=== PATIENT | male | born 1980 | race Caucasian/White ===

== ENCOUNTER 2017-03-30 05:09 | Emergency (ER) | payer MEDICARE, MEDICAID ==
--- NOTE | 2017-03-30 05:40 | EDM.PDOCBH ---
<Jose Juan Lott - Last Filed: 03/30/17 06:57> ED HPI GENERAL MEDICAL PROBLEM - General Chief Complaint: Drug or Alcohol Abuse Stated Complaint: [facility] Time Seen by Provider: 03/30/17 05:24 Source of Information: Reports: Patient, RN Notes Reviewed History Limitations: Reports: Uncooperative (The patient is reluctant to answer questions, complaining that he has answered all of them many times before) - History of Present Illness INITIAL COMMENTS - FREE TEXT/NARRATIVE: The patient states that he took 30-40 clozapine tablets, 400 mg each, around 20: 30 last night to "tried to commit suicide". The patient's medications are prepackaged,, however, and all of his packages are full, with the exception of one package that has 3 morning, 4 evening, and 7 bedtime pockets empty. Additionally, a pill bottle was found containing 4 tablets of Vistaril 50 mg, 10 tablets of Depakote 500 mg, and 5 tablets of Cogentin 1 mg. It is not clear if those pills that he did not take off from this week, or if he had saved them from prior weeks. If the patient took all 7 days of clozapine 400 mg, that would be 2.8 g. The patient states that he has attempted suicide 3 times the past, always with pill overdoses. When asked why he came to the ED, he stated that "It didn't work , so I didn't know what to do". Here in the ED, the patient is afebrile at 97.3, however, he is tachycardic at about 120 bpm. - Related Data Allergies Allergy/AdvReac Type Severity Reaction Status Date / Time No Known Allergies Allergy Verified 03/30/17 05:18 Past Medical History HEENT History: Reports: Impaired Vision Other HEENT History: wears glasses Cardiovascular History: Reports: Hypertension Respiratory History: Reports: Asthma Psychiatric History: Reports: Other (See Below) (Schizoaffective disorder) Endocrine/Metabolic History: Reports: Hypothyroidism, IDDM Social & Family History - Tobacco Use Smoking Status *Q: Current Every Day Smoker Years of Tobacco use: 18 Packs/Tins Daily: 0.6 - Caffeine Use Caffeine Use: Reports: None - Alcohol Use Alcohol Use History: Yes Alcohol Use Frequency: Socially - Recreational Drug Use Recreational Drug Use: Yes Drug Use in Last 12 Months: Yes Recreational Drug Type: Reports: Marijuana/Hashish Recreational Drug Use Frequency: Socially - Living Situation & Occupation Living situation: Reports: Single, Alone Occupation: Disabled ED ROS GENERAL - Review of Systems Review Of Systems: See Below Constitutional: Reports: No Symptoms HEENT: Reports: No Symptoms Respiratory: Reports: No Symptoms Cardiovascular: Reports: No Symptoms Endocrine: Reports: No Symptoms GI/Abdominal: Reports: No Symptoms : Reports: No Symptoms Musculoskeletal: Reports: No Symptoms Skin: Reports: No Symptoms Neurological: Reports: No Symptoms Psychiatric: Reports: No Symptoms Hematologic/Lymphatic: Reports: No Symptoms Immunologic: Reports: No Symptoms ED EXAM, BEHAVIORAL HEALTH - Physical Exam Exam: See Below Exam Limited By: No Limitations General Appearance: Alert, WD/WN, No Apparent Distress Eye Exam: Bilateral Eye: Normal Inspection Ears: Normal External Exam, Hearing Grossly Normal Nose: Normal Inspection, No Blood Throat/Mouth: Normal Inspection, Normal Lips, Normal Voice, No Airway Compromise Head: Atraumatic, Normocephalic Neck: Normal Inspection, Full Range of Motion Respiratory/Chest: No Respiratory Distress, No Accessory Muscle Use, Wheezing ( scattered) Cardiovascular: Normal Peripheral Pulses, No Gallop, No JVD, No Murmur, No Rub, Tachycardia (regular) GI/Abdominal: Normal Bowel Sounds, Soft, Non-Tender, No Organomegaly, No Distention, No Abnormal Bruit, No Mass (Male) Exam: Deferred Back Exam: Normal Inspection, Full Range of Motion, NT Extremities: Normal Inspection, Normal Range of Motion, No Pedal Edema, Normal Capillary Refill Neurological: Alert, No Motor/Sensory Deficits Psychiatric: Normal Affect Skin Exam: Warm, Dry, Intact, Normal color, No rash EKG INTERPRETATION EKG Date: 03/30/17 Time: 05:44 Rhythm: Other (Sinus tachycardia) Rate (Beats/Min): 120 [place]: Normal P-Wave: Present QRS: Normal ST-T: Normal QT: Normal Comparison: NA - No Prior EKG COURSE, BEHAVIORAL HEALTH COMP - Course Vital Signs: Last Vital Signs Temp 36.3 C 03/30/17 05:12 Pulse 113 H 03/30/17 10:42 Resp 16 03/30/17 10:42 BP 134/80 03/30/17 10:42 Pulse Ox 95 03/30/17 10:42 Orders, Labs, Meds: Active Orders 24 hr Category Date Time Status EKG Documentation Completion [RC] STAT Care 03/30/17 05:40 Active Sodium Chloride 0.9% [Normal Saline] 1,000 ml Med 03/30/17 05:45 Active IV ASDIRECTED Medication Orders Sodium Chloride (Normal Saline) 1,000 mls @ 150 mls/hr IV ASDIRECTED KAREN Last Admin: 03/30/17 06:01 Dose: 150 mls/hr Laboratory Tests 03/30/17 03/30/17 03/30/17 Range/Units 06:05 06:05 06:05 WBC 7.33 (4.23-9.07) K/mm3 RBC 5.23 (4.63-6.08) M/mm3 Hgb 15.1 (13.7-17.5) gm/L Hct 43.4 (40.1-51.0) % MCV 83.0 (79.0-92.2) fl MCH 28.9 (25.7-32.2) pg MCHC 34.8 (32.2-35.5) g/dl RDW Std Deviation 42.4 (35.1-43.9) fL Plt Count 196 (163-337) K/mm3 MPV 8.8 L (9.4-12.3) fl Neutrophils % (Manual) 75 H (40-60) % Band Neutrophils % 3 (0-10) % Lymphocytes % (Manual) 16 L (20-40) % Atypical Lymphs % 0 % Monocytes % (Manual) 6 (2-10) % Eosinophils % (Manual) 0 L (0.8-7.0) % Basophils % (Manual) 0 L (0.2-1.2) Toxic Granulation 1+ slight Platelet Estimate Adequate Plt Morphology Comment Normal RBC Morph Comment Normal Sodium 139 (136-145) mEq/L Potassium 4.5 (3.5-5.1) mEq/L Chloride 102 (98-107) mEq/L Carbon Dioxide 24 (21-32) mEq/L Anion Gap 17.5 H (5-15) BUN 25 H (7-18) mg/dL Creatinine 1.6 H (0.7-1.3) mg/dL Est Cr Clr Drug Dosing 74.92 mL/min Estimated GFR (MDRD) 49 (>60) mL/min BUN/Creatinine Ratio 15.6 (14-18) Glucose 140 H (74-106) mg/dL POC Glucose (70-105) mg/dL Calcium 8.7 (8.5-10.1) mg/dL Total Bilirubin 0.4 (0.2-1.0) mg/dL AST 18 (15-37) U/L ALT 21 (16-63) U/L Alkaline Phosphatase 54 (46-116) U/L Total Protein 6.7 (6.4-8.2) g/dl Albumin 3.8 (3.4-5.0) g/dl Globulin 2.9 gm/dL Albumin/Globulin Ratio 1.3 (1-2) Salicylates 4.5 (2.8-20) mg/dL Urine Opiates Screen (NEGATIVE) Ur Buprenorphine Scrn (NEGATIVE) Ur Oxycodone Screen (NEGATIVE) Urine Methadone Screen (NEGATIVE) Ur Propoxyphene Screen (NEGATIVE) Acetaminophen 1 L (10-30) ug/mL Ur Barbiturates Screen (NEGATIVE) Ur Tricyclics Screen (NEGATIVE) Ur Phencyclidine Scrn (NEGATIVE) Ur Amphetamine Screen (NEGATIVE) U Methamphetamines Scrn (NEGATIVE) U Benzodiazepines Scrn (NEGATIVE) U Cocaine Metab Screen (NEGATIVE) U Marijuana (THC) Screen (NEGATIVE) Ethyl Alcohol 0.00 (0.00) gm% 03/30/17 03/30/17 Range/Units 07:25 07:56 WBC (4.23-9.07) K/mm3 RBC (4.63-6.08) M/mm3 Hgb (13.7-17.5) gm/L Hct (40.1-51.0) % MCV (79.0-92.2) fl MCH (25.7-32.2) pg MCHC (32.2-35.5) g/dl RDW Std Deviation (35.1-43.9) fL Plt Count (163-337) K/mm3 MPV (9.4-12.3) fl Neutrophils % (Manual) (40-60) % Band Neutrophils % (0-10) % Lymphocytes % (Manual) (20-40) % Atypical Lymphs % % Monocytes % (Manual) (2-10) % Eosinophils % (Manual) (0.8-7.0) % Basophils % (Manual) (0.2-1.2) Toxic Granulation Platelet Estimate Plt Morphology Comment RBC Morph Comment Sodium (136-145) mEq/L Potassium (3.5-5.1) mEq/L Chloride (98-107) mEq/L Carbon Dioxide (21-32) mEq/L Anion Gap (5-15) BUN (7-18) mg/dL Creatinine (0.7-1.3) mg/dL Est Cr Clr Drug Dosing mL/min Estimated GFR (MDRD) (>60) mL/min BUN/Creatinine Ratio (14-18) Glucose (74-106) mg/dL POC Glucose 136 H (70-105) mg/dL Calcium (8.5-10.1) mg/dL Total Bilirubin (0.2-1.0) mg/dL AST (15-37) U/L ALT (16-63) U/L Alkaline Phosphatase (46-116) U/L Total Protein (6.4-8.2) g/dl Albumin (3.4-5.0) g/dl Globulin gm/dL Albumin/Globulin Ratio (1-2) Salicylates (2.8-20) mg/dL Urine Opiates Screen Negative (NEGATIVE) Ur Buprenorphine Scrn Negative (NEGATIVE) Ur Oxycodone Screen Negative (NEGATIVE) Urine Methadone Screen Negative (NEGATIVE) Ur Propoxyphene Screen Negative (NEGATIVE) Acetaminophen (10-30) ug/mL Ur Barbiturates Screen Negative (NEGATIVE) Ur Tricyclics Screen Presumptive positive H (NEGATIVE) Ur Phencyclidine Scrn Negative (NEGATIVE) Ur Amphetamine Screen Presumptive positive H (NEGATIVE) U Methamphetamines Scrn Presumptive positive H (NEGATIVE) U Benzodiazepines Scrn Negative (NEGATIVE) U Cocaine Metab Screen Negative (NEGATIVE) U Marijuana (THC) Screen Presumptive positive H (NEGATIVE) Ethyl Alcohol (0.00) gm% Medications Generic Name Dose Route Start Last Admin Trade Name Freq PRN Reason Stop Dose Admin Sodium Chloride 1,000 mls @ 150 mls/hr 03/30/17 05:45 03/30/17 06:01 Normal Saline IV 150 mls/hr ASDIRECTED KAREN Administration Discontinued Medications Generic Name Dose Route Start Last Admin Trade Name Freq PRN Reason Stop Dose Admin Sodium Chloride 2,000 mls @ 999 mls/hr 03/30/17 07:21 03/30/17 08:35 Normal Saline IV 03/30/17 09:21 999 mls/hr ONETIME ONE Administration Medical Clearance: 03/30/17 07:00 The patient's anion gap is elevated at 17.5. His BUN/Cr are elevated at 25/1.6, and his blood glucose is elevated at 140. Unfortunately, we do not have prior labs to compare. The urine drug screen is still pending. Case discussed with Dr. Mary Marie, and care of the patient turned over to her at this time, for change of shift. Departure - Departure Disposition: DC/Tfer to Other 70 Clinical Impression: Methamphetamine use Suicidal overdose Qualifiers: Encounter type: initial encounter Qualified Code(s): T50.902A - Poisoning by unspecified drugs, medicaments and biological substances, intentional self-harm , initial encounter - Discharge Information Referrals: Georgia Cardenas MD [Primary Care Provider] - <Hillary Irene A - Last Filed: 03/30/17 10:58> COURSE, BEHAVIORAL HEALTH COMP - Course Re-Assessment/Re-Exam: Patient signed out to me by Dr. Lott pending observation/reeval. Patient confirms to me that he took an overdose, he states that around 8:30 PM last night, in an attempt to kill himself. He states he's not still feeling suicidal at this moment. He is not able to explain to me why he was feeling suicidal last night. He states that he was angry but doesn't provide details about what triggered the attempt. He is calm and cooperative. His heart rate is around 115 sinus tachycardia he is otherwise well appearing with benign exam. We'll continue to observe. Anticipate psychiatry consult when medically cleared. Re-Assessment/Re-Exam Date: 03/30/17 Re-Assessment/Re-Exam Time: 08:07 (Discussed with Denita Watts at [facility]. We agreed that patient likely needs psych admission given his attempt and suicidality. I asked if she is able to facilitate finding a psych inpatient bed for him and helping with commital. She states that since he was initially seen and evaluated in ED it would be more appropriate for me to do commital. Also states that she anticipates that inpatient psych facility would want request for bed to be from me (the MD) and so isn't really able to facilitate a transfer. I will discuss with SW here to see if they can assist.) Discharge vs Psych Eval/Treatment:: 03/30/17 09:07 Notified that staff from [facility] will be here to eval pt/facilitate dispo. 03/30/17 10:36 Denita with [facility] came to assist with committal paperwork. Discussed with Dr. Edward, psychiatrist at [facility] who accepts the patient for transfer. Patient will be transported to [facility] ED by [employer] department. Dr. Ren, ED physician at [facility], accepts the patient for transfer. Patient remains calm and cooperative. Suspect that mild persistent tachycardia is likely due to amphetamines. 03/30/17 10:58 deputy probation officer at bedside, they will transport Departure - Departure Time of Disposition: 10:38
[2017-03-30] MEDS ORDERED: Sodium Chloride 0.9% 1,000 ML IV SCH (05:45)
[2017-03-30] MEDS ORDERED: Sodium Chloride 0.9% 2,000 ML IV ONE (07:21)
[2017-03-30 10:43] VITALS: BP 134/80
== END 2017-03-30 10:57 | disposition other institution (70) ==
LOC: JD.ED 05:09 → MERGE 05:09 → JD.ED 10:57
DX: T42.4X2A Poisoning by benzodiazepines, intentional self-harm, initial encounter (principal); F15.90 Other stimulant use, unspecified, uncomplicated; I10 Essential (primary) hypertension; J45.909 Unspecified asthma, uncomplicated; E03.9 Hypothyroidism, unspecified; E11.9 Type 2 diabetes mellitus without complications; F17.210 Nicotine dependence, cigarettes, uncomplicated
CPT/HCPCS: 36415; 80053; 80306; 82962; 85025; 93005; 96360; 96361; 99285; G0480; J7040

== ENCOUNTER 2019-06-22 19:36 | Emergency (ER) | payer MEDICARE, MEDICAID ==
[2019-06-22 19:46] VITALS: BP 125/95; PULSE 98
[2019-06-22] MEDS ORDERED: HYDROmorphone 1 MG/ML Syringe IVPUSH STA (20:12)
[2019-06-22] MEDS ORDERED: Ondansetron 4 MG/2 ML SDV IVPUSH ONE (20:12)
[2019-06-22] MEDS ORDERED: Sodium Chloride 0.9% 1,000 ML IV SCH (20:15)
--- NOTE | 2019-06-22 20:20 | EDM.PDOC ---
ED HPI GENERAL MEDICAL PROBLEM - General Chief Complaint: Gastrointestinal Problem Stated Complaint: SOB ABDOMINAL PAIN Time Seen by Provider: 06/22/19 19:56 Source of Information: Reports: Patient, Old Records, RN Notes Reviewed History Limitations: Reports: No Limitations - History of Present Illness INITIAL COMMENTS - FREE TEXT/NARRATIVE: Patient is a 38-year-old male who presents to the ED for the evaluation of abdominal pain. Patient states that he is not been feeling well for the past week, he states that he has little to no energy. He states his appetite has been lacking he had cereal for breakfast this morning, and some cottage cheese today, but nothing really taste good to him. Patient complains of nausea, and his abdomen hurting, he states this is mostly in the epigastrium, he states that he feels mildly short of breath due to the pain. Patient denies any fevers or chills, vomiting or diarrhea, or any chest pain. He notes that his last bowel movement was around 3 or 4 days ago now. He states he takes 20 meds daily and believes that we have a current medication list in the computer for him. Patient's history reveals that he is a diabetic, and takes some psychiatric medications. - Related Data Allergies Allergy/AdvReac Type Severity Reaction Status Date / Time No Known Allergies Allergy Verified 06/22/19 19:46 Home Meds: Home Meds Albuterol [Ventolin HFA] 2 puff INH DAILY 03/14/19 [History] Benztropine [Cogentin] 2 mg PO BID 03/14/19 [History] Divalproex Sodium [Depakote] 1,000 mg PO BEDTIME 03/14/19 [History] Divalproex Sodium [Depakote] 500 mg PO DAILY 03/14/19 [History] Hydrochlorothiazide [Microzide] 12.5 mg PO DAILY 03/14/19 [History] Insulin Glarg,Human.Rec.Analog [Lantus Solostar] 10 unit SQ DAILY 03/14/19 [ History] Lisinopril 20 mg PO DAILY 03/14/19 [History] Ranitidine [Zantac] 150 mg PO DAILY 03/14/19 [History] cloZAPine [Clozapine] 200 mg PO BEDTIME 03/14/19 [History] sitaGLIPtin Phos/Metformin HCl [Janumet 50-500 MG] 1 tab PO BID 03/14/19 [ History] Past Medical History HEENT History: Reports: Impaired Vision Other HEENT History: wears glasses Cardiovascular History: Reports: Hypertension Respiratory History: Reports: Asthma Gastrointestinal History: Reports: GERD Psychiatric History: Reports: Other (See Below) Endocrine/Metabolic History: Reports: Hypothyroidism, IDDM Social & Family History - Tobacco Use Smoking Status *Q: Former Smoker Used Tobacco, but Quit: Yes Month/Year Tobacco Last Used: june 19 2019 - Caffeine Use Caffeine Use: Reports: Soda - Recreational Drug Use Recreational Drug Use: Yes Drug Use in Last 12 Months: Yes Recreational Drug Type: Reports: Marijuana/Hashish Recreational Drug Use Frequency: Daily - Living Situation & Occupation Living situation: Reports: Alone, Single Occupation: Disabled ED ROS GENERAL - Review of Systems Review Of Systems: See Below Constitutional: Reports: Malaise, Decreased Appetite. Denies: Fever, Chills HEENT: Reports: No Symptoms Respiratory: Reports: Shortness of Breath Cardiovascular: Denies: Chest Pain Endocrine: Reports: No Symptoms GI/Abdominal: Reports: Abdominal Pain (epigastrium/mid abdomen), Nausea. Denies : Diarrhea, Vomiting : Reports: No Symptoms Musculoskeletal: Reports: No Symptoms Skin: Reports: No Symptoms Neurological: Reports: No Symptoms Psychiatric: Reports: No Symptoms ED EXAM, GI/ABD - Physical Exam Exam: See Below Exam Limited By: No Limitations General Appearance: Alert, WD/WN, No Apparent Distress Eyes: Bilateral: Normal Appearance Throat/Mouth: Normal Inspection, Normal Lips, Normal Teeth, Normal Gums, Normal Oropharynx, Normal Voice, No Airway Compromise Head: Atraumatic, Normocephalic Neck: Normal Inspection Respiratory/Chest: No Respiratory Distress, Lungs Clear, Normal Breath Sounds, No Accessory Muscle Use, Chest Non-Tender Cardiovascular: Normal Peripheral Pulses, Regular Rate, Rhythm, No Murmur GI/Abdominal Exam: Normal Bowel Sounds, Soft, No Distention, No Mass, Guarding ( around entire abdomen, but he states that the mid abdomen/epigastrium is the most tender with palpation.) Extremities: Normal Inspection, Normal Capillary Refill Neurological: Alert, Oriented, Normal Cognition, No Motor/Sensory Deficits Psychiatric: Normal Affect, Normal Mood Skin Exam: Warm, Dry, Intact, Normal Color, No Rash Course - Vital Signs Last Recorded V/S: Last Vital Signs Temp 97.2 F 06/22/19 19:43 Pulse 98 06/22/19 19:43 Resp 16 06/22/19 19:43 BP 125/95 H 06/22/19 19:43 Pulse Ox 97 06/22/19 19:43 - Orders/Labs/Meds Orders: Active Orders 24 hr Category Date Time Status Abdomen Pelvis w Cont [CT] Stat Exams 06/22/19 20:12 Ordered UA W/MICROSCOPIC [URIN] Stat Lab 06/22/19 20:12 Ordered Sodium Chloride 0.9% [Normal Saline] 1,000 ml Med 06/22/19 20:15 Active IV ASDIRECTED Medication Orders Sodium Chloride (Normal Saline) 1,000 mls @ 999 mls/hr IV ASDIRECTED KAREN Last Admin: 06/22/19 20:43 Dose: 999 mls/hr Labs: Laboratory Tests 06/22/19 06/22/19 06/22/19 Range/Units 20:45 20:45 22:40 WBC 7.40 (4.23-9.07) K/mm3 RBC 5.59 (4.63-6.08) M/mm3 Hgb 15.6 (13.7-17.5) gm/dl Hct 44.9 (40.1-51.0) % MCV 80.3 (79.0-92.2) fl MCH 27.9 (25.7-32.2) pg MCHC 34.7 (32.2-35.5) g/dl RDW Std Deviation 39.0 (35.1-43.9) fL Plt Count 241 (163-337) K/mm3 MPV 8.8 L (9.4-12.3) fl Neutrophils % (Manual) 50 (40-60) % Band Neutrophils % 0 (0-10) % Lymphocytes % (Manual) 45 H (20-40) % Atypical Lymphs % 0 % Monocytes % (Manual) 5 (2-10) % Eosinophils % (Manual) 0 L (0.8-7.0) % Basophils % (Manual) 0 L (0.2-1.2) Platelet Estimate Adequate Plt Morphology Comment Normal RBC Morph Comment Normal Sodium 132 L (136-145) mEq/L Potassium 3.7 (3.5-5.1) mEq/L Chloride 95 L (98-107) mEq/L Carbon Dioxide 26 (21-32) mEq/L Anion Gap 14.7 (5-15) BUN 12 (7-18) mg/dL Creatinine 1.0 (0.7-1.3) mg/dL Est Cr Clr Drug Dosing 124.17 mL/min Estimated GFR (MDRD) > 60 (>60) mL/min BUN/Creatinine Ratio 12.0 L (14-18) Glucose 151 H (74-106) mg/dL Calcium 8.6 (8.5-10.1) mg/dL Total Bilirubin 0.4 (0.2-1.0) mg/dL AST 14 L (15-37) U/L ALT 33 (16-63) U/L Alkaline Phosphatase 59 (46-116) U/L Total Protein 6.5 (6.4-8.2) g/dl Albumin 3.8 (3.4-5.0) g/dl Globulin 2.7 gm/dL Albumin/Globulin Ratio 1.4 (1-2) Urine Color Light yellow (Yellow) Urine Appearance Clear (Clear) Urine pH 7.0 (5.0-8.0) Ur Specific [place] 1.010 (1.005-1.030) Urine Protein Negative (Negative) Urine Glucose (UA) Negative (Negative) Urine Ketones Negative (Negative) Urine Occult Blood Negative (Negative) Urine Nitrite Negative (Negative) Urine Bilirubin Negative (Negative) Urine Urobilinogen 0.2 (0.2-1.0) Ur Leukocyte Esterase Negative (Negative) Meds: Medications Generic Name Dose Route Start Last Admin Trade Name Freq PRN Reason Stop Dose Admin Sodium Chloride 1,000 mls @ 999 mls/hr 06/22/19 20:15 06/22/19 20:43 Normal Saline IV 999 mls/hr ASDIRECTED KAREN Administration Discontinued Medications Generic Name Dose Route Start Last Admin Trade Name Freq PRN Reason Stop Dose Admin Hydromorphone HCl 1 mg 06/22/19 20:12 06/22/19 20:44 Dilaudid IVPUSH 06/22/19 20:13 1 mg ONETIME STA Administration Iopamidol 100 ml 06/22/19 22:22 06/22/19 22:25 Isovue-300 (61%) IVPUSH 06/22/19 22:23 100 ml ONETIME ONE Administration Ondansetron HCl 4 mg 06/22/19 20:12 06/22/19 20:43 Zofran IVPUSH 06/22/19 20:13 4 mg ONETIME ONE Administration - Re-Assessments/Exams Free Text/Narrative Re-Assessment/Exam: 06/22/19 20:21 Patient presents to the ED for evaluation of abdominal pain. I did order IV to be placed, abdomen and pelvis CT with contrast, some IV fluids, 1 mg IV Dilaudid , 4 mg IV Zofran, CBC, CMP, UA for initial evaluation. 06/22/19 22:28 Patient labs have been reported, and demonstrate no worrisome acute abnormalities, sodium was mildly low, but the IV fluids given should have corrected this. CT is pending at this time. 06/22/19 23:08 Urinalysis was collected and is unremarkable. CT has been done, and [facility] could not find any sort of acute intra-abdominal pathology. They do know however there is an abundant quantity of stool seen throughout the colon. At this time, it is likely that the patient is suffering from constipation, and most of his symptoms would correlate with this. I will provide him a bottle of mag citrate to take home, the oral contrast and IV fluids should help as well to alleviate some of his symptoms. Departure - Departure Time of Disposition: 23:10 Disposition: Home, Self-Care 01 Condition: Fair Clinical Impression: Constipation Qualifiers: Constipation type: unspecified constipation type Qualified Code(s): K59.00 - Constipation, unspecified - Discharge Information *PRESCRIPTION DRUG MONITORING PROGRAM REVIEWED*: No *COPY OF PRESCRIPTION DRUG MONITORING REPORT IN PATIENT ALBA: No Instructions: Constipation, Adult, [id number] Referrals: Georgia Cardenas MD [Primary Care Provider] - Forms: ED Department Discharge Additional Instructions: You were evaluated in the ER today regarding your abdominal pain. Your laboratory evaluation was within normal limits, your CT demonstrated that you had a large amount of stool throughout her colon. This is consistent with constipation and would explain most of your symptoms that you've been experiencing. You were given some IV fluids, and the oral contrast should also help provide a laxative effect. He was given a bottle of magnesium citrate to take home with you, please drink one half bottle wait a few hours to see if you don't have a large bowel movement, if you do not have a large bowel movement and it few hours you may repeat the last half of the bottle. Recommend that you increase your oral fluid intake, and try to start your self on some sort of stool softener daily to help guard against constipation. You may take 500 mg Tylenol or 600 mg ibuprofen every 6 hours as needed for further pain relief. Please return to the ED if your symptoms should change or worsen. - My Orders Last 24 Hours: My Active Orders 06/22/19 20:12 Abdomen Pelvis w Cont [CT] Stat UA W/MICROSCOPIC [URIN] Stat 06/22/19 20:15 Sodium Chloride 0.9% [Normal Saline] 1,000 ml IV ASDIRECTED - Assessment/Plan Last 24 Hours: My Active Orders 06/22/19 20:12 Abdomen Pelvis w Cont [CT] Stat UA W/MICROSCOPIC [URIN] Stat 06/22/19 20:15 Sodium Chloride 0.9% [Normal Saline] 1,000 ml IV ASDIRECTED
[2019-06-22] MEDS ORDERED: Iopamidol 612 MG/ML 100 ML Bottle IVPUSH ONE (22:22)
[2019-06-22] MEDS ORDERED: Magnesium Citrate Solution 296 ML Bottle PO ONE (23:10)
--- NOTE | 2019-06-23 06:43 | CT ---
CT abdomen and pelvis Technique: Multiple axial sections were obtained from above the dome of the diaphragm inferiorly through the pubic symphysis. Intravenous and oral contrast was utilized. Delayed images were also obtained through the bladder. Comparison: Previous CT abdomen and pelvis study of 03/14/19. Findings: Mild increased stool is seen throughout the colon. Nothing acute is seen within the visualized lung bases. Liver contains no focal abnormality. Spleen appears within normal limits. Adrenal glands show no nodule. Pancreas is within normal limits. Kidneys show symmetric contrast enhancement without hydronephrosis or mass. Aorta shows no aneurysm. Gallbladder contains no calcified gallstones. No retroperitoneal adenopathy or mesenteric abnormalities are seen. Appendix is seen and is normal in size. No pelvic mass or adenopathy is identified. Delayed images show contrast within the bladder. Bone window settings were reviewed which show moderate disc space narrowing at L5-S1. Minimal scattered endplate osteophytes are seen within the spine. No acute osseous abnormality is noted. Impression: 1. Mild increased stool within the colon and other findings which are believed to be incidental. 2. Nothing acute is seen. Diagnostic code #2 I agree with preliminary report from [facility], finalized on 06/23/19, 12:02 AM Central Time
== END 2019-06-22 23:23 | disposition home or self-care (01) ==
LOC: JD.ED 19:36
DX: K59.00 Constipation, unspecified (principal); I10 Essential (primary) hypertension; E11.9 Type 2 diabetes mellitus without complications; K21.9 Gastro-esophageal reflux disease without esophagitis; Z79.4 Long term (current) use of insulin; Z79.899 Other long term (current) drug therapy; Z87.891 Personal history of nicotine dependence
CPT/HCPCS: 36415; 74177; 80053; 81001; 85007; 85027; 96361; 96374; 96375; 99284; A9270; J1170; J2405; J7040; Q9967; 99283

== ENCOUNTER 2020-01-20 13:54 | Emergency (ER) | payer MEDICARE, MEDICAID ==
[2020-01-20 14:10] VITALS: BP 134/112; PULSE 120
[2020-01-20] MEDS ORDERED: HYDROmorphone 1 MG/ML Syringe IM ONE (14:36)
[2020-01-20] MEDS ORDERED: Ondansetron 4 MG Tab.DIS PO ONE (14:37)
--- NOTE | 2020-01-20 14:49 | EDM.PDOC ---
ED HPI GENERAL MEDICAL PROBLEM - General Chief Complaint: Abdominal Pain Stated Complaint: ABDOMINAL PAIN Time Seen by Provider: 01/20/20 14:09 Source of Information: Reports: Patient, Old Records, RN Notes Reviewed History Limitations: Reports: No Limitations - History of Present Illness INITIAL COMMENTS - FREE TEXT/NARRATIVE: Patient is a 39-year-old male who presents to the ED for abdominal pain. Patient notes that he has been having abdominal pain, for the past day or so, but it really did increase last night, and states he was not able to sleep much. Patient states that this is an intermittent pain and seems to come and go. He was evaluated in this ER in June 2019, and was found to be severely constipated and was sent home with magnesium citrate. Patient states that he has not had any fevers or chills, nausea or vomiting or diarrhea. He states that his last bowel movement was a couple days ago. Patient is on quite a few regular medications for multiple ailments. I did ask the patient where his belly pain was, and he points to his mid abdomen region. He states it does not radiate anywhere. He is not complaining of any urinary issues. He did not take any sort of medications for his pain at home. Middle Abdomen Pain Score (Numeric/FACES): 9 - Related Data Allergies Allergy/AdvReac Type Severity Reaction Status Date / Time No Known Allergies Allergy Verified 01/20/20 14:10 Home Meds: Home Meds Albuterol [Ventolin HFA] 2 puff INH DAILY 03/14/19 [History] Benztropine [Cogentin] 2 mg PO BID 03/14/19 [History] Divalproex Sodium [Depakote] 1,000 mg PO BEDTIME 03/14/19 [History] Divalproex Sodium [Depakote] 500 mg PO DAILY 03/14/19 [History] Insulin Glarg,Human.Rec.Analog [Lantus Solostar] 10 unit SQ DAILY 03/14/19 [ History] Lisinopril 20 mg PO DAILY 03/14/19 [History] Ranitidine [Zantac] 150 mg PO DAILY 03/14/19 [History] cloZAPine [Clozapine] 200 mg PO BEDTIME 03/14/19 [History] hydroCHLOROthiazide [Microzide] 12.5 mg PO DAILY 03/14/19 [History] sitaGLIPtin Phos/Metformin HCl [Janumet 50-500 MG] 1 tab PO BID 03/14/19 [ History] Dicyclomine [Bentyl] 20 mg PO TID #21 tab 01/20/20 [Rx] Past Medical History HEENT History: Reports: Impaired Vision Other HEENT History: wears glasses Cardiovascular History: Reports: Hypertension Respiratory History: Reports: Asthma Gastrointestinal History: Reports: GERD Endocrine/Metabolic History: Reports: Hypothyroidism, IDDM Social & Family History - Tobacco Use Smoking Status *Q: Former Smoker Used Tobacco, but Quit: Yes Month/Year Tobacco Last Used: 2019 - Caffeine Use Caffeine Use: Reports: None - Recreational Drug Use Recreational Drug Use: Yes Recreational Drug Type: Reports: Marijuana/Hashish - Living Situation & Occupation Living situation: Reports: Alone, Single Occupation: Disabled ED ROS GENERAL - Review of Systems Review Of Systems: Comprehensive ROS is negative, except as noted in HPI. ED EXAM, GI/ABD - Physical Exam Exam: See Below Exam Limited By: No Limitations General Appearance: Alert, WD/WN, No Apparent Distress Eyes: Bilateral: Normal Appearance Respiratory/Chest: No Respiratory Distress, Lungs Clear, Normal Breath Sounds, No Accessory Muscle Use, Chest Non-Tender Cardiovascular: Normal Peripheral Pulses, Regular Rate, Rhythm, No Murmur GI/Abdominal Exam: Soft, No Distention, No Mass, Tender (mid abdomen mainly), Abnormal Bowel Sounds (hypoactive) Extremities: Normal Inspection, Normal Capillary Refill Neurological: Alert, Oriented, Normal Cognition, No Motor/Sensory Deficits Psychiatric: Normal Affect, Normal Mood Skin Exam: Warm, Dry, Intact, Normal Color, No Rash Course - Vital Signs Last Recorded V/S: Last Vital Signs Temp 97.6 F 01/20/20 14:06 Pulse 120 H 01/20/20 14:06 Resp 20 01/20/20 14:06 BP 134/112 H 01/20/20 14:06 Pulse Ox 96 01/20/20 14:06 - Orders/Labs/Meds Meds: Medications Discontinued Medications Generic Name Dose Route Start Last Admin Trade Name Freq PRN Reason Stop Dose Admin Hydromorphone HCl 1 mg 01/20/20 14:36 01/20/20 15:18 Dilaudid IM 01/20/20 14:37 1 mg ONETIME ONE Administration Magnesium Citrate 296 ml 01/20/20 15:16 01/20/20 15:22 Citrate Of Magnesia PO 01/20/20 15:17 296 ml ONETIME ONE Administration Ondansetron HCl 4 mg 01/20/20 14:37 01/20/20 15:17 Zofran Odt PO 01/20/20 14:38 4 mg ONETIME ONE Administration - Re-Assessments/Exams Free Text/Narrative Re-Assessment/Exam: 01/20/20 14:50 Patient presents to the ED for his mid abdomen pain. Have ordered flat and upright abdomen x-rays, 1 mg Dilaudid and 4 mg ODT Zofran for initial management. Suspect the patient is constipated due to his clinical history. If x-ray is unimpressive, will follow with labs. 01/20/20 15:16 Patient's x-ray does demonstrate quite a diffuse amount of stool throughout the colon, which would be consistent with constipation. Patient will be discharged home with a bottle of magnesium citrate and other general recommendations. Departure - Departure Time of Disposition: 15:17 Disposition: Home, Self-Care 01 Condition: Good Clinical Impression: Constipation Qualifiers: Constipation type: unspecified constipation type Qualified Code(s): K59.00 - Constipation, unspecified - Discharge Information *PRESCRIPTION DRUG MONITORING PROGRAM REVIEWED*: No *COPY OF PRESCRIPTION DRUG MONITORING REPORT IN PATIENT ALBA: No Prescriptions: Dicyclomine [Bentyl] 20 mg PO TID #21 tab Instructions: Constipation, Adult, [id number] Referrals: Georgia Cardenas MD [Primary Care Provider] - Forms: ED Department Discharge Additional Instructions: You were evaluated in the ER today regarding your abdominal pain. X-rays were taken, and they did demonstrate quite a diffuse amount of stool throughout your entire colon, which is consistent with constipation. You have been given a bottle of magnesium citrate, please drink the whole bottle to provide a good bowel movement. You may mix this with 6 ounces of juice of choice or Gatorade or Powerade to help enhance the flavor. This should provide a rather large bowel movement in a few hours. You would benefit from using a stool softener like MiraLAX on a daily basis, please use 1 packet as directed daily to help soften the stools and promote good bowel health. Some of the medications you are on, such as your antipsychotics can slow the bowels down which causes you to have this diffuse constipation. You may try to take ibuprofen 600mg or Tylenol 500 mg q6h for abdominal pain/ discomfort. Do not exceed 3200mg ibuprofen or 4000mg Tylenol in a 24H time span. Please return to the ER at any time if symptoms should change or worsen. Sepsis Event Note - Evaluation Sepsis Screening Result: No Definite Risk - Focused Exam Vital Signs: Vital Signs Temp Pulse Resp BP Pulse Ox 01/20/20 14:06 97.6 F 120 H 20 134/112 H 96 Date Exam was Performed: 01/20/20 Time Exam was Performed: 21:18
--- NOTE | 2020-01-20 15:12 | CR ---
Abdomen: Supine and upright views the abdomen were obtained. Mild increased stool is noted within colon. Bowel gas pattern is otherwise unremarkable. No free air is seen. Bony structures are unremarkable. No abnormal calcifications are seen. Impression: 1. Increase stool within the colon. Diagnostic code #2 This report was dictated in MDT
[2020-01-20] MEDS ORDERED: Magnesium Citrate Solution 296 ML Bottle PO ONE (15:16)
== END 2020-01-20 16:30 | disposition home or self-care (01) ==
LOC: JD.ED 13:54
DX: K59.00 Constipation, unspecified (principal); I10 Essential (primary) hypertension; J45.909 Unspecified asthma, uncomplicated; K21.9 Gastro-esophageal reflux disease without esophagitis; Z87.891 Personal history of nicotine dependence; Z79.899 Other long term (current) drug therapy
CPT/HCPCS: 74019; 96372; 99284; A9270; J1170; 99283

== ENCOUNTER 2020-05-08 01:41 | Emergency (ER) | payer MEDICARE, MEDICAID ==
[2020-05-08 02:08] VITALS: BP 113/82; PULSE 112
[2020-05-08] MEDS ORDERED: Lactated Ringers 1,000 ML IV SCH (03:15)
--- NOTE | 2020-05-08 03:43 | EDM.PDOC ---
ED HPI GENERAL MEDICAL PROBLEM - General Chief Complaint: Abdominal Pain Stated Complaint: ABDOMINAL PAIN Time Seen by Provider: 05/08/20 02:26 Source of Information: Reports: Patient History Limitations: Reports: No Limitations - History of Present Illness INITIAL COMMENTS - FREE TEXT/NARRATIVE: This is a 39-year-old male. He comes to the ER because he feels like his stomach is feeling funny. He says he has had this sensation for many years and it seemed like it got worse around clock last night. He says he feels a lot of pressure in his left upper quadrant like his spleen is going to rupture. 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 I think what he means is that he has the sensation that is going to rupture periodically over the last 10 years. He says he has had no trauma to his abdomen he has no history of leukemia. I explained to him when we did the x-rays of his abdomen that he has a marked amount of stool in his colon and that could be putting pressure on his spleen making it feel like it is heavy and enlarged there. I spoke to him regarding his blood work with a sodium of 127 and potassium of 3.0 which can cause the bowel to slow down and malfunction. He also has a glucose of 179. She states he does feel like he is a little dry. The patient is asking whether or not he can stay in a swing bed in the hospital here. I explained to him we do not have swing beds in the hospital. Asked me then if I wanted him to go and I told him no because I was going to give him fluids and some medicine to help him move the stool long in his colon. So he decided to stay. - Related Data Allergies Allergy/AdvReac Type Severity Reaction Status Date / Time No Known Allergies Allergy Verified 05/08/20 01:52 Home Meds: Home Meds Albuterol [Ventolin HFA] 2 puff INH DAILY 03/14/19 [History] Benztropine [Cogentin] 2 mg PO BID 03/14/19 [History] Divalproex Sodium [Depakote] 1,000 mg PO BEDTIME 03/14/19 [History] Divalproex Sodium [Depakote] 500 mg PO DAILY 03/14/19 [History] Insulin Glarg,Human.Rec.Analog [Lantus Solostar] 10 unit SQ DAILY 03/14/19 [History] Lisinopril 20 mg PO DAILY 03/14/19 [History] Ranitidine [Zantac] 150 mg PO DAILY 03/14/19 [History] cloZAPine [Clozapine] 200 mg PO BEDTIME 03/14/19 [History] hydroCHLOROthiazide [Microzide] 12.5 mg PO DAILY 03/14/19 [History] sitaGLIPtin Phos/Metformin HCl [Janumet 50-500 MG] 1 tab PO BID 03/14/19 [History] Dicyclomine [Bentyl] 20 mg PO TID #21 tab 01/20/20 [Rx] Dicyclomine [Bentyl] 10 mg PO TID PRN #15 cap 05/08/20 [Rx] Past Medical History HEENT History: Reports: Impaired Vision Other HEENT History: wears glasses Cardiovascular History: Reports: Hypertension Respiratory History: Reports: Asthma Gastrointestinal History: Reports: GERD Psychiatric History: Reports: Schizophrenia Endocrine/Metabolic History: Reports: Hypothyroidism, IDDM Social & Family History - Family History Family Medical History: Noncontributory - Tobacco Use Smoking Status *Q: Former Smoker Years of Tobacco use: 20 Packs/Tins Daily: 0.5 Used Tobacco, but Quit: Yes Month/Year Tobacco Last Used: 01/27 - Caffeine Use Caffeine Use: Reports: None - Recreational Drug Use Recreational Drug Use: Yes Drug Use in Last 12 Months: Yes Recreational Drug Type: Reports: Marijuana/Hashish Recreational Drug Use Frequency: Daily - Living Situation & Occupation Living situation: Reports: Alone, Single Occupation: Disabled ED ROS GENERAL - Review of Systems Review Of Systems: See Below Constitutional: Denies: Fever, Chills HEENT: Reports: No Symptoms Respiratory: Denies: Shortness of Breath, Cough Cardiovascular: Denies: Chest Pain Endocrine: Reports: No Symptoms GI/Abdominal: Reports: Abdominal Pain. Denies: Diarrhea, Nausea, Vomiting : Reports: No Symptoms Musculoskeletal: Reports: No Symptoms Skin: Reports: No Symptoms Neurological: Reports: No Symptoms Psychiatric: Reports: Anxiety Hematologic/Lymphatic: Reports: No Symptoms ED EXAM, GI/ABD - Physical Exam Exam: See Below Exam Limited By: No Limitations General Appearance: Alert, WD/WN, No Apparent Distress Eyes: Bilateral: Normal Appearance Ears: Normal External Exam Nose: Normal Inspection Throat/Mouth: Normal Lips, Normal Voice, No Airway Compromise Head: Normocephalic Neck: Supple Respiratory/Chest: No Respiratory Distress, Lungs Clear, Normal Breath Sounds Cardiovascular: Regular Rate, Rhythm, No Murmur GI/Abdominal Exam: Soft, Other (He asked me not to palpate his abdomen and he kept it tight. It is however soft there is some mild tenderness especially along the colon route but otherwise it appears to be normal. He does have bowel sounds are though they are decreased.) Back Exam: Full Range of Motion Extremities: Normal Inspection, Normal Range of Motion Neurological: Alert, Oriented Psychiatric: Normal Affect, Normal Mood Skin Exam: Warm, Dry Course - Vital Signs Last Recorded V/S: Last Vital Signs Temp 96.2 F L 05/08/20 02:02 Pulse 112 H 05/08/20 02:02 Resp 12 05/08/20 02:02 BP 113/82 05/08/20 02:02 Pulse Ox 95 05/08/20 02:02 - Orders/Labs/Meds Orders: Active Orders 24 hr Category Date Time Status Abdomen 2V AP Flat Upright [CR] Stat Exams 05/08/20 01:57 Taken UA W/MICROSCOPIC [URIN] Stat Lab 05/08/20 01:57 Ordered Lactated Ringers [Ringers, Lactated] 1,000 ml Med 05/08/20 03:15 Active IV ASDIRECTED Magnesium Citrate [Citrate of Magnesia] Med 05/08/20 04:35 Once 296 ml PO ONETIME ONE Medication Orders Lactated Ringer's (Ringers, Lactated) 1,000 mls @ 1,000 mls/hr IV ASDIRECTED KAREN Last Admin: 05/08/20 03:18 Dose: 1,000 mls/hr Documented by: GUERA Labs: Laboratory Tests 05/08/20 05/08/20 Range/Units 01:55 01:55 WBC 9.64 H (4.23-9.07) K/mm3 RBC 5.22 (4.63-6.08) M/mm3 Hgb 14.9 (13.7-17.5) gm/dl Hct 42.4 (40.1-51.0) % MCV 81.2 (79.0-92.2) fl MCH 28.5 (25.7-32.2) pg MCHC 35.1 (32.2-35.5) g/dl RDW Std Deviation 37.5 (35.1-43.9) fL Plt Count 271 (163-337) K/mm3 MPV 8.7 L (9.4-12.3) fl Neut % (Auto) 58.0 (34.0-67.9) % Lymph % (Auto) 32.3 (21.8-53.1) % [place] % (Auto) 9.4 (5.3-12.2) % Eos % (Auto) 0.2 L (0.8-7.0) Baso % (Auto) 0.0 L (0.1-1.2) % Neut # (Auto) 5.59 H (1.78-5.38) K/mm3 Lymph # (Auto) 3.11 (1.32-3.57) K/mm3 [place] # (Auto) 0.91 H (0.30-0.82) K/mm3 Eos # (Auto) 0.02 L (0.04-0.54) K/mm3 Baso # (Auto) 0.00 L (0.01-0.08) K/mm3 Sodium 127 L (136-145) mEq/L Potassium 3.0 L (3.5-5.1) mEq/L Chloride 91 L (98-107) mEq/L Carbon Dioxide 27 (21-32) mEq/L Anion Gap 12.0 (5-15) BUN 16 (7-18) mg/dL Creatinine 1.3 (0.7-1.3) mg/dL Est Cr Clr Drug Dosing 94.59 mL/min Estimated GFR (MDRD) > 60 (>60) mL/min BUN/Creatinine Ratio 12.3 L (14-18) Glucose 179 H (74-106) mg/dL Calcium 8.7 (8.5-10.1) mg/dL Total Bilirubin 0.5 (0.2-1.0) mg/dL AST 13 L (15-37) U/L ALT 18 (16-63) U/L Alkaline Phosphatase 69 (46-116) U/L Total Protein 7.0 (6.4-8.2) g/dl Albumin 4.2 (3.4-5.0) g/dl Globulin 2.8 gm/dL Albumin/Globulin Ratio 1.5 (1-2) Meds: Medications Generic Name Dose Route Start Last Admin Trade Name Freq PRN Reason Stop Dose Admin Lactated Ringer's 1,000 mls @ 1,000 mls/hr 05/08/20 03:15 05/08/20 03:18 Ringers, Lactated IV 1,000 mls/hr ASDIRECTED [facility] Administration - Re-Assessments/Exams Free Text/Narrative Re-Assessment/Exam: 05/08/20 04:36 Spoke to the patient regarding his elevated blood sugar. Also I spoke to him about his low sodium of 127 and potassium 3.0. We spoke about the types of foods that he needs to eat to increase his potassium as well as to add some salt to his diet to increase his sodium since these 2 chemicals can have a direct effect on bowel function. We also spoke about the increased stool in his bowel for which I will give him some mag citrate to hopefully move things along and some Bentyl to help with any sort of cramping. Departure - Departure Time of Disposition: 04:37 Disposition: Home, Self-Care 01 Condition: Fair Clinical Impression: Constipation by delayed colonic transit, Abdominal cramps - Discharge Information *PRESCRIPTION DRUG MONITORING PROGRAM REVIEWED*: Not Applicable *COPY OF PRESCRIPTION DRUG MONITORING REPORT IN PATIENT ALBA: Not Applicable Prescriptions: Dicyclomine [Bentyl] 10 mg PO TID PRN #15 cap PRN Reason: Abdominal Pain Instructions: Chronic Constipation Referrals: Georgia Cardenas MD [Primary Care Provider] - Forms: ED Department Discharge Additional Instructions: Take the magnesium citrate bottle home, drink half the bottle tomorrow morning if you do not have a bowel movement within 12 hours take the other half of the bottle, use the Bentyl as needed for abdominal cramps because once your bowels start to move your bowel will probably cramp, continue to drink lots of fluids but you need to add some salt to your diet as well as eat potassium rich foods, follow-up with your family doctor regarding your elevated blood sugar, return to the ER if needed Sepsis Event Note (ED) - Evaluation Sepsis Screening Result: No Definite Risk - Focused Exam Vital Signs: Vital Signs Temp Pulse Resp BP Pulse Ox 05/08/20 02:02 96.2 F L 112 H 12 113/82 95 - My Orders Last 24 Hours: My Active Orders 05/08/20 01:57 Abdomen 2V AP Flat Upright [CR] Stat UA W/MICROSCOPIC [URIN] Stat 08/29/20 03:15 Lactated Ringers [Ringers, Lactated] 1,000 ml IV ASDIRECTED 05/08/20 04:35 Magnesium Citrate [Citrate of Magnesia] 296 ml PO ONETIME ONE - Assessment/Plan Last 24 Hours: My Active Orders 05/08/20 01:57 Abdomen 2V AP Flat Upright [CR] Stat UA W/MICROSCOPIC [URIN] Stat 05/08/20 03:15 Lactated Ringers [Ringers, Lactated] 1,000 ml IV ASDIRECTED 05/08/20 04:35 Magnesium Citrate [Citrate of Magnesia] 296 ml PO ONETIME ONE
[2020-05-08] MEDS ORDERED: Magnesium Citrate Solution 296 ML Bottle PO ONE (04:35)
--- NOTE | 2020-05-08 09:10 | CR ---
Abdomen: Supine and upright views of the abdomen were obtained. Comparison: Prior abdominal x-ray of 01/20/20. Mild increased stool is seen within portions of the colon. Bowel gas pattern is otherwise unremarkable. No abnormal calcifications are seen. No discrete soft tissue abnormality is seen. Bony structures are unremarkable. Impression: 1. Slight increased stool within the colon. 2. Nothing acute is appreciated on 2 view abdominal x-ray. Diagnostic code #2 This report was dictated in MDT
== END 2020-05-08 04:50 | disposition home or self-care (01) ==
LOC: JD.ED 01:41
DX: K59.01 Slow transit constipation (principal); I10 Essential (primary) hypertension; J45.909 Unspecified asthma, uncomplicated; E11.9 Type 2 diabetes mellitus without complications; K21.9 Gastro-esophageal reflux disease without esophagitis; F20.9 Schizophrenia, unspecified; Z79.899 Other long term (current) drug therapy; Z87.891 Personal history of nicotine dependence
CPT/HCPCS: 36415; 74019; 80053; 85025; 96360; 96361; 99285; A9270; J7120; 99283

== ENCOUNTER 2020-06-27 21:53 | Emergency (ER) | payer MEDICARE, MEDICAID ==
[2020-06-27 22:07] VITALS: BP 117/87; PULSE 120
--- NOTE | 2020-06-27 22:34 | EDM.PDOC ---
ED HPI GENERAL MEDICAL PROBLEM - General Chief Complaint: Respiratory Problem Stated Complaint: [facility] Time Seen by Provider: 06/27/20 22:12 Source of Information: Reports: Patient, RN Notes Reviewed History Limitations: Reports: No Limitations (pt is high from marijuana but does answer questions appropriately) - History of Present Illness INITIAL COMMENTS - FREE TEXT/NARRATIVE: Patient is a 39-year-old male who presents to the ED via [facility] for the evaluation of his shortness of breath. Patient states he smoked some marijuana this evening about 4 hours ago, and he states shortly after this, he felt like he could not breathe, became short of breath, and severely lightheaded. Patient states that he did have a vomiting episode in the am bulance, but does not feel nauseous at this time. He is not complaining of any chest pain. He does have a history of asthma and states his lungs are in "rough shape". He has a history of hypertension, is a diabetic, but states he was feeling fine otherwise up until smoking pot. His primary care provider is Dr. Mcfadden, and states that he had a regular checkup a few weeks ago. He states he is not been around anyone that he is known to be sick. He states that he knew the person he got the pot from, and he does not think that it was laced or anything, but he states that it could very well been stronger than what he was used to. He states he is so lightheaded that he cannot walk. Chest Pain Score (Numeric/FACES): 9 - Related Data Allergies Allergy/AdvReac Type Severity Reaction Status Date / Time No Known Allergies Allergy Verified 05/08/20 01:52 Home Meds: Home Meds Albuterol [Ventolin HFA] 2 puff INH DAILY 03/14/19 [History] Benztropine [Cogentin] 2 mg PO BID 03/14/19 [History] Divalproex Sodium [Depakote] 1,000 mg PO BEDTIME 03/14/19 [History] Divalproex Sodium [Depakote] 500 mg PO DAILY 03/14/19 [History] Insulin Glarg,Human.Rec.Analog [Lantus Solostar] 10 unit SQ DAILY 03/14/19 [History] Lisinopril 20 mg PO DAILY 03/14/19 [History] Ranitidine [Zantac] 150 mg PO DAILY 03/14/19 [History] cloZAPine [Clozapine] 200 mg PO BEDTIME 03/14/19 [History] hydroCHLOROthiazide [Microzide] 12.5 mg PO DAILY 03/14/19 [History] sitaGLIPtin Phos/Metformin HCl [Janumet 50-500 MG] 1 tab PO BID 03/14/19 [History] Dicyclomine [Bentyl] 20 mg PO TID #21 tab 01/20/20 [Rx] Dicyclomine [Bentyl] 10 mg PO TID PRN #15 cap 05/08/20 [Rx] Past Medical History HEENT History: Reports: Impaired Vision Other HEENT History: wears glasses Cardiovascular History: Reports: Hypertension Respiratory History: Reports: Asthma Gastrointestinal History: Reports: GERD Psychiatric History: Reports: Anxiety, Depression, Schizophrenia Endocrine/Metabolic History: Reports: Diabetes, Type II, Hypothyroidism, IDDM Social & Family History - Family History Family Medical History: Noncontributory - Tobacco Use Tobacco Use Status *Q: Current Every Day Tobacco User Years of Tobacco use: 18 Packs/Tins Daily: 0.5 - Caffeine Use Caffeine Use: Reports: Soda - Recreational Drug Use Recreational Drug Type: Reports: Marijuana/Hashish Other Recreational Drug Type: up to 4 times daily - Living Situation & Occupation Living situation: Reports: Alone, Single Occupation: Disabled ED ROS GENERAL - Review of Systems Review Of Systems: Comprehensive ROS is negative, except as noted in HPI. ED EXAM, GENERAL - Physical Exam Exam: See Below Exam Limited By: No Limitations General Appearance: Alert (when prompted, and answers questions appropriately.), WD/WN, No Apparent Distress Respiratory/Chest: No Respiratory Distress, Lungs Clear, Normal Breath Sounds, No Accessory Muscle Use, Chest Non-Tender Cardiovascular: Normal Peripheral Pulses, Regular Rate, Rhythm, No Murmur Peripheral Pulses: 2+: Radial (L), Radial (R) Extremities: Normal Inspection, Normal Capillary Refill Neurological: Alert, Oriented, Normal Cognition, No Motor/Sensory Deficits Psychiatric: Normal Affect, Normal Mood Skin Exam: Warm, Dry, Intact, Normal Color, No Rash Course - Vital Signs Last Recorded V/S: Last Vital Signs Temp 95.3 F L 06/27/20 22:06 Pulse 120 H 06/27/20 22:06 Resp 20 06/27/20 22:06 BP 117/87 06/27/20 22:06 Pulse Ox 93 L 06/27/20 22:06 - Re-Assessments/Exams Free Text/Narrative Re-Assessment/Exam: 06/27/20 22:31 Patient presents to the ED for the evaluation of shortness of breath, he is in no visible respiratory distress. I did do a thorough exam, and there are no emergency conditions identified at today's exam. However the patient is unfortunately too high to be discharged home at this time as he cannot even keep his head off the pillow. He will be observed in the ER, until he sleeps is often up so he can walk straight and then be discharged home with general recommendations. Departure - Departure Time of Disposition: 22:32 Disposition: Home, Self-Care 01 Condition: Good Clinical Impression: Marijuana intoxication Qualifiers: Complication of substance-induced condition: uncomplicated Qualified Code(s): F12.920 - Cannabis use, unspecified with intoxication, uncomplicated - Discharge Information *PRESCRIPTION DRUG MONITORING PROGRAM REVIEWED*: No *COPY OF PRESCRIPTION DRUG MONITORING REPORT IN PATIENT ALBA: No Instructions: Cannabis Use Disorder Referrals: Georgia Cardenas MD [Primary Care Provider] - Additional Instructions: You were evaluated in the ER today for your cannabis use. No emergency conditions were found to be apparent at this visit. You were observed in the ER until you could walk straight, and were deemed fit to go home. I would highly recommend not smoking this type of pot again. Please return to the ER at any time if symptoms change or worsen. Sepsis Event Note (ED) - Evaluation Sepsis Screening Result: No Definite Risk - Focused Exam Vital Signs: Vital Signs Temp Pulse Resp BP Pulse Ox 06/27/20 22:06 95.3 F L 120 H 20 117/87 93 L
== END 2020-06-28 06:37 | disposition home or self-care (01) ==
LOC: SUPCPDRO 21:53 → JD.ED 21:53
DX: F12.920 Cannabis use, unspecified with intoxication, uncomplicated (principal); I10 Essential (primary) hypertension; J45.909 Unspecified asthma, uncomplicated; K21.9 Gastro-esophageal reflux disease without esophagitis; E11.9 Type 2 diabetes mellitus without complications; F20.9 Schizophrenia, unspecified; F17.210 Nicotine dependence, cigarettes, uncomplicated; Z79.4 Long term (current) use of insulin
CPT/HCPCS: 99282; 99285

== ENCOUNTER 2021-03-07 21:21 | Emergency (ER) | payer MEDICARE, MEDICAID ==
[2021-03-07 21:32] VITALS: BP 119/76; PULSE 100
--- NOTE | 2021-03-07 21:38 | EDM.PDOC ---
ED HPI GENERAL MEDICAL PROBLEM - General Chief Complaint: Gastrointestinal Problem Stated Complaint: vomiting dizzy abdominal pain Time Seen by Provider: 03/07/21 21:37 - History of Present Illness INITIAL COMMENTS - FREE TEXT/NARRATIVE: 40-year-old male presents the emergency room with abdominal discomfort. Started 4 to 5 hours ago. He has vomited 1 time. He has some vague abdominal discomfort. He is not aware of any fevers or chills did not is any diarrhea and has not had any constipation he had a large BM earlier today. Patient denies any other complaints at this time. Prior to the onset of his symptoms the patient was doing perfectly fine. - Related Data Allergies Allergy/AdvReac Type Severity Reaction Status Date / Time No Known Allergies Allergy Verified 03/07/21 21:32 Home Meds: Home Meds Albuterol [Ventolin HFA] 2 puff INH DAILY 03/14/19 [History] Benztropine [Cogentin] 2 mg PO BID 03/14/19 [History] Divalproex Sodium [Depakote] 1,000 mg PO BEDTIME 03/14/19 [History] Divalproex Sodium [Depakote] 500 mg PO DAILY 03/14/19 [History] Insulin Glarg,Human.Rec.Analog [Lantus Solostar] 10 unit SQ DAILY 03/14/19 [History] Lisinopril 20 mg PO DAILY 03/14/19 [History] Ranitidine [Zantac] 150 mg PO DAILY 03/14/19 [History] cloZAPine [Clozapine] 200 mg PO BEDTIME 03/14/19 [History] hydroCHLOROthiazide [Microzide] 12.5 mg PO DAILY 03/14/19 [History] sitaGLIPtin Phos/Metformin HCl [Janumet 50-500 MG] 1 tab PO BID 03/14/19 [History] Past Medical History HEENT History: Reports: Impaired Vision Other HEENT History: wears glasses Cardiovascular History: Reports: Hypertension Respiratory History: Reports: Asthma Gastrointestinal History: Reports: GERD Psychiatric History: Reports: Anxiety, Depression, Psych Hospitalization(s), Schizophrenia, Suicidal Ideation Endocrine/Metabolic History: Reports: Diabetes, Type II, Hypothyroidism, IDDM Social & Family History - Family History Family Medical History: No Pertinent Family History - Caffeine Use Caffeine Use: Reports: Soda - Living Situation & Occupation Living situation: Reports: Alone, Single Occupation: Disabled ED ROS GENERAL - Review of Systems Review Of Systems: See Below Constitutional: Reports: No Symptoms HEENT: Reports: No Symptoms Respiratory: Reports: No Symptoms Cardiovascular: Reports: No Symptoms GI/Abdominal: Reports: Abdominal Pain, Constipation. Denies: Diarrhea, Nausea, Vomiting : Reports: No Symptoms Musculoskeletal: Reports: No Symptoms Skin: Reports: No Symptoms Neurological: Reports: No Symptoms ED EXAM, GENERAL - Physical Exam Exam: See Below Exam Limited By: Other (Patient has schizophrenia and he is difficult to get a history from) General Appearance: Alert, No Apparent Distress Ears: Normal External Exam, Normal Canal, Hearing Grossly Normal, Normal TMs Nose: Normal Inspection, Normal Mucosa, No Blood Throat/Mouth: Normal Inspection, Normal Lips, Normal Gums, Normal Oropharynx, Normal Voice, No Airway Compromise Head: Atraumatic, Normocephalic Neck: Normal Inspection, Supple, Non-Tender, Full Range of Motion. No: Lymphadenopathy (L), Lymphadenopathy (R) Respiratory/Chest: No Respiratory Distress, Lungs Clear, Normal Breath Sounds Cardiovascular: Regular Rate, Rhythm, No Edema, No Murmur GI/Abdominal: Normal Bowel Sounds, Soft, Other (The patient will not allow much of a exam of his abdomen but he has good bowel sounds and he has soft) Back Exam: Normal Inspection. No: CVA Tenderness (L), CVA Tenderness (R) Course - Vital Signs Last Recorded V/S: Last Vital Signs Temp 36.1 C 03/07/21 21:29 Pulse 100 03/07/21 21:29 Resp 16 03/07/21 21:29 BP 119/76 03/07/21 21:29 Pulse Ox 94 L 03/07/21 21:29 - Orders/Labs/Meds Orders: Active Orders 24 hr Category Date Time Status Abdomen 2V AP Flat Upright [CR] Stat Exams 03/07/21 21:53 Taken Labs: Laboratory Tests 03/07/21 03/07/21 03/07/21 Range/Units 22:02 22:02 23:13 WBC 9.94 H (4.23-9.07) K/mm3 RBC 4.90 (4.63-6.08) M/mm3 Hgb 14.3 (13.7-17.5) gm/dl Hct 40.5 (40.1-51.0) % MCV 82.7 (79.0-92.2) fl MCH 29.2 (25.7-32.2) pg MCHC 35.3 (32.2-35.5) g/dl RDW Std Deviation 40.8 (35.1-43.9) fL Plt Count 204 (163-337) K/mm3 MPV 8.6 L (9.4-12.3) fl Neut % (Auto) 74.7 H (34.0-67.9) % Lymph % (Auto) 16.2 L (21.8-53.1) % Storey % (Auto) 9.1 (5.3-12.2) % Eos % (Auto) 0 L (0.8-7.0) Baso % (Auto) 0.0 L (0.1-1.2) % Neut # (Auto) 7.43 H (1.78-5.38) K/mm3 Lymph # (Auto) 1.61 (1.32-3.57) K/mm3 Storey # (Auto) 0.90 H (0.30-0.82) K/mm3 Eos # (Auto) 0.00 L (0.04-0.54) K/mm3 Baso # (Auto) 0.00 L (0.01-0.08) K/mm3 Sodium 135 L (136-145) mEq/L Potassium 3.4 L (3.5-5.1) mEq/L Chloride 97 L (98-107) mEq/L Carbon Dioxide 25 (21-32) mEq/L Anion Gap 16.4 H (5-15) BUN 17 (7-18) mg/dL Creatinine 1.1 (0.7-1.3) mg/dL Est Cr Clr Drug Dosing 110.69 mL/min Estimated GFR (MDRD) > 60 (>60) mL/min BUN/Creatinine Ratio 15.5 (14-18) Glucose 137 H (70-99) mg/dL Calcium 8.8 (8.5-10.1) mg/dL Total Bilirubin 0.5 (0.2-1.0) mg/dL AST 16 (15-37) U/L ALT 21 (16-63) U/L Alkaline Phosphatase 54 (46-116) U/L C-Reactive Protein <0.2 (<1.0) mg/dL Total Protein 6.5 (6.4-8.2) g/dl Albumin 4.1 (3.4-5.0) g/dl Globulin 2.4 gm/dL Albumin/Globulin Ratio 1.7 (1-2) Lipase 152 (73-393) U/L Urine Color Yellow (Yellow) Urine Appearance Clear (Clear) Urine pH 6.5 (5.0-8.0) Ur Specific Camino > or = 1.030 (1.005-1.030) Urine Protein Negative (Negative) Urine Glucose (UA) Negative (Negative) Urine Ketones 1+ H (Negative) Urine Occult Blood Negative (Negative) Urine Nitrite Negative (Negative) Urine Bilirubin Negative (Negative) Urine Urobilinogen 1.0 (0.2-1.0) Ur Leukocyte Esterase Negative (Negative) Meds: Medications Discontinued Medications Generic Name Dose Route Start Last Admin Trade Name Freq PRN Reason Stop Dose Admin Lactated Ringer's 1,000 mls @ 999 mls/hr 03/07/21 21:50 03/07/21 22:04 Ringers, Lactated IV 03/07/21 22:50 999 mls/hr .BOLUS ONE Administration - Re-Assessments/Exams Free Text/Narrative Re-Assessment/Exam: 03/07/21 22:42 Patient has considerable stool in the right colon and right sided transverse colon and some in the left proximal colon sigmoid colon rectal area seems fairly clear Labs look pretty good C-reactive protein unremarkable his potassium is a little low but not bad I have looked into what I have to give him for potassium and its all solid form potassium which could be quite problematic with him taking the anticholinergic, Cogentin. 03/07/21 22:58 The patient is feeling better at this time. Anticipate discharge after the IV fluids run in. 03/07/21 23:44 Patient is feeling better at this time fluids urine urinalysis is unremarkable. Will discharge Departure - Departure Time of Disposition: 23:44 Disposition: Home, Self-Care 01 Clinical Impression: Abdominal pain of unknown cause - Discharge Information Referrals: Georgia Cardenas MD [Primary Care Provider] - Forms: ED Department Discharge Additional Instructions: Return to the emergency room with any questions problems or worsening symptoms. Return in 12 to 24 hours if not better sooner if getting worse. Increase your fluid intake. Start magnesium 400 mg daily you can buy [id number] magnesium oxide 400s. Follow-up with your regular healthcare provider at the end of the week if needed Sepsis Event Note (ED) - Evaluation Sepsis Screening Result: No Definite Risk - Focused Exam Vital Signs: Vital Signs Temp Pulse Resp BP Pulse Ox 03/07/21 21:29 36.1 C 100 16 119/76 94 L - My Orders Last 24 Hours: My Active Orders 03/07/21 21:53 Abdomen 2V AP Flat Upright [CR] Stat - Assessment/Plan Last 24 Hours: My Active Orders 03/07/21 21:53 Abdomen 2V AP Flat Upright [CR] Stat
[2021-03-07] MEDS ORDERED: Lactated Ringers 1,000 ML IV ONE (21:50)
--- NOTE | 2021-03-08 07:09 | CR ---
Abdomen: Supine and upright views of the abdomen were obtained. Comparison: Prior abdominal x-ray of 05/08/20. Mild increased stool is noted within the colon. Bowel gas pattern is otherwise unremarkable. No abnormal calcifications or soft tissue abnormality is appreciated. Bony structures show nothing acute. Impression: 1. Mild increased stool throughout the colon. 2. No other acute abnormality is appreciated on 2 view abdominal study. Diagnostic code #2
== END 2021-03-07 23:57 | disposition home or self-care (01) ==
LOC: JD.ED 21:21
DX: R10.9 Unspecified abdominal pain (principal); I10 Essential (primary) hypertension; J45.909 Unspecified asthma, uncomplicated; K21.9 Gastro-esophageal reflux disease without esophagitis; E11.9 Type 2 diabetes mellitus without complications; Z79.4 Long term (current) use of insulin; Z79.899 Other long term (current) drug therapy
CPT/HCPCS: 36415; 74019; 80053; 81003; 83690; 85025; 86140; 99284; J7120; 99283

== ENCOUNTER 2021-03-13 16:54 | Emergency (ER) | payer MEDICARE, MEDICAID ==
[2021-03-13] MEDS ORDERED: HYDROmorphone 1 MG/ML Syringe IVPUSH ONE (17:26)
[2021-03-13] MEDS ORDERED: Ondansetron 4 MG/2 ML SDV IVPUSH ONE (17:26)
[2021-03-13] MEDS ORDERED: Sodium Chloride 0.9% 10 ML Syringe FLUSH PRN (17:26)
[2021-03-13] MEDS ORDERED: Sodium Chloride 0.9% 1,000 ML IV ONE (17:26)
--- NOTE | 2021-03-13 19:00 | EDM.PDOC ---
ED HPI GENERAL MEDICAL PROBLEM - General Chief Complaint: Abdominal Pain Stated Complaint: ABDOMINAL PAIN Time Seen by Provider: 03/13/21 17:01 Source of Information: Reports: Patient History Limitations: Reports: No Limitations - History of Present Illness INITIAL COMMENTS - FREE TEXT/NARRATIVE: 40-year-old male presents the emergency department with complaints of right lower quadrant pain. He states this has been going on for about a week and the pain has gotten progressively worse. He has been nauseated and vomiting. He states he has not been able to keep any food down. He states he vomits every time he attempts to eat. He denies any fever however he has had chills. Denies any urinary symptoms. Denies any cough or shortness of breath. Denies that he has had any surgeries on his abdomen. Right Lower Abdomen Pain Score (Numeric/FACES): 8 - Related Data Allergies Allergy/AdvReac Type Severity Reaction Status Date / Time No Known Allergies Allergy Verified 03/13/21 17:03 Home Meds: Home Meds Albuterol [Ventolin HFA] 2 puff INH DAILY 03/14/19 [History] Benztropine [Cogentin] 2 mg PO BID 03/14/19 [History] Divalproex Sodium [Depakote] 1,000 mg PO BEDTIME 03/14/19 [History] Divalproex Sodium [Depakote] 500 mg PO DAILY 03/14/19 [History] Insulin Glarg,Human.Rec.Analog [Lantus Solostar] 10 unit SQ DAILY 03/14/19 [History] Lisinopril 20 mg PO DAILY 03/14/19 [History] Ranitidine [Zantac] 150 mg PO DAILY 03/14/19 [History] cloZAPine [Clozapine] 200 mg PO BEDTIME 03/14/19 [History] hydroCHLOROthiazide [Microzide] 12.5 mg PO DAILY 03/14/19 [History] sitaGLIPtin Phos/Metformin HCl [Janumet 50-500 MG] 1 tab PO BID 03/14/19 [History] Past Medical History HEENT History: Reports: Impaired Vision Other HEENT History: wears glasses Cardiovascular History: Reports: Hypertension Respiratory History: Reports: Asthma Gastrointestinal History: Reports: GERD Psychiatric History: Reports: Anxiety, Depression, Psych Hospitalization(s), Schizophrenia, Suicidal Ideation Endocrine/Metabolic History: Reports: Diabetes, Type II, Hypothyroidism, IDDM Social & Family History - Family History Family Medical History: No Pertinent Family History - Tobacco Use Tobacco Use Status *Q: Current Every Day Tobacco User Years of Tobacco use: 18 Packs/Tins Daily: 0.5 - Caffeine Use Caffeine Use: Reports: Soda - Recreational Drug Use Recreational Drug Use: Yes Drug Use in Last 12 Months: Yes Recreational Drug Type: Reports: Marijuana/Hashish - Living Situation & Occupation Living situation: Reports: Alone, Single Occupation: Disabled ED ROS GENERAL - Review of Systems Review Of Systems: Comprehensive ROS is negative, except as noted in HPI. ED EXAM, GI/ABD - Physical Exam Exam: See Below Exam Limited By: No Limitations General Appearance: Alert, WD/WN, No Apparent Distress Ears: Normal External Exam, Hearing Grossly Normal Nose: Normal Inspection Throat/Mouth: Normal Inspection, Normal Lips, Normal Voice, No Airway Compromise Head: Atraumatic, Normocephalic Neck: Normal Inspection, Supple, Non-Tender Respiratory/Chest: No Respiratory Distress, Lungs Clear, Normal Breath Sounds, No Accessory Muscle Use, Chest Non-Tender Cardiovascular: Normal Peripheral Pulses, Regular Rate, Rhythm, No Edema, No Murmur GI/Abdominal Exam: Normal Bowel Sounds, Soft, No Distention, Tender (Right lower quadrant) (Male) Exam: Deferred Rectal (Males) Exam: Deferred Back Exam: Normal Inspection, Full Range of Motion Extremities: Normal Inspection Neurological: Alert, Oriented, Normal Cognition Psychiatric: Normal Affect, Normal Mood Skin Exam: Warm, Dry, Intact, Normal Color, No Rash Lymphatic: No Adenopathy Course - Vital Signs Text/Narrative:: Patient presents with right lower quadrant abdominal pain that started about a week ago. Patient has had associated nausea and vomiting as he states he has been able to not keep any food down. States he has not had a bowel movement in about 5 days although he contributes this to not being able to eat. Denies fever however he states he has had the chills off and on over the past week. I have ordered labs to include CBC, CMP, C-reactive protein, urinalysis with micro and culture if indicated. Patient will receive normal saline 1 L IV bolus, Zofran for nausea and Dilaudid 1 mg IV. Last Recorded V/S: Last Vital Signs Temp 96.9 F 03/13/21 17:01 Pulse 114 H 03/13/21 17:01 Resp 16 03/13/21 17:01 BP 91/64 03/13/21 17:01 Pulse Ox 96 03/13/21 17:01 - Orders/Labs/Meds Orders: Active Orders 24 hr Category Date Time Status Abdomen Pelvis w Cont [CT] Stat Exams 03/13/21 18:55 Taken UA RFX ANAMARIA AND CULT IF INDIC [URIN] Stat Lab 03/13/21 17:26 Ordered Magnesium Citrate [Citrate of Magnesia] Med 03/13/21 21:13 Once 296 ml PO ONETIME ONE Sodium Chloride 0.9% [Normal Saline] 100 ml Med 03/13/21 20:45 Active IV ASDIRECTED Sodium Chloride 0.9% [Saline Flush] Med 03/13/21 17:26 Active 10 ml FLUSH ASDIRECTED PRN Sodium Chloride 0.9% [Saline Flush] Med 03/13/21 20:45 Active 10 ml FLUSH BOLUS Saline Lock Insert [OM.PC] Stat Oth 03/13/21 17:26 Ordered Medication Orders Sodium Chloride (Normal Saline) 100 mls @ 60 drops/min IV ASDIRECTED KAREN Last Admin: 03/13/21 20:40 Dose: 60 drops/min Documented by: ALIA Sodium Chloride (Sodium Chloride 0.9% 10 Ml Syringe) 10 ml FLUSH ASDIRECTED PRN PRN Reason: Keep Vein Open Last Admin: 03/13/21 17:46 Dose: 10 ml Documented by: CHINMAY Sodium Chloride (Sodium Chloride 0.9% 10 Ml Syringe) 10 ml FLUSH BOLUS [facility] Last Admin: 03/13/21 20:40 Dose: 10 ml Documented by: ALIA Labs: Laboratory Tests 03/13/21 03/13/21 Range/Units 17:40 17:40 WBC 12.04 H (4.23-9.07) K/mm3 RBC 5.72 (4.63-6.08) M/mm3 Hgb 16.0 D (13.7-17.5) gm/dl Hct 46.6 (40.1-51.0) % MCV 81.5 (79.0-92.2) fl MCH 28.0 (25.7-32.2) pg MCHC 34.3 (32.2-35.5) g/dl RDW Std Deviation 40.2 (35.1-43.9) fL Plt Count 325 D (163-337) K/mm3 MPV 9.1 L (9.4-12.3) fl Neut % (Auto) 62.7 (34.0-67.9) % Lymph % (Auto) 26.4 (21.8-53.1) % Hickman % (Auto) 10.5 (5.3-12.2) % Eos % (Auto) 0.1 L (0.8-7.0) Baso % (Auto) 0.1 (0.1-1.2) % Neut # (Auto) 7.55 H (1.78-5.38) K/mm3 Lymph # (Auto) 3.18 (1.32-3.57) K/mm3 Hickman # (Auto) 1.26 H (0.30-0.82) K/mm3 Eos # (Auto) 0.01 L (0.04-0.54) K/mm3 Baso # (Auto) 0.01 (0.01-0.08) K/mm3 Manual Slide Review Normal smear Sodium 133 L (136-145) mEq/L Potassium 4.0 (3.5-5.1) mEq/L Chloride 94 L (98-107) mEq/L Carbon Dioxide 21 (21-32) mEq/L Anion Gap 22.0 H (5-15) BUN 23 H (7-18) mg/dL Creatinine 1.8 H (0.7-1.3) mg/dL Est Cr Clr Drug Dosing 67.65 mL/min Estimated GFR (MDRD) 42 (>60) mL/min BUN/Creatinine Ratio 12.8 L (14-18) Glucose 119 H (70-99) mg/dL Calcium 9.6 (8.5-10.1) mg/dL Total Bilirubin 1.1 H (0.2-1.0) mg/dL AST 16 (15-37) U/L ALT 22 (16-63) U/L Alkaline Phosphatase 67 (46-116) U/L C-Reactive Protein <0.2 (<1.0) mg/dL Total Protein 7.5 (6.4-8.2) g/dl Albumin 4.9 (3.4-5.0) g/dl Globulin 2.6 gm/dL Albumin/Globulin Ratio 1.9 (1-2) Meds: Medications Generic Name Dose Route Start Last Admin Trade Name Freq PRN Reason Stop Dose Admin Sodium Chloride 100 mls @ 60 drops/min 03/13/21 20:45 03/13/21 20:40 Normal Saline IV 60 drops/min ASDIRECTED KAREN Administration Sodium Chloride 10 ml 03/13/21 17:26 03/13/21 17:46 Sodium Chloride 0.9% 10 Ml Syringe FLUSH 10 ml ASDIRECTED PRN Administration Keep Vein Open Sodium Chloride 10 ml 03/13/21 20:45 03/13/21 20:40 Sodium Chloride 0.9% 10 Ml Syringe FLUSH 10 ml BOLUS KAREN Administration Discontinued Medications Generic Name Dose Route Start Last Admin Trade Name Kahlilq PRN Reason Stop Dose Admin Fentanyl 100 mcg 03/13/21 19:40 03/13/21 19:49 Fentanyl 100 Mcg/2 Ml Sdv IVPUSH 03/13/21 19:41 100 mcg ONETIME ONE Administration Hydromorphone HCl 1 mg 03/13/21 17:26 03/13/21 17:45 Hydromorphone 1 Mg/Ml Syringe IVPUSH 03/13/21 17:27 1 mg ONETIME ONE Administration Sodium Chloride 1,000 mls @ 999 mls/hr 03/13/21 17:26 03/13/21 17:45 Normal Saline IV 03/13/21 18:26 999 mls/hr ONETIME ONE Administration Iopamidol 100 ml 03/13/21 20:39 03/13/21 20:40 Iopamidol 612 Mg/Ml 100 Ml Bottle IVPUSH 03/13/21 20:40 100 ml ONETIME ONE Administration Ondansetron HCl 4 mg 03/13/21 17:26 03/13/21 17:46 Ondansetron 4 Mg/2 Ml Sdv IVPUSH 03/13/21 17:27 4 mg ONETIME ONE Administration - Re-Assessments/Exams Free Text/Narrative Re-Assessment/Exam: 03/13/21 19:41 [facility] staff notifies me that patient is having a significant amount of right lower quadrant abdominal pain. I have ordered for him to receive fentanyl 100 mics IV x1 dose. 03/13/21 19:46 Hematology reveals a WBC of 12.04, hemoglobin 16.0, hematocrit 46.6, platelet count 325, neutrophil percentage 62.7, Chemistry reveals a sodium of 133, potassium 4.0, chloride 94, carbon dioxide 21, anion gap 22.0, BUN 23, creatinine 1.8, glucose 119, total bilirubin 1.1, AST 16, ALT 22, alk phos 67, C-reactive protein less than 0.2 03/13/21 21:[address] impression CT of the abdomen and pelvis with contrast: 1. Relatively increased colonic stool which is similar to comparison examination and may indicate constipation. Otherwise no acute abdominal findings. I have ordered for the patient to drink one half bottle of mag citrate. The remainder of the bottle will be sent home with him and if he does not have a bowel movement in 3 to 6 hours he can drink the remainder of that. I will recommend that the patient start taking MiraLAX 1 scoop daily for the next couple of weeks to regulate his bowels. Departure - Departure Time of Disposition: 21:20 Disposition: Home, Self-Care 01 Condition: Good Clinical Impression: Constipation Qualifiers: Constipation type: unspecified constipation type Qualified Code(s): K59.00 - Constipation, unspecified - Discharge Information Instructions: Constipation, Adult, [id number] Referrals: Georgia Cardenas MD [Primary Care Provider] - Forms: ED Department Discharge Additional Instructions: You were seen in the emergency department today with right lower quadrant abdominal pain. You were given IV fluids and pain medications. Lab work was completed which did not show any infections or abnormalities. CT scan of the abdomen was completed which showed constipation. This is very likely the cause of your abdominal pain. You were given medication called magnesium citrate to drink while in the emergency department. If you do not have a bowel movement in the next 3 to 6 hours you need to drink the other half of the medication. This should give you a good bowel movement. Also would recommend that you should start taking a medication called MiraLAX. This can be purchased at [email or web address] or any pharmacy in [facility]. You can take 1 scoop daily for the next 2 weeks to regulate your bowels and get them back on track. Follow-up with your primary care provider in about a week if not better. Should your condition worsen or change, do not hesitate returning to the emergency department. Sepsis Event Note (ED) - Evaluation Sepsis Screening Result: No Definite Risk - Focused Exam Vital Signs: Vital Signs Temp Pulse Resp BP Pulse Ox 03/13/21 17:01 96.9 F 114 H 16 91/64 96 - My Orders Last 24 Hours: My Active Orders 03/13/21 17:26 UA RFX ANAMARIA AND CULT IF INDIC [URIN] Stat Sodium Chloride 0.9% [Saline Flush] 10 ml FLUSH ASDIRECTED PRN Saline Lock Insert [OM.PC] Stat 03/13/21 18:55 Abdomen Pelvis w Cont [CT] Stat 03/13/21 20:45 Sodium Chloride 0.9% [Normal Saline] 100 ml IV ASDIRECTED Sodium Chloride 0.9% [Saline Flush] 10 ml FLUSH BOLUS 03/13/21 21:13 Magnesium Citrate [Citrate of Magnesia] 296 ml PO ONETIME ONE - Assessment/Plan Last 24 Hours: My Active Orders 03/13/21 17:26 UA RFX ANAMARIA AND CULT IF INDIC [URIN] Stat Sodium Chloride 0.9% [Saline Flush] 10 ml FLUSH ASDIRECTED PRN Saline Lock Insert [OM.PC] Stat 03/13/21 18:55 Abdomen Pelvis w Cont [CT] Stat 03/13/21 20:45 Sodium Chloride 0.9% [Normal Saline] 100 ml IV ASDIRECTED Sodium Chloride 0.9% [Saline Flush] 10 ml FLUSH BOLUS 03/13/21 21:13 Magnesium Citrate [Citrate of Magnesia] 296 ml PO ONETIME ONE
[2021-03-13] MEDS ORDERED: fentaNYL 100 MCG/2 ML SDV IVPUSH ONE (19:40)
[2021-03-13] MEDS ORDERED: Iopamidol 612 MG/ML 100 ML Bottle IVPUSH ONE (20:39)
[2021-03-13] MEDS ORDERED: Sodium Chloride 0.9% 100 ML IV SCH (20:45)
[2021-03-13] MEDS ORDERED: Sodium Chloride 0.9% 10 ML Syringe FLUSH SCH (20:45)
[2021-03-13] MEDS ORDERED: Magnesium Citrate Solution 296 ML Bottle PO ONE (21:13)
[2021-03-13 21:34] VITALS: BP 103/79; PULSE 95
--- NOTE | 2021-03-14 13:15 | CT ---
CT abdomen and pelvis Technique: Multiple axial sections were obtained from above the dome of the diaphragm inferiorly to the pubic symphysis. Intravenous and oral contrast was utilized. Delayed images were also obtained through the abdomen and pelvis. Reconstructed coronal and sagittal images were obtained. Comparison: Prior CT abdomen and pelvis exam of 06/22/19. Findings: Visualized lung bases show nothing acute. Liver contains no focal parenchymal abnormality. Spleen size is normal. Adrenal glands show no nodule. Pancreas shows no abnormality. Kidneys show symmetric contrast enhancement with no hydronephrosis or mass. Gallbladder contains no calcified gallstones. Abdominal aorta shows no aneurysm. No retroperitoneal adenopathy or mesenteric abnormalities are seen. Appendix is seen which is normal. No pelvic mass or adenopathy is seen. Increased stool is noted throughout the colon. Bone window settings were reviewed which show mild scattered degenerative change within the spine. No acute osseous abnormality is seen. Impression: 1. Increased stool throughout the colon. 2. Degenerative change within the spine. 3. Nothing acute is otherwise seen on CT study of the abdomen and pelvis. Diagnostic code #2 I agree with preliminary report from [facility], finalized on 03/13/21, 10:00 PM CDT, code 1
== END 2021-03-13 21:32 | disposition home or self-care (01) ==
LOC: JD.ED 16:54
DX: K59.00 Constipation, unspecified (principal); I10 Essential (primary) hypertension; E11.9 Type 2 diabetes mellitus without complications; E03.9 Hypothyroidism, unspecified; Z72.0 Tobacco use; J45.909 Unspecified asthma, uncomplicated; K21.9 Gastro-esophageal reflux disease without esophagitis; Z79.4 Long term (current) use of insulin; Z79.899 Other long term (current) drug therapy
CPT/HCPCS: 36415; 74177; 80053; 85025; 86140; 96374; 96375; 99284; A9270; J1170; J2405; J3010; J7030; Q9967

== ENCOUNTER 2021-06-22 13:58 | Emergency (ER) | payer MEDICAID, MEDICARE ==
[2021-06-22 14:25] VITALS: BP 137/98; PULSE 87
--- NOTE | 2021-06-22 15:20 | CR ---
Chest: PA and lateral views of the chest were obtained. Comparison: Prior chest x-ray of 03/14/19. Heart size and mediastinum are within normal limits. Left lung base shows mild interstitial change which is improved from prior chest x-ray and current findings most likely represent mild fibrosis. Lungs otherwise are clear. Bony structure shows nothing acute. Impression: 1. Findings as described above. 2. Nothing acute is suspected. Diagnostic code #2
--- NOTE | 2021-06-22 16:17 | EDM.PDOC ---
ED HPI GENERAL MEDICAL PROBLEM - General Chief Complaint: Chest Pain Stated Complaint: SHEST PAIN SOB Time Seen by Provider: 06/22/21 15:25 Source of Information: Reports: Patient, RN Notes Reviewed - History of Present Illness INITIAL COMMENTS - FREE TEXT/NARRATIVE: 40 yr old male comes in short of breath for the past week or so. Very occasional cough. chest feels tight. No fever or chills. Unvaccinated for covid. He does smoke. Left Chest Pain Score (Numeric/FACES): 6 - Related Data Allergies Allergy/AdvReac Type Severity Reaction Status Date / Time No Known Allergies Allergy Verified 06/22/21 14:25 Home Meds: Home Meds Albuterol [Ventolin HFA] 2 puff INH DAILY 03/14/19 [History] Benztropine [Cogentin] 2 mg PO BID 03/14/19 [History] Divalproex Sodium [Depakote] 1,000 mg PO BEDTIME 03/14/19 [History] Divalproex Sodium [Depakote] 500 mg PO DAILY 03/14/19 [History] Insulin Glarg,Human.Rec.Analog [Lantus Solostar] 10 unit SQ DAILY 03/14/19 [History] Lisinopril 20 mg PO DAILY 03/14/19 [History] Ranitidine [Zantac] 150 mg PO DAILY 03/14/19 [History] cloZAPine [Clozapine] 200 mg PO BEDTIME 03/14/19 [History] hydroCHLOROthiazide [Microzide] 12.5 mg PO DAILY 03/14/19 [History] sitaGLIPtin Phos/Metformin HCl [Janumet 50-500 MG] 1 tab PO BID 03/14/19 [History] hydrOXYzine HCL [Atarax] 0 mg PO TID 06/22/21 [History] Past Medical History HEENT History: Reports: Impaired Vision Other HEENT History: wears glasses Cardiovascular History: Reports: Hypertension Respiratory History: Reports: Asthma Gastrointestinal History: Reports: GERD Psychiatric History: Reports: Anxiety, Depression, Psych Hospitalization(s), Schizophrenia, Suicidal Ideation Endocrine/Metabolic History: Reports: Diabetes, Type II, Hypothyroidism, IDDM Social & Family History - Family History Family Medical History: No Pertinent Family History - Tobacco Use Tobacco Use Status *Q: Current Every Day Tobacco User Years of Tobacco use: 20 Packs/Tins Daily: 0.2 - Caffeine Use Caffeine Use: Reports: None - Recreational Drug Use Recreational Drug Use: Yes Recreational Drug Type: Reports: Marijuana/Hashish - Living Situation & Occupation Living situation: Reports: Alone, Single Occupation: Disabled ED ROS GENERAL - Review of Systems Review Of Systems: See Below Constitutional: Denies: Fever, Chills, Diaphoresis HEENT: Reports: No Symptoms Respiratory: Reports: Shortness of Breath, Cough Cardiovascular: Reports: Chest Pain GI/Abdominal: Denies: Abdominal Pain, Nausea, Vomiting Musculoskeletal: Reports: No Symptoms Skin: Reports: No Symptoms Neurological: Reports: No Symptoms ED EXAM, GENERAL - Physical Exam Exam: See Below General Appearance: Alert, No Apparent Distress Head: Atraumatic Neck: Supple Respiratory/Chest: No Respiratory Distress, Lungs Clear, Normal Breath Sounds. No: Rales, Rhonchi, Wheezing Cardiovascular: Regular Rate, Rhythm GI/Abdominal: Soft, Non-Tender Back Exam: Normal Inspection Neurological: Alert, Oriented, No Motor/Sensory Deficits Skin Exam: Warm, Dry, Normal Color #1 Interpretation EKG Date: 06/22/21 Rhythm: NSR [place]: Normal P-Wave: Present QRS: Normal ST-T: Normal QT: Normal Course - Vital Signs Last Recorded V/S: Last Vital Signs Temp 97.4 F 06/22/21 14:21 Pulse 87 06/22/21 14:21 Resp 16 06/22/21 14:21 BP 137/98 H 06/22/21 14:21 Pulse Ox 98 06/22/21 14:21 - Orders/Labs/Meds Orders: Active Orders 24 hr Category Date Time Status EKG 12 Lead [EK] Stat Ther 06/22/21 14:19 Ordered Labs: Laboratory Tests 06/22/21 Range/Units 16:04 SARS-CoV-2 RNA (YOLI) Negative (NEGATIVE) - Re-Assessments/Exams Free Text/Narrative Re-Assessment/Exam: 06/22/21 16:17 CXR nl, sats 98 %. Covid screen pending. 06/22/21 17:51 covid neg. Departure - Departure Time of Disposition: 17:51 Disposition: Home, Self-Care 01 Condition: Fair Clinical Impression: Atypical chest pain Referrals: Georgia Cardenas MD [Primary Care Provider] - Forms: ED Department Discharge Additional Instructions: Your heart and lungs have checked out well today. Try stop smoking. Follow up clinic as needed. Return to ED as needed if symptoms worsening in any way. Sepsis Event Note (ED) - Evaluation Sepsis Screening Result: No Definite Risk - Focused Exam Vital Signs: Vital Signs Temp Pulse Resp BP Pulse Ox 06/22/21 14:21 97.4 F 87 16 137/98 H 98 - My Orders Last 24 Hours: My Active Orders 06/22/21 14:19 EKG 12 Lead [EK] Stat - Assessment/Plan Last 24 Hours: My Active Orders 06/22/21 14:19 EKG 12 Lead [EK] Stat
== END 2021-06-22 17:59 | disposition home or self-care (01) ==
LOC: JD.ED 13:58
DX: R07.89 Other chest pain (principal); I10 Essential (primary) hypertension; J45.909 Unspecified asthma, uncomplicated; K21.9 Gastro-esophageal reflux disease without esophagitis; E11.9 Type 2 diabetes mellitus without complications; F17.210 Nicotine dependence, cigarettes, uncomplicated; Z79.4 Long term (current) use of insulin; Z79.899 Other long term (current) drug therapy; Z20.822 Contact with and (suspected) exposure to COVID-19
CPT/HCPCS: 71046; 71046-26; 93005; 99285-25; U0002

== ENCOUNTER 2021-07-02 18:51 | Emergency (ER) | payer MEDICAID ==
[2021-07-02] MEDS ORDERED: Sodium Chloride 0.9% 1,000 ML IV SCH (19:15)
--- NOTE | 2021-07-02 19:21 | EDM.PDOCBH ---
ED HPI GENERAL MEDICAL PROBLEM - General Chief Complaint: Behavioral/Psych Stated Complaint: ANNE-MARIE AMB Time Seen by Provider: 07/02/21 18:58 Source of Information: Reports: RN Notes Reviewed History Limitations: Reports: Uncooperative - History of Present Illness INITIAL COMMENTS - FREE TEXT/NARRATIVE: Mr. Freitas is a 40-year-old gentleman who is now brought to the ED by EMS with a report that his mother called 911, because she was concerned that he took some drugs. The triage note indicates that the patient has a history of polysubstance abuse. When I asked the patient what brought him to the ED, he turned his head away from me and did not answer. As I was examining him, he took 2 deep breaths when asked, but when I attempted to palpate his abdomen, he pushed my hand away, and said that he just wanted to go home. Those were the only words that he spoke to me. At triage, the patient was found to be tachycardic at 108 bpm, otherwise, he is hemodynamically stable, afebrile, saturating 95% on room air. He is lethargic, but arousable to verbal stimuli. He does not appear to be in acute distress. Due to the patient's lack of cooperation, a recent review of systems is not obtainable at this time. His PMHx/PSHx/SocHx is derived from prior medical records. Prior medical records indicate that his PCP is Dr. Georgia Mcfadden. Prior medical records indicate that he has not received a COVID vaccination. Treatments QUEBRACHO TANNER: Reports: IV/IO - Related Data Allergies Allergy/AdvReac Type Severity Reaction Status Date / Time No Known Allergies Allergy Verified 07/02/21 19:00 Home Meds: Home Meds Albuterol [Ventolin HFA] 2 puff INH DAILY 03/14/19 [History] Benztropine [Cogentin] 2 mg PO BID 03/14/19 [History] Divalproex Sodium [Depakote] 1,000 mg PO BEDTIME 03/14/19 [History] Divalproex Sodium [Depakote] 500 mg PO DAILY 03/14/19 [History] Insulin Glarg,Human.Rec.Analog [Lantus Solostar] 10 unit SQ DAILY 03/14/19 [History] Lisinopril 20 mg PO DAILY 03/14/19 [History] Ranitidine [Zantac] 150 mg PO DAILY 03/14/19 [History] cloZAPine [Clozapine] 200 mg PO BEDTIME 03/14/19 [History] hydroCHLOROthiazide [Microzide] 12.5 mg PO DAILY 03/14/19 [History] sitaGLIPtin Phos/Metformin HCl [Janumet 50-500 MG] 1 tab PO BID 03/14/19 [History] hydrOXYzine HCL [Atarax] 0 mg PO TID 06/22/21 [History] Past Medical History HEENT History: Reports: Impaired Vision Other HEENT History: wears glasses Cardiovascular History: Reports: Hypertension Respiratory History: Reports: Asthma Gastrointestinal History: Reports: GERD Psychiatric History: Reports: Anxiety, Depression, Psych Hospitalization(s), Schizophrenia, Suicidal Ideation Endocrine/Metabolic History: Reports: Diabetes, Type II, Hypothyroidism, IDDM Social & Family History - Family History Family Medical History: No Pertinent Family History - Tobacco Use Tobacco Use Status *Q: Current Every Day Tobacco User Years of Tobacco use: 21 Packs/Tins Daily: 1 - Caffeine Use Caffeine Use: Reports: Coffee, Energy Drinks, Soda - Recreational Drug Use Recreational Drug Use: Yes Recreational Drug Type: Reports: Marijuana/Hashish - Living Situation & Occupation Living situation: Reports: Alone, Single Occupation: Disabled ED ROS GENERAL - Review of Systems Review Of Systems: Unable To Obtain Reason Not Obtained: Uncooperative ED EXAM, BEHAVIORAL HEALTH - Physical Exam Exam: See Below Exam Limited By: Uncooperative (took deep breaths wh en asked, but did not allow adequate palpation of his abdomen) General Appearance: WD/WN, No Apparent Distress, Lethargic (arousable to verbal stimuli) Eye Exam: Bilateral Eye: EOMI, Normal Inspection Ears: Normal External Exam, Hearing Grossly Normal Nose: Normal Inspection Throat/Mouth: Normal Inspection, Normal Lips, Normal Voice, No Airway Compromise Head: Atraumatic, Normocephalic Neck: Normal Inspection, Full Range of Motion Respiratory/Chest: No Respiratory Distress, Lungs Clear, Normal Breath Sounds, No Accessory Muscle Use Cardiovascular: Normal Peripheral Pulses, Regular Rate, Rhythm, No Edema, No Gallop, No JVD, No Murmur, No Rub GI/Abdominal: Normal Bowel Sounds, Soft, No Distention, No Abnormal Bruit Back Exam: Normal Inspection, Full Range of Motion, NT Extremities: Normal Inspection, Normal Range of Motion, No Pedal Edema, Normal Capillary Refill Neurological: No Motor/Sensory Deficits (moves all 4 extremities spontaneously), Other (Lethargic but arousable to verbal stimuli) Skin Exam: Warm, Dry, Intact, Normal color, No rash #1 Interpretation EKG Date: 07/02/21 Time: 19:29 Rhythm: NSR Rate (Beats/Min): 99 [place]: Normal P-Wave: Present QRS: Normal ST-T: Normal QT: Normal Comparison: No Change (06/22/2021) COURSE, BEHAVIORAL HEALTH COMP - Course Vital Signs: Last Vital Signs Temp 36.1 C 07/02/21 18:58 Pulse 105 H 07/02/21 18:58 Resp 20 07/02/21 18:58 BP 120/85 07/02/21 18:58 Pulse Ox 95 07/02/21 18:58 Orders, Labs, Meds: Active Orders 24 hr Category Date Time Status Sodium Chloride 0.9% [Normal Saline] 1,000 ml Med 07/03/21 01:00 Active IV ASDIRECTED Medication Orders Sodium Chloride (Normal Saline) 1,000 mls @ 150 mls/hr IV ASDIRECTED KAREN Last Admin: 07/03/21 01:07 Dose: 150 mls/hr Documented by: HERMMIC Laboratory Tests 07/02/21 07/02/21 07/02/21 Range/Units 19:35 20:00 20:00 WBC 5.73 (4.23-9.07) K/mm3 RBC 4.78 (4.63-6.08) M/mm3 Hgb 13.6 L D (13.7-17.5) gm/dl Hct 40.4 (40.1-51.0) % MCV 84.5 D (79.0-92.2) fl MCH 28.5 (25.7-32.2) pg MCHC 33.7 (32.2-35.5) g/dl RDW Std Deviation 41.2 (35.1-43.9) fL Plt Count 247 D (163-337) K/mm3 MPV 9.1 L (9.4-12.3) fl Neutrophils % (Manual) 61 H (40-60) % Band Neutrophils % 0 (0-10) % Lymphocytes % (Manual) 36 (20-40) % Atypical Lymphs % 0 % Monocytes % (Manual) 3 (2-10) % Eosinophils % (Manual) 0 L (0.8-7.0) % Basophils % (Manual) 0 L (0.2-1.2) Platelet Estimate Adequate RBC Morph Comment Normal Sodium 140 (136-145) mEq/L Potassium 3.1 L (3.5-5.1) mEq/L Chloride 103 (98-107) mEq/L Carbon Dioxide 26 (21-32) mEq/L Anion Gap 14.1 (5-15) BUN 24 H (7-18) mg/dL Creatinine 1.1 (0.7-1.3) mg/dL Est Cr Clr Drug Dosing 110.69 mL/min Estimated GFR (MDRD) > 60 (>60) mL/min BUN/Creatinine Ratio 21.8 H (14-18) Glucose 186 H (70-99) mg/dL Calcium 8.8 (8.5-10.1) mg/dL Magnesium 2.2 (1.8-2.4) mg/dL Total Bilirubin 0.7 (0.2-1.0) mg/dL AST 41 H (15-37) U/L ALT 26 (16-63) U/L Alkaline Phosphatase 52 (46-116) U/L Total Protein 6.6 (6.4-8.2) g/dl Albumin 4.0 (3.4-5.0) g/dl Globulin 2.6 gm/dL Albumin/Globulin Ratio 1.5 (1-2) TSH 3rd Generation 0.776 (0.358-3.74) uIU/mL Salicylates (2.8-20) mg/dL Urine Opiates Screen (QQARKT=156) Ur Buprenorphine Scrn (CUTOFF=10) Ur Oxycodone Screen (UJB7UP=212) Urine Methadone Screen (LJB0MA=397) Ur Propoxyphene Screen (RWYIZI=857) Acetaminophen 0 L (10-30) ug/mL Ur Barbiturates Screen (SUAMYC=275) Ur Tricyclics Screen (ZLCZSS=049) Ur Phencyclidine Scrn (CUTOFF=25) Ur Amphetamine Screen (ZGZCWA=191) U Methamphetamines Scrn (XYKLKE=086) U Benzodiazepines Scrn (QWRVPW=571) U Cocaine Metab Screen (CCNKNN=268) U Marijuana (THC) Screen (CUTOFF=50) Ethyl Alcohol 0.00 (0.00) gm% SARS-CoV-2 RNA (YOLI) Negative (NEGATIVE) 07/02/21 07/03/21 Range/Units 20:00 05:45 WBC (4.23-9.07) K/mm3 RBC (4.63-6.08) M/mm3 Hgb (13.7-17.5) gm/dl Hct (40.1-51.0) % MCV (79.0-92.2) fl MCH (25.7-32.2) pg MCHC (32.2-35.5) g/dl RDW Std Deviation (35.1-43.9) fL Plt Count (163-337) K/mm3 MPV (9.4-12.3) fl Neutrophils % (Manual) (40-60) % Band Neutrophils % (0-10) % Lymphocytes % (Manual) (20-40) % Atypical Lymphs % % Monocytes % (Manual) (2-10) % Eosinophils % (Manual) (0.8-7.0) % Basophils % (Manual) (0.2-1.2) Platelet Estimate RBC Morph Comment Sodium (136-145) mEq/L Potassium (3.5-5.1) mEq/L Chloride (98-107) mEq/L Carbon Dioxide (21-32) mEq/L Anion Gap (5-15) BUN (7-18) mg/dL Creatinine (0.7-1.3) mg/dL Est Cr Clr Drug Dosing mL/min Estimated GFR (MDRD) (>60) mL/min BUN/Creatinine Ratio (14-18) Glucose (70-99) mg/dL Calcium (8.5-10.1) mg/dL Magnesium (1.8-2.4) mg/dL Total Bilirubin (0.2-1.0) mg/dL AST (15-37) U/L ALT (16-63) U/L Alkaline Phosphatase (46-116) U/L Total Protein (6.4-8.2) g/dl Albumin (3.4-5.0) g/dl Globulin gm/dL Albumin/Globulin Ratio (1-2) TSH 3rd Generation (0.358-3.74) uIU/mL Salicylates 2.6 L (2.8-20) mg/dL Urine Opiates Screen Negative (YTHYHK=845) Ur Buprenorphine Scrn Negative (CUTOFF=10) Ur Oxycodone Screen Negative (BVY0NX=150) Urine Methadone Screen Negative (GBA5SI=338) Ur Propoxyphene Screen Negative (SJUNQC=486) Acetaminophen (10-30) ug/mL Ur Barbiturates Screen Negative (UBYNHS=166) Ur Tricyclics Screen Presumptive positive H (QJENXZ=944) Ur Phencyclidine Scrn Negative (CUTOFF=25) Ur Amphetamine Screen Negative (AOANGX=926) U Methamphetamines Scrn Negative (DHOFTB=829) U Benzodiazepines Scrn Negative (COIXQD=117) U Cocaine Metab Screen Negative (FFFOBR=741) U Marijuana (THC) Screen Presumptive positive H (CUTOFF=50) Ethyl Alcohol (0.00) gm% SARS-CoV-2 RNA (YOLI) (NEGATIVE) Medications Generic Name Dose Route Start Last Admin Trade Name Freq PRN Reason Stop Dose Admin Sodium Chloride 1,000 mls @ 150 mls/hr 07/03/21 01:00 07/03/21 01:07 Normal Saline IV 150 mls/hr ASDIRECTED KAREN Administration Discontinued Medications Generic Name Dose Route Start Last Admin Trade Name Freq PRN Reason Stop Dose Admin Sodium Chloride 1,000 mls @ 150 mls/hr 07/02/21 19:15 07/02/21 19:37 Normal Saline IV 150 mls/hr ASDIRECTED KAREN Administration Sodium Chloride 500 mls @ 999 mls/hr 07/02/21 22:36 07/02/21 22:46 Normal Saline IV 07/02/21 23:06 999 mls/hr .BOLUS ONE Administration Sodium Chloride 1,000 mls @ 999 mls/hr 07/02/21 23:44 07/02/21 23:51 Normal Saline IV 07/03/21 00:44 999 mls/hr ONETIME ONE Administration Potassium Chloride 40 meq 07/02/21 21:05 07/02/21 21:26 Potassium Chloride 20 Meq Tab.Er PO 07/02/21 21:06 40 meq ONETIME ONE Administration Medical Clearance: 07/02/21 19:14 With respect to the patient's statement that he just wants to go home, I do not believe that I can prevent him from leaving if he attempts to do so, however, I am not going to facilitate it. I have ordered a standard psychiatric medical clearance panel, which includes an EtOH level and a urine drug screen. In addition, I have added a magnesium level, and a swab for the SARS-CoV-2 virus, in the event that the patient needs to be admitted or transferred. In the meantime, the patient will be given IV fluid. 07/02/21 21:04 The patient's CBC is remarkable for a Hgb slightly depressed at 13.6 with a Hct normal at 40.4, and the remainder of his CBC being unremarkable. His CMP is remarkable for modest hypokalemia of 3.1, a BUN slightly elevated 24 with a Cr normal at 1.1, hyperglycemia of 186, and an AST slightly elevated at 41 with an ALT normal at 26, and the remainder of his CMP being unremarkable. His magnesium level is within normal limits at 2.2. His TSH is within normal limits at 0.776. His salicylate level is within normal limits at 2.6. His acetaminophen level is 0. His EtOH level is 0.00. His swab for the SARS-CoV-2 virus is negative. The patient has not yet provided a urine sample for the urine drug screen. Based on the above, I have ordered 40 mEq of oral KCl. 07/02/21 22:37 The patient's BP has been trending downward, with his most recent BP 87/59 with a HR of 77 bpm. I have ordered a 500 mL bolus of NS. 07/02/21 23:45 Following a 500 mL bolus of NS, the patient's BP is still 80/50 with a HR of 79 bpm. I have ordered a 1 L bolus of NS. 07/03/21 00:54 Following the 1 L bolus of NS, the patient's BP is now up to 109/78, with a HR of 77 bpm. He has still not provided a urine sample for the urine drug screen. He will continue to receive NS at 150 mL/h. 07/03/21 08:33 The patient's urine drug screen is positive for tricyclic antidepressants and marijuana. 07/03/21 08:35 The patient is now awake, alert, and talkative. She is aware that he is in the ED, but does not recall how or why he got here. He denies taking in excess of drugs. He states that he feels well enough to go home. Departure - Departure Time of Disposition: 08:36 Disposition: Home, Self-Care 01 Condition: Good Clinical Impression: Drug ingestion, Marijuana use - Discharge Information *PRESCRIPTION DRUG MONITORING PROGRAM REVIEWED*: Not Applicable *COPY OF PRESCRIPTION DRUG MONITORING REPORT IN PATIENT ALBA: Not Applicable Referrals: Georgia Cardenas MD [Physician] - Forms: ED Department Discharge Additional Instructions: You were brought to the ER by paramedics after your mother called them, concerned that you had taken drugs. Work-up in the ER included several blood tests, a urine drug screen, a swab for the SARS-CoV-2 virus, and an ECG. Your blood pressure dropped excessively during your ER visit, but returned to normal with IV fluid. We recommend that you continue to take your current medications as prescribed, but not in excess of that prescribed. Please follow-up with your PCP, Dr. Georgia Mcfadden, at the next available appointment. If any other problems, please do not hesitate to return to the ER. Sepsis Event Note (ED) - Evaluation Sepsis Screening Result: No Definite Risk - My Orders Last 24 Hours: My Active Orders 07/03/21 01:00 Sodium Chloride 0.9% [Normal Saline] 1,000 ml IV ASDIRECTED - Assessment/Plan Last 24 Hours: My Active Orders 07/03/21 01:00 Sodium Chloride 0.9% [Normal Saline] 1,000 ml IV ASDIRECTED
[2021-07-02 20:56] LABS: ACETAMINOPHEN 0 ug/mL (10-30)
[2021-07-02] MEDS ORDERED: Potassium Chloride 20 MEQ Tab.ER PO ONE (21:05)
[2021-07-02] MEDS ORDERED: Sodium Chloride 0.9% 500 ML IV ONE (22:36)
[2021-07-02] MEDS ORDERED: Sodium Chloride 0.9% 1,000 ML IV ONE (23:44)
[2021-07-03] MEDS ORDERED: Sodium Chloride 0.9% 1,000 ML IV SCH (01:00)
[2021-07-03 08:49] VITALS: BP 115/81; PULSE 74
== END 2021-07-03 09:00 | disposition home or self-care (01) ==
LOC: JD.ED 18:51
DX: R53.83 Other fatigue (principal); T50.905A Adverse effect of unspecified drugs, medicaments and biological substances, initial encounter; F12.90 Cannabis use, unspecified, uncomplicated; E87.6 Hypokalemia; I10 Essential (primary) hypertension; J45.909 Unspecified asthma, uncomplicated; K21.9 Gastro-esophageal reflux disease without esophagitis; E11.9 Type 2 diabetes mellitus without complications; Z72.0 Tobacco use; Z79.4 Long term (current) use of insulin; Z79.899 Other long term (current) drug therapy; Z20.822 Contact with and (suspected) exposure to COVID-19
CPT/HCPCS: 36415; 80053; 80143; 80179; 80306; 80307; 83735; 84443; 85007; 85027; 87635; 93005; 99285; A9270; J7030; U0002

== ENCOUNTER 2021-07-04 19:50 | Emergency (ER) | payer MEDICAID ==
[2021-07-04 20:33] VITALS: BP 124/83; PULSE 95
[2021-07-04 21:33] LABS: ACETAMINOPHEN 0 ug/mL (10-30)
--- NOTE | 2021-07-04 22:41 | EDM.PDOCBH ---
ED HPI GENERAL MEDICAL PROBLEM - General Chief Complaint: Behavioral/Psych Stated Complaint: MENTAL EVAL/DEPRESSED Time Seen by Provider: 07/04/21 20:23 Source of Information: Reports: Patient History Limitations: Reports: No Limitations - History of Present Illness INITIAL COMMENTS - FREE TEXT/NARRATIVE: The patient presents for help. He has a history of depression and he feels it is worse. He also used meth a couple weeks ago and marijuana last week. He is wanting to drink alcohol. He has thought of hurting himself but he has no plan or intention now. He says he wants to go to the [facility] [place] for his addiction issues. He has no fever, chills, cough, chest pain, shortness of breath, abdominal pain, nausea or vomiting. He does have some posterior pelvic pain. He may have fallen a few days ago. Onset: Gradual Duration: Day(s): Location: Reports: Pelvis Quality: Reports: Sharp Severity: Moderate Improves with: Reports: Immobilization Worsens with: Reports: Movement Context: Reports: Trauma (fall) Associated Symptoms: Reports: No Other Symptoms - Related Data Allergies Allergy/AdvReac Type Severity Reaction Status Date / Time No Known Allergies Allergy Verified 07/04/21 20:33 Home Meds: Home Meds Albuterol [Ventolin HFA] 2 puff INH DAILY 03/14/19 [History] Benztropine [Cogentin] 2 mg PO BID 03/14/19 [History] Divalproex Sodium [Depakote] 1,000 mg PO BEDTIME 03/14/19 [History] Divalproex Sodium [Depakote] 500 mg PO DAILY 03/14/19 [History] Insulin Glarg,Human.Rec.Analog [Lantus Solostar] 5 unit SQ ASDIRECTED PRN 03/14/19 [History] Lisinopril 20 mg PO DAILY 03/14/19 [History] Ranitidine [Zantac] 150 mg PO DAILY 03/14/19 [History] cloZAPine [Clozapine] 200 mg PO BEDTIME 03/14/19 [History] hydroCHLOROthiazide [Microzide] 12.5 mg PO DAILY 03/14/19 [History] sitaGLIPtin Phos/Metformin HCl [Janumet 50-500 MG] 1 tab PO BID 03/14/19 [History] hydrOXYzine HCL [Atarax] 0 mg PO TID 06/22/21 [History] Past Medical History HEENT History: Reports: Impaired Vision Other HEENT History: wears glasses Cardiovascular History: Reports: Hypertension Respiratory History: Reports: Asthma Gastrointestinal History: Reports: GERD Genitourinary History: Reports: None Musculoskeletal History: Reports: None Neurological History: Reports: None Psychiatric History: Reports: Anxiety, Depression, Psych Hospitalization(s), Schizophrenia, Suicidal Ideation Endocrine/Metabolic History: Reports: Diabetes, Type II, Hypothyroidism, IDDM Hematologic History: Reports: None Immunologic History: Reports: None Oncologic (Cancer) History: Reports: None Dermatologic History: Reports: None - Infectious Disease History Infectious Disease History: Reports: Chicken Pox - Past Surgical History Oncologic Surgical History: Reports: None Social & Family History - Family History Family Medical History: No Pertinent Family History - Tobacco Use Tobacco Use Status *Q: Current Some Day Tobacco User Years of Tobacco use: 20 Packs/Tins Daily: 0.5 - Caffeine Use Caffeine Use: Reports: Coffee, Soda Caffeine Use Comment: one pot of coffee daily. Mt Dew 3 daily - Recreational Drug Use Recreational Drug Use: Yes Drug Use in Last 12 Months: Yes Recreational Drug Type: Reports: Marijuana/Hashish, Methamphetamine Recreational Drug Use Frequency: Daily Recreational Drug Last Use: one week ago, marijuana, meth unknown per pt. - Living Situation & Occupation Living situation: Reports: Alone, Single Occupation: Disabled ED ROS GENERAL - Review of Systems Review Of Systems: See Below Constitutional: Reports: No Symptoms HEENT: Reports: No Symptoms Respiratory: Reports: No Symptoms Cardiovascular: Reports: No Symptoms Endocrine: Reports: No Symptoms GI/Abdominal: Reports: No Symptoms : Reports: No Symptoms Musculoskeletal: Reports: Other (Pelvic pain) ED EXAM, BEHAVIORAL HEALTH - Physical Exam Exam: See Below Exam Limited By: No Limitations General Appearance: Alert, No Apparent Distress Ears: Normal External Exam Nose: Normal Inspection Head: Atraumatic, Normocephalic Neck: Normal Inspection Respiratory/Chest: No Respiratory Distress, Lungs Clear, Normal Breath Sounds Cardiovascular: Regular Rate, Rhythm, No Edema, No Murmur GI/Abdominal: Soft, Non-Tender, No Organomegaly, No Mass Back Exam: Normal Inspection, Other (Pain to the sacrum area upon palpation) Extremities: Normal Inspection Neurological: Alert, No Motor/Sensory Deficits, Oriented x 3 COURSE, BEHAVIORAL HEALTH COMP - Course Vital Signs: Last Vital Signs Temp 97.3 F 07/04/21 20:23 Pulse 95 07/04/21 20:23 Resp 16 07/04/21 20:23 BP 124/83 07/04/21 20:23 Pulse Ox 95 07/04/21 20:23 Orders, Labs, Meds: Active Orders 24 hr Category Date Time Status Cardiac Monitoring [RC] . DIRECTED Care 07/04/21 20:41 Active Pelvis 1V or 2V [CR] Stat Exams 07/04/21 22:16 Taken DRUG SCREEN, URINE [URCHEM] Stat Lab 07/04/21 20:41 Stop Req Laboratory Tests 07/04/21 07/04/21 07/04/21 Range/Units 20:50 20:50 20:50 WBC 6.00 (4.23-9.07) K/mm3 RBC 4.74 (4.63-6.08) M/mm3 Hgb 13.5 L (13.7-17.5) gm/dl Hct 40.5 (40.1-51.0) % MCV 85.4 (79.0-92.2) fl MCH 28.5 (25.7-32.2) pg MCHC 33.3 (32.2-35.5) g/dl RDW Std Deviation 40.9 (35.1-43.9) fL Plt Count 253 (163-337) K/mm3 MPV 9.3 L (9.4-12.3) fl Neut % (Auto) 53.3 (34.0-67.9) % Lymph % (Auto) 35.8 (21.8-53.1) % Benson % (Auto) 10.5 (5.3-12.2) % Eos % (Auto) 0.2 L (0.8-7.0) Baso % (Auto) 0.0 L (0.1-1.2) % Neut # (Auto) 3.20 (1.78-5.38) K/mm3 Lymph # (Auto) 2.15 (1.32-3.57) K/mm3 Benson # (Auto) 0.63 (0.30-0.82) K/mm3 Eos # (Auto) 0.01 L (0.04-0.54) K/mm3 Baso # (Auto) 0.00 L (0.01-0.08) K/mm3 Sodium 142 (136-145) mEq/L Potassium 3.0 L (3.5-5.1) mEq/L Chloride 105 (98-107) mEq/L Carbon Dioxide 30 (21-32) mEq/L Anion Gap 10.0 (5-15) BUN 14 (7-18) mg/dL Creatinine 1.2 (0.7-1.3) mg/dL Est Cr Clr Drug Dosing 96.09 mL/min Estimated GFR (MDRD) > 60 (>60) mL/min BUN/Creatinine Ratio 11.7 L (14-18) Glucose 214 H (70-99) mg/dL Calcium 9.0 (8.5-10.1) mg/dL Total Bilirubin 0.5 (0.2-1.0) mg/dL AST 29 (15-37) U/L ALT 35 (16-63) U/L Alkaline Phosphatase 51 (46-116) U/L Total Protein 6.5 (6.4-8.2) g/dl Albumin 4.0 (3.4-5.0) g/dl Globulin 2.5 gm/dL Albumin/Globulin Ratio 1.6 (1-2) Salicylates 1.5 L (2.8-20) mg/dL Acetaminophen 0 L (10-30) ug/mL Ethyl Alcohol 0.00 (0.00) gm% SARS-CoV-2 RNA (YOLI) (NEGATIVE) 07/04/21 Range/Units 20:57 WBC (4.23-9.07) K/mm3 RBC (4.63-6.08) M/mm3 Hgb (13.7-17.5) gm/dl Hct (40.1-51.0) % MCV (79.0-92.2) fl MCH (25.7-32.2) pg MCHC (32.2-35.5) g/dl RDW Std Deviation (35.1-43.9) fL Plt Count (163-337) K/mm3 MPV (9.4-12.3) fl Neut % (Auto) (34.0-67.9) % Lymph % (Auto) (21.8-53.1) % Benson % (Auto) (5.3-12.2) % Eos % (Auto) (0.8-7.0) Baso % (Auto) (0.1-1.2) % Neut # (Auto) (1.78-5.38) K/mm3 Lymph # (Auto) (1.32-3.57) K/mm3 Benson # (Auto) (0.30-0.82) K/mm3 Eos # (Auto) (0.04-0.54) K/mm3 Baso # (Auto) (0.01-0.08) K/mm3 Sodium (136-145) mEq/L Potassium (3.5-5.1) mEq/L Chloride (98-107) mEq/L Carbon Dioxide (21-32) mEq/L Anion Gap (5-15) BUN (7-18) mg/dL Creatinine (0.7-1.3) mg/dL Est Cr Clr Drug Dosing mL/min Estimated GFR (MDRD) (>60) mL/min BUN/Creatinine Ratio (14-18) Glucose (70-99) mg/dL Calcium (8.5-10.1) mg/dL Total Bilirubin (0.2-1.0) mg/dL AST (15-37) U/L ALT (16-63) U/L Alkaline Phosphatase (46-116) U/L Total Protein (6.4-8.2) g/dl Albumin (3.4-5.0) g/dl Globulin gm/dL Albumin/Globulin Ratio (1-2) Salicylates (2.8-20) mg/dL Acetaminophen (10-30) ug/mL Ethyl Alcohol (0.00) gm% SARS-CoV-2 RNA (YOLI) Negative (NEGATIVE) Re-Assessment/Re-Exam: I ordered some labs. His CBC looks good. His K was low at 3. His glucose was elevated at 214. His salicylates and acetaminophen were normal. His ETOH is 0. He is COVID is negative. I called [facility] and they would come see him but he will follow up with them tomorrow. I ordered an x-ray of his pelvis and it looks good. I will discharge him and follow up wit [facility] tomorrow. Departure - Departure Time of Disposition: 23:30 Disposition: Home, Self-Care 01 Condition: Good Clinical Impression: Depressive disorder, Sacral back pain - Discharge Information *PRESCRIPTION DRUG MONITORING PROGRAM REVIEWED*: Not Applicable *COPY OF PRESCRIPTION DRUG MONITORING REPORT IN PATIENT ALBA: Not Applicable Referrals: Georgia Cardenas MD [Primary Care Provider] - Forms: ED Department Discharge Additional Instructions: Take tylenol or motrin for pain. Follow up with [facility] tomorrow. Please return if you are worse. Sepsis Event Note (ED) - Evaluation Sepsis Screening Result: No Definite Risk - Focused Exam Vital Signs: Vital Signs Temp Pulse Resp BP Pulse Ox 07/04/21 20:23 97.3 F 95 16 124/83 95 - My Orders Last 24 Hours: My Active Orders 07/04/21 20:41 Cardiac Monitoring [RC] . DIRECTED DRUG SCREEN, URINE [URCHEM] Stat 07/04/21 22:16 Pelvis 1V or 2V [CR] Stat - Assessment/Plan Last 24 Hours: My Active Orders 07/04/21 20:41 Cardiac Monitoring [RC] . DIRECTED DRUG SCREEN, URINE [URCHEM] Stat 07/04/21 22:16 Pelvis 1V or 2V [CR] Stat
--- NOTE | 2021-07-05 06:57 | CR ---
Pelvis: AP view of the pelvis was obtained. Comparison: No prior pelvic x-ray is available. Joint spaces within both hips are maintained. Joint space narrowing is seen within the right sacroiliac joint. Left sacroiliac joint is within normal limits. No acute fracture or other bony abnormality is appreciated. Impression: 1. Joint space narrowing within the right sacroiliac joint most likely degenerative in etiology. 2. AP pelvis study is otherwise unremarkable. Diagnostic code #2
== END 2021-07-04 23:49 | disposition home or self-care (01) ==
LOC: JD.ED 19:50
DX: F32.9 Major depressive disorder, single episode, unspecified (principal); M53.3 Sacrococcygeal disorders, not elsewhere classified; I10 Essential (primary) hypertension; J45.909 Unspecified asthma, uncomplicated; K21.9 Gastro-esophageal reflux disease without esophagitis; E11.9 Type 2 diabetes mellitus without complications; E03.9 Hypothyroidism, unspecified; Z79.4 Long term (current) use of insulin; Z20.822 Contact with and (suspected) exposure to COVID-19; Z72.0 Tobacco use
CPT/HCPCS: 36415; 72170; 72170-26; 80053; 80143; 80179; 80307; 85025; 99284-25; U0002

== ENCOUNTER 2021-07-05 16:46 | Emergency (ER) | payer MEDICAID ==
[2021-07-05 17:31] VITALS: BP 129/88; PULSE 76
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
[2021-07-05 19:53] LABS: ACETAMINOPHEN 0 ug/mL (10-30)
[2021-07-05] MEDS ORDERED: LORazepam 0.5 MG Tab PO ONE (23:23)
== END 2021-07-06 00:25 | disposition home or self-care (01) ==
LOC: SUPCPDRO 16:46 → JD.ED 16:46
DX: Z00.8 Encounter for other general examination (principal); I10 Essential (primary) hypertension; J45.909 Unspecified asthma, uncomplicated; K21.9 Gastro-esophageal reflux disease without esophagitis; E11.9 Type 2 diabetes mellitus without complications; Z87.891 Personal history of nicotine dependence; Z79.4 Long term (current) use of insulin; Z79.899 Other long term (current) drug therapy
CPT/HCPCS: 36415; 80053; 80143; 80179; 80306; 80307; 81001; 84443; 85025; 99283; A9270

== ENCOUNTER 2021-07-07 11:29 | Emergency (ER) | payer MEDICAID ==
[2021-07-07 12:08] VITALS: BP 127/84; PULSE 69
[2021-07-07] MEDS ORDERED: LORazepam 2 MG/ML SDV IM ONE (12:21)
[2021-07-07] MEDS ORDERED: Haloperidol Lactate 5 MG/ML SDV IM ONE (12:21)
[2021-07-07] MEDS ORDERED: diphenhydrAMINE 50 MG/ML SDV IM ONE (12:21)
--- NOTE | 2021-07-07 12:37 | EDM.PDOCBH ---
ED HPI GENERAL MEDICAL PROBLEM - General Chief Complaint: Abdominal Pain Stated Complaint: ABDOMINAL PAIN Time Seen by Provider: 07/07/21 12:06 Source of Information: Reports: Patient, Old Records (Visit from 07/04 and 07/05.), RN Notes Reviewed History Limitations: Reports: Uncooperative (doesn't answer many questions) - History of Present Illness INITIAL COMMENTS - FREE TEXT/NARRATIVE: Patient is a 40-year-old male who presents to the ER for his abdomen pain. Patient has been seen in this ER multiple times this last week, for mental health evaluations. He was discharged into the care [facility]. He has had multiple lab tests in the past few days, all of which have been unremarkable. Screening for COVID-19 was negative. Patient has been fairly uncooperative, but he will answer questions when asked. States he has been having some abdomen discomfort for the past day or 2, notes this is more of a gripping/cramping nature. States it is pretty constant and does not seem to wax and wane. States he has been having normal bowel movements and is denying any nausea/vomiting/diarrhea. Review of his last visit demonstrates that he has not really been eating well, and has subsequently lost some weight. Patient denies any other sick-like symptoms, fever/chills, cough/shortness of breath, nausea/vomiting/diarrhea. He does carry a history of schizophrenia complicated by anxiety and depression. Patient states "if you do not give me something to put me down, I will go hang myself". He denies any homicidal ideations, he is not hearing things that are not there and, not seeing things that are not there. Primary care provider is Dr. Mcfadden. Patient is a very poor historian, and it is hard to tell his true intentions from his statements as he is very vague. He has been again at [facility] the [facility], and is being evaluated by psychiatry. - Related Data Allergies Allergy/AdvReac Type Severity Reaction Status Date / Time No Known Allergies Allergy Verified 07/04/21 20:33 Home Meds: Home Meds Albuterol [Ventolin HFA] 2 puff INH DAILY 03/14/19 [History] Benztropine [Cogentin] 2 mg PO BID 03/14/19 [History] Divalproex Sodium [Depakote] 1,000 mg PO BEDTIME 03/14/19 [History] Divalproex Sodium [Depakote] 500 mg PO DAILY 03/14/19 [History] Insulin Glarg,Human.Rec.Analog [Lantus Solostar] 5 unit SQ ASDIRECTED PRN 03/14/19 [History] Lisinopril 20 mg PO DAILY 03/14/19 [History] Ranitidine [Zantac] 150 mg PO DAILY 03/14/19 [History] cloZAPine [Clozapine] 200 mg PO BEDTIME 03/14/19 [History] hydroCHLOROthiazide [Microzide] 12.5 mg PO DAILY 03/14/19 [History] sitaGLIPtin Phos/Metformin HCl [Janumet 50-500 MG] 1 tab PO BID 03/14/19 [History] hydrOXYzine HCL [Atarax] 0 mg PO TID 06/22/21 [History] Past Medical History HEENT History: Reports: Impaired Vision Other HEENT History: wears glasses Cardiovascular History: Reports: Hypertension Respiratory History: Reports: Asthma Gastrointestinal History: Reports: GERD Psychiatric History: Reports: Anxiety, Depression, Psych Hospitalization(s), Schizophrenia, Suicidal Ideation Endocrine/Metabolic History: Reports: Diabetes, Type II, Hypothyroidism, IDDM - Infectious Disease History Infectious Disease History: Reports: Chicken Pox Social & Family History - Family History Family Medical History: No Pertinent Family History - Tobacco Use Tobacco Use Status *Q: Never Tobacco User - Caffeine Use Caffeine Use: Reports: None Caffeine Use Comment: one pot of coffee daily. Mt Dew 3 daily - Recreational Drug Use Recreational Drug Use: Yes Drug Use in Last 12 Months: Yes Recreational Drug Type: Reports: Marijuana/Hashish Recreational Drug Use Frequency: Daily - Living Situation & Occupation Living situation: Reports: Alone, Single Occupation: Disabled ED ROS GENERAL - Review of Systems Review Of Systems: Comprehensive ROS is negative, except as noted in HPI. ED EXAM, BEHAVIORAL HEALTH - Physical Exam Exam: See Below Exam Limited By: No Limitations General Appearance: Alert, WD/WN, No Apparent Distress Respiratory/Chest: No Respiratory Distress, Lungs Clear, Normal Breath Sounds, No Accessory Muscle Use, Chest Non-Tender Cardiovascular: Normal Peripheral Pulses, Regular Rate, Rhythm, No Edema GI/Abdominal: Normal Bowel Sounds, Soft, No Distention, No Mass, Tender (slight generalized tenderness) Extremities: Normal Inspection, Normal Capillary Refill Neurological: Alert (answers questions appropriately), No Motor/Sensory Deficits Psychiatric: Depressed Mood, Flat Affect, Non-Communicative, Uncooperative, Suicidal Thoughts (did state that if " I didn't put him down that he would hang himself"). No: Agitated, Homicidal Thoughts, Samaritan Delusions, Auditory Hallucinations, Visual Hallucinations, Paranoid Thoughts, Threatening Behavior Skin Exam: Warm, Dry, Intact, Normal color, No rash COURSE, BEHAVIORAL HEALTH COMP - Course Vital Signs: Last Vital Signs Temp 96.4 F L 07/07/21 12:04 Pulse 69 07/07/21 12:04 Resp 16 07/07/21 12:04 BP 127/84 07/07/21 12:04 Pulse Ox 100 07/07/21 12:04 Orders, Labs, Meds: Active Orders 24 hr Category Date Time Status EKG Documentation Completion [RC] STAT Care 07/07/21 12:20 Active KUB [Abdomen 1V Flat] [CR] Stat Exams 07/07/21 12:19 Ordered ACETAMINOPHEN [CHEM] Stat Lab 07/07/21 12:20 Ordered CBC WITH AUTO DIFF [HEME] Stat Lab 07/07/21 12:20 Ordered COMPREHENSIVE METABOLIC PN,CMP [CHEM] Stat Lab 07/07/21 12:20 Ordered CORONAVIRUS COVID-19 YOLI [MOLEC] Stat Lab 07/07/21 12:20 Ordered DRUG SCREEN, URINE [URCHEM] Stat Lab 07/07/21 12:20 Ordered ETHANOL BLOOD MEDICAL [CHEM] Stat Lab 07/07/21 12:20 Ordered SALICYLATE [CHEM] Stat Lab 07/07/21 12:20 Ordered TSH [CHEM] Stat Lab 07/07/21 12:20 Ordered Medications Discontinued Medications Generic Name Dose Route Start Last Admin Trade Name Kahlilq PRN Reason Stop Dose Admin Diphenhydramine HCl 50 mg 07/07/21 12:21 Diphenhydramine 50 Mg/Ml Sdv IM 07/07/21 12:22 ONETIME ONE Haloperidol Lactate 5 mg 07/07/21 12:21 Haloperidol Lactate 5 Mg/Ml Sdv IM 07/07/21 12:22 ONETIME ONE Lorazepam 2 mg 07/07/21 12:21 Lorazepam 2 Mg/Ml Sdv IM 07/07/21 12:22 ONETIME ONE Discharge vs Psych Eval/Treatment:: 07/07/21 12:40 Patient presents to the ER for his abdominal discomfort. A thorough exam demonstrates no acute focal abnormalities, he does not have peritonitis On physical exam. Again I did read his last few notes from his visits this last week, he does appear to have issues with his mental health recently. As far as I can tell he is being seen by psychiatry at [facility]. Although he did make remarks that "if I did not put him down, that he would hang himself" I do not entirely believe that he is being truthful, and that he might just be saying some things to play the system nonetheless had ordered labs for evaluation however I was made aware by nursing staff, that the patient refused all of these labs, and signed AMA and walked out of the ER. I will make our social media executive Anahi Swanson aware of this patient's situation should he return to the ER, so we can collaborate with [facility]. So at this time he did leave AGAINST MEDICAL ADVICE without any further evaluation. I again do not strongly believe that he is actively suicidal and was trying to be manipulative. Departure - Departure Time of Disposition: 12:43 Disposition: Against Medical Advice 07 Condition: Fair Clinical Impression: Abdominal pain of unknown cause, Left against medical advice, Manipulative behavior Schizophrenia Qualifiers: Schizophrenia type: unspecified Qualified Code(s): F20.9 - Schizophrenia, unspecified - Discharge Information Referrals: Georgia Cardenas MD [Primary Care Provider] - Sepsis Event Note (ED) - Evaluation Sepsis Screening Result: No Definite Risk - Focused Exam Vital Signs: Vital Signs Temp Pulse Resp BP Pulse Ox 07/07/21 12:04 96.4 F L 69 16 127/84 100 - My Orders Last 24 Hours: My Active Orders 07/07/21 12:19 KUB [Abdomen 1V Flat] [CR] Stat 07/07/21 12:20 EKG Documentation Completion [RC] STAT ACETAMINOPHEN [CHEM] Stat CBC WITH AUTO DIFF [HEME] Stat COMPREHENSIVE METABOLIC PN,CMP [CHEM] Stat CORONAVIRUS COVID-19 YOLI [MOLEC] Stat DRUG SCREEN, URINE [URCHEM] Stat ETHANOL BLOOD MEDICAL [CHEM] Stat SALICYLATE [CHEM] Stat TSH [CHEM] Stat - Assessment/Plan Last 24 Hours: My Active Orders 07/07/21 12:19 KUB [Abdomen 1V Flat] [CR] Stat 07/07/21 12:20 EKG Documentation Completion [RC] STAT ACETAMINOPHEN [CHEM] Stat CBC WITH AUTO DIFF [HEME] Stat COMPREHENSIVE METABOLIC PN,CMP [CHEM] Stat CORONAVIRUS COVID-19 YOLI [MOLEC] Stat DRUG SCREEN, URINE [URCHEM] Stat ETHANOL BLOOD MEDICAL [CHEM] Stat SALICYLATE [CHEM] Stat TSH [CHEM] Stat
== END 2021-07-07 12:38 | disposition left against medical advice (07) ==
LOC: JD.ED 11:29
DX: R10.9 Unspecified abdominal pain (principal); F20.9 Schizophrenia, unspecified; F32.A Depression, unspecified; I10 Essential (primary) hypertension; E11.9 Type 2 diabetes mellitus without complications; Z79.4 Long term (current) use of insulin; Z79.899 Other long term (current) drug therapy
CPT/HCPCS: 96372; 99284-25

== ENCOUNTER 2021-07-07 15:25 | Emergency (ER) | payer MEDICAID ==
[2021-07-07] MEDS ORDERED: Haloperidol Lactate 5 MG/ML SDV IM ONE (16:17)
--- NOTE | 2021-07-07 16:34 | EDM.PDOCBH ---
ED HPI GENERAL MEDICAL PROBLEM - General Chief Complaint: General Stated Complaint: MED CLEARANCE Time Seen by Provider: 07/07/21 16:07 Source of Information: Reports: Patient, RN Notes Reviewed, Other (Staff from [facility] has filled out committal forms) History Limitations: Reports: Uncooperative - History of Present Illness INITIAL COMMENTS - FREE TEXT/NARRATIVE: Patient is a 40-year-old male who presents to the ER for a mental health clearance. Patient was in this ER earlier, but did leave AGAINST MEDICAL ADVICE. [facility] did go to his house, and has subsequently filled out committal forms for this gentlemanfor inpatient psychiatric management due to the patient not taking his medications, not eating or drinking because he believes all of his food has been poisoned. Patient states that he has lost about 40 pounds of weight recently due to not eating. Not complaining any sick-like symptoms fevers or chills, cough or shortness of breath. Multiple labs have been done and his multiple visits in the past week, all have been unremarkable his urinalysis was presumptive positive for marijuana but negative for everything else. Covid screens prior to today's date were negative. - Related Data Allergies Allergy/AdvReac Type Severity Reaction Status Date / Time No Known Allergies Allergy Verified 07/04/21 20:33 Home Meds: Home Meds Albuterol [Ventolin HFA] 2 puff INH DAILY 03/14/19 [History] Benztropine [Cogentin] 2 mg PO BID 03/14/19 [History] Divalproex Sodium [Depakote] 1,000 mg PO BEDTIME 03/14/19 [History] Divalproex Sodium [Depakote] 500 mg PO DAILY 03/14/19 [History] Insulin Glarg,Human.Rec.Analog [Lantus Solostar] 5 unit SQ ASDIRECTED PRN 03/14/19 [History] Lisinopril 20 mg PO DAILY 03/14/19 [History] Ranitidine [Zantac] 150 mg PO DAILY 03/14/19 [History] cloZAPine [Clozapine] 200 mg PO BEDTIME 03/14/19 [History] hydroCHLOROthiazide [Microzide] 12.5 mg PO DAILY 03/14/19 [History] sitaGLIPtin Phos/Metformin HCl [Janumet 50-500 MG] 1 tab PO BID 03/14/19 [History] hydrOXYzine HCL [Atarax] 0 mg PO TID 06/22/21 [History] Past Medical History HEENT History: Reports: Impaired Vision Other HEENT History: wears glasses Cardiovascular History: Reports: Hypertension Respiratory History: Reports: Asthma Gastrointestinal History: Reports: GERD Genitourinary History: Reports: None Musculoskeletal History: Reports: None Neurological History: Reports: None Psychiatric History: Reports: Anxiety, Depression, Psych Hospitalization(s), Schizophrenia, Suicidal Ideation Endocrine/Metabolic History: Reports: Diabetes, Type II, Hypothyroidism, IDDM Hematologic History: Reports: None Immunologic History: Reports: None Oncologic (Cancer) History: Reports: None Dermatologic History: Reports: None - Infectious Disease History Infectious Disease History: Reports: Chicken Pox - Past Surgical History Oncologic Surgical History: Reports: None Social & Family History - Family History Family Medical History: No Pertinent Family History - Caffeine Use Caffeine Use: Reports: None Caffeine Use Comment: one pot of coffee daily. Mt Dew 3 daily - Living Situation & Occupation Living situation: Reports: Alone, Single Occupation: Disabled ED ROS GENERAL - Review of Systems Review Of Systems: Comprehensive ROS is negative, except as noted in HPI. ED EXAM, BEHAVIORAL HEALTH - Physical Exam Exam: See Below Exam Limited By: No Limitations General Appearance: Alert, WD/WN, No Apparent Distress Respiratory/Chest: No Respiratory Distress, Lungs Clear, Normal Breath Sounds, No Accessory Muscle Use, Chest Non-Tender Cardiovascular: Normal Peripheral Pulses, Regular Rate, Rhythm, No Edema GI/Abdominal: Normal Bowel Sounds, Soft, Non-Tender, No Distention, No Mass Extremities: Normal Inspection, Normal Capillary Refill Neurological: Alert Psychiatric: Alert, Depressed Mood, Flat Affect, Paranoid Thoughts (believes his food is being poisoned), Other (not taking medications). No: Homicidal Thoughts, Auditory Hallucinations, Visual Hallucinations, Threatening Behavior Skin Exam: Warm, Dry, Intact, Normal color, No rash COURSE, BEHAVIORAL HEALTH COMP - Course Orders, Labs, Meds: Active Orders 24 hr Category Date Time Status ACETAMINOPHEN [CHEM] Stat Lab 07/07/21 16:08 Received CBC WITH AUTO DIFF [HEME] Stat Lab 07/07/21 16:08 Received COMPREHENSIVE METABOLIC PN,CMP [CHEM] Stat Lab 07/07/21 16:08 Received CORONAVIRUS COVID-19 YOLI [MOLEC] Stat Lab 07/07/21 15:43 Ordered DRUG SCREEN, URINE [URCHEM] Stat Lab 07/07/21 15:43 Ordered ETHANOL BLOOD MEDICAL [CHEM] Stat Lab 07/07/21 16:08 Received SALICYLATE [CHEM] Stat Lab 07/07/21 16:08 Received TSH [CHEM] Stat Lab 07/07/21 16:08 Received Medications Discontinued Medications Generic Name Dose Route Start Last Admin Trade Name Tonya PRN Reason Stop Dose Admin Haloperidol Lactate 10 mg 07/07/21 16:17 Haloperidol Lactate 5 Mg/Ml Sdv IM 07/07/21 16:18 ONETIME ONE Discharge vs Psych Eval/Treatment:: 07/07/21 16:32 Patient presents to the ER for a mental health evaluation/clearance. Labs were ordered at time of triage, and I did speak with Dr. Hines, psychiatrist on staff at [facility] in [place], and he did accept the patient in transfer. States that patient has had multiple visits in the past, so labs will likely not be too much different. I will go ahead and fax the labs as a result, but we will try to expedite transfer because I believe 's [facility] would be able to take him sooner rather than later. Dr. Varghese did request that 10 mg IM Haldol be given. Departure - Departure Time of Disposition: 16:33 Disposition: DC/Tfer to Psych Hosp/Unit 65 Condition: Good Clinical Impression: Schizophrenia Qualifiers: Schizophrenia type: unspecified Qualified Code(s): F20.9 - Schizophrenia, unspecified - Discharge Information - My Orders Last 24 Hours: My Active Orders 07/07/21 15:43 CORONAVIRUS COVID-19 YOLI [MOLEC] Stat DRUG SCREEN, URINE [URCHEM] Stat 07/07/21 16:08 ACETAMINOPHEN [CHEM] Stat CBC WITH AUTO DIFF [HEME] Stat COMPREHENSIVE METABOLIC PN,CMP [CHEM] Stat ETHANOL BLOOD MEDICAL [CHEM] Stat SALICYLATE [CHEM] Stat TSH [CHEM] Stat - Assessment/Plan Last 24 Hours: My Active Orders 07/07/21 15:43 CORONAVIRUS COVID-19 YOLI [MOLEC] Stat DRUG SCREEN, URINE [URCHEM] Stat 07/07/21 16:08 ACETAMINOPHEN [CHEM] Stat CBC WITH AUTO DIFF [HEME] Stat COMPREHENSIVE METABOLIC PN,CMP [CHEM] Stat ETHANOL BLOOD MEDICAL [CHEM] Stat SALICYLATE [CHEM] Stat TSH [CHEM] Stat
[2021-07-07 17:12] LABS: ACETAMINOPHEN 0 ug/mL (10-30)
[2021-07-07 23:03] VITALS: BP 128/88; PULSE 78
== END 2021-07-07 19:30 ==
LOC: SUPCPDRO 15:25 → JD.ED 15:25
DX: F20.9 Schizophrenia, unspecified (principal); F32.A Depression, unspecified; K21.9 Gastro-esophageal reflux disease without esophagitis; I10 Essential (primary) hypertension; E11.9 Type 2 diabetes mellitus without complications; E03.9 Hypothyroidism, unspecified; Z79.4 Long term (current) use of insulin; Z79.899 Other long term (current) drug therapy
CPT/HCPCS: 36415; 80053; 80143; 80179; 80307; 84443; 85025; 96372; 99283; J1630

== ENCOUNTER 2021-08-09 00:50 | Emergency (ER) | payer MEDICAID ==
[2021-08-09] MEDS ORDERED: Sodium Chloride 0.9% 1,000 ML IV SCH (01:00)
--- NOTE | 2021-08-09 01:14 | EDM.PDOC ---
ED HPI GENERAL MEDICAL PROBLEM - General Source of Information: Reports: Police History Limitations: Reports: Uncooperative <Jose Juan Lott - Last Filed: 08/09/21 08:06> <Rylan Irene - Last Filed: 08/09/21 15:28> - General Chief Complaint: Behavioral/Psych Stated Complaint: [facility] Time Seen by Provider: 08/09/21 00:50 - History of Present Illness INITIAL COMMENTS - FREE TEXT/NARRATIVE: A trauma code was called for this patient. Mr. Freitas is a pleasant 41-year-old man who is now brought to the ED by EMS after cutting the left side of his neck with a serrated knife in his kitchen. It is unclear who called 911. EMS informed me that there was a pool of blood in semen on the kitchen floor. EMS applied a large absorbent bandage over the wound en route to the ED. When I asked the patient what had happened, he replied "It doesn't really matter. It is not your problem." Here in the ED, the patient is found to be hemodynamically stable, afebrile, saturating 100% on room air. He appears to be comfortable, in no acute distress. Due to the patient's lack of cooperation, a recent review of systems is not obtainable. Prior PMHx/PSHx/SocHx per prior medical records. Medical records indicate that the patient's PCP is Dr. Georgia Mcfadden. (Jose Juan Lott) - Related Data Allergies Allergy/AdvReac Type Severity Reaction Status Date / Time No Known Allergies Allergy Verified 08/09/21 00:53 Home Meds: Home Meds Albuterol [Ventolin HFA] 2 puff INH DAILY 03/14/19 [History] Benztropine [Cogentin] 2 mg PO BID 03/14/19 [History] Divalproex Sodium [Depakote] 1,000 mg PO BEDTIME 03/14/19 [History] Divalproex Sodium [Depakote] 500 mg PO DAILY 03/14/19 [History] Insulin Glarg,Human.Rec.Analog [Lantus Solostar] 5 unit SQ ASDIRECTED PRN 03/14/19 [History] Lisinopril 20 mg PO DAILY 03/14/19 [History] Ranitidine [Zantac] 150 mg PO DAILY 03/14/19 [History] cloZAPine [Clozapine] 200 mg PO BEDTIME 03/14/19 [History] hydroCHLOROthiazide [Microzide] 12.5 mg PO DAILY 03/14/19 [History] sitaGLIPtin Phos/Metformin HCl [Janumet 50-500 MG] 1 tab PO BID 03/14/19 [History] hydrOXYzine HCL [Atarax] 0 mg PO TID 06/22/21 [History] Past Medical History HEENT History: Reports: Impaired Vision Other HEENT History: wears glasses Cardiovascular History: Reports: Hypertension Respiratory History: Reports: Asthma Gastrointestinal History: Reports: GERD Genitourinary History: Reports: None Musculoskeletal History: Reports: None Neurological History: Reports: None Psychiatric History: Reports: Anxiety, Bipolar, Depression, Psych Hospitalization(s), Schizophrenia, Suicidal Ideation Endocrine/Metabolic History: Reports: Diabetes, Type II, Hypothyroidism, IDDM Hematologic History: Reports: None Immunologic History: Reports: None Oncologic (Cancer) History: Reports: None Dermatologic History: Reports: None - Infectious Disease History Infectious Disease History: Reports: Chicken Pox - Past Surgical History Oncologic Surgical History: Reports: None <Jose Juan Lott Brian Filed: 08/09/21 08:06> Social & Family History - Family History Family Medical History: No Pertinent Family History - Caffeine Use Caffeine Use: Reports: None Caffeine Use Comment: one pot of coffee daily. [facility] 3 daily - Living Situation & Occupation Living situation: Reports: Alone, Single Occupation: Disabled <Jose Juan Lott Brian Filed: 08/09/21 08:06> Review of Systems - Review of Systems Review Of Systems: Unable To Obtain Reason Not Obtained: Patient uncooperative <Jose Juan oLtt Brian Filed: 08/09/21 08:06> ED EXAM, GENERAL - Physical Exam Exam: See Below Exam Limited By: No Limitations General Appearance: Alert, WD/WN, No Apparent Distress Eye Exam: Bilateral Eye: EOMI, Normal Inspection Ears: Normal External Exam, Hearing Grossly Normal Nose: Normal Inspection Throat/Mouth: Normal Inspection, Normal Lips, Normal Voice, No Airway Compromise Head: Atraumatic, Normocephalic Neck: Other (Approximately 4.5 cm laceration to the lower left neck, exposing the inferior aspect of the sternocleidomastoid muscle. No active bleeding. No visible vessels.) Respiratory/Chest: No Respiratory Distress, Lungs Clear, Normal Breath Sounds, No Accessory Muscle Use Cardiovascular: Normal Peripheral Pulses, Regular Rate, Rhythm, No Edema, No Gallop, No JVD, No Murmur, No Rub Peripheral Pulses: 3+: Radial (L), Radial (R) GI/Abdominal: Normal Bowel Sounds, Soft, Non-Tender, No Organomegaly, No Distention, No Abnormal Bruit, No Mass Extremities: Normal Inspection, Normal Range of Motion, No Pedal Edema, Normal Capillary Refill Neurological: Alert, No Motor/Sensory Deficits Psychiatric: Flat Affect Skin Exam: Warm, Dry, Normal Color, No Rash <Jose Juan Lott - Last Filed: 08/09/21 08:06> ED TRAUMA PROCEDURES - Laceration/Wound Repair Left Neck Lac/Wound Length In cm: 4.5 Appearance: Subcutaneous, Irregular, Clean Distal NVT: Neuro & Vascular Intact, No Tendon Injury Anesthetic Type: Local Local Anesthesia - Lidocaine (Xylocaine): 1% with EPI (50:50 admixture) Local Anesthesia - Bupivicaine (Marcaine): 0.5% Plain (50:50 admixture) Local Anesthetic Volume: 1cc Skin Prep: Providone-Iodine (Betadine) Exploration/Debridement/Repair: Wound Explored, In a Bloodless Field, Explored to Base, No Foreign Material Found Closed With: Sutures Suture Size: 3-0 # of Sutures: 4 Suture Type: Nylon (Ethilon), Interrupted, Simple Drain Placement: No Sterile Dressing Applied: Nurse Tetanus Status Addressed: Yes Complications: No <Jose Juan Lott - Last Filed: 08/09/21 08:06> #1 Interpretation EKG Date: 08/09/21 Time: 01:41 Rhythm: NSR Rate (Beats/Min): 61 [place]: Normal P-Wave: Present QRS: Normal ST-T: Normal QT: Normal Comparison: No Change (07/02/2021) <Jose Juan Lott - Last Filed: 08/09/21 08:06> Course <Jose Juan Lott - Last Filed: 08/09/21 08:06> <Rylan Irene - Last Filed: 08/09/21 15:28> - Vital Signs Last Recorded V/S: Last Vital Signs Temp 97.6 F 08/09/21 00:53 Pulse 62 08/09/21 11:59 Resp 16 08/09/21 11:59 BP 121/84 08/09/21 11:59 Pulse Ox 99 08/09/21 11:59 - Orders/Labs/Meds Labs: Laboratory Tests 08/09/21 08/09/21 08/09/21 Range/Units 01:06 01:08 01:08 WBC 10.59 H (4.23-9.07) K/mm3 RBC 4.26 L (4.63-6.08) M/mm3 Hgb 12.0 L (13.7-17.5) gm/dl Hct 37.6 L (40.1-51.0) % MCV 88.3 D (79.0-92.2) fl MCH 28.2 (25.7-32.2) pg MCHC 31.9 L (32.2-35.5) g/dl RDW Std Deviation 46.4 H (35.1-43.9) fL Plt Count 336 D (163-337) K/mm3 MPV 9.2 L (9.4-12.3) fl Neutrophils % (Manual) 72 H (40-60) % Band Neutrophils % 2 (0-10) % Lymphocytes % (Manual) 20 (20-40) % Atypical Lymphs % 0 % Monocytes % (Manual) 6 (2-10) % Eosinophils % (Manual) 0 L (0.8-7.0) % Basophils % (Manual) 0 L (0.2-1.2) Platelet Estimate Adequate RBC Morph Comment Normal PT (9.7-12.0) SECONDS INR APTT (21.7-31.4) SECONDS Sodium 141 (136-145) mEq/L Potassium 3.0 L (3.5-5.1) mEq/L Chloride 106 (98-107) mEq/L Carbon Dioxide 25 (21-32) mEq/L Anion Gap 13.0 (5-15) BUN 14 (7-18) mg/dL Creatinine 0.9 (0.7-1.3) mg/dL Est Cr Clr Drug Dosing 115.50 mL/min Estimated GFR (MDRD) > 60 (>60) mL/min BUN/Creatinine Ratio 15.6 (14-18) Glucose 135 H (70-99) mg/dL Calcium 8.6 (8.5-10.1) mg/dL Magnesium 1.9 (1.8-2.4) mg/dL Total Bilirubin 0.6 (0.2-1.0) mg/dL AST 24 (15-37) U/L ALT 21 (16-63) U/L Alkaline Phosphatase 63 (46-116) U/L Total Protein 6.1 L (6.4-8.2) g/dl Albumin 3.6 (3.4-5.0) g/dl Globulin 2.5 gm/dL Albumin/Globulin Ratio 1.4 (1-2) TSH 3rd Generation 1.898 (0.358-3.74) uIU/mL Urine Color (Yellow) Urine Appearance (Clear) Urine pH (5.0-8.0) Ur Specific [place] (1.005-1.030) Urine Protein (Negative) Urine Glucose (UA) (Negative) Urine Ketones (Negative) Urine Occult Blood (Negative) Urine Nitrite (Negative) Urine Bilirubin (Negative) Urine Urobilinogen (0.2-1.0) Ur Leukocyte Esterase (Negative) Urine RBC (0-5) /hpf Urine WBC (0-5) /hpf Ur Squamous Epith Cells (0-5) /hpf Urine Bacteria (FEW) /hpf Urine Mucus (FEW) /hpf Salicylates (2.8-20) mg/dL Urine Opiates Screen (SUHCNL=778) Ur Buprenorphine Scrn (CUTOFF=10) Ur Oxycodone Screen (OOJ2UA=448) Urine Methadone Screen (MUT4NC=939) Ur Propoxyphene Screen (PJJEWO=524) Acetaminophen (10-30) ug/mL Ur Barbiturates Screen (NDMFFZ=113) Ur Tricyclics Screen (CTZLWI=027) Ur Phencyclidine Scrn (CUTOFF=25) Ur Amphetamine Screen (ZJDVFZ=207) U Methamphetamines Scrn (LTQKQW=234) U Benzodiazepines Scrn (FFYAWZ=400) U Cocaine Metab Screen (EKEUWK=436) U Marijuana (THC) Screen (CUTOFF=50) Ethyl Alcohol (0.00) gm% SARS-CoV-2 RNA (YOLI) (NEGATIVE) 08/09/21 08/09/21 08/09/21 Range/Units 01:08 01:08 01:08 WBC (4.23-9.07) K/mm3 RBC (4.63-6.08) M/mm3 Hgb (13.7-17.5) gm/dl Hct (40.1-51.0) % MCV (79.0-92.2) fl MCH (25.7-32.2) pg MCHC (32.2-35.5) g/dl RDW Std Deviation (35.1-43.9) fL Plt Count (163-337) K/mm3 MPV (9.4-12.3) fl Neutrophils % (Manual) (40-60) % Band Neutrophils % (0-10) % Lymphocytes % (Manual) (20-40) % Atypical Lymphs % % Monocytes % (Manual) (2-10) % Eosinophils % (Manual) (0.8-7.0) % Basophils % (Manual) (0.2-1.2) Platelet Estimate RBC Morph Comment PT 12.0 (9.7-12.0) SECONDS INR 1.08 APTT 22.9 (21.7-31.4) SECONDS Sodium (136-145) mEq/L Potassium (3.5-5.1) mEq/L Chloride (98-107) mEq/L Carbon Dioxide (21-32) mEq/L Anion Gap (5-15) BUN (7-18) mg/dL Creatinine (0.7-1.3) mg/dL Est Cr Clr Drug Dosing mL/min Estimated GFR (MDRD) (>60) mL/min BUN/Creatinine Ratio (14-18) Glucose (70-99) mg/dL Calcium (8.5-10.1) mg/dL Magnesium (1.8-2.4) mg/dL Total Bilirubin (0.2-1.0) mg/dL AST (15-37) U/L ALT (16-63) U/L Alkaline Phosphatase (46-116) U/L Total Protein (6.4-8.2) g/dl Albumin (3.4-5.0) g/dl Globulin gm/dL Albumin/Globulin Ratio (1-2) TSH 3rd Generation (0.358-3.74) uIU/mL Urine Color (Yellow) Urine Appearance (Clear) Urine pH (5.0-8.0) Ur Specific [place] (1.005-1.030) Urine Protein (Negative) Urine Glucose (UA) (Negative) Urine Ketones (Negative) Urine Occult Blood (Negative) Urine Nitrite (Negative) Urine Bilirubin (Negative) Urine Urobilinogen (0.2-1.0) Ur Leukocyte Esterase (Negative) Urine RBC (0-5) /hpf Urine WBC (0-5) /hpf Ur Squamous Epith Cells (0-5) /hpf Urine Bacteria (FEW) /hpf Urine Mucus (FEW) /hpf Salicylates 2.6 L (2.8-20) mg/dL Urine Opiates Screen (MGGUXM=423) Ur Buprenorphine Scrn (CUTOFF=10) Ur Oxycodone Screen (UVS8PB=359) Urine Methadone Screen (TZN3LC=580) Ur Propoxyphene Screen (ONAEHP=225) Acetaminophen 0 L (10-30) ug/mL Ur Barbiturates Screen (YRAJHF=980) Ur Tricyclics Screen (BDXVTH=742) Ur Phencyclidine Scrn (CUTOFF=25) Ur Amphetamine Screen (KRXVLQ=753) U Methamphetamines Scrn (BQKLGP=339) U Benzodiazepines Scrn (RTZXLI=763) U Cocaine Metab Screen (OZVOLY=873) U Marijuana (THC) Screen (CUTOFF=50) Ethyl Alcohol 0.00 (0.00) gm% SARS-CoV-2 RNA (YOLI) (NEGATIVE) 08/09/21 08/09/21 08/09/21 Range/Units 01:24 08:01 08:01 WBC (4.23-9.07) K/mm3 RBC (4.63-6.08) M/mm3 Hgb (13.7-17.5) gm/dl Hct (40.1-51.0) % MCV (79.0-92.2) fl MCH (25.7-32.2) pg MCHC (32.2-35.5) g/dl RDW Std Deviation (35.1-43.9) fL Plt Count (163-337) K/mm3 MPV (9.4-12.3) fl Neutrophils % (Manual) (40-60) % Band Neutrophils % (0-10) % Lymphocytes % (Manual) (20-40) % Atypical Lymphs % % Monocytes % (Manual) (2-10) % Eosinophils % (Manual) (0.8-7.0) % Basophils % (Manual) (0.2-1.2) Platelet Estimate RBC Morph Comment PT (9.7-12.0) SECONDS INR APTT (21.7-31.4) SECONDS Sodium (136-145) mEq/L Potassium (3.5-5.1) mEq/L Chloride (98-107) mEq/L Carbon Dioxide (21-32) mEq/L Anion Gap (5-15) BUN (7-18) mg/dL Creatinine (0.7-1.3) mg/dL Est Cr Clr Drug Dosing mL/min Estimated GFR (MDRD) (>60) mL/min BUN/Creatinine Ratio (14-18) Glucose (70-99) mg/dL Calcium (8.5-10.1) mg/dL Magnesium (1.8-2.4) mg/dL Total Bilirubin (0.2-1.0) mg/dL AST (15-37) U/L ALT (16-63) U/L Alkaline Phosphatase (46-116) U/L Total Protein (6.4-8.2) g/dl Albumin (3.4-5.0) g/dl Globulin gm/dL Albumin/Globulin Ratio (1-2) TSH 3rd Generation (0.358-3.74) uIU/mL Urine Color Yellow (Yellow) Urine Appearance Clear (Clear) Urine pH 6.0 (5.0-8.0) Ur Specific [place] 1.020 (1.005-1.030) Urine Protein Negative (Negative) Urine Glucose (UA) Negative (Negative) Urine Ketones 1+ H (Negative) Urine Occult Blood Negative (Negative) Urine Nitrite Negative (Negative) Urine Bilirubin 1+ H (Negative) Urine Urobilinogen 2.0 H (0.2-1.0) Ur Leukocyte Esterase Negative (Negative) Urine RBC 0-5 (0-5) /hpf Urine WBC 0-5 (0-5) /hpf Ur Squamous Epith Cells 0-5 (0-5) /hpf Urine Bacteria Few (FEW) /hpf Urine Mucus Few (FEW) /hpf Salicylates (2.8-20) mg/dL Urine Opiates Screen Negative (KEXPRO=972) Ur Buprenorphine Scrn Negative (CUTOFF=10) Ur Oxycodone Screen Negative (OAM9HS=679) Urine Methadone Screen Negative (VKU4TX=295) Ur Propoxyphene Screen Negative (YUPPNB=652) Acetaminophen (10-30) ug/mL Ur Barbiturates Screen Negative (ISDBLE=884) Ur Tricyclics Screen Negative (NHLDRJ=218) Ur Phencyclidine Scrn Negative (CUTOFF=25) Ur Amphetamine Screen Negative (ENDJEJ=993) U Methamphetamines Scrn Negative (PDYQTW=853) U Benzodiazepines Scrn Negative (YVSOXX=050) U Cocaine Metab Screen Negative (NKKWZR=921) U Marijuana (THC) Screen Presumptive positive H (CUTOFF=50) Ethyl Alcohol (0.00) gm% SARS-CoV-2 RNA (YOLI) Negative (NEGATIVE) Meds: Medications Discontinued Medications Generic Name Dose Route Start Last Admin Trade Name Freq PRN Reason Stop Dose Admin Bupivacaine HCl 10 ml 08/09/21 02:18 08/09/21 03:03 Bupivacaine 0.5% 10 Ml Sdv INJECT 08/09/21 02:19 10 ml ONETIME ONE Administration Sodium Chloride 1,000 mls @ 100 mls/hr 08/09/21 01:00 08/09/21 01:11 Normal Saline IV 100 mls/hr ASDIRECTED KAREN Administration Lidocaine/Epinephrine 20 ml 08/09/21 02:18 08/09/21 03:03 Lidocaine 1% With Epinephrine 1:100,000 20 Ml Mdv INJECT 08/09/21 02:19 20 ml ONETIME ONE Administration Nicotine Polacrilex 2 mg 08/09/21 10:58 Nicotine Polacrilex 2 Mg Gum CHEW Q1H PRN Anxiety Potassium Chloride 40 meq 08/09/21 09:11 08/09/21 09:52 Potassium Chloride 20 Meq Tab.Er PO 08/09/21 09:12 40 meq ONETIME ONE Administration - Re-Assessments/Exams Free Text/Narrative Re-Assessment/Exam: 08/09/21 01:13 I ordered several blood tests, a urine drug screen, a swab for the SARS-CoV-2 virus, a CT of the soft tissue of the neck with IV contrast, and an ECG. In the meantime, the patient will be given IV fluid. Case discussed with Dr. Brambila at 01:08. He recommended that we give the patient a few swallows of some oral contrast prior to the CT scan. I will call him back with the results. 08/09/21 01:44 CT of the soft tissue of the neck with IV contrast is read by [facility] as: 1. Soft tissue gas present in the left side of the lower neck, secondary laceration. 2. No active extravasation. 3. No evidence of vascular injury. 08/09/21 01:48 CT results discussed with Dr. Brambila at 01:46. He will come to the ED to evaluate the patient. 08/09/21 02:17 Dr. Brambila evaluated the patient and reviewed the CT scan images. He recommended that we irrigate the wound, then loosely approximate the edges with 2 or 3 nylon sutures. He does not feel that antibiotics are indicated. 08/09/21 04:45 The patient's CBC is remarkable for mild leukocytosis of 10.59, with 2% bandemia, and an H/H slightly depressed at 12.0/37.6, with remainder of his CBC being unremarkable. His CMP is remarkable for mild hypokalemia of 3.0, and slight hyperglycemia of 135, with the remainder of his CMP being unremarkable. His magnesium level is within normal limits at 1.9. His TSH is within normal limits at 1.898. His coags are within normal limits. His acetaminophen level is 0. His salicylate level is within normal limits at 2.6. His EtOH level is 0.00. His swab for the SARS-CoV-2 virus is negative. The patient has not yet provided a urine sample for a urine drug screen. 08/09/21 05:51 While positioning the patient for suturing, the wound began bleeding a copious amount of venous blood, however, by applying light pressure just superior to the wound, the bleeding was able to be controlled. By holding pressure for about 5 minutes, the bleeding stopped. I then cleaned the patient's surrounding skin with Betadine, then prepared a sterile field in the usual fashion. The wound was infiltrated with a 50:50 admixture of bupivacaine 0.5% without epinephrine and lidocaine 1% with epinephrine, to good anesthetic effect. The wound was then loosely approximated with 4 simple interrupted sutures, using 3-0 Ethilon. The patient tolerated the procedure well. Johana BENTON will apply a dressing. 08/09/21 08:06 Notified by Julia BENTON that she was able to obtain a urine by straight cath. Case discussed with Dr. Ocampo, and care of the patient turned over to him at this time, for change of shift. (Jose Juan Lott) 08/09/21 09:00. Have assumed care from Dr Lott. Ua, urine drug screen still pending. I agree with his hx and exam as documented. Pt resting comfortably but does not remember cutting neck last night, does not know where he is at. He does attempt to answer questions, but just states I don't know, I don't remember. I have asked Anahi, our social work assistant to help us find a bed for him for placement. She will also fill out 24 hr hold paperwork. 10:15. Drug screen is positive for marijuana. Ua shows ketones, no infection. Have discussed with Mark Garcia, [facility] who is accepting patient for transfer pending their review of 24 hr hold paperwork. When they are ready to take him will have him be transferred by ground ambulance. (Rylan Irene) Departure - Discharge Information *PRESCRIPTION DRUG MONITORING PROGRAM REVIEWED*: No *COPY OF PRESCRIPTION DRUG MONITORING REPORT IN PATIENT ALBA: No <Jose Juan Lott - Last Filed: 08/09/21 08:06> - Departure Time of Disposition: 11:00 Condition: Serious <Rylan Irene - Last Filed: 08/09/21 15:28> - Departure Disposition: DC/Tfer to Acute Hospital 02 Clinical Impression: Self-harm Psychosis Qualifiers: Psychosis type: other Qualified Code(s): F28 - Other psychotic disorder not due to a substance or known physiological condition - Discharge Information Referrals: Georgia Cardenas MD [Primary Care Provider] - Forms: ED Department Discharge Sepsis Event Note (ED) - Evaluation Sepsis Screening Result: No Definite Risk <Jose Juan Lott - Last Filed: 08/09/21 08:06> - Focused Exam Vital Signs: Vital Signs Pulse Resp BP Pulse Ox 08/09/21 11:59 62 16 121/84 99 08/09/21 09:52 71 16 118/81 100
[2021-08-09] MEDS ORDERED: Lidocaine 1% with EPINEPHrine 1:100,000 20 ML MDV INJECT ONE (02:18)
[2021-08-09] MEDS ORDERED: Bupivacaine 0.5% 10 ML SDV INJECT ONE (02:18)
--- NOTE | 2021-08-09 07:04 | CT ---
CT neck Technique: Multiple axial sections through the neck were obtained. Intravenous contrast was utilized. Reconstructed coronal and sagittal images were obtained. Comparison: Base of the neck is compared to previous chest CT study of 01/19/11. Findings: Visualized lung apices show nothing acute. There is soft tissue air being seen within the lower left anterior soft tissues of the neck. This does not appear to involve any vascular structures. Soft tissue injury is seen. Findings are compatible with laceration. No adenopathy is seen within the neck. Parotid salivary glands and submandibular salivary glands are normal. No acute paranasal sinus findings are seen. Scoliosis is noted within the spine. No acute osseous finding is seen. Impression: 1. Soft tissue air within the anterior base of the left neck compatible with laceration. This does not involve the lung or any vascular structures. 2. Scoliosis is noted within the spine. 3. No other acute abnormality is appreciated. Diagnostic code #3 I agree with preliminary report from [facility], finalized on 08/09/21, 2:41 AM DESIGN LEAD, code 1
[2021-08-09] MEDS ORDERED: Potassium Chloride 20 MEQ Tab.ER PO ONE (09:11)
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
[2021-08-09] MEDS ORDERED: Nicotine Polacrilex 2 MG Gum CHEW PRN (10:58)
[2021-08-09 14:28] VITALS: BP 121/84; PULSE 62
== END 2021-08-09 12:40 ==
LOC: JD.ED 00:50
DX: S11.91XA Laceration without foreign body of unspecified part of neck, initial encounter (principal); F28 Other psychotic disorder not due to a substance or known physiological condition; I10 Essential (primary) hypertension; K21.9 Gastro-esophageal reflux disease without esophagitis; Z79.4 Long term (current) use of insulin; Z79.899 Other long term (current) drug therapy; Z20.822 Contact with and (suspected) exposure to COVID-19; X78.1XXA Intentional self-harm by knife, initial encounter; Y92.000 Kitchen of unspecified non-institutional (private) residence as the place of occurrence of the external cause
CPT/HCPCS: 12002; 36415; 70491; 80053; 80143; 80179; 80306; 80307; 81001; 83735; 84443; 85007; 85027; 85610; 85730; 87635; 93005; 99285; A9270; J3490; J7030; U0002

== ENCOUNTER 2021-09-01 09:18 | Emergency (ER) | payer MEDICAID ==
[2021-09-01 09:33] VITALS: BP 120/83; PULSE 81
[2021-09-01] MEDS ORDERED: FLU Vacc QS2021-22 36MOS UP/PF 60 MCG/0.5 ML Syringe IM ONE (10:00)
[2021-09-01] MEDS ORDERED: Alum Hydrox/Mag Hydrox/Simeth 30 ML, Lidocaine 2% 15 ML PO ONE ×2 (10:18)
[2021-09-01] MEDS ORDERED: Pantoprazole 40 MG Tab.CR PO ONE (10:18)
[2021-09-01] MEDS ORDERED: Ondansetron 4 MG Tab.DIS PO ONE (10:19)
--- NOTE | 2021-09-01 10:46 | EDM.PDOC ---
ED HPI GENERAL MEDICAL PROBLEM - General Chief Complaint: Abdominal Pain Stated Complaint: ABDOMINAL PAIN Time Seen by Provider: 09/01/21 10:45 Source of Information: Reports: Patient History Limitations: Reports: No Limitations - History of Present Illness INITIAL COMMENTS - FREE TEXT/NARRATIVE: There is a 41-year-old male with a past medical history of schizophrenia presenting with chief complaint of abdominal pain. The abdominal pain has been on for going for the past 2 weeks. Abdominal pain is described as diffuse and crampy. Pain comes in waves and is generally worse after eating. Patient has had several loose bowel movements over the past few days. He was denies fevers, chills, flank pain. He has not taken any medication prior to arrival in the emergency room. Pain seems resolved on its own. Pain is mild in nature at this point in time. Has some mild nausea. No loss of appetite. Denies prior abdominal surgeries. Middle Abdomen Pain Score (Numeric/FACES): 9 - Related Data Allergies Allergy/AdvReac Type Severity Reaction Status Date / Time No Known Allergies Allergy Verified 09/01/21 09:33 Home Meds: Home Meds Albuterol [Ventolin HFA] 2 puff INH DAILY 03/14/19 [History] Benztropine [Cogentin] 2 mg PO BID 03/14/19 [History] Divalproex Sodium [Depakote] 1,000 mg PO BEDTIME 03/14/19 [History] Divalproex Sodium [Depakote] 500 mg PO DAILY 03/14/19 [History] Insulin Glarg,Human.Rec.Analog [Lantus Solostar] 5 unit SQ ASDIRECTED PRN 03/14/19 [History] Lisinopril 20 mg PO DAILY 03/14/19 [History] Ranitidine [Zantac] 150 mg PO DAILY 03/14/19 [History] cloZAPine [Clozapine] 200 mg PO BEDTIME 03/14/19 [History] hydroCHLOROthiazide [Microzide] 12.5 mg PO DAILY 03/14/19 [History] sitaGLIPtin Phos/Metformin HCl [Janumet 50-500 MG] 1 tab PO BID 03/14/19 [History] hydrOXYzine HCL [Atarax] 0 mg PO TID 06/22/21 [History] Pantoprazole Sodium [Protonix] 40 mg PO DAILY #10 tablet. 09/01/21 [Rx] Past Medical History HEENT History: Reports: Impaired Vision Other HEENT History: wears glasses Cardiovascular History: Reports: Hypertension Respiratory History: Reports: Asthma Gastrointestinal History: Reports: GERD Genitourinary History: Reports: None Musculoskeletal History: Reports: None Neurological History: Reports: None Psychiatric History: Reports: Anxiety, Bipolar, Depression, Psych Hospitalization(s), Schizophrenia, Suicidal Ideation Endocrine/Metabolic History: Reports: Diabetes, Type II, Hypothyroidism, IDDM Hematologic History: Reports: None Immunologic History: Reports: None Oncologic (Cancer) History: Reports: None Dermatologic History: Reports: None - Infectious Disease History Infectious Disease History: Reports: Chicken Pox - Past Surgical History Oncologic Surgical History: Reports: None Social & Family History - Family History Family Medical History: No Pertinent Family History - Tobacco Use Tobacco Use Status *Q: Current Every Day Tobacco User Years of Tobacco use: 19 Packs/Tins Daily: 0.5 - Caffeine Use Caffeine Use: Reports: Coffee Caffeine Use Comment: one pot of coffee daily. Mt Dew 3 daily - Recreational Drug Use Recreational Drug Use: No - Living Situation & Occupation Living situation: Reports: Alone, Single Occupation: Disabled ED ROS GENERAL - Review of Systems Review Of Systems: See Below Free Text/Narrative/Comment: In addition to that documented in the HPI above, the additional ROS was obtained: Constitutional: Denies fevers or chills Eyes: Denies vision changes ENMT: Denies sore throat CV: Denies chest pain Resp: Denies SOB GI: Per HPI : Denies painful urination MSK: Denies recent trauma Skin: Denies new rashes Neuro: Denies new numbness or tingling or weakness Endocrine: Denies unexpected weight loss Heme: Denies bleeding disorders ED EXAM, GI/ABD - Physical Exam Exam: See Below Text/Narrative:: I have reviewed the triage vital signs Const: Well nourished, well developed, appears stated age Eyes: Pupils Equal and reactive to light bilaterally, no conjunctival injection HENT: No signs of trauma or swelling, Neck supple without meningismus CV: Regular Rate Rhythm, Warm, well-perfused extremities RESP: Unlabored respiratory effort GI: soft, non-tender, non-distended, no masses MSK: No gross deformities appreciated Skin: Warm, dry. No rashes Neuro: Alert, correspondent II-XII grossly intact. Sensation and motor function of extr emities grossly intact. Psych: Appropriate mood and affect. Course - Vital Signs Last Recorded V/S: Last Vital Signs Temp 36.3 C 09/01/21 09:28 Pulse 81 09/01/21 09:28 Resp 18 09/01/21 09:28 BP 120/83 09/01/21 09:28 Pulse Ox 99 09/01/21 09:28 - Orders/Labs/Meds Labs: Laboratory Tests 09/01/21 09/01/21 Range/Units 10:29 10:29 WBC 4.66 (4.23-9.07) K/mm3 RBC 4.39 L (4.63-6.08) M/mm3 Hgb 12.4 L (13.7-17.5) gm/dl Hct 37.5 L (40.1-51.0) % MCV 85.4 (79.0-92.2) fl MCH 28.2 (25.7-32.2) pg MCHC 33.1 (32.2-35.5) g/dl RDW Std Deviation 42.4 (35.1-43.9) fL Plt Count 204 D (163-337) K/mm3 MPV 8.7 L (9.4-12.3) fl Neut % (Auto) 44.7 (34.0-67.9) % Lymph % (Auto) 36.9 (21.8-53.1) % [place] % (Auto) 18.2 H (5.3-12.2) % Eos % (Auto) 0 L (0.8-7.0) Baso % (Auto) 0.0 L (0.1-1.2) % Neut # (Auto) 2.08 (1.78-5.38) K/mm3 Lymph # (Auto) 1.72 (1.32-3.57) K/mm3 [place] # (Auto) 0.85 H (0.30-0.82) K/mm3 Eos # (Auto) 0.00 L (0.04-0.54) K/mm3 Baso # (Auto) 0.00 L (0.01-0.08) K/mm3 Sodium 136 (136-145) mEq/L Potassium 4.1 (3.5-5.1) mEq/L Chloride 100 (98-107) mEq/L Carbon Dioxide 28 (21-32) mEq/L Anion Gap 12.1 (5-15) BUN 12 (7-18) mg/dL Creatinine 1.0 (0.7-1.3) mg/dL Est Cr Clr Drug Dosing 120.56 mL/min Estimated GFR (MDRD) > 60 (>60) mL/min BUN/Creatinine Ratio 12.0 L (14-18) Glucose 112 H (70-99) mg/dL Calcium 8.5 (8.5-10.1) mg/dL Total Bilirubin 0.4 (0.2-1.0) mg/dL AST 21 (15-37) U/L ALT 35 (16-63) U/L Alkaline Phosphatase 57 (46-116) U/L Total Protein 6.3 L (6.4-8.2) g/dl Albumin 3.7 (3.4-5.0) g/dl Globulin 2.6 gm/dL Albumin/Globulin Ratio 1.4 (1-2) Lipase 294 (73-393) U/L Meds: Medications Discontinued Medications Generic Name Dose Route Start Last Admin Trade Name Freq PRN Reason Stop Dose Admin Al Hydroxide/Mg Hydroxide 30 0 ml 09/01/21 10:18 09/01/21 10:48 ml/ Lidocaine HCl 15 ml PO 09/01/21 10:19 45 ml ONETIME ONE Administration Influenza Virus Vaccine 60 mcg 09/01/21 10:00 09/01/21 10:46 Flu Vacc [id number] 36mos Up/Pf 60 Mcg/0.5 Ml Syringe IM 09/01/21 10:01 60 mcg .ONCE ONE Administration Ondansetron HCl 4 mg 09/01/21 10:19 09/01/21 10:45 Ondansetron 4 Mg Tab.Dis PO 09/01/21 10:20 4 mg ONETIME ONE Administration Pantoprazole Sodium 40 mg 09/02/21 10:18 Pantoprazole 40 Mg Tab.Cr PO 09/02/21 10:19 ONETIME ONE Pantoprazole Sodium 40 mg 09/01/21 10:18 09/01/21 11:45 Pantoprazole 40 Mg Tab.Cr PO 09/01/21 10:19 40 mg ONETIME ONE Administration Departure - Departure Time of Disposition: 11:32 Disposition: Home, Self-Care 01 Clinical Impression: Abdominal pain - Discharge Information Prescriptions: Pantoprazole Sodium [Protonix] 40 mg PO DAILY #10 tablet.dr Instructions: Abdominal Pain, Adult Referrals: Georgia Cardenas MD [Primary Care Provider] - Forms: ED Department Discharge Sepsis Event Note (ED) - Evaluation Sepsis Screening Result: No Definite Risk - Assessment/Plan Assessment:: Patient is 41-year-old male presenting to the emergency room with abdominal pain. Unremarkable abdominal exam. His laboratory studies did not demonstrate any significant abnormality. This point, significantly low concern for appendicitis, diverticulitis, bowel obstruction, acute cholecystitis. Patient feels better after the administration of GI cocktail in the emergency room. Patient be discharged with outpatient follow-up. Return precautions discussed as usual. Patient and family agree with plan of care.
[2021-09-02] MEDS ORDERED: Pantoprazole 40 MG Tab.CR PO ONE (10:18)
== END 2021-09-01 11:45 | disposition home or self-care (01) ==
LOC: JD.ED 09:18
DX: R10.9 Unspecified abdominal pain (principal); E11.9 Type 2 diabetes mellitus without complications; E03.9 Hypothyroidism, unspecified; I10 Essential (primary) hypertension; K21.9 Gastro-esophageal reflux disease without esophagitis; Z79.4 Long term (current) use of insulin; Z79.899 Other long term (current) drug therapy; Z72.0 Tobacco use; Z23 Encounter for immunization
CPT/HCPCS: 36415; 80053; 83690; 85025; 90471; 90686; 99284; A9270; G0008

== ENCOUNTER 2021-09-05 19:50 | Inpatient (IN) | payer MEDICAID ==
[2021-09-05] MEDS ORDERED: Naloxone 0.4 MG/ML SDV IVPUSH ONE (19:53)
[2021-09-05] MEDS ORDERED: Midazolam 1 MG/ML 2 ML SDV IVPUSH ONE (20:00)
[2021-09-05] MEDS ORDERED: Sodium Chloride 0.9% 1,000 ML IV ONE ×2 (20:13→21:53)
--- NOTE | 2021-09-05 20:53 | EDM.PDOC ---
ED HPI GENERAL MEDICAL PROBLEM - General Chief Complaint: Drug or Alcohol Abuse Stated Complaint: ANNE-MARIE AMB Time Seen by Provider: 09/05/21 20:20 Source of Information: Reports: EMS, Family History Limitations: Reports: Altered Mental Status - History of Present Illness INITIAL COMMENTS - FREE TEXT/NARRATIVE: Patient is a 41-year-old male with a past medical history of schizophrenia presenting to the emergency room for altered mental status. Patient was found by mother with a decreased level of responsiveness. She saw him yesterday states he was having significant hallucinations and agitation. Today, she came by the department this evening and found him this way. Does not know what happened. She states she tried to arouse him and speak with him for 20 minutes before calling the ambulance. On EMS arrival, patient was awake but not responding appropriately. He started sliding down in the chair but did not demonstrate any seizure-like activity. He was transferred to the emergency room without difficulty. There were no empty pill bottles besides doxycycline which was prescribed approximately 10 days ago. Otherwise, no evidence of drug paraphernalia or self-harm. Mother states that he does have a history of polysubstance abuse but does not know about him using recently. - Related Data Allergies Allergy/AdvReac Type Severity Reaction Status Date / Time No Known Allergies Allergy Verified 09/01/21 09:33 Home Meds: Home Meds Albuterol [Ventolin HFA] 2 puff INH DAILY 03/14/19 [History] Benztropine [Cogentin] 2 mg PO BID 03/14/19 [History] Divalproex Sodium [Depakote] 1,000 mg PO BEDTIME 03/14/19 [History] Divalproex Sodium [Depakote] 500 mg PO DAILY 03/14/19 [History] Insulin Glarg,Human.Rec.Analog [Lantus Solostar] 5 unit SQ ASDIRECTED PRN 03/14/19 [History] Lisinopril 20 mg PO DAILY 03/14/19 [History] Ranitidine [Zantac] 150 mg PO DAILY 03/14/19 [History] cloZAPine [Clozapine] 200 mg PO BEDTIME 03/14/19 [History] hydroCHLOROthiazide [Microzide] 12.5 mg PO DAILY 03/14/19 [History] sitaGLIPtin Phos/Metformin HCl [Janumet 50-500 MG] 1 tab PO BID 03/14/19 [Histor y] hydrOXYzine HCL [Atarax] 0 mg PO TID 06/22/21 [History] Pantoprazole Sodium [Protonix] 40 mg PO DAILY #10 tablet. 09/01/21 [Rx] Past Medical History HEENT History: Reports: Impaired Vision Other HEENT History: wears glasses Cardiovascular History: Reports: Hypertension Respiratory History: Reports: Asthma Gastrointestinal History: Reports: GERD Genitourinary History: Reports: None Musculoskeletal History: Reports: None Neurological History: Reports: None Psychiatric History: Reports: Anxiety, Bipolar, Depression, Psych Hospitalization(s), Schizophrenia, Suicidal Ideation Endocrine/Metabolic History: Reports: Diabetes, Type II, Hypothyroidism, IDDM Hematologic History: Reports: None Immunologic History: Reports: None Oncologic (Cancer) History: Reports: None Dermatologic History: Reports: None - Infectious Disease History Infectious Disease History: Reports: Chicken Pox - Past Surgical History Oncologic Surgical History: Reports: None Social & Family History - Family History Family Medical History: No Pertinent Family History - Caffeine Use Caffeine Use: Reports: Coffee Caffeine Use Comment: one pot of coffee daily. Mt Dew 3 daily - Living Situation & Occupation Living situation: Reports: Alone, Single Occupation: Disabled ED ROS GENERAL - Review of Systems Review Of Systems: Unable To Obtain Reason Not Obtained: To mental status ED EXAM, GENERAL - Physical Exam Exam: See Below Free Text/Narrative:: I have reviewed the triage vital signs Const: Patient is somnolent lying still in bed. No evidence of shaking or erratic movements. Eyes: Pupils Equal and reactive to light bilaterally, no conjunctival injection HENT: Airway is patent. There is no grunting or gurgling. No signs of trauma or swelling, Neck supple without meningismus CV: Tachycardia with regular rhythm, Warm, well-perfused extremities RESP: Unlabored respiratory effort GI: soft, non-tender, non-distended, no masses MSK: No gross deformities appreciated. No muscular rigidity. Skin: Warm, dry. No rashes Neuro: Responds to painful stimuli by saying words at to make sense. Moves all 4 extremities.. Sensation and motor function of extremities grossly intact. Psych: Unable to assess. ED GENERAL MEDICAL PROCEDURES - Endotracheal Intubation Time of Intubation: 00:15 ET Intubation Indication: Respiratory Failure, Airway Protection Preparation: Suction, Balloon Tested, BVM Set Up, Difficult Airway Equip Pre-Oxygenation: 100% FiO2 Anesthesia Meds: Etomidate, Rocuronium Placement: Orotracheal Cords Visualized: Yes ETT Size In mm: 8.0 Number of Attempts: 1 Confirmed By: CO2 Indicator, Bilateral Breath Sounds, Chest Xray #1 Interpretation EKG Date: 09/05/21 Time: 20:00 Rhythm: NSR Rate (Beats/Min): 106 [place]: Normal P-Wave: Present QRS: Normal ST-T: Normal QT: Prolonged (QT 381, QTc 506) Comparison: No Change EKG Interpretation Comments: Sinus tachycardia, abnormal EKG Course - Vital Signs Last Recorded V/S: Last Vital Signs Temp 36.1 C 09/05/21 20:28 Pulse 103 H 09/06/21 02:37 Resp 14 09/06/21 02:37 BP 133/92 H 09/06/21 02:37 Pulse Ox 100 09/06/21 02:37 - Orders/Labs/Meds Orders: Active Orders 24 hr Category Date Time Status Blood Glucose Check, Bedside [RC] ONETIME Care 09/05/21 20:04 Active RASS Sedation Scale [RC] ASDIRECTED Care 09/06/21 00:04 Active Suicide Precautions [RC] .Per Facility Policy Care 09/05/21 20:57 Active Chest 1V Frontal [CR] Stat Exams 09/05/21 20:17 Taken Chest 1V-Tube Placement Chk NC [CR] Stat Exams 09/06/21 00:41 Taken Head wo Cont [CT] Stat Exams 09/05/21 20:01 Taken BLOOD CULTURE [MREF] Stat Lab 09/05/21 20:00 Received BLOOD CULTURE [MREF] Stat Lab 09/05/21 20:11 Received Sodium Chloride 0.9% [Normal Saline] 1,000 ml Med 09/05/21 22:00 Active IV ASDIRECTED fentaNYL [Sublimaze] 2,500 mcg Med 09/06/21 00:15 Active Sodium Chloride 0.9% [Normal Saline] 200 ml IV TITRATE propofoL [Diprivan 100 ML] 100 ml Med 09/06/21 00:15 Active IV TITRATE Blood Culture x2 Reflex Set [OM.PC] Stat Oth 09/05/21 20:01 Ordered Desired Level of Sedation (RASS) [AST] Click to Edit Oth 09/06/21 00:04 Ordered Medication Orders Sodium Chloride (Normal Saline) 1,000 mls @ 200 mls/hr IV ASDIRECTED KAREN Last Admin: 09/05/21 23:24 Dose: 200 mls/hr Documented by: TERESITA Propofol (Diprivan 100 Ml) 100 mls @ 2.858 mls/hr IV TITRATE KAREN; Protocol Last Titration: 09/06/21 01:00 Dose: 15 mcg/kg/min, 8.573 mls/hr Documented by: Admin: 09/06/21 00:30 Dose: 10 mcg/kg/min, 5.715 mls/hr Documented by: MARK Fentanyl 2,500 mcg/ Sodium (Chloride) 250 mls @ 9.525 mls/hr IV TITRATE KAREN; Protocol Last Admin: 09/06/21 05:14 Dose: 5 mcg/kg/hr, 47.627 mls/hr Documented by: Titration: 09/06/21 05:14 Dose: 5 mcg/kg/hr, 47.627 mls/hr Documented by: Titration: 09/06/21 01:00 Dose: 5 mcg/kg/hr, 47.627 mls/hr Documented by: Admin: 09/06/21 00:30 Dose: 3 mcg/kg/hr, 28.576 mls/hr Documented by: MARK Labs: Laboratory Tests 09/05/21 09/05/21 09/05/21 Range/Units 20:00 20:00 20:00 WBC 3.95 L (4.23-9.07) K/mm3 RBC 4.80 (4.63-6.08) M/mm3 Hgb 13.5 L (13.7-17.5) gm/dl Hct 40.5 (40.1-51.0) % MCV 84.4 (79.0-92.2) fl MCH 28.1 (25.7-32.2) pg MCHC 33.3 (32.2-35.5) g/dl RDW Std Deviation 41.2 (35.1-43.9) fL Plt Count 226 (163-337) K/mm3 MPV 9.1 L (9.4-12.3) fl Neut % (Auto) 72.4 H (34.0-67.9) % Lymph % (Auto) 19.5 L (21.8-53.1) % Holmes % (Auto) 7.8 (5.3-12.2) % Eos % (Auto) 0 L (0.8-7.0) Baso % (Auto) 0.3 (0.1-1.2) % Neut # (Auto) 2.86 (1.78-5.38) K/mm3 Lymph # (Auto) 0.77 L (1.32-3.57) K/mm3 Holmes # (Auto) 0.31 (0.30-0.82) K/mm3 Eos # (Auto) 0.00 L (0.04-0.54) K/mm3 Baso # (Auto) 0.01 (0.01-0.08) K/mm3 VBG pH (7.30-7.40) VBG pCO2 (41-51) mmHg VBG pO2 (40-80) mmHG VBG HCO3 (22-26) meq/L VBG O2 Saturation VBG Base Excess (-4.0-2.0) Sodium 139 (136-145) mEq/L Potassium 3.6 (3.5-5.1) mEq/L Chloride 98 (98-107) mEq/L Carbon Dioxide 24 (21-32) mEq/L Anion Gap 20.6 H (5-15) BUN 11 (7-18) mg/dL Creatinine 1.1 (0.7-1.3) mg/dL Est Cr Clr Drug Dosing TNP Estimated GFR (MDRD) > 60 (>60) mL/min BUN/Creatinine Ratio 10.0 L (14-18) Glucose 160 H (70-99) mg/dL POC Glucose (70-99) mg/dL Lactic Acid (0.4-2.0) mmol/L Calcium 8.4 L (8.5-10.1) mg/dL Total Bilirubin 0.3 (0.2-1.0) mg/dL AST 46 H (15-37) U/L ALT 30 (16-63) U/L Alkaline Phosphatase 74 (46-116) U/L Ammonia (11-32) umol/L CK-MB (CK-2) 20.1 H (0-3.6) ng/ml Total Protein 6.8 (6.4-8.2) g/dl Albumin 4.0 (3.4-5.0) g/dl Globulin 2.8 gm/dL Albumin/Globulin Ratio 1.4 (1-2) TSH 3rd Generation 0.711 (0.358-3.74) uIU/mL Urine Color (Yellow) Urine Appearance (Clear) Urine pH (5.0-8.0) Ur Specific [place] (1.005-1.030) Urine Protein (Negative) Urine Glucose (UA) (Negative) Urine Ketones (Negative) Urine Occult Blood (Negative) Urine Nitrite (Negative) Urine Bilirubin (Negative) Urine Urobilinogen (0.2-1.0) Ur Leukocyte Esterase (Negative) Urine RBC (0-5) /hpf Urine WBC (0-5) /hpf Ur Squamous Epith Cells (0-5) /hpf Amorphous Sediment (NOT SEEN) /hpf Urine Bacteria (FEW) /hpf Fine Granular Casts (0-5) /lpf Urine Mucus (FEW) /hpf Salicylates 2.4 L (2.8-20) mg/dL Urine Opiates Screen (KZAKAL=993) Ur Buprenorphine Scrn (CUTOFF=10) Ur Oxycodone Screen (ZLZ5MT=504) Urine Methadone Screen (ESL1BP=338) Ur Propoxyphene Screen (AMEPIR=531) Acetaminophen 0 L (10-30) ug/mL Ur Barbiturates Screen (UZWWZG=070) Valproic Acid 158.3 H* (50.0-100.0) ug/mL Ur Tricyclics Screen (UOMRRM=123) Ur Phencyclidine Scrn (CUTOFF=25) Ur Amphetamine Screen (VJQCMU=213) U Methamphetamines Scrn (PKDCDI=551) U Benzodiazepines Scrn (WSENGP=811) U Cocaine Metab Screen (RSXATL=489) U Marijuana (THC) Screen (CUTOFF=50) Ethyl Alcohol 0.00 (0.00) gm% SARS-CoV-2 RNA (YOLI) (NEGATIVE) 09/05/21 09/05/21 09/05/21 Range/Units 20:00 20:30 20:34 WBC (4.23-9.07) K/mm3 RBC (4.63-6.08) M/mm3 Hgb (13.7-17.5) gm/dl Hct (40.1-51.0) % MCV (79.0-92.2) fl MCH (25.7-32.2) pg MCHC (32.2-35.5) g/dl RDW Std Deviation (35.1-43.9) fL Plt Count (163-337) K/mm3 MPV (9.4-12.3) fl Neut % (Auto) (34.0-67.9) % Lymph % (Auto) (21.8-53.1) % Holmes % (Auto) (5.3-12.2) % Eos % (Auto) (0.8-7.0) Baso % (Auto) (0.1-1.2) % Neut # (Auto) (1.78-5.38) K/mm3 Lymph # (Auto) (1.32-3.57) K/mm3 [place] # (Auto) (0.30-0.82) K/mm3 Eos # (Auto) (0.04-0.54) K/mm3 Baso # (Auto) (0.01-0.08) K/mm3 VBG pH (7.30-7.40) VBG pCO2 (41-51) mmHg VBG pO2 (40-80) mmHG VBG HCO3 (22-26) meq/L VBG O2 Saturation VBG Base Excess (-4.0-2.0) Sodium (136-145) mEq/L Potassium (3.5-5.1) mEq/L Chloride (98-107) mEq/L Carbon Dioxide (21-32) mEq/L Anion Gap (5-15) BUN (7-18) mg/dL Creatinine (0.7-1.3) mg/dL Est Cr Clr Drug Dosing Estimated GFR (MDRD) (>60) mL/min BUN/Creatinine Ratio (14-18) Glucose (70-99) mg/dL POC Glucose 133 H (70-99) mg/dL Lactic Acid 3.7 H* (0.4-2.0) mmol/L Calcium (8.5-10.1) mg/dL Total Bilirubin (0.2-1.0) mg/dL AST (15-37) U/L ALT (16-63) U/L Alkaline Phosphatase (46-116) U/L Ammonia (11-32) umol/L CK-MB (CK-2) (0-3.6) ng/ml Total Protein (6.4-8.2) g/dl Albumin (3.4-5.0) g/dl Globulin gm/dL Albumin/Globulin Ratio (1-2) TSH 3rd Generation (0.358-3.74) uIU/mL Urine Color (Yellow) Urine Appearance (Clear) Urine pH (5.0-8.0) Ur Specific [place] (1.005-1.030) Urine Protein (Negative) Urine Glucose (UA) (Negative) Urine Ketones (Negative) Urine Occult Blood (Negative) Urine Nitrite (Negative) Urine Bilirubin (Negative) Urine Urobilinogen (0.2-1.0) Ur Leukocyte Esterase (Negative) Urine RBC (0-5) /hpf Urine WBC (0-5) /hpf Ur Squamous Epith Cells (0-5) /hpf Amorphous Sediment (NOT SEEN) /hpf Urine Bacteria (FEW) /hpf Fine Granular Casts (0-5) /lpf Urine Mucus (FEW) /hpf Salicylates (2.8-20) mg/dL Urine Opiates Screen (JENUFK=808) Ur Buprenorphine Scrn (CUTOFF=10) Ur Oxycodone Screen (VKI6TM=052) Urine Methadone Screen (CHC9BV=145) Ur Propoxyphene Screen (SJAFGD=162) Acetaminophen (10-30) ug/mL Ur Barbiturates Screen (YQEGQS=494) Valproic Acid (50.0-100.0) ug/mL Ur Tricyclics Screen (BHUAQY=048) Ur Phencyclidine Scrn (CUTOFF=25) Ur Amphetamine Screen (AGRQGW=003) U Methamphetamines Scrn (JPJNYZ=229) U Benzodiazepines Scrn (HZMWYD=229) U Cocaine Metab Screen (XVKERN=056) U Marijuana (THC) Screen (CUTOFF=50) Ethyl Alcohol (0.00) gm% SARS-CoV-2 RNA (YOLI) Positive H (NEGATIVE) 09/05/21 09/05/21 09/05/21 Range/Units 20:40 20:40 21:52 WBC (4.23-9.07) K/mm3 RBC (4.63-6.08) M/mm3 Hgb (13.7-17.5) gm/dl Hct (40.1-51.0) % MCV (79.0-92.2) fl MCH (25.7-32.2) pg MCHC (32.2-35.5) g/dl RDW Std Deviation (35.1-43.9) fL Plt Count (163-337) K/mm3 MPV (9.4-12.3) fl Neut % (Auto) (34.0-67.9) % Lymph % (Auto) (21.8-53.1) % [place] % (Auto) (5.3-12.2) % Eos % (Auto) (0.8-7.0) Baso % (Auto) (0.1-1.2) % Neut # (Auto) (1.78-5.38) K/mm3 Lymph # (Auto) (1.32-3.57) K/mm3 [place] # (Auto) (0.30-0.82) K/mm3 Eos # (Auto) (0.04-0.54) K/mm3 Baso # (Auto) (0.01-0.08) K/mm3 VBG pH (7.30-7.40) VBG pCO2 (41-51) mmHg VBG pO2 (40-80) mmHG VBG HCO3 (22-26) meq/L VBG O2 Saturation VBG Base Excess (-4.0-2.0) Sodium (136-145) mEq/L Potassium (3.5-5.1) mEq/L Chloride (98-107) mEq/L Carbon Dioxide (21-32) mEq/L Anion Gap (5-15) BUN (7-18) mg/dL Creatinine (0.7-1.3) mg/dL Est Cr Clr Drug Dosing Estimated GFR (MDRD) (>60) mL/min BUN/Creatinine Ratio (14-18) Glucose (70-99) mg/dL POC Glucose (70-99) mg/dL Lactic Acid (0.4-2.0) mmol/L Calcium (8.5-10.1) mg/dL Total Bilirubin (0.2-1.0) mg/dL AST (15-37) U/L ALT (16-63) U/L Alkaline Phosphatase (46-116) U/L Ammonia 12 (11-32) umol/L CK-MB (CK-2) (0-3.6) ng/ml Total Protein (6.4-8.2) g/dl Albumin (3.4-5.0) g/dl Globulin gm/dL Albumin/Globulin Ratio (1-2) TSH 3rd Generation (0.358-3.74) uIU/mL Urine Color Yellow (Yellow) Urine Appearance Clear (Clear) Urine pH 6.0 (5.0-8.0) Ur Specific [place] > or = 1.030 (1.005-1.030) Urine Protein 2+ H (Negative) Urine Glucose (UA) Trace H (Negative) Urine Ketones 1+ H (Negative) Urine Occult Blood 1+ H (Negative) Urine Nitrite Negative (Negative) Urine Bilirubin Negative (Negative) Urine Urobilinogen 0.2 (0.2-1.0) Ur Leukocyte Esterase Negative (Negative) Urine RBC 0-5 (0-5) /hpf Urine WBC 0-5 (0-5) /hpf Ur Squamous Epith Cells 0-5 (0-5) /hpf Amorphous Sediment Few H (NOT SEEN) /hpf Urine Bacteria Few (FEW) /hpf Fine Granular Casts 0-5 (0-5) /lpf Urine Mucus Few (FEW) /hpf Salicylates (2.8-20) mg/dL Urine Opiates Screen Negative (HRWCEZ=045) Ur Buprenorphine Scrn Negative (CUTOFF=10) Ur Oxycodone Screen Negative (CCC5RD=987) Urine Methadone Screen Negative (BCS2DS=376) Ur Propoxyphene Screen Negative (OVHNBT=537) Acetaminophen (10-30) ug/mL Ur Barbiturates Screen Negative (IMLAKB=023) Valproic Acid (50.0-100.0) ug/mL Ur Tricyclics Screen Presumptive positive H (IXFQSH=707) Ur Phencyclidine Scrn Negative (CUTOFF=25) Ur Amphetamine Screen Negative (JAYLLO=171) U Methamphetamines Scrn Negative (ZPBJQE=429) U Benzodiazepines Scrn Negative (SOOQXT=241) U Cocaine Metab Screen Presumptive positive H (HZZMHF=340) U Marijuana (THC) Screen Negative (CUTOFF=50) Ethyl Alcohol (0.00) gm% SARS-CoV-2 RNA (YOLI) (NEGATIVE) 09/05/21 09/06/21 09/06/21 Range/Units 23:00 00:40 02:50 WBC (4.23-9.07) K/mm3 RBC (4.63-6.08) M/mm3 Hgb (13.7-17.5) gm/dl Hct (40.1-51.0) % MCV (79.0-92.2) fl MCH (25.7-32.2) pg MCHC (32.2-35.5) g/dl RDW Std Deviation (35.1-43.9) fL Plt Count (163-337) K/mm3 MPV (9.4-12.3) fl Neut % (Auto) (34.0-67.9) % Lymph % (Auto) (21.8-53.1) % [place] % (Auto) (5.3-12.2) % Eos % (Auto) (0.8-7.0) Baso % (Auto) (0.1-1.2) % Neut # (Auto) (1.78-5.38) K/mm3 Lymph # (Auto) (1.32-3.57) K/mm3 Holmes # (Auto) (0.30-0.82) K/mm3 Eos # (Auto) (0.04-0.54) K/mm3 Baso # (Auto) (0.01-0.08) K/mm3 VBG pH 7.38 (7.30-7.40) VBG pCO2 43.9 (41-51) mmHg VBG pO2 46.0 (40-80) mmHG VBG HCO3 25.4 (22-26) meq/L VBG O2 Saturation 80.9 VBG Base Excess 0.6 (-4.0-2.0) Sodium 141 (136-145) mEq/L Potassium 3.3 L (3.5-5.1) mEq/L Chloride 104 (98-107) mEq/L Carbon Dioxide 26 (21-32) mEq/L Anion Gap 14.3 (5-15) BUN 12 (7-18) mg/dL Creatinine 0.7 (0.7-1.3) mg/dL Est Cr Clr Drug Dosing 172.22 Estimated GFR (MDRD) > 60 (>60) mL/min BUN/Creatinine Ratio 17.1 (14-18) Glucose 134 H (70-99) mg/dL POC Glucose (70-99) mg/dL Lactic Acid 1.4 (0.4-2.0) mmol/L Calcium 7.2 L (8.5-10.1) mg/dL Total Bilirubin (0.2-1.0) mg/dL AST (15-37) U/L ALT (16-63) U/L Alkaline Phosphatase (46-116) U/L Ammonia (11-32) umol/L CK-MB (CK-2) (0-3.6) ng/ml Total Protein (6.4-8.2) g/dl Albumin (3.4-5.0) g/dl Globulin gm/dL Albumin/Globulin Ratio (1-2) TSH 3rd Generation (0.358-3.74) uIU/mL Urine Color (Yellow) Urine Appearance (Clear) Urine pH (5.0-8.0) Ur Specific [place] (1.005-1.030) Urine Protein (Negative) Urine Glucose (UA) (Negative) Urine Ketones (Negative) Urine Occult Blood (Negative) Urine Nitrite (Negative) Urine Bilirubin (Negative) Urine Urobilinogen (0.2-1.0) Ur Leukocyte Esterase (Negative) Urine RBC (0-5) /hpf Urine WBC (0-5) /hpf Ur Squamous Epith Cells (0-5) /hpf Amorphous Sediment (NOT SEEN) /hpf Urine Bacteria (FEW) /hpf Fine Granular Casts (0-5) /lpf Urine Mucus (FEW) /hpf Salicylates (2.8-20) mg/dL Urine Opiates Screen (EFWCTK=807) Ur Buprenorphine Scrn (CUTOFF=10) Ur Oxycodone Screen (KTA3XO=442) Urine Methadone Screen (PND7IM=010) Ur Propoxyphene Screen (JZZMYS=437) Acetaminophen 0 L (10-30) ug/mL Ur Barbiturates Screen (WXFGKB=128) Valproic Acid (50.0-100.0) ug/mL Ur Tricyclics Screen (TNHQDA=159) Ur Phencyclidine Scrn (CUTOFF=25) Ur Amphetamine Screen (CLLUYH=900) U Methamphetamines Scrn (TJHTFA=766) U Benzodiazepines Scrn (PGMCXR=892) U Cocaine Metab Screen (GOCFEH=642) U Marijuana (THC) Screen (CUTOFF=50) Ethyl Alcohol (0.00) gm% SARS-CoV-2 RNA (YOLI) (NEGATIVE) 09/06/21 Range/Units 02:50 WBC (4.23-9.07) K/mm3 RBC (4.63-6.08) M/mm3 Hgb (13.7-17.5) gm/dl Hct (40.1-51.0) % MCV (79.0-92.2) fl MCH (25.7-32.2) pg MCHC (32.2-35.5) g/dl RDW Std Deviation (35.1-43.9) fL Plt Count (163-337) K/mm3 MPV (9.4-12.3) fl Neut % (Auto) (34.0-67.9) % Lymph % (Auto) (21.8-53.1) % [place] % (Auto) (5.3-12.2) % Eos % (Auto) (0.8-7.0) Baso % (Auto) (0.1-1.2) % Neut # (Auto) (1.78-5.38) K/mm3 Lymph # (Auto) (1.32-3.57) K/mm3 [place] # (Auto) (0.30-0.82) K/mm3 Eos # (Auto) (0.04-0.54) K/mm3 Baso # (Auto) (0.01-0.08) K/mm3 VBG pH (7.30-7.40) VBG pCO2 (41-51) mmHg VBG pO2 (40-80) mmHG VBG HCO3 (22-26) meq/L VBG O2 Saturation VBG Base Excess (-4.0-2.0) Sodium (136-145) mEq/L Potassium (3.5-5.1) mEq/L Chloride (98-107) mEq/L Carbon Dioxide (21-32) mEq/L Anion Gap (5-15) BUN (7-18) mg/dL Creatinine (0.7-1.3) mg/dL Est Cr Clr Drug Dosing Estimated GFR (MDRD) (>60) mL/min BUN/Creatinine Ratio (14-18) Glucose (70-99) mg/dL POC Glucose (70-99) mg/dL Lactic Acid (0.4-2.0) mmol/L Calcium (8.5-10.1) mg/dL Total Bilirubin (0.2-1.0) mg/dL AST (15-37) U/L ALT (16-63) U/L Alkaline Phosphatase (46-116) U/L Ammonia 42 H (11-32) umol/L CK-MB (CK-2) (0-3.6) ng/ml Total Protein (6.4-8.2) g/dl Albumin (3.4-5.0) g/dl Globulin gm/dL Albumin/Globulin Ratio (1-2) TSH 3rd Generation (0.358-3.74) uIU/mL Urine Color (Yellow) Urine Appearance (Clear) Urine pH (5.0-8.0) Ur Specific [place] (1.005-1.030) Urine Protein (Negative) Urine Glucose (UA) (Negative) Urine Ketones (Negative) Urine Occult Blood (Negative) Urine Nitrite (Negative) Urine Bilirubin (Negative) Urine Urobilinogen (0.2-1.0) Ur Leukocyte Esterase (Negative) Urine RBC (0-5) /hpf Urine WBC (0-5) /hpf Ur Squamous Epith Cells (0-5) /hpf Amorphous Sediment (NOT SEEN) /hpf Urine Bacteria (FEW) /hpf Fine Granular Casts (0-5) /lpf Urine Mucus (FEW) /hpf Salicylates (2.8-20) mg/dL Urine Opiates Screen (XUZXKS=472) Ur Buprenorphine Scrn (CUTOFF=10) Ur Oxycodone Screen (ACC4WR=808) Urine Methadone Screen (QJW7GV=311) Ur Propoxyphene Screen (TMEZYL=846) Acetaminophen (10-30) ug/mL Ur Barbiturates Screen (GYGIAS=166) Valproic Acid (50.0-100.0) ug/mL Ur Tricyclics Screen (XNPRQC=009) Ur Phencyclidine Scrn (CUTOFF=25) Ur Amphetamine Screen (AFAWCP=577) U Methamphetamines Scrn (VXACOK=633) U Benzodiazepines Scrn (ZQULFU=829) U Cocaine Metab Screen (PCIUJA=881) U Marijuana (THC) Screen (CUTOFF=50) Ethyl Alcohol (0.00) gm% SARS-CoV-2 RNA (YOLI) (NEGATIVE) Meds: Medications Generic Name Dose Route Start Last Admin Trade Name Freq PRN Reason Stop Dose Admin Sodium Chloride 1,000 mls @ 200 mls/hr 09/05/21 22:00 09/05/21 23:24 Normal Saline IV 200 mls/hr ASDIRECTED KAREN Administration Propofol 100 mls @ 2.858 mls/hr 09/06/21 00:15 09/06/21 01:00 Diprivan 100 Ml IV 15 mcg/kg/min TITRATE KAREN 8.573 mls/hr Titration Protocol 5 MCG/KG/MIN Fentanyl 2,500 mcg/ Sodium 250 mls @ 9.525 mls/hr 09/06/21 00:15 09/06/21 05:14 Chloride IV 5 mcg/kg/hr TITRATE KAREN 47.627 mls/hr Administration Protocol 1 MCG/KG/HR Discontinued Medications Generic Name Dose Route Start Last Admin Trade Name Freq PRN Reason Stop Dose Admin Dexamethasone 6 mg 09/06/21 00:25 09/06/21 00:45 Dexamethasone 10 Mg/Ml Sdv IVPUSH 09/06/21 00:26 6 mg ONETIME ONE Administration Etomidate 30 mg 09/06/21 00:00 09/06/21 00:15 Etomidate 2 Mg/Ml 20 Ml Sdv IVPUSH 09/06/21 00:01 30 mg ONETIME ONE Administration Sodium Chloride 1,000 mls @ 1,000 mls/hr 09/05/21 20:13 09/05/21 20:24 Normal Saline IV 09/05/21 21:12 1,000 mls/hr ONETIME ONE Administration Sodium Chloride 1,000 mls @ 1,000 mls/hr 09/05/21 21:53 09/05/21 22:22 Normal Saline IV 09/05/21 22:52 1,000 mls/hr ONETIME ONE Administration Cefepime HCl 2 gm/ Sodium 50 mls @ 100 mls/hr 09/06/21 04:41 09/06/21 05:09 Chloride IV 09/06/21 05:10 100 mls/hr ONETIME ONE Administration Midazolam HCl 2 mg 09/05/21 20:00 09/05/21 20:00 Midazolam 1 Mg/Ml 2 Ml Sdv IVPUSH 09/05/21 20:01 2 mg ONETIME ONE Administration Naloxone HCl 0.4 mg 09/05/21 19:53 09/05/21 19:53 Naloxone 0.4 Mg/Ml Sdv IVPUSH 09/05/21 19:54 0.4 mg ONETIME ONE Administration L-Carnitine 1g/5ml 3,000 each 09/06/21 03:00 09/06/21 03:12 Injectable Solution IVPUSH 09/06/21 03:01 3,000 each ONETIME ONE Administration Rocuronium Terril 100 mg 09/06/21 00:00 09/06/21 00:16 Rocuronium 50 Mg/5 Ml Vial IVPUSH 09/06/21 00:01 100 mg ONETIME ONE Administration - Re-Assessments/Exams Free Text/Narrative Re-Assessment/Exam: 09/05/21 3808 Informed of valproic acid level. Significant elevation. Ammonia and venous blood gas were ordered. Poison control was contacted. Unfortunately, no levocarnitine is available in this hospital. Initiating transport process. Departure - Departure Time of Disposition: 06:05 Disposition: Admitted As Inpatient 67 Clinical Impression: Valproic acid toxicity, COVID-19, Rhabdomyolysis, Altered mental status, Acute hypoxemic respiratory failure - Discharge Information Referrals: Georgia Cardenas MD [Primary Care Provider] - Forms: ED Department Discharge Critical Care Note - Critical Care Note Total Time (mins): 150 Comments: Critical Care Procedure Note Total critical care time: Approximately 150 minutes Due to a high probability of clinically significant, life threatening deterioration, the patient required my highest level of preparedness to intervene emergently and I personally spent this critical care time directly and personally managing the patient. This critical care time included obtaining a history; examining the patient; pulse oximetry; ordering and review of studies; arranging urgent treatment with development of a management plan; evaluation of patient's response to treatment; frequent reassessment; and, discussions with other providers. This critical care time was performed to assess and manage the high probability of imminent, life-threatening deterioration that could result in multi-organ failure. It was exclusive of separately billable procedures and treating other patients and teaching time. Sepsis Event Note (ED) - Focused Exam Vital Signs: Vital Signs Temp Pulse Resp BP Pulse Ox 09/06/21 02:37 103 H 14 133/92 H 100 09/05/21 20:28 36.1 C 102 H 16 138/95 H 100 - My Orders Last 24 Hours: My Active Orders 09/05/21 20:00 BLOOD CULTURE [MREF] Stat 09/05/21 20:01 Head wo Cont [CT] Stat Blood Culture x2 Reflex Set [OM.PC] Stat 09/05/21 20:04 Blood Glucose Check, Bedside [RC] ONETIME 09/05/21 20:11 BLOOD CULTURE [MREF] Stat 09/05/21 20:17 Chest 1V Frontal [CR] Stat 09/05/21 20:57 Suicide Precautions [RC] .Per Facility Policy 09/05/21 22:00 Sodium Chloride 0.9% [Normal Saline] 1,000 ml IV ASDIRECTED 09/06/21 00:04 RASS Sedation Scale [RC] ASDIRECTED Desired Level of Sedation (RASS) [AST] Click to Edit 09/06/21 00:15 fentaNYL [Sublimaze] 2,500 mcg Sodium Chloride 0.9% [Normal Saline] 200 ml IV TITRATE propofoL [Diprivan 100 ML] 100 ml IV TITRATE 09/06/21 00:41 Chest 1V-Tube Placement Chk NC [CR] Stat - Assessment/Plan Last 24 Hours: My Active Orders 09/05/21 20:00 BLOOD CULTURE [MREF] Stat 09/05/21 20:01 Head wo Cont [CT] Stat Blood Culture x2 Reflex Set [OM.PC] Stat 09/05/21 20:04 Blood Glucose Check, Bedside [RC] ONETIME 09/05/21 20:11 BLOOD CULTURE [MREF] Stat 09/05/21 20:17 Chest 1V Frontal [CR] Stat 09/05/21 20:57 Suicide Precautions [RC] .Per Facility Policy 09/05/21 22:00 Sodium Chloride 0.9% [Normal Saline] 1,000 ml IV ASDIRECTED 09/06/21 00:04 RASS Sedation Scale [RC] ASDIRECTED Desired Level of Sedation (RASS) [AST] Click to Edit 09/06/21 00:15 fentaNYL [Sublimaze] 2,500 mcg Sodium Chloride 0.9% [Normal Saline] 200 ml IV TITRATE propofoL [Diprivan 100 ML] 100 ml IV TITRATE 09/06/21 00:41 Chest 1V-Tube Placement Chk NC [CR] Stat Assessment:: Patient 41-year-old male presented to the emergency room with encephalopathy. Broad differential diagnosis considered for this patient including toxicity, intracranial hemorrhage, infectious, electrolyte abnormality, hypoxia. Patient evaluation in the emergency room, appears that this is likely multifactorial with primary causes being drug toxicity with Depakote and cocaine. He also has evidence of rhabdomyolysis and COVID-19 infection. No evidence of traumatic injury and head CT is unremarkable. During his emergency department course he did become hypoxic and was still not waking up appropriately. He was intubated for both airway protection and acute hypoxemic respiratory failure[facility] did recommend the administration of levocarnitine. While we do not have levocarnitine available in our hospital system, I was able to procure some from [facility] to administer to this patient. There does not appear to be any evidence of acute bacterial infection, and critically ill patient he was given 1 dose of antibiotics and blood cultures were taken. I have a extremely low suspicion of meningitis/encephalitis. Initially, there are no beds available in the hospital however when ICU bed did become available and I spoke with Dr. Mcgovern who agreed accept patient for this admission.
[2021-09-05 21:28] LABS: ACETAMINOPHEN 0 ug/mL (10-30)
[2021-09-05] MEDS ORDERED: Sodium Chloride 0.9% 1,000 ML IV SCH (22:00)
[2021-09-06] MEDS ORDERED: Etomidate 2 MG/ML 20 ML SDV IVPUSH ONE
[2021-09-06] MEDS ORDERED: Rocuronium 50 MG/5 ML Vial IVPUSH ONE
[2021-09-06] MEDS ORDERED: Dexamethasone 10 MG/ML SDV IVPUSH ONE (00:25)
[2021-09-06] MEDS: fentaNYL 2,500 MCG in Sodium Chloride 0.9% 200 ML IV SCH ×3 (00:30→11:30)
[2021-09-06] MEDS: propofoL 100 ML IV SCH ×2 (00:30→10:38)
[2021-09-06] MEDS ORDERED: Non-Formulary Medication 1 Each IVPUSH STA (02:48)
[2021-09-06] MEDS ORDERED: LEVOCARNITINE ONE (03:00)
[2021-09-06] MEDS ORDERED: CARNITINE IVPUSH ONE (03:00)
[2021-09-06 03:32] LABS: ACETAMINOPHEN 0 ug/mL (10-30)
[2021-09-06] MEDS ORDERED: Cefepime 2 GM in Sodium Chloride 0.9% 50 ML IV ONE (04:41)
--- NOTE | 2021-09-06 09:12 | CR ---
Chest: Portable view of the chest was obtained. Comparison: Prior chest x-ray of 06/22/21. Heart size and mediastinum are within normal limits. Lungs are clear with no acute parenchymal change. Bony densities are noted off the inferior left clavicle compatible with old injury. Impression: 1. Old injury is seen off the distal left clavicle. 2. Nothing acute is seen on portable chest x-ray. Diagnostic code #2
[2021-09-06] MEDS ORDERED: Sodium Chloride 0.9% 1,000 ML IV ONE (09:19)
--- NOTE | 2021-09-06 10:08 | CR ---
Chest: Portable view of the chest was obtained. Comparison: Prior chest x-ray performed on 09/05/21. Endotracheal tube is seen. Tip lies at the lower level of the clavicles. Nasogastric tube is seen which courses off the inferior edge of the film into the stomach. Heart size and mediastinum are normal. Lungs are clear with no acute parenchymal change. Slight deformity is again noted off the inferior clavicle compatible with old injury. Impression: 1. Satisfactory position of endotracheal tube. Tip of nasogastric tube courses off the inferior edge of the film. 2. Nothing acute is otherwise seen on portable chest x-ray. Diagnostic code #2
--- NOTE | 2021-09-06 10:16 | CT ---
CT brain Technique: Multiple axial sections were obtained through the brain. Intravenous contrast was not utilized. Reconstructed coronal and sagittal images were obtained. Comparison: No prior intracranial imaging is available. Findings: Ventricles along with basal cisterns and sulci over the convexities appear within normal limits for the patient's age. No abnormal parenchymal densities are seen. No evidence of intracranial hemorrhage is seen. No midline shift or mass-effect is seen. Bone window settings were reviewed. Visualized mastoid sinuses and paranasal sinuses show nothing acute. No acute calvarial abnormality is seen. Impression: 1. Nothing acute is seen on noncontrast head CT study. Diagnostic code #1 I agree with preliminary report from [facility], finalized on 09/05/21, 10:59 PM [employer], code 1
[2021-09-06] MEDS: Dextrose 5%-0.45% NaCl 1,000 ML IV SCH ×2 (10:38→18:26)
[2021-09-06] MEDS: Potassium Chloride 10 MEQ in Premix Bag 1 BAG IV SCH (11:13)
[2021-09-06] MEDS: cefTRIAXone 2 GM in Sodium Chloride 0.9% 100 ML IV SCH (11:23)
[2021-09-06] MEDS: Enoxaparin 40 MG/0.4 ML Syringe SUBCUT SCH (11:23)
--- NOTE | 2021-09-06 13:28 | PCM.HP.2 ---
H&P History of Present Illness - General Date of Service: 09/06/21 Admit Problem/Dx: Admission Diagnosis/Problem Admission Diagnosis/Problem Altered mental status Source of Information: EMS, Provider History Limitations: Reports: Altered Mental Status, Physical Impairment, Other (intubated) - History of Present Illness Initial Comments - Free Text/Narative: [facility] LIVE ED General Medical Problem Patient Name: ARASH MEEHAN Date of : 82 Patient Status: Inpatient Attending Provider: Britni Mcgovern Date: 09/05/21 20:48 Initialization Date: 09/05/21 20:48 ED HPI GENERAL MEDICAL PROBLEM - General Chief Complaint: Drug or Alcohol Abuse Stated Complaint: ANNE-MARIE AMB Time Seen by Provider: 09/05/21 20:20 Source of Information: Reports: EMS, Family History Limitations: Reports: Altered Mental Status - History of Present Illness INITIAL COMMENTS - FREE TEXT/NARRATIVE: Patient is a 41-year-old male with a past medical history of schizophrenia presenting to the emergency room for altered mental status. Patient was found by mother with a decreased level of responsiveness. She saw him yesterday states he was having significant hallucinations and agitation. Today, she came by the department this evening and found him this way. Does not know what happened. She states she tried to arouse him and speak with him for 20 minutes before calling the ambulance. On EMS arrival, patient was awake but not responding appropriately. He started sliding down in the chair but did not demonstrate any seizure-like activity. He was transferred to the emergency room without difficulty. There were no empty pill bottles besides doxycycline which was prescribed approximately 10 days ago. Otherwise, no evidence of drug paraphernalia or self-harm. Mother states that he does have a history of polysubstance abuse but does not know about him using recently. - Related Data Allergies Allergy/AdvReac Type Severity Reaction Status Date / Time No Known Allergies Allergy Verified 09/01/21 09:33 Home Meds: Home Meds Albuterol [Ventolin HFA] 2 puff INH DAILY 03/14/19 [History] Benztropine [Cogentin] 2 mg PO BID 03/14/19 [History] Divalproex Sodium [Depakote] 1,000 mg PO BEDTIME 03/14/19 [History] Divalproex Sodium [Depakote] 500 mg PO DAILY 03/14/19 [History] Insulin Glarg,Human.Rec.Analog [Lantus Solostar] 5 unit SQ ASDIRECTED PRN 03/14/19 [History] Lisinopril 20 mg PO DAILY 03/14/19 [History] Ranitidine [Zantac] 150 mg PO DAILY 03/14/19 [History] cloZAPine [Clozapine] 200 mg PO BEDTIME 03/14/19 [History] hydroCHLOROthiazide [Microzide] 12.5 mg PO DAILY 03/14/19 [History] sitaGLIPtin Phos/Metformin HCl [Janumet 50-500 MG] 1 tab PO BID 03/14/19 [History] hydrOXYzine HCL [Atarax] 0 mg PO TID 06/22/21 [History] Pantoprazole Sodium [Protonix] 40 mg PO DAILY #10 tablet. 09/01/21 [Rx] Past Medical History HEENT History: Reports: Impaired Vision Other HEENT History: wears glasses Cardiovascular History: Reports: Hypertension Respiratory History: Reports: Asthma Gastrointestinal History: Reports: GERD Genitourinary History: Reports: None Musculoskeletal History: Reports: None Neurological History: Reports: None Psychiatric History: Reports: Anxiety, Bipolar, Depression, Psych Hospitalization(s), Schizophrenia, Suicidal Ideation Endocrine/Metabolic History: Reports: Diabetes, Type II, Hypothyroidism, IDDM Hematologic History: Reports: None Immunologic History: Reports: None Oncologic (Cancer) History: Reports: None Dermatologic History: Reports: None - Infectious Disease History Infectious Disease History: Reports: Chicken Pox - Past Surgical History Oncologic Surgical History: Reports: None Social & Family History - Family History Family Medical History: No Pertinent Family History - Caffeine Use Caffeine Use: Reports: Coffee Caffeine Use Comment: one pot of coffee daily. Mt Dew 3 daily - Living Situation & Occupation Living situation: Reports: Alone, Single Occupation: Disabled ED ROS GENERAL - Review of Systems Review Of Systems: Unable To Obtain Reason Not Obtained: To mental status ED EXAM, GENERAL - Physical Exam Exam: See Below Free Text/Narrative:: patient 41 year old male intubated and sedated and paralysed form e.r. after presenting with obtundation and resp difficulty. hx of chronic schizophrenia and drug abuse. depakote levels very high and poison control notified/ recommended i.v. carnatine and repeat levels in 4 hours which have come down form 156 to 93 and no changes noted in lfts form e.r. no known hx of seizures and depakote thought to be releated to behaviors/depression an mood disorder. drug screen shows + cocaine. etoh -. ct scan head - b.p normal currently p.e. limited . neuro paralyzed. skin : no bruises or skin markings or skin breaks. heent limited. exam. no neck abnormalities palpated. lungs breathing easily per vent rate 18. abd benign b.s. no hepatomegaly or masses noted. extremities well perfused and no angulation. assess: 41 year old cauc. male on vent intubated in e.r. with loc for unknown reason and duration. hx of possible overdose.hx of hallucinations per mom yes hx of cocaine use and pos. urine test. hx of schizophrenia with recent hallucinations reported yesterday. hx of high level depakote requiring i.v. carnitine. hx of freq non compliance and chronic mental illness. hx of covid + screen . plan cont vent support and try to reassess mental status with allowing to decrease sedation to see if neuro responses normal. no myoglobiuria detected. no def atn . no brain injury or bleed detected. monitor vss and urine output/ Duration of Symptoms: Reports: Hour(s): (3 hours) Associated Symptoms: Reports: Confusion - Related Data Allergies/Adverse Reactions: Allergies Allergy/AdvReac Type Severity Reaction Status Date / Time No Known Allergies Allergy Verified 09/01/21 09:33 Home Medications: Home Meds Albuterol [Ventolin HFA] 2 puff INH DAILY 03/14/19 [History] Benztropine [Cogentin] 2 mg PO BID 03/14/19 [History] Divalproex Sodium [Depakote] 1,000 mg PO BEDTIME 03/14/19 [History] Insulin Glarg,Human.Rec.Analog [Lantus Solostar] 5 unit SQ ASDIRECTED PRN 03/14/19 [History] Lisinopril 20 mg PO DAILY 03/14/19 [History] cloZAPine [Clozapine] 200 mg PO BEDTIME 03/14/19 [History] hydroCHLOROthiazide [Microzide] 12.5 mg PO DAILY 03/14/19 [History] sitaGLIPtin Phos/Metformin HCl [Janumet 50-500 MG] 1 tab PO BID 03/14/19 [History] hydrOXYzine HCL [Atarax] 0 mg PO TID 06/22/21 [History] Famotidine [Pepcid] 40 mg PO DAILY 09/06/21 [History] Levothyroxine [Synthroid] 50 mcg PO DAILY 09/06/21 [History] Montelukast [Singulair] 10 mg PO DAILY 09/06/21 [History] atorvaSTATin [Lipitor] 20 mg PO BEDTIME 09/06/21 [History] buPROPion [buPROPion XL] 150 mg PO DAILY 09/06/21 [History] Past Medical History HEENT History: Reports: Impaired Vision Other HEENT History: wears glasses Cardiovascular History: Reports: Hypertension Respiratory History: Reports: Asthma Gastrointestinal History: Reports: GERD Genitourinary History: Reports: None Musculoskeletal History: Reports: None Neurological History: Reports: None Psychiatric History: Reports: Anxiety, Bipolar, Depression, Psych Hospitalization(s), Schizophrenia, Suicide Attempt, Suicidal Ideation Endocrine/Metabolic History: Reports: Diabetes, Type II, Hypothyroidism, IDDM Hematologic History: Reports: None Immunologic History: Reports: None Oncologic (Cancer) History: Reports: None Dermatologic History: Reports: None - Infectious Disease History Infectious Disease History: Reports: Chicken Pox - Past Surgical History Head Surgeries/Procedures: Reports: None Oncologic Surgical History: Reports: None Social & Family History - Family History Family Medical History: Unobtainable - Tobacco Use Tobacco Use Status *Q: Current Every Day Tobacco User Years of Tobacco use: 20 Packs/Tins Daily: 1 - Caffeine Use Caffeine Use: Reports: Coffee Caffeine Use Comment: one pot of coffee daily. Mt Dew 3 daily - Recreational Drug Use Recreational Drug Type: Reports: Marijuana/Hashish - Living Situation & Occupation Living situation: Reports: Alone, Single Occupation: Disabled H&P Review of Systems - Review of Systems: Review Of Systems: Unable To Obtain Reason Not Obtained: limited exam obtained in room on vent // known covid + Psychiatric: Reports: Hallucinations (per his moms report the day before / lives by self and hx of suicidal attempt prev. bipolar//schizophrenia ) Exam - Exam Exam: See Below Reason Not Obtained: see limited p.e. on admission. - Vital Signs Vital Signs: Last Vital Signs Temp 36.1 C 09/06/21 12:00 Pulse 63 09/06/21 12:01 Resp 16 09/06/21 12:01 BP 114/80 09/06/21 12:01 Pulse Ox 100 09/06/21 12:01 Weight: 93.168 kg - Exam General: Alert, Oriented, 4 HEENT: PERRLA, Hearing Intact, Mucosa Moist & [place], Nares Patent, Normal Nasal Septum, Posterior Pharynx Clear, Conjunctiva Clear, EOMI, EACs Clear, TMs Clear Neck: Supple, Trachea Midline, 2 Lungs: Clear to Auscultation, Normal Respiratory Effort Cardiovascular: Regular Rate, Regular Rhythm GI/Abdominal Exam: Normal Bowel Sounds, Soft, Non-Tender, No Organomegaly, No Distention, No Abnormal Bruit, No Mass, Pelvis Stable (Male) Exam: No Hernia, Normal Inspection, Normal Prostate, Circumcised Rectal (Males) Exam: Normal Exam, Normal Rectal Tone, Prostate Normal Back Exam: Normal Inspection, Full Range of Motion, NT Extremities: Normal Inspection, Normal Range of Motion, Non-Tender, No Pedal Edema, Normal Capillary Refill Skin: Warm, Dry, Intact Neurological: Cranial Nerves Intact, Reflexes Equal Bilateral Neuro Extensive - Mental Status: Alert, Oriented x3, Normal Mood/Affect, Normal Cognition Neuro Extensive - Motor, Sensory, Reflexes: CN II-XII Intact, Normal Gait, N ormal Reflexes, Other (sedated and paralysed/) Psychiatric: Alert, Normal Affect, Normal Mood - Patient Data Lab Results Last 24 hrs: Laboratory Results - last 24 hr 09/05/21 09/05/21 09/05/21 Range/Units 20:00 20:00 20:00 WBC 3.95 L (4.23-9.07) K/mm3 RBC 4.80 (4.63-6.08) M/mm3 Hgb 13.5 L (13.7-17.5) gm/dl Hct 40.5 (40.1-51.0) % MCV 84.4 (79.0-92.2) fl MCH 28.1 (25.7-32.2) pg MCHC 33.3 (32.2-35.5) g/dl RDW Std Deviation 41.2 (35.1-43.9) fL Plt Count 226 (163-337) K/mm3 MPV 9.1 L (9.4-12.3) fl Neut % (Auto) 72.4 H (34.0-67.9) % Lymph % (Auto) 19.5 L (21.8-53.1) % [place] % (Auto) 7.8 (5.3-12.2) % Eos % (Auto) 0 L (0.8-7.0) Baso % (Auto) 0.3 (0.1-1.2) % Neut # (Auto) 2.86 (1.78-5.38) K/mm3 Lymph # (Auto) 0.77 L (1.32-3.57) K/mm3 [place] # (Auto) 0.31 (0.30-0.82) K/mm3 Eos # (Auto) 0.00 L (0.04-0.54) K/mm3 Baso # (Auto) 0.01 (0.01-0.08) K/mm3 D-Dimer, Quantitative (0.19-0.50) mg/L Puncture Site ABG pH (7.35-7.45) ABG pCO2 (35.0-45.0) mmHg ABG pO2 (80.0-100.0) mmHg ABG HCO3 (22.0-26.0) meq/L ABG O2 Saturation (96.0-97.0) % ABG Base Excess (-2-2.0) VBG pH (7.30-7.40) VBG pCO2 (41-51) mmHg VBG pO2 (40-80) mmHG VBG HCO3 (22-26) meq/L VBG O2 Saturation VBG Base Excess (-4.0-2.0) A-a Gradient mmHg O2 Delivery Device FiO2 (21.00-100.00) % Tidal Volume cc PEEP cmH20 Sodium 139 (136-145) mEq/L Potassium 3.6 (3.5-5.1) mEq/L Chloride 98 (98-107) mEq/L Carbon Dioxide 24 (21-32) mEq/L Anion Gap 20.6 H (5-15) BUN 11 (7-18) mg/dL Creatinine 1.1 (0.7-1.3) mg/dL Est Cr Clr Drug Dosing TNP Estimated GFR (MDRD) > 60 (>60) mL/min BUN/Creatinine Ratio 10.0 L (14-18) Glucose 160 H (70-99) mg/dL POC Glucose (70-99) mg/dL Lactic Acid (0.4-2.0) mmol/L Calcium 8.4 L (8.5-10.1) mg/dL Total Bilirubin 0.3 (0.2-1.0) mg/dL AST 46 H (15-37) U/L ALT 30 (16-63) U/L Alkaline Phosphatase 74 (46-116) U/L Ammonia (11-32) umol/L CK-MB (CK-2) 20.1 H (0-3.6) ng/ml C-Reactive Protein (<1.0) mg/dL Total Protein 6.8 (6.4-8.2) g/dl Albumin 4.0 (3.4-5.0) g/dl Globulin 2.8 gm/dL Albumin/Globulin Ratio 1.4 (1-2) TSH 3rd Generation 0.711 (0.358-3.74) uIU/mL Urine Color (Yellow) Urine Appearance (Clear) Urine pH (5.0-8.0) Ur Specific [place] (1.005-1.030) Urine Protein (Negative) Urine Glucose (UA) (Negative) Urine Ketones (Negative) Urine Occult Blood (Negative) Urine Nitrite (Negative) Urine Bilirubin (Negative) Urine Urobilinogen (0.2-1.0) Ur Leukocyte Esterase (Negative) Urine RBC (0-5) /hpf Urine WBC (0-5) /hpf Ur Squamous Epith Cells (0-5) /hpf Amorphous Sediment (NOT SEEN) /hpf Urine Bacteria (FEW) /hpf Fine Granular Casts (0-5) /lpf Urine Mucus (FEW) /hpf Salicylates 2.4 L (2.8-20) mg/dL Urine Opiates Screen (LLOSBC=135) Ur Buprenorphine Scrn (CUTOFF=10) Ur Oxycodone Screen (MWV3QR=799) Urine Methadone Screen (ZSR2YS=032) Ur Propoxyphene Screen (KKIKNH=578) Acetaminophen 0 L (10-30) ug/mL Ur Barbiturates Screen (FIHWQO=619) Valproic Acid 158.3 H* (50.0-100.0) ug/mL Ur Tricyclics Screen (IOTQSI=994) Ur Phencyclidine Scrn (CUTOFF=25) Ur Amphetamine Screen (YXTVQW=423) U Methamphetamines Scrn (JCMZVJ=532) U Benzodiazepines Scrn (QWVVVF=160) U Cocaine Metab Screen (NDAQTR=213) U Marijuana (THC) Screen (CUTOFF=50) Ethyl Alcohol 0.00 (0.00) gm% SARS-CoV-2 RNA (YOLI) (NEGATIVE) 09/05/21 09/05/21 09/05/21 Range/Units 20:00 20:30 20:34 WBC (4.23-9.07) K/mm3 RBC (4.63-6.08) M/mm3 Hgb (13.7-17.5) gm/dl Hct (40.1-51.0) % MCV (79.0-92.2) fl MCH (25.7-32.2) pg MCHC (32.2-35.5) g/dl RDW Std Deviation (35.1-43.9) fL Plt Count (163-337) K/mm3 MPV (9.4-12.3) fl Neut % (Auto) (34.0-67.9) % Lymph % (Auto) (21.8-53.1) % [place] % (Auto) (5.3-12.2) % Eos % (Auto) (0.8-7.0) Baso % (Auto) (0.1-1.2) % Neut # (Auto) (1.78-5.38) K/mm3 Lymph # (Auto) (1.32-3.57) K/mm3 [place] # (Auto) (0.30-0.82) K/mm3 Eos # (Auto) (0.04-0.54) K/mm3 Baso # (Auto) (0.01-0.08) K/mm3 D-Dimer, Quantitative (0.19-0.50) mg/L Puncture Site ABG pH (7.35-7.45) ABG pCO2 (35.0-45.0) mmHg ABG pO2 (80.0-100.0) mmHg ABG HCO3 (22.0-26.0) meq/L ABG O2 Saturation (96.0-97.0) % ABG Base Excess (-2-2.0) VBG pH (7.30-7.40) VBG pCO2 (41-51) mmHg VBG pO2 (40-80) mmHG VBG HCO3 (22-26) meq/L VBG O2 Saturation VBG Base Excess (-4.0-2.0) A-a Gradient mmHg O2 Delivery Device FiO2 (21.00-100.00) % Tidal Volume cc PEEP cmH20 Sodium (136-145) mEq/L Potassium (3.5-5.1) mEq/L Chloride (98-107) mEq/L Carbon Dioxide (21-32) mEq/L Anion Gap (5-15) BUN (7-18) mg/dL Creatinine (0.7-1.3) mg/dL Est Cr Clr Drug Dosing Estimated GFR (MDRD) (>60) mL/min BUN/Creatinine Ratio (14-18) Glucose (70-99) mg/dL POC Glucose 133 H (70-99) mg/dL Lactic Acid 3.7 H* (0.4-2.0) mmol/L Calcium (8.5-10.1) mg/dL Total Bilirubin (0.2-1.0) mg/dL AST (15-37) U/L ALT (16-63) U/L Alkaline Phosphatase (46-116) U/L Ammonia (11-32) umol/L CK-MB (CK-2) (0-3.6) ng/ml C-Reactive Protein (<1.0) mg/dL Total Protein (6.4-8.2) g/dl Albumin (3.4-5.0) g/dl Globulin gm/dL Albumin/Globulin Ratio (1-2) TSH 3rd Generation (0.358-3.74) uIU/mL Urine Color (Yellow) Urine Appearance (Clear) Urine pH (5.0-8.0) Ur Specific [place] (1.005-1.030) Urine Protein (Negative) Urine Glucose (UA) (Negative) Urine Ketones (Negative) Urine Occult Blood (Negative) Urine Nitrite (Negative) Urine Bilirubin (Negative) Urine Urobilinogen (0.2-1.0) Ur Leukocyte Esterase (Negative) Urine RBC (0-5) /hpf Urine WBC (0-5) /hpf Ur Squamous Epith Cells (0-5) /hpf Amorphous Sediment (NOT SEEN) /hpf Urine Bacteria (FEW) /hpf Fine Granular Casts (0-5) /lpf Urine Mucus (FEW) /hpf Salicylates (2.8-20) mg/dL Urine Opiates Screen (UYLLUH=087) Ur Buprenorphine Scrn (CUTOFF=10) Ur Oxycodone Screen (TZX2CQ=017) Urine Methadone Screen (CTS6VR=832) Ur Propoxyphene Screen (EDNROE=217) Acetaminophen (10-30) ug/mL Ur Barbiturates Screen (DPOVEW=826) Valproic Acid (50.0-100.0) ug/mL Ur Tricyclics Screen (HWBCPI=153) Ur Phencyclidine Scrn (CUTOFF=25) Ur Amphetamine Screen (ANQDWG=422) U Methamphetamines Scrn (HSLXIB=087) U Benzodiazepines Scrn (XWVCVR=431) U Cocaine Metab Screen (JKJQIV=144) U Marijuana (THC) Screen (CUTOFF=50) Ethyl Alcohol (0.00) gm% SARS-CoV-2 RNA (YOLI) Positive H (NEGATIVE) 09/05/21 09/05/21 09/05/21 Range/Units 20:40 20:40 21:52 WBC (4.23-9.07) K/mm3 RBC (4.63-6.08) M/mm3 Hgb (13.7-17.5) gm/dl Hct (40.1-51.0) % MCV (79.0-92.2) fl MCH (25.7-32.2) pg MCHC (32.2-35.5) g/dl RDW Std Deviation (35.1-43.9) fL Plt Count (163-337) K/mm3 MPV (9.4-12.3) fl Neut % (Auto) (34.0-67.9) % Lymph % (Auto) (21.8-53.1) % [place] % (Auto) (5.3-12.2) % Eos % (Auto) (0.8-7.0) Baso % (Auto) (0.1-1.2) % Neut # (Auto) (1.78-5.38) K/mm3 Lymph # (Auto) (1.32-3.57) K/mm3 [place] # (Auto) (0.30-0.82) K/mm3 Eos # (Auto) (0.04-0.54) K/mm3 Baso # (Auto) (0.01-0.08) K/mm3 D-Dimer, Quantitative (0.19-0.50) mg/L Puncture Site ABG pH (7.35-7.45) ABG pCO2 (35.0-45.0) mmHg ABG pO2 (80.0-100.0) mmHg ABG HCO3 (22.0-26.0) meq/L ABG O2 Saturation (96.0-97.0) % ABG Base Excess (-2-2.0) VBG pH (7.30-7.40) VBG pCO2 (41-51) mmHg VBG pO2 (40-80) mmHG VBG HCO3 (22-26) meq/L VBG O2 Saturation VBG Base Excess (-4.0-2.0) A-a Gradient mmHg O2 Delivery Device FiO2 (21.00-100.00) % Tidal Volume cc PEEP cmH20 Sodium (136-145) mEq/L Potassium (3.5-5.1) mEq/L Chloride (98-107) mEq/L Carbon Dioxide (21-32) mEq/L Anion Gap (5-15) BUN (7-18) mg/dL Creatinine (0.7-1.3) mg/dL Est Cr Clr Drug Dosing Estimated GFR (MDRD) (>60) mL/min BUN/Creatinine Ratio (14-18) Glucose (70-99) mg/dL POC Glucose (70-99) mg/dL Lactic Acid (0.4-2.0) mmol/L Calcium (8.5-10.1) mg/dL Total Bilirubin (0.2-1.0) mg/dL AST (15-37) U/L ALT (16-63) U/L Alkaline Phosphatase (46-116) U/L Ammonia 12 (11-32) umol/L CK-MB (CK-2) (0-3.6) ng/ml C-Reactive Protein (<1.0) mg/dL Total Protein (6.4-8.2) g/dl Albumin (3.4-5.0) g/dl Globulin gm/dL Albumin/Globulin Ratio (1-2) TSH 3rd Generation (0.358-3.74) uIU/mL Urine Color Yellow (Yellow) Urine Appearance Clear (Clear) Urine pH 6.0 (5.0-8.0) Ur Specific [place] > or = 1.030 (1.005-1.030) Urine Protein 2+ H (Negative) Urine Glucose (UA) Trace H (Negative) Urine Ketones 1+ H (Negative) Urine Occult Blood 1+ H (Negative) Urine Nitrite Negative (Negative) Urine Bilirubin Negative (Negative) Urine Urobilinogen 0.2 (0.2-1.0) Ur Leukocyte Esterase Negative (Negative) Urine RBC 0-5 (0-5) /hpf Urine WBC 0-5 (0-5) /hpf Ur Squamous Epith Cells 0-5 (0-5) /hpf Amorphous Sediment Few H (NOT SEEN) /hpf Urine Bacteria Few (FEW) /hpf Fine Granular Casts 0-5 (0-5) /lpf Urine Mucus Few (FEW) /hpf Salicylates (2.8-20) mg/dL Urine Opiates Screen Negative (BLULPH=172) Ur Buprenorphine Scrn Negative (CUTOFF=10) Ur Oxycodone Screen Negative (QFM9ZZ=328) Urine Methadone Screen Negative (RKQ0GR=413) Ur Propoxyphene Screen Negative (GALEEJ=145) Acetaminophen (10-30) ug/mL Ur Barbiturates Screen Negative (OFRDAF=528) Valproic Acid (50.0-100.0) ug/mL Ur Tricyclics Screen Presumptive positive H (DSJQFQ=383) Ur Phencyclidine Scrn Negative (CUTOFF=25) Ur Amphetamine Screen Negative (GZXBVA=790) U Methamphetamines Scrn Negative (FSUSPX=028) U Benzodiazepines Scrn Negative (JFHEEE=612) U Cocaine Metab Screen Presumptive positive H (JEGZSR=247) U Marijuana (THC) Screen Negative (CUTOFF=50) Ethyl Alcohol (0.00) gm% SARS-CoV-2 RNA (YOLI) (NEGATIVE) 09/05/21 09/06/21 09/06/21 Range/Units 23:00 00:40 02:50 WBC (4.23-9.07) K/mm3 RBC (4.63-6.08) M/mm3 Hgb (13.7-17.5) gm/dl Hct (40.1-51.0) % MCV (79.0-92.2) fl MCH (25.7-32.2) pg MCHC (32.2-35.5) g/dl RDW Std Deviation (35.1-43.9) fL Plt Count (163-337) K/mm3 MPV (9.4-12.3) fl Neut % (Auto) (34.0-67.9) % Lymph % (Auto) (21.8-53.1) % [place] % (Auto) (5.3-12.2) % Eos % (Auto) (0.8-7.0) Baso % (Auto) (0.1-1.2) % Neut # (Auto) (1.78-5.38) K/mm3 Lymph # (Auto) (1.32-3.57) K/mm3 [place] # (Auto) (0.30-0.82) K/mm3 Eos # (Auto) (0.04-0.54) K/mm3 Baso # (Auto) (0.01-0.08) K/mm3 D-Dimer, Quantitative (0.19-0.50) mg/L Puncture Site ABG pH (7.35-7.45) ABG pCO2 (35.0-45.0) mmHg ABG pO2 (80.0-100.0) mmHg ABG HCO3 (22.0-26.0) meq/L ABG O2 Saturation (96.0-97.0) % ABG Base Excess (-2-2.0) VBG pH 7.38 (7.30-7.40) VBG pCO2 43.9 (41-51) mmHg VBG pO2 46.0 (40-80) mmHG VBG HCO3 25.4 (22-26) meq/L VBG O2 Saturation 80.9 VBG Base Excess 0.6 (-4.0-2.0) A-a Gradient mmHg O2 Delivery Device FiO2 (21.00-100.00) % Tidal Volume cc PEEP cmH20 Sodium 141 (136-145) mEq/L Potassium 3.3 L (3.5-5.1) mEq/L Chloride 104 (98-107) mEq/L Carbon Dioxide 26 (21-32) mEq/L Anion Gap 14.3 (5-15) BUN 12 (7-18) mg/dL Creatinine 0.7 (0.7-1.3) mg/dL Est Cr Clr Drug Dosing 172.22 Estimated GFR (MDRD) > 60 (>60) mL/min BUN/Creatinine Ratio 17.1 (14-18) Glucose 134 H (70-99) mg/dL POC Glucose (70-99) mg/dL Lactic Acid 1.4 (0.4-2.0) mmol/L Calcium 7.2 L (8.5-10.1) mg/dL Total Bilirubin (0.2-1.0) mg/dL AST (15-37) U/L ALT (16-63) U/L Alkaline Phosphatase (46-116) U/L Ammonia (11-32) umol/L CK-MB (CK-2) (0-3.6) ng/ml C-Reactive Protein (<1.0) mg/dL Total Protein (6.4-8.2) g/dl Albumin (3.4-5.0) g/dl Globulin gm/dL Albumin/Globulin Ratio (1-2) TSH 3rd Generation (0.358-3.74) uIU/mL Urine Color (Yellow) Urine Appearance (Clear) Urine pH (5.0-8.0) Ur Specific [place] (1.005-1.030) Urine Protein (Negative) Urine Glucose (UA) (Negative) Urine Ketones (Negative) Urine Occult Blood (Negative) Urine Nitrite (Negative) Urine Bilirubin (Negative) Urine Urobilinogen (0.2-1.0) Ur Leukocyte Esterase (Negative) Urine RBC (0-5) /hpf Urine WBC (0-5) /hpf Ur Squamous Epith Cells (0-5) /hpf Amorphous Sediment (NOT SEEN) /hpf Urine Bacteria (FEW) /hpf Fine Granular Casts (0-5) /lpf Urine Mucus (FEW) /hpf Salicylates (2.8-20) mg/dL Urine Opiates Screen (JXKZAA=168) Ur Buprenorphine Scrn (CUTOFF=10) Ur Oxycodone Screen (TMK0QV=131) Urine Methadone Screen (FGR8IW=922) Ur Propoxyphene Screen (CAKMKI=862) Acetaminophen 0 L (10-30) ug/mL Ur Barbiturates Screen (ZTRTWT=742) Valproic Acid (50.0-100.0) ug/mL Ur Tricyclics Screen (YHICGY=998) Ur Phencyclidine Scrn (CUTOFF=25) Ur Amphetamine Screen (NDBVBR=215) U Methamphetamines Scrn (DRGRSU=823) U Benzodiazepines Scrn (CMEZHX=114) U Cocaine Metab Screen (HPKMDW=132) U Marijuana (THC) Screen (CUTOFF=50) Ethyl Alcohol (0.00) gm% SARS-CoV-2 RNA (YOLI) (NEGATIVE) 09/06/21 09/06/21 09/06/21 Range/Units 02:50 08:52 09:35 WBC (4.23-9.07) K/mm3 RBC (4.63-6.08) M/mm3 Hgb (13.7-17.5) gm/dl Hct (40.1-51.0) % MCV (79.0-92.2) fl MCH (25.7-32.2) pg MCHC (32.2-35.5) g/dl RDW Std Deviation (35.1-43.9) fL Plt Count (163-337) K/mm3 MPV (9.4-12.3) fl Neut % (Auto) (34.0-67.9) % Lymph % (Auto) (21.8-53.1) % [place] % (Auto) (5.3-12.2) % Eos % (Auto) (0.8-7.0) Baso % (Auto) (0.1-1.2) % Neut # (Auto) (1.78-5.38) K/mm3 Lymph # (Auto) (1.32-3.57) K/mm3 [place] # (Auto) (0.30-0.82) K/mm3 Eos # (Auto) (0.04-0.54) K/mm3 Baso # (Auto) (0.01-0.08) K/mm3 D-Dimer, Quantitative (0.19-0.50) mg/L Puncture Site Rt radial ABG pH 7.36 (7.35-7.45) ABG pCO2 43.7 (35.0-45.0) mmHg ABG pO2 268.0 H* (80.0-100.0) mmHg ABG HCO3 24.1 (22.0-26.0) meq/L ABG O2 Saturation 99.8 H (96.0-97.0) % ABG Base Excess -0.8 (-2-2.0) VBG pH (7.30-7.40) VBG pCO2 (41-51) mmHg VBG pO2 (40-80) mmHG VBG HCO3 (22-26) meq/L VBG O2 Saturation VBG Base Excess (-4.0-2.0) A-a Gradient 177 mmHg O2 Delivery Device Ventilator FiO2 70.00 (21.00-100.00) % Tidal Volume 500.0 cc PEEP 5.0 cmH20 Sodium 141 (136-145) mEq/L Potassium 4.1 (3.5-5.1) mEq/L Chloride 106 (98-107) mEq/L Carbon Dioxide 26 (21-32) mEq/L Anion Gap 13.1 (5-15) BUN 10 (7-18) mg/dL Creatinine 0.8 (0.7-1.3) mg/dL Est Cr Clr Drug Dosing 150.69 Estimated GFR (MDRD) > 60 (>60) mL/min BUN/Creatinine Ratio 12.5 L (14-18) Glucose 163 H (70-99) mg/dL POC Glucose (70-99) mg/dL Lactic Acid (0.4-2.0) mmol/L Calcium 7.5 L (8.5-10.1) mg/dL Total Bilirubin 0.4 (0.2-1.0) mg/dL AST 70 H (15-37) U/L ALT 29 (16-63) U/L Alkaline Phosphatase 55 (46-116) U/L Ammonia 42 H (11-32) umol/L CK-MB (CK-2) (0-3.6) ng/ml C-Reactive Protein 2.5 H* (<1.0) mg/dL Total Protein 5.6 L (6.4-8.2) g/dl Albumin 2.9 L (3.4-5.0) g/dl Globulin 2.7 gm/dL Albumin/Globulin Ratio 1.1 (1-2) TSH 3rd Generation (0.358-3.74) uIU/mL Urine Color (Yellow) Urine Appearance (Clear) Urine pH (5.0-8.0) Ur Specific [place] (1.005-1.030) Urine Protein (Negative) Urine Glucose (UA) (Negative) Urine Ketones (Negative) Urine Occult Blood (Negative) Urine Nitrite (Negative) Urine Bilirubin (Negative) Urine Urobilinogen (0.2-1.0) Ur Leukocyte Esterase (Negative) Urine RBC (0-5) /hpf Urine WBC (0-5) /hpf Ur Squamous Epith Cells (0-5) /hpf Amorphous Sediment (NOT SEEN) /hpf Urine Bacteria (FEW) /hpf Fine Granular Casts (0-5) /lpf Urine Mucus (FEW) /hpf Salicylates (2.8-20) mg/dL Urine Opiates Screen (IOLRMZ=323) Ur Buprenorphine Scrn (CUTOFF=10) Ur Oxycodone Screen (AZR0TS=701) Urine Methadone Screen (ZLL1FC=795) Ur Propoxyphene Screen (QRCPVM=508) Acetaminophen (10-30) ug/mL Ur Barbiturates Screen (KGLWVM=163) Valproic Acid 93.1 (50.0-100.0) ug/mL Ur Tricyclics Screen (PPARSY=800) Ur Phencyclidine Scrn (CUTOFF=25) Ur Amphetamine Screen (RVLGAJ=080) U Methamphetamines Scrn (KLCVSA=431) U Benzodiazepines Scrn (ZBHWDL=014) U Cocaine Metab Screen (QGALYN=306) U Marijuana (THC) Screen (CUTOFF=50) Ethyl Alcohol (0.00) gm% SARS-CoV-2 RNA (YOLI) (NEGATIVE) 09/06/21 09/06/21 09/06/21 Range/Units 09:35 09:35 10:47 WBC 7.49 (4.23-9.07) K/mm3 RBC 4.26 L (4.63-6.08) M/mm3 Hgb 12.0 L D (13.7-17.5) gm/dl Hct 36.8 L (40.1-51.0) % MCV 86.4 (79.0-92.2) fl MCH 28.2 (25.7-32.2) pg MCHC 32.6 (32.2-35.5) g/dl RDW Std Deviation 43.0 (35.1-43.9) fL Plt Count 189 (163-337) K/mm3 MPV 9.2 L (9.4-12.3) fl Neut % (Auto) 87.0 H (34.0-67.9) % Lymph % (Auto) 7.3 L (21.8-53.1) % [place] % (Auto) 5.6 (5.3-12.2) % Eos % (Auto) 0 L (0.8-7.0) Baso % (Auto) 0.0 L (0.1-1.2) % Neut # (Auto) 6.51 H (1.78-5.38) K/mm3 Lymph # (Auto) 0.55 L (1.32-3.57) K/mm3 [place] # (Auto) 0.42 (0.30-0.82) K/mm3 Eos # (Auto) 0.00 L (0.04-0.54) K/mm3 Baso # (Auto) 0.00 L (0.01-0.08) K/mm3 D-Dimer, Quantitative 2.24 H (0.19-0.50) mg/L Puncture Site ABG pH (7.35-7.45) ABG pCO2 (35.0-45.0) mmHg ABG pO2 (80.0-100.0) mmHg ABG HCO3 (22.0-26.0) meq/L ABG O2 Saturation (96.0-97.0) % ABG Base Excess (-2-2.0) VBG pH (7.30-7.40) VBG pCO2 (41-51) mmHg VBG pO2 (40-80) mmHG VBG HCO3 (22-26) meq/L VBG O2 Saturation VBG Base Excess (-4.0-2.0) A-a Gradient mmHg O2 Delivery Device FiO2 (21.00-100.00) % Tidal Volume cc PEEP cmH20 Sodium (136-145) mEq/L Potassium (3.5-5.1) mEq/L Chloride (98-107) mEq/L Carbon Dioxide (21-32) mEq/L Anion Gap (5-15) BUN (7-18) mg/dL Creatinine (0.7-1.3) mg/dL Est Cr Clr Drug Dosing Estimated GFR (MDRD) (>60) mL/min BUN/Creatinine Ratio (14-18) Glucose (70-99) mg/dL POC Glucose (70-99) mg/dL Lactic Acid (0.4-2.0) mmol/L Calcium (8.5-10.1) mg/dL Total Bilirubin (0.2-1.0) mg/dL AST (15-37) U/L ALT (16-63) U/L Alkaline Phosphatase (46-116) U/L Ammonia 46 H (11-32) umol/L CK-MB (CK-2) (0-3.6) ng/ml C-Reactive Protein (<1.0) mg/dL Total Protein (6.4-8.2) g/dl Albumin (3.4-5.0) g/dl Globulin gm/dL Albumin/Globulin Ratio (1-2) TSH 3rd Generation (0.358-3.74) uIU/mL Urine Color (Yellow) Urine Appearance (Clear) Urine pH (5.0-8.0) Ur Specific [place] (1.005-1.030) Urine Protein (Negative) Urine Glucose (UA) (Negative) Urine Ketones (Negative) Urine Occult Blood (Negative) Urine Nitrite (Negative) Urine Bilirubin (Negative) Urine Urobilinogen (0.2-1.0) Ur Leukocyte Esterase (Negative) Urine RBC (0-5) /hpf Urine WBC (0-5) /hpf Ur Squamous Epith Cells (0-5) /hpf Amorphous Sediment (NOT SEEN) /hpf Urine Bacteria (FEW) /hpf Fine Granular Casts (0-5) /lpf Urine Mucus (FEW) /hpf Salicylates (2.8-20) mg/dL Urine Opiates Screen (JYCHKJ=907) Ur Buprenorphine Scrn (CUTOFF=10) Ur Oxycodone Screen (YCL6QJ=899) Urine Methadone Screen (NWU2YU=762) Ur Propoxyphene Screen (FPWUCP=711) Acetaminophen (10-30) ug/mL Ur Barbiturates Screen (BKRLXA=269) Valproic Acid (50.0-100.0) ug/mL Ur Tricyclics Screen (RCHLCA=776) Ur Phencyclidine Scrn (CUTOFF=25) Ur Amphetamine Screen (FPDYBK=523) U Methamphetamines Scrn (OJHZEC=839) U Benzodiazepines Scrn (ZOYWCK=131) U Cocaine Metab Screen (UEAENN=015) U Marijuana (THC) Screen (CUTOFF=50) Ethyl Alcohol (0.00) gm% SARS-CoV-2 RNA (YOLI) (NEGATIVE) 09/06/21 Range/Units 11:58 WBC (4.23-9.07) K/mm3 RBC (4.63-6.08) M/mm3 Hgb (13.7-17.5) gm/dl Hct (40.1-51.0) % MCV (79.0-92.2) fl MCH (25.7-32.2) pg MCHC (32.2-35.5) g/dl RDW Std Deviation (35.1-43.9) fL Plt Count (163-337) K/mm3 MPV (9.4-12.3) fl Neut % (Auto) (34.0-67.9) % Lymph % (Auto) (21.8-53.1) % [place] % (Auto) (5.3-12.2) % Eos % (Auto) (0.8-7.0) Baso % (Auto) (0.1-1.2) % Neut # (Auto) (1.78-5.38) K/mm3 Lymph # (Auto) (1.32-3.57) K/mm3 [place] # (Auto) (0.30-0.82) K/mm3 Eos # (Auto) (0.04-0.54) K/mm3 Baso # (Auto) (0.01-0.08) K/mm3 D-Dimer, Quantitative (0.19-0.50) mg/L Puncture Site ABG pH (7.35-7.45) ABG pCO2 (35.0-45.0) mmHg ABG pO2 (80.0-100.0) mmHg ABG HCO3 (22.0-26.0) meq/L ABG O2 Saturation (96.0-97.0) % ABG Base Excess (-2-2.0) VBG pH (7.30-7.40) VBG pCO2 (41-51) mmHg VBG pO2 (40-80) mmHG VBG HCO3 (22-26) meq/L VBG O2 Saturation VBG Base Excess (-4.0-2.0) A-a Gradient mmHg O2 Delivery Device FiO2 (21.00-100.00) % Tidal Volume cc PEEP cmH20 Sodium (136-145) mEq/L Potassium (3.5-5.1) mEq/L Chloride (98-107) mEq/L Carbon Dioxide (21-32) mEq/L Anion Gap (5-15) BUN (7-18) mg/dL Creatinine (0.7-1.3) mg/dL Est Cr Clr Drug Dosing Estimated GFR (MDRD) (>60) mL/min BUN/Creatinine Ratio (14-18) Glucose (70-99) mg/dL POC Glucose 175 H (70-99) mg/dL Lactic Acid (0.4-2.0) mmol/L Calcium (8.5-10.1) mg/dL Total Bilirubin (0.2-1.0) mg/dL AST (15-37) U/L ALT (16-63) U/L Alkaline Phosphatase (46-116) U/L Ammonia (11-32) umol/L CK-MB (CK-2) (0-3.6) ng/ml C-Reactive Protein (<1.0) mg/dL Total Protein (6.4-8.2) g/dl Albumin (3.4-5.0) g/dl Globulin gm/dL Albumin/Globulin Ratio (1-2) TSH 3rd Generation (0.358-3.74) uIU/mL Urine Color (Yellow) Urine Appearance (Clear) Urine pH (5.0-8.0) Ur Specific [place] (1.005-1.030) Urine Protein (Negative) Urine Glucose (UA) (Negative) Urine Ketones (Negative) Urine Occult Blood (Negative) Urine Nitrite (Negative) Urine Bilirubin (Negative) Urine Urobilinogen (0.2-1.0) Ur Leukocyte Esterase (Negative) Urine RBC (0-5) /hpf Urine WBC (0-5) /hpf Ur Squamous Epith Cells (0-5) /hpf Amorphous Sediment (NOT SEEN) /hpf Urine Bacteria (FEW) /hpf Fine Granular Casts (0-5) /lpf Urine Mucus (FEW) /hpf Salicylates (2.8-20) mg/dL Urine Opiates Screen (PREQGO=092) Ur Buprenorphine Scrn (CUTOFF=10) Ur Oxycodone Screen (ISH4XW=828) Urine Methadone Screen (JHX2KZ=022) Ur Propoxyphene Screen (FEWYZZ=832) Acetaminophen (10-30) ug/mL Ur Barbiturates Screen (DGCTWE=181) Valproic Acid (50.0-100.0) ug/mL Ur Tricyclics Screen (YLYCGE=407) Ur Phencyclidine Scrn (CUTOFF=25) Ur Amphetamine Screen (EGCNDF=860) U Methamphetamines Scrn (FUAWCW=519) U Benzodiazepines Scrn (OUSLJR=703) U Cocaine Metab Screen (XAZFCE=998) U Marijuana (THC) Screen (CUTOFF=50) Ethyl Alcohol (0.00) gm% SARS-CoV-2 RNA (YOLI) (NEGATIVE) Result Diagrams: 09/06/21 09:35 09/06/21 09:35 Sepsis Event Note - Evaluation Sepsis Screening Result: No Definite Risk - Focused Exam Vital Signs: Vital Signs Temp Pulse Pulse Resp BP BP Pulse Ox 09/06/21 12:01 63 16 114/80 100 09/06/21 12:00 36.1 C 63 16 100 09/06/21 11:46 64 16 110/80 100 09/06/21 11:45 63 16 100 09/06/21 11:36 09/06/21 11:34 09/06/21 11:31 64 16 115/81 100 09/06/21 11:30 64 16 100 09/06/21 11:16 63 16 110/79 100 09/06/21 11:15 64 16 100 09/06/21 11:01 64 16 110/79 100 09/06/21 11:00 64 16 100 09/06/21 10:46 65 16 110/80 100 09/06/21 10:45 65 16 100 09/06/21 10:31 65 16 110/78 100 09/06/21 10:30 65 16 100 09/06/21 10:16 65 16 108/78 100 09/06/21 10:15 65 16 100 09/06/21 10:01 66 16 100 09/06/21 10:00 66 16 110/76 100 09/06/21 09:59 66 16 100 09/06/21 09:45 68 16 109/78 100 09/06/21 09:44 69 16 100 09/06/21 09:35 09/06/21 09:33 09/06/21 09:30 70 16 110/77 100 09/06/21 09:29 70 16 100 09/06/21 09:15 71 16 108/78 100 09/06/21 09:14 71 16 100 09/06/21 09:01 73 16 99 09/06/21 09:00 36.1 C 72 16 110/77 100 09/06/21 08:50 09/06/21 08:45 76 16 111/83 100 09/06/21 08:44 75 16 100 09/06/21 08:30 77 16 114/81 100 09/06/21 08:29 77 16 100 09/06/21 08:28 78 16 100 09/06/21 07:59 09/06/21 07:52 09/06/21 02:37 103 H 14 133/92 H 100 Pulse Ox 09/06/21 12:01 09/06/21 12:00 09/06/21 11:46 09/06/21 11:45 09/06/21 11:36 100 09/06/21 11:34 100 09/06/21 11:31 09/06/21 11:30 09/06/21 11:16 09/06/21 11:15 09/06/21 11:01 09/06/21 11:00 09/06/21 10:46 09/06/21 10:45 09/06/21 10:31 09/06/21 10:30 09/06/21 10:16 09/06/21 10:15 09/06/21 10:01 09/06/21 10:00 09/06/21 09:59 09/06/21 09:45 09/06/21 09:44 09/06/21 09:35 100 09/06/21 09:33 100 09/06/21 09:30 09/06/21 09:29 09/06/21 09:15 09/06/21 09:14 09/06/21 09:01 09/06/21 09:00 09/06/21 08:50 100 09/06/21 08:45 09/06/21 08:44 09/06/21 08:30 09/06/21 08:29 09/06/21 08:28 09/06/21 07:59 99 09/06/21 07:52 99 09/06/21 02:37 - Problem List (1) Acute hypoxemic respiratory failure SNOMED Code(s): 503929917 ICD Code: J96.01 - ACUTE RESPIRATORY FAILURE WITH HYPOXIA Status: Acute Priority: High Current Visit: Yes Onset Date: ~09/06/21 (2) Altered mental status SNOMED Code(s): 397697836 ICD Code: R41.82 - ALTERED MENTAL STATUS, UNSPECIFIED Status: Acute Priority: High Current Visit: Yes Onset Date: ~09/06/21 Qualifiers: Altered mental status type: stupor Qualified Code(s): R40.1 - Stupor (3) COVID-19 SNOMED Code(s): 612449048 ICD Code: U07.1 - COVID-19 Status: Acute Priority: High Current Visit: Yes Onset Date: ~09/06/21 Problem Details: covid screen +// contact and symptom hx unknown. (4) Valproic acid toxicity SNOMED Code(s): 488044291 ICD Code: T42.6X1A - POISONING BY OTH ANTIEPLPTC AND SED-HYPNTC DRUGS, ACC, INIT Status: Acute Priority: High Current Visit: Yes Onset Date: ~09/06/21 Problem Details: depakote level 156 to 97 Qualifiers: Injury intent: undetermined intent (5) Depressive disorder SNOMED Code(s): 20700570 ICD Code: F32.9 - MAJOR DEPRESSIVE DISORDER, SINGLE EPISODE, UNSPECIFIED Status: Acute Priority: High Current Visit: No Problem Details: long standing repetitive hx of drug use and schizophrenia and on multiple meds with positive cocaine screen. (6) Drug ingestion SNOMED Code(s): 65728185 ICD Code: WSE4925 - Status: Acute Current Visit: No (7) Schizophrenia SNOMED Code(s): 92939743 ICD Code: F20.9 - SCHIZOPHRENIA, UNSPECIFIED Status: Acute Current Visit: No Qualifiers: Schizophrenia type: unspecified Qualified Code(s): F20.9 - Schizophrenia, unspecified Problem List Initiated/Reviewed/Updated: Yes Orders Last 24hrs: Active Orders 24 hr Category Date Time Status Admission Status [Patient Status] [ADT] Routine ADT 09/06/21 07:10 Active Blood Glucose Check, Bedside [RC] Q6HR Care 09/06/21 12:00 Active Oxygen Therapy [RC] ASDIRECTED Care 09/06/21 00:15 Active RASS Sedation Scale [RC] Q1HR Care 09/06/21 00:04 Active Suicide Precautions [RC] .Per Facility Policy Care 09/05/21 20:57 Active Ventilator Assessment [RT Ventilator, Adult] [RC] Care 09/06/21 00:17 Active ASDIRECTED Consult to Case Management/Manager Human Resources [CONS] Cons 09/06/21 09:25 Active Routine NPO [Nothing Per Oral Diet] [DIET] Diet 09/06/21 Lunch Active AMMONIA VENOUS [CHEM] Routine Lab 09/06/21 15:30 Ordered BLOOD CULTURE [MREF] Stat Lab 09/05/21 20:00 Received BLOOD CULTURE [MREF] Stat Lab 09/05/21 20:11 Received CBC WITH AUTO DIFF [HEME] AM Lab 09/10/21 05:11 Ordered CBC WITH AUTO DIFF [HEME] AM Lab 09/07/21 05:11 Ordered CBC WITH AUTO DIFF [HEME] AM Lab 09/08/21 05:11 Ordered CBC WITH AUTO DIFF [HEME] AM Lab 09/09/21 05:11 Ordered CMP [COMPREHENSIVE METABOLIC PN,CMP] [CHEM] AM Lab 09/07/21 05:11 Ordered CMP [COMPREHENSIVE METABOLIC PN,CMP] [CHEM] AM Lab 09/08/21 05:11 Ordered CMP [COMPREHENSIVE METABOLIC PN,CMP] [CHEM] AM Lab 09/09/21 05:11 Ordered MAGNESIUM [CHEM] AM Lab 09/10/21 05:11 Ordered MAGNESIUM [CHEM] AM Lab 09/07/21 05:11 Ordered MAGNESIUM [CHEM] AM Lab 09/08/21 05:11 Ordered MAGNESIUM [CHEM] AM Lab 09/09/21 05:11 Ordered VALPROIC ACID [CHEM] Routine Lab 09/06/21 15:30 Ordered Dextrose 5%-0.45% NaCl [Dextrose 5%-1/2 NS] 1,000 ml Med 09/06/21 09:30 Active IV ASDIRECTED Enoxaparin [Lovenox] Med 09/06/21 11:15 Active 40 mg SUBCUT DAILY cefTRIAXone [Rocephin] 2 gm Med 09/06/21 11:00 Active Sodium Chloride 0.9% [Normal Saline AdvBag] 100 ml IV Q24H fentaNYL [Sublimaze] 2,500 mcg Med 09/06/21 00:15 Active Sodium Chloride 0.9% [Normal Saline] 200 ml IV TITRATE propofoL [Diprivan 100 ML] 100 ml Med 09/06/21 00:15 Active IV TITRATE Blood Culture x2 Reflex Set [OM.PC] Stat Oth 09/05/21 20:01 Ordered Desired Level of Sedation (RASS) [AST] Click to Edit Oth 09/06/21 00:04 Ordered Code Status [Resuscitation Status] Routine Resus Stat 09/06/21 09:15 Ordered Medication Orders Enoxaparin Sodium (Enoxaparin 40 Mg/0.4 Ml Syringe) 40 mg SUBCUT DAILY KAREN Last Admin: 09/06/21 11:23 Dose: 40 mg Documented by: REJI Propofol (Diprivan 100 Ml) 100 mls @ 2.858 mls/hr IV TITRATE KAREN; Protocol Last Titration: 09/06/21 12:40 Dose: 10 mcg/kg/min, 5.715 mls/hr Documented by: Admin: 09/06/21 10:38 Dose: 15 mcg/kg/min, 8.573 mls/hr Documented by: Titration: 09/06/21 10:38 Dose: 15 mcg/kg/min, 8.573 mls/hr Documented by: Titration: 09/06/21 01:00 Dose: 15 mcg/kg/min, 8.573 mls/hr Documented by: Admin: 09/06/21 00:30 Dose: 10 mcg/kg/min, 5.715 mls/hr Documented by: MARK Fentanyl 2,500 mcg/ Sodium (Chloride) 250 mls @ 9.525 mls/hr IV TITRATE KAREN; Protocol Last Titration: 09/06/21 11:44 Dose: 3 mcg/kg/hr, 28.576 mls/hr Documented by: Admin: 09/06/21 11:30 Dose: 4 mcg/kg/hr, 38.102 mls/hr Documented by: Titration: 09/06/21 11:09 Dose: 4 mcg/kg/hr, 38.102 mls/hr Documented by: Admin: 09/06/21 05:14 Dose: 5 mcg/kg/hr, 47.627 mls/hr Documented by: Titration: 09/06/21 05:14 Dose: 5 mcg/kg/hr, 47.627 mls/hr Documented by: Titration: 09/06/21 01:00 Dose: 5 mcg/kg/hr, 47.627 mls/hr Documented by: Admin: 09/06/21 00:30 Dose: 3 mcg/kg/hr, 28.576 mls/hr Documented by: MARK Dextrose/Sodium Chloride (Dextrose 5%-1/2 Ns) 1,000 mls @ 125 mls/hr IV ASDIRECTED [facility] Last Admin: 09/06/21 10:38 Dose: 125 mls/hr Documented by: REJI Ceftriaxone Sodium 2 gm/ (Sodium Chloride) 100 mls @ 200 mls/hr IV Q24H [facility] Last Admin: 09/06/21 11:23 Dose: 200 mls/hr Documented by: REJI plan to interupt sedation long enough to recheck neuro status today Assessment/Plan Comment:: ED General Medical Problem Patient Name: ARASH MEEHAN Date of : 82 Patient Status: Inpatient Attending Provider: Britni Mcgovern Date: 09/05/21 20:48 Initialization Date: 09/05/21 20:48 ED HPI GENERAL MEDICAL PROBLEM - General Chief Complaint: Drug or Alcohol Abuse Stated Complaint: ANNE-MARIE AMB Time Seen by Provider: 09/05/21 20:20 Source of Information: Reports: EMS, Family History Limitations: Reports: Altered Mental Status - History of Present Illness INITIAL COMMENTS - FREE TEXT/NARRATIVE: Patient is a 41-year-old male with a past medical history of schizophrenia presenting to the emergency room for altered mental status. Patient was found by mother with a decreased level of responsiveness. She saw him yesterday states he was having significant hallucinations and agitation. Today, she came by the department this evening and found him this way. Does not know what happened. She states she tried to arouse him and speak with him for 20 minutes before calling the ambulance. On EMS arrival, patient was awake but not responding appropriately. He started sliding down in the chair but did not demonstrate any seizure-like activity. He was transferred to the emergency room without difficulty. There were no empty pill bottles besides doxycycline which was prescribed approximately 10 days ago. Otherwise, no evidence of drug paraphernalia or self-harm. Mother states that he does have a history of polysubstance abuse but does not know about him using recently. - Related Data Allergies Allergy/AdvReac Type Severity Reaction Status Date / Time No Known Allergies Allergy Verified 09/01/21 09:33 Home Meds: Home Meds Albuterol [Ventolin HFA] 2 puff INH DAILY 03/14/19 [History] Benztropine [Cogentin] 2 mg PO BID 03/14/19 [History] Divalproex Sodium [Depakote] 1,000 mg PO BEDTIME 03/14/19 [History] Divalproex Sodium [Depakote] 500 mg PO DAILY 03/14/19 [History] Insulin Glarg,Human.Rec.Analog [Lantus Solostar] 5 unit SQ ASDIRECTED PRN 03/14/19 [History] Lisinopril 20 mg PO DAILY 03/14/19 [History] Ranitidine [Zantac] 150 mg PO DAILY 03/14/19 [History] cloZAPine [Clozapine] 200 mg PO BEDTIME 03/14/19 [History] hydroCHLOROthiazide [Microzide] 12.5 mg PO DAILY 03/14/19 [History] sitaGLIPtin Phos/Metformin HCl [Janumet 50-500 MG] 1 tab PO BID 03/14/19 [History] hydrOXYzine HCL [Atarax] 0 mg PO TID 06/22/21 [History] Pantoprazole Sodium [Protonix] 40 mg PO DAILY #10 tablet. 09/01/21 [Rx] Past Medical History HEENT History: Reports: Impaired Vision Other HEENT History: wears glasses Cardiovascular History: Reports: Hypertension Respiratory History: Reports: Asthma Gastrointestinal History: Reports: GERD Genitourinary History: Reports: None Musculoskeletal History: Reports: None Neurological History: Reports: None Psychiatric History: Reports: Anxiety, Bipolar, Depression, Psych Hospitalization(s), Schizophrenia, Suicidal Ideation Endocrine/Metabolic History: Reports: Diabetes, Type II, Hypothyroidism, IDDM Hematologic History: Reports: None Immunologic History: Reports: None Oncologic (Cancer) History: Reports: None Dermatologic History: Reports: None - Infectious Disease History Infectious Disease History: Reports: Chicken Pox - Past Surgical History Oncologic Surgical History: Reports: None Social & Family History - Family History Family Medical History: No Pertinent Family History - Caffeine Use Caffeine Use: Reports: Coffee Caffeine Use Comment: one pot of coffee daily. Mt Dew 3 daily - Living Situation & Occupation Living situation: Reports: Alone, Single Occupation: Disabled ED ROS GENERAL - Review of Systems Review Of Systems: Unable To Obtain Reason Not Obtained: To mental status ED EXAM, GENERAL - Physical Exam Exam: See Below Free Text/Narrative:: patient 41 year old male intubated and sedated and paralysed form e.r. after presenting with obtundation and resp difficulty. hx of chronic schizophrenia and drug abuse. depakote levels very high and poison control notified/ recommended i.v. carnatine and repeat levels in 4 hours which have come down form 156 to 93 and no changes noted in lfts form e.r. no known hx of seizures and depakote thought to be releated to behaviors/depression an mood disorder. drug screen shows + cocaine. etoh -. ct scan head - b.p normal currently p.e. limited . neuro paralyzed. skin : no bruises or skin markings or skin breaks. heent limited. exam. no neck abnormalities palpated. lungs breathing easily per vent rate 18. abd benign b.s. no hepatomegaly or masses noted. extremities well perfused and no angulation. assess: 41 year old cauc. male on vent intubated in e.r. with loc for unknown reason and duration. hx of possible overdose. hx of cocaine use and pos. urine test. hx of schizophrhenia with recent hallucinations reported yesterday. hx of high level depakote requiring i.v. carnitine. hx of freq non compliance and chronic mental illness. plan cont vent support and try to reassess mental status with allowing to decrease sedation to see if neuro responses normal. no myoglobiuria detected. no def atn . no brain injury or bleed detected. monitor vss and urine output/ - Mortality Measure Prognosis:: Poor
[2021-09-07] MEDS: Dextrose 5%-0.45% NaCl 1,000 ML IV SCH (02:45)
[2021-09-07] MEDS ORDERED: Acetaminophen 325 MG Tab PO PRN (08:29)
[2021-09-07] MEDS: Enoxaparin 40 MG/0.4 ML Syringe SUBCUT SCH (09:17)
[2021-09-07] MEDS: Nicotine 21 MG/24 Hr Patch TRDERM SCH (09:17)
[2021-09-07] MEDS ORDERED: Albuterol 0.083% 2.5 MG/3 ML Neb Soln NEB PRN (09:35)
[2021-09-07] MEDS: Potassium Chloride 10 MEQ in Premix Bag 1 BAG IV SCH ×2 (09:55→11:13)
[2021-09-07] MEDS: Pantoprazole 40 MG Vial IVPUSH SCH (09:56)
[2021-09-07] MEDS: Dexamethasone 4 MG/ML SDV IVPUSH SCH (09:56)
[2021-09-07] MEDS ORDERED: Diltiazem IR 30 MG Tab PO ONE ×2 (10:00→14:00)
--- NOTE | 2021-09-07 10:48 | CR ---
Chest: Frontal view of the chest was obtained. Comparison: Prior chest x-ray of 09/06/21. Endotracheal tube and nasogastric tube have been removed. Slight parenchymal density is seen within the right lung base. Lungs otherwise are clear. Heart size and mediastinum are normal. Bony structures show nothing acute for the patient's age. Impression: 1. Findings felt compatible with focal atelectasis within the right lung base. 2. Endotracheal tube and nasogastric tube have been removed. Diagnostic code #3
[2021-09-07] MEDS: cefTRIAXone 2 GM in Sodium Chloride 0.9% 100 ML IV SCH (11:13)
--- NOTE | 2021-09-07 13:33 | PCM.PN ---
- General Info Date of Service: 09/07/21 Admission Dx/Problem (Free Text): Admission Diagnosis/Problem Admission Diagnosis/Problem Altered mental status Patient Name: ARASH MEEHAN Date of : 82 Patient Status: Inpatient Attending Provider: Britni Mcgovern Date: 09/06/21 13:08 Initialization Date: 09/06/21 13:08 H&P History of Present Illness - General Date of Service: 09/06/21 Admit Problem/Dx: Admission Diagnosis/Problem Admission Diagnosis/Problem Altered mental status Source of Information: EMS, Provider History Limitations: Reports: Altered Mental Status, Physical Impairment, Other (intubated) - History of Present Illness Initial Comments - Free Text/Narative: [facility] LIVE ED General Medical Problem Patient Name: ARASH MEEHAN Date of : 82 Patient Status: Inpatient Attending Provider: Britni Mcgovern Date: 09/05/21 20:48 Initialization Date: 09/05/21 20:48 ED HPI GENERAL MEDICAL PROBLEM - General Chief Complaint: Drug or Alcohol Abuse Stated Complaint: ANNE-MARIE AMB Time Seen by Provider: 09/05/21 20:20 Source of Information: Reports: EMS, Family History Limitations: Reports: Altered Mental Status - History of Present Illness INITIAL COMMENTS - FREE TEXT/NARRATIVE: Patient is a 41-year-old male with a past medical history of schizophrenia presenting to the emergency room for altered mental status. Patient was found by mother with a decreased level of responsiveness. She saw him yesterday states he was having significant hallucinations and agitation. Today, she came by the department this evening and found him this way. Does not know what happened. She states she tried to arouse him and speak with him for 20 minutes before calling the ambulance. On EMS arrival, patient was awake but not responding appropriately. He started sliding down in the chair but did not demonstrate any seizure-like activity. He was transferred to the emergency room without difficulty. There were no empty pill bottles besides doxycycline which was prescribed approximately 10 days ago. Otherwise, no evidence of drug paraphernalia or self-harm. Mother states that he does have a history of polysubstance abuse but does not know about him using recently. - Related Data Allergies Allergy/AdvReac Type Severity Reaction Status Date / Time No Known Allergies Allergy Verified 09/01/21 09:33 Home Meds: Home Meds Albuterol [Ventolin HFA] 2 puff INH DAILY 03/14/19 [History] Benztropine [Cogentin] 2 mg PO BID 03/14/19 [History] Divalproex Sodium [Depakote] 1,000 mg PO BEDTIME 03/14/19 [History] Divalproex Sodium [Depakote] 500 mg PO DAILY 03/14/19 [History] Insulin Glarg,Human.Rec.Analog [Lantus Solostar] 5 unit SQ ASDIRECTED PRN 03/14/19 [History] Lisinopril 20 mg PO DAILY 03/14/19 [History] Ranitidine [Zantac] 150 mg PO DAILY 03/14/19 [History] cloZAPine [Clozapine] 200 mg PO BEDTIME 03/14/19 [History] hydroCHLOROthiazide [Microzide] 12.5 mg PO DAILY 03/14/19 [History] sitaGLIPtin Phos/Metformin HCl [Janumet 50-500 MG] 1 tab PO BID 03/14/19 [History] hydrOXYzine HCL [Atarax] 0 mg PO TID 06/22/21 [History] Pantoprazole Sodium [Protonix] 40 mg PO DAILY #10 tablet.dr 09/01/21 [Rx] Past Medical History HEENT History: Reports: Impaired Vision Other HEENT History: wears glasses Cardiovascular History: Reports: Hypertension Respiratory History: Reports: Asthma Gastrointestinal History: Reports: GERD Genitourinary History: Reports: None Musculoskeletal History: Reports: None Neurological History: Reports: None Psychiatric History: Reports: Anxiety, Bipolar, Depression, Psych Hospitalization(s), Schizophrenia, Suicidal Ideation Endocrine/Metabolic History: Reports: Diabetes, Type II, Hypothyroidism, IDDM Hematologic History: Reports: None Immunologic History: Reports: None Oncologic (Cancer) History: Reports: None Dermatologic History: Reports: None - Infectious Disease History Infectious Disease History: Reports: Chicken Pox - Past Surgical History Oncologic Surgical History: Reports: None Social & Family History - Family History Family Medical History: No Pertinent Family History - Caffeine Use Caffeine Use: Reports: Coffee Caffeine Use Comment: one pot of coffee daily. Mt Dew 3 daily - Living Situation & Occupation Living situation: Reports: Alone, Single Occupation: Disabled ED ROS GENERAL - Review of Systems Review Of Systems: Unable To Obtain Reason Not Obtained: To mental status ED EXAM, GENERAL - Physical Exam Exam: See Below Free Text/Narrative:: patient 41 year old male intubated and sedated and paralysed form e.r. after presenting with obtundation and resp difficulty. hx of chronic schizophrenia and drug abuse. depakote levels very high and poison control notified/ recommended i.v. carnatine and repeat levels in 4 hours which have come down form 156 to 93 and no changes noted in lfts form e.r. no known hx of seizures and depakote thought to be releated to behaviors/depression an mood disorder. drug screen shows + cocaine. etoh -. ct scan head - b.p normal currently p.e. limited . neuro paralyzed. skin : no bruises or skin markings or skin breaks. heent limited. exam. no neck abnormalities palpated. lungs breathing easily per vent rate 18. abd benign b.s. no hepatomegaly or masses noted. extremities well perfused and no angulation. assess: 41 year old cauc. male on vent intubated in e.r. with loc for unknown reason and duration. hx of possible overdose.hx of hallucinations per mom yes hx of cocaine use and pos. urine test. hx of schizophrenia with recent hallucinations reported yesterday. hx of high level depakote requiring i.v. carnitine. hx of freq non compliance and chronic mental illness. hx of covid + screen . plan cont vent support and try to reassess mental status with allowing to decrease sedation to see if neuro responses normal. no myoglobiuria detected. no def atn . no brain injury or bleed detected. monitor vss and urine output/ Duration of Symptoms: Reports: Hour(s): (3 hours) Associated Symptoms: Reports: Confusion - Related Data Allergies/Adverse Reactions: Allergies Allergy/AdvReac Type Severity Reaction Status Date / Time No Known Allergies Allergy Verified 09/01/21 09:33 Home Medications: Home Meds Albuterol [Ventolin HFA] 2 puff INH DAILY 03/14/19 [History] Benztropine [Cogentin] 2 mg PO BID 03/14/19 [History] Divalproex Sodium [Depakote] 1,000 mg PO BEDTIME 03/14/19 [History] Insulin Glarg,Human.Rec.Analog [Lantus Solostar] 5 unit SQ ASDIRECTED PRN 03/14/19 [History] Lisinopril 20 mg PO DAILY 03/14/19 [History] cloZAPine [Clozapine] 200 mg PO BEDTIME 03/14/19 [History] hydroCHLOROthiazide [Microzide] 12.5 mg PO DAILY 03/14/19 [History] sitaGLIPtin Phos/Metformin HCl [Janumet 50-500 MG] 1 tab PO BID 03/14/19 [His tory] hydrOXYzine HCL [Atarax] 0 mg PO TID 06/22/21 [History] Famotidine [Pepcid] 40 mg PO DAILY 09/06/21 [History] Levothyroxine [Synthroid] 50 mcg PO DAILY 09/06/21 [History] Montelukast [Singulair] 10 mg PO DAILY 09/06/21 [History] atorvaSTATin [Lipitor] 20 mg PO BEDTIME 09/06/21 [History] buPROPion [buPROPion XL] 150 mg PO DAILY 09/06/21 [History] Past Medical History HEENT History: Reports: Impaired Vision Other HEENT History: wears glasses Cardiovascular History: Reports: Hypertension Respiratory History: Reports: Asthma Gastrointestinal History: Reports: GERD Genitourinary History: Reports: None Musculoskeletal History: Reports: None Neurological History: Reports: None Psychiatric History: Reports: Anxiety, Bipolar, Depression, Psych Hospitalization(s), Schizophrenia, Suicide Attempt, Suicidal Ideation Endocrine/Metabolic History: Reports: Diabetes, Type II, Hypothyroidism, IDDM Hematologic History: Reports: None Immunologic History: Reports: None Oncologic (Cancer) History: Reports: None Dermatologic History: Reports: None - Infectious Disease History Infectious Disease History: Reports: Chicken Pox - Past Surgical History Head Surgeries/Procedures: Reports: None Oncologic Surgical History: Reports: None Social & Family History - Family History Family Medical History: Unobtainable - Tobacco Use Tobacco Use Status *Q: Current Every Day Tobacco User Years of Tobacco use: 20 Packs/Tins Daily: 1 - Caffeine Use Caffeine Use: Reports: Coffee Caffeine Use Comment: one pot of coffee daily. Mt Dew 3 daily - Recreational Drug Use Recreational Drug Type: Reports: Marijuana/Hashish - Living Situation & Occupation Living situation: Reports: Alone, Single Occupation: Disabled H&P Review of Systems - Review of Systems: Review Of Systems: Unable To Obtain Reason Not Obtained: limited exam obtained in room on vent // known covid + Psychiatric: Reports: Hallucinations (per his moms report the day before / lives by self and hx of suicidal attempt prev. bipolar//schizophrenia ) Exam - Exam Exam: See Below Reason Not Obtained: see limited p.e. on admission. - Vital Signs Vital Signs: Last Vital Signs Temp 36.1 C 09/06/21 12:00 Pulse 63 09/06/21 12:01 Resp 16 09/06/21 12:01 BP 114/80 09/06/21 12:01 Pulse Ox 100 09/06/21 12:01 Weight: 93.168 kg - Exam General: Alert, Oriented, 4 HEENT: PERRLA, Hearing Intact, Mucosa Moist & [place], Nares Patent, Normal Nasal Septum, Posterior Pharynx Clear, Conjunctiva Clear, EOMI, EACs Clear, TMs Clear Neck: Supple, Trachea Midline, 2 Lungs: Clear to Auscultation, Normal Respiratory Effort Cardiovascular: Regular Rate, Regular Rhythm GI/Abdominal Exam: Normal Bowel Sounds, Soft, Non-Tender, No Organomegaly, No Distention, No Abnormal Bruit, No Mass, Pelvis Stable (Male) Exam: No Hernia, Normal Inspection, Normal Prostate, Circumcised Rectal (Males) Exam: Normal Exam, Normal Rectal Tone, Prostate Normal Back Exam: Normal Inspection, Full Range of Motion, NT Extremities: Normal Inspection, Normal Range of Motion, Non-Tender, No Pedal Edema, Normal Capillary Refill Skin: Warm, Dry, Intact Neurological: Cranial Nerves Intact, Reflexes Equal Bilateral Neuro Extensive - Mental Status: Alert, Oriented x3, Normal Mood/Affect, Normal Cognition Neuro Extensive - Motor, Sensory, Reflexes: CN II-XII Intact, Normal Gait, Normal Reflexes, Other (sedated and paralysed/) Psychiatric: Alert, Normal Affect, Normal Mood - Patient Data Lab Results Last 24 hrs: Laboratory Results - last 24 hr 09/05/21 09/05/21 09/05/21 Range/Units 20:00 20:00 20:00 WBC 3.95 L (4.23-9.07) K/mm3 RBC 4.80 (4.63-6.08) M/mm3 Hgb 13.5 L (13.7-17.5) gm/dl Hct 40.5 (40.1-51.0) % MCV 84.4 (79.0-92.2) fl MCH 28.1 (25.7-32.2) pg MCHC 33.3 (32.2-35.5) g/dl RDW Std Deviation 41.2 (35.1-43.9) fL Plt Count 226 (163-337) K/mm3 MPV 9.1 L (9.4-12.3) fl Neut % (Auto) 72.4 H (34.0-67.9) % Lymph % (Auto) 19.5 L (21.8-53.1) % [place] % (Auto) 7.8 (5.3-12.2) % Eos % (Auto) 0 L (0.8-7.0) Baso % (Auto) 0.3 (0.1-1.2) % Neut # (Auto) 2.86 (1.78-5.38) K/mm3 Lymph # (Auto) 0.77 L (1.32-3.57) K/mm3 [place] # (Auto) 0.31 (0.30-0.82) K/mm3 Eos # (Auto) 0.00 L (0.04-0.54) K/mm3 Baso # (Auto) 0.01 (0.01-0.08) K/mm3 D-Dimer, Quantitative (0.19-0.50) mg/L Puncture Site ABG pH (7.35-7.45) ABG pCO2 (35.0-45.0) mmHg ABG pO2 (80.0-100.0) mmHg ABG HCO3 (22.0-26.0) meq/L ABG O2 Saturation (96.0-97.0) % ABG Base Excess (-2-2.0) VBG pH (7.30-7.40) VBG pCO2 (41-51) mmHg VBG pO2 (40-80) mmHG VBG HCO3 (22-26) meq/L VBG O2 Saturation VBG Base Excess (-4.0-2.0) A-a Gradient mmHg O2 Delivery Device FiO2 (21.00-100.00) % Tidal Volume cc PEEP cmH20 Sodium 139 (136-145) mEq/L Potassium 3.6 (3.5-5.1) mEq/L Chloride 98 (98-107) mEq/L Carbon Dioxide 24 (21-32) mEq/L Anion Gap 20.6 H (5-15) BUN 11 (7-18) mg/dL Creatinine 1.1 (0.7-1.3) mg/dL Est Cr Clr Drug Dosing TNP Estimated GFR (MDRD) > 60 (>60) mL/min BUN/Creatinine Ratio 10.0 L (14-18) Glucose 160 H (70-99) mg/dL POC Glucose (70-99) mg/dL Lactic Acid (0.4-2.0) mmol/L Calcium 8.4 L (8.5-10.1) mg/dL Total Bilirubin 0.3 (0.2-1.0) mg/dL AST 46 H (15-37) U/L ALT 30 (16-63) U/L Alkaline Phosphatase 74 (46-116) U/L Ammonia (11-32) umol/L CK-MB (CK-2) 20.1 H (0-3.6) ng/ml C-Reactive Protein (<1.0) mg/dL Total Protein 6.8 (6.4-8.2) g/dl Albumin 4.0 (3.4-5.0) g/dl Globulin 2.8 gm/dL Albumin/Globulin Ratio 1.4 (1-2) TSH 3rd Generation 0.711 (0.358-3.74) uIU/mL Urine Color (Yellow) Urine Appearance (Clear) Urine pH (5.0-8.0) Ur Specific [place] (1.005-1.030) Urine Protein (Negative) Urine Glucose (UA) (Negative) Urine Ketones (Negative) Urine Occult Blood (Negative) Urine Nitrite (Negative) Urine Bilirubin (Negative) Urine Urobilinogen (0.2-1.0) Ur Leukocyte Esterase (Negative) Urine RBC (0-5) /hpf Urine WBC (0-5) /hpf Ur Squamous Epith Cells (0-5) /hpf Amorphous Sediment (NOT SEEN) /hpf Urine Bacteria (FEW) /hpf Fine Granular Casts (0-5) /lpf Urine Mucus (FEW) /hpf Salicylates 2.4 L (2.8-20) mg/dL Urine Opiates Screen (TXZUAT=858) Ur Buprenorphine Scrn (CUTOFF=10) Ur Oxycodone Screen (XRI0BK=231) Urine Methadone Screen (LIG9SB=314) Ur Propoxyphene Screen (CBUZNO=560) Acetaminophen 0 L (10-30) ug/mL Ur Barbiturates Screen (GITXJP=889) Valproic Acid 158.3 H* (50.0-100.0) ug/mL Ur Tricyclics Screen (IGHHRV=879) Ur Phencyclidine Scrn (CUTOFF=25) Ur Amphetamine Screen (ZYPGYI=355) U Methamphetamines Scrn (TRMGYC=824) U Benzodiazepines Scrn (CMFTNC=692) U Cocaine Metab Screen (VFQCOX=043) U Marijuana (THC) Screen (CUTOFF=50) Ethyl Alcohol 0.00 (0.00) gm% SARS-CoV-2 RNA (YOLI) (NEGATIVE) 09/05/21 09/05/21 09/05/21 Range/Units 20:00 20:30 20:34 WBC (4.23-9.07) K/mm3 RBC (4.63-6.08) M/mm3 Hgb (13.7-17.5) gm/dl Hct (40.1-51.0) % MCV (79.0-92.2) fl MCH (25.7-32.2) pg MCHC (32.2-35.5) g/dl RDW Std Deviation (35.1-43.9) fL Plt Count (163-337) K/mm3 MPV (9.4-12.3) fl Neut % (Auto) (34.0-67.9) % Lymph % (Auto) (21.8-53.1) % [place] % (Auto) (5.3-12.2) % Eos % (Auto) (0.8-7.0) Baso % (Auto) (0.1-1.2) % Neut # (Auto) (1.78-5.38) K/mm3 Lymph # (Auto) (1.32-3.57) K/mm3 [place] # (Auto) (0.30-0.82) K/mm3 Eos # (Auto) (0.04-0.54) K/mm3 Baso # (Auto) (0.01-0.08) K/mm3 D-Dimer, Quantitative (0.19-0.50) mg/L Puncture Site ABG pH (7.35-7.45) ABG pCO2 (35.0-45.0) mmHg ABG pO2 (80.0-100.0) mmHg ABG HCO3 (22.0-26.0) meq/L ABG O2 Saturation (96.0-97.0) % ABG Base Excess (-2-2.0) VBG pH (7.30-7.40) VBG pCO2 (41-51) mmHg VBG pO2 (40-80) mmHG VBG HCO3 (22-26) meq/L VBG O2 Saturation VBG Base Excess (-4.0-2.0) A-a Gradient mmHg O2 Delivery Device FiO2 (21.00-100.00) % Tidal Volume cc PEEP cmH20 Sodium (136-145) mEq/L Potassium (3.5-5.1) mEq/L Chloride (98-107) mEq/L Carbon Dioxide (21-32) mEq/L Anion Gap (5-15) BUN (7-18) mg/dL Creatinine (0.7-1.3) mg/dL Est Cr Clr Drug Dosing Estimated GFR (MDRD) (>60) mL/min BUN/Creatinine Ratio (14-18) Glucose (70-99) mg/dL POC Glucose 133 H (70-99) mg/dL Lactic Acid 3.7 H* (0.4-2.0) mmol/L Calcium (8.5-10.1) mg/dL Total Bilirubin (0.2-1.0) mg/dL AST (15-37) U/L ALT (16-63) U/L Alkaline Phosphatase (46-116) U/L Ammonia (11-32) umol/L CK-MB (CK-2) (0-3.6) ng/ml C-Reactive Protein (<1.0) mg/dL Total Protein (6.4-8.2) g/dl Albumin (3.4-5.0) g/dl Globulin gm/dL Albumin/Globulin Ratio (1-2) TSH 3rd Generation (0.358-3.74) uIU/mL Urine Color (Yellow) Urine Appearance (Clear) Urine pH (5.0-8.0) Ur Specific [place] (1.005-1.030) Urine Protein (Negative) Urine Glucose (UA) (Negative) Urine Ketones (Negative) Urine Occult Blood (Negative) Urine Nitrite (Negative) Urine Bilirubin (Negative) Urine Urobilinogen (0.2-1.0) Ur Leukocyte Esterase (Negative) Urine RBC (0-5) /hpf Urine WBC (0-5) /hpf Ur Squamous Epith Cells (0-5) /hpf Amorphous Sediment (NOT SEEN) /hpf Urine Bacteria (FEW) /hpf Fine Granular Casts (0-5) /lpf Urine Mucus (FEW) /hpf Salicylates (2.8-20) mg/dL Urine Opiates Screen (TKVYMA=871) Ur Buprenorphine Scrn (CUTOFF=10) Ur Oxycodone Screen (NHC4WZ=111) Urine Methadone Screen (EJD1OX=681) Ur Propoxyphene Screen (VAZYCJ=673) Acetaminophen (10-30) ug/mL Ur Barbiturates Screen (OQCMLR=271) Valproic Acid (50.0-100.0) ug/mL Ur Tricyclics Screen (ZCSFUC=698) Ur Phencyclidine Scrn (CUTOFF=25) Ur Amphetamine Screen (QEYSVG=814) U Methamphetamines Scrn (JSDMVB=986) U Benzodiazepines Scrn (UTEDCF=401) U Cocaine Metab Screen (PGUAVZ=166) U Marijuana (THC) Screen (CUTOFF=50) Ethyl Alcohol (0.00) gm% SARS-CoV-2 RNA (YOLI) Positive H (NEGATIVE) 09/05/21 09/05/21 09/05/21 Range/Units 20:40 20:40 21:52 WBC (4.23-9.07) K/mm3 RBC (4.63-6.08) M/mm3 Hgb (13.7-17.5) gm/dl Hct (40.1-51.0) % MCV (79.0-92.2) fl MCH (25.7-32.2) pg MCHC (32.2-35.5) g/dl RDW Std Deviation (35.1-43.9) fL Plt Count (163-337) K/mm3 MPV (9.4-12.3) fl Neut % (Auto) (34.0-67.9) % Lymph % (Auto) (21.8-53.1) % [place] % (Auto) (5.3-12.2) % Eos % (Auto) (0.8-7.0) Baso % (Auto) (0.1-1.2) % Neut # (Auto) (1.78-5.38) K/mm3 Lymph # (Auto) (1.32-3.57) K/mm3 [place] # (Auto) (0.30-0.82) K/mm3 Eos # (Auto) (0.04-0.54) K/mm3 Baso # (Auto) (0.01-0.08) K/mm3 D-Dimer, Quantitative (0.19-0.50) mg/L Puncture Site ABG pH (7.35-7.45) ABG pCO2 (35.0-45.0) mmHg ABG pO2 (80.0-100.0) mmHg ABG HCO3 (22.0-26.0) meq/L ABG O2 Saturation (96.0-97.0) % ABG Base Excess (-2-2.0) VBG pH (7.30-7.40) VBG pCO2 (41-51) mmHg VBG pO2 (40-80) mmHG VBG HCO3 (22-26) meq/L VBG O2 Saturation VBG Base Excess (-4.0-2.0) A-a Gradient mmHg O2 Delivery Device FiO2 (21.00-100.00) % Tidal Volume cc PEEP cmH20 Sodium (136-145) mEq/L Potassium (3.5-5.1) mEq/L Chloride (98-107) mEq/L Carbon Dioxide (21-32) mEq/L Anion Gap (5-15) BUN (7-18) mg/dL Creatinine (0.7-1.3) mg/dL Est Cr Clr Drug Dosing Estimated GFR (MDRD) (>60) mL/min BUN/Creatinine Ratio (14-18) Glucose (70-99) mg/dL POC Glucose (70-99) mg/dL Lactic Acid (0.4-2.0) mmol/L Calcium (8.5-10.1) mg/dL Total Bilirubin (0.2-1.0) mg/dL AST (15-37) U/L ALT (16-63) U/L Alkaline Phosphatase (46-116) U/L Ammonia 12 (11-32) umol/L CK-MB (CK-2) (0-3.6) ng/ml C-Reactive Protein (<1.0) mg/dL Total Protein (6.4-8.2) g/dl Albumin (3.4-5.0) g/dl Globulin gm/dL Albumin/Globulin Ratio (1-2) TSH 3rd Generation (0.358-3.74) uIU/mL Urine Color Yellow (Yellow) Urine Appearance Clear (Clear) Urine pH 6.0 (5.0-8.0) Ur Specific [place] > or = 1.030 (1.005-1.030) Urine Protein 2+ H (Negative) Urine Glucose (UA) Trace H (Negative) Urine Ketones 1+ H (Negative) Urine Occult Blood 1+ H (Negative) Urine Nitrite Negative (Negative) Urine Bilirubin Negative (Negative) Urine Urobilinogen 0.2 (0.2-1.0) Ur Leukocyte Esterase Negative (Negative) Urine RBC 0-5 (0-5) /hpf Urine WBC 0-5 (0-5) /hpf Ur Squamous Epith Cells 0-5 (0-5) /hpf Amorphous Sediment Few H (NOT SEEN) /hpf Urine Bacteria Few (FEW) /hpf Fine Granular Casts 0-5 (0-5) /lpf Urine Mucus Few (FEW) /hpf Salicylates (2.8-20) mg/dL Urine Opiates Screen Negative (DNOKOB=233) Ur Buprenorphine Scrn Negative (CUTOFF=10) Ur Oxycodone Screen Negative (SBR3BR=666) Urine Methadone Screen Negative (GAW8UV=602) Ur Propoxyphene Screen Negative (NMRRRD=150) Acetaminophen (10-30) ug/mL Ur Barbiturates Screen Negative (ZSSVHE=808) Valproic Acid (50.0-100.0) ug/mL Ur Tricyclics Screen Presumptive positive H (NZOWWM=787) Ur Phencyclidine Scrn Negative (CUTOFF=25) Ur Amphetamine Screen Negative (JJMJEP=431) U Methamphetamines Scrn Negative (HJNHNT=560) U Benzodiazepines Scrn Negative (JSKFDD=818) U Cocaine Metab Screen Presumptive positive H (UYBYZU=526) U Marijuana (THC) Screen Negative (CUTOFF=50) Ethyl Alcohol (0.00) gm% SARS-CoV-2 RNA (YOLI) (NEGATIVE) 09/05/21 09/06/21 09/06/21 Range/Units 23:00 00:40 02:50 WBC (4.23-9.07) K/mm3 RBC (4.63-6.08) M/mm3 Hgb (13.7-17.5) gm/dl Hct (40.1-51.0) % MCV (79.0-92.2) fl MCH (25.7-32.2) pg MCHC (32.2-35.5) g/dl RDW Std Deviation (35.1-43.9) fL Plt Count (163-337) K/mm3 MPV (9.4-12.3) fl Neut % (Auto) (34.0-67.9) % Lymph % (Auto) (21.8-53.1) % [place] % (Auto) (5.3-12.2) % Eos % (Auto) (0.8-7.0) Baso % (Auto) (0.1-1.2) % Neut # (Auto) (1.78-5.38) K/mm3 Lymph # (Auto) (1.32-3.57) K/mm3 [place] # (Auto) (0.30-0.82) K/mm3 Eos # (Auto) (0.04-0.54) K/mm3 Baso # (Auto) (0.01-0.08) K/mm3 D-Dimer, Quantitative (0.19-0.50) mg/L Puncture Site ABG pH (7.35-7.45) ABG pCO2 (35.0-45.0) mmHg ABG pO2 (80.0-100.0) mmHg ABG HCO3 (22.0-26.0) meq/L ABG O2 Saturation (96.0-97.0) % ABG Base Excess (-2-2.0) VBG pH 7.38 (7.30-7.40) VBG pCO2 43.9 (41-51) mmHg VBG pO2 46.0 (40-80) mmHG VBG HCO3 25.4 (22-26) meq/L VBG O2 Saturation 80.9 VBG Base Excess 0.6 (-4.0-2.0) A-a Gradient mmHg O2 Delivery Device FiO2 (21.00-100.00) % Tidal Volume cc PEEP cmH20 Sodium 141 (136-145) mEq/L Potassium 3.3 L (3.5-5.1) mEq/L Chloride 104 (98-107) mEq/L Carbon Dioxide 26 (21-32) mEq/L Anion Gap 14.3 (5-15) BUN 12 (7-18) mg/dL Creatinine 0.7 (0.7-1.3) mg/dL Est Cr Clr Drug Dosing 172.22 Estimated GFR (MDRD) > 60 (>60) mL/min BUN/Creatinine Ratio 17.1 (14-18) Glucose 134 H (70-99) mg/dL POC Glucose (70-99) mg/dL Lactic Acid 1.4 (0.4-2.0) mmol/L Calcium 7.2 L (8.5-10.1) mg/dL Total Bilirubin (0.2-1.0) mg/dL AST (15-37) U/L ALT (16-63) U/L Alkaline Phosphatase (46-116) U/L Ammonia (11-32) umol/L CK-MB (CK-2) (0-3.6) ng/ml C-Reactive Protein (<1.0) mg/dL Total Protein (6.4-8.2) g/dl Albumin (3.4-5.0) g/dl Globulin gm/dL Albumin/Globulin Ratio (1-2) TSH 3rd Generation (0.358-3.74) uIU/mL Urine Color (Yellow) Urine Appearance (Clear) Urine pH (5.0-8.0) Ur Specific [place] (1.005-1.030) Urine Protein (Negative) Urine Glucose (UA) (Negative) Urine Ketones (Negative) Urine Occult Blood (Negative) Urine Nitrite (Negative) Urine Bilirubin (Negative) Urine Urobilinogen (0.2-1.0) Ur Leukocyte Esterase (Negative) Urine RBC (0-5) /hpf Urine WBC (0-5) /hpf Ur Squamous Epith Cells (0-5) /hpf Amorphous Sediment (NOT SEEN) /hpf Urine Bacteria (FEW) /hpf Fine Granular Casts (0-5) /lpf Urine Mucus (FEW) /hpf Salicylates (2.8-20) mg/dL Urine Opiates Screen (DXYNWW=633) Ur Buprenorphine Scrn (CUTOFF=10) Ur Oxycodone Screen (LOT4RY=280) Urine Methadone Screen (QUG9QW=984) Ur Propoxyphene Screen (VSCCCY=116) Acetaminophen 0 L (10-30) ug/mL Ur Barbiturates Screen (TCYETN=782) Valproic Acid (50.0-100.0) ug/mL Ur Tricyclics Screen (AYNGYG=831) Ur Phencyclidine Scrn (CUTOFF=25) Ur Amphetamine Screen (GNSWQZ=639) U Methamphetamines Scrn (SUZPEE=621) U Benzodiazepines Scrn (QSKPUN=134) U Cocaine Metab Screen (NWCSFL=024) U Marijuana (THC) Screen (CUTOFF=50) Ethyl Alcohol (0.00) gm% SARS-CoV-2 RNA (YOLI) (NEGATIVE) 09/06/21 09/06/21 09/06/21 Range/Units 02:50 08:52 09:35 WBC (4.23-9.07) K/mm3 RBC (4.63-6.08) M/mm3 Hgb (13.7-17.5) gm/dl Hct (40.1-51.0) % MCV (79.0-92.2) fl MCH (25.7-32.2) pg MCHC (32.2-35.5) g/dl RDW Std Deviation (35.1-43.9) fL Plt Count (163-337) K/mm3 MPV (9.4-12.3) fl Neut % (Auto) (34.0-67.9) % Lymph % (Auto) (21.8-53.1) % [place] % (Auto) (5.3-12.2) % Eos % (Auto) (0.8-7.0) Baso % (Auto) (0.1-1.2) % Neut # (Auto) (1.78-5.38) K/mm3 Lymph # (Auto) (1.32-3.57) K/mm3 [place] # (Auto) (0.30-0.82) K/mm3 Eos # (Auto) (0.04-0.54) K/mm3 Baso # (Auto) (0.01-0.08) K/mm3 D-Dimer, Quantitative (0.19-0.50) mg/L Puncture Site Rt radial ABG pH 7.36 (7.35-7.45) ABG pCO2 43.7 (35.0-45.0) mmHg ABG pO2 268.0 H* (80.0-100.0) mmHg ABG HCO3 24.1 (22.0-26.0) meq/L ABG O2 Saturation 99.8 H (96.0-97.0) % ABG Base Excess -0.8 (-2-2.0) VBG pH (7.30-7.40) VBG pCO2 (41-51) mmHg VBG pO2 (40-80) mmHG VBG HCO3 (22-26) meq/L VBG O2 Saturation VBG Base Excess (-4.0-2.0) A-a Gradient 177 mmHg O2 Delivery Device Ventilator FiO2 70.00 (21.00-100.00) % Tidal Volume 500.0 cc PEEP 5.0 cmH20 Sodium 141 (136-145) mEq/L Potassium 4.1 (3.5-5.1) mEq/L Chloride 106 (98-107) mEq/L Carbon Dioxide 26 (21-32) mEq/L Anion Gap 13.1 (5-15) BUN 10 (7-18) mg/dL Creatinine 0.8 (0.7-1.3) mg/dL Est Cr Clr Drug Dosing 150.69 Estimated GFR (MDRD) > 60 (>60) mL/min BUN/Creatinine Ratio 12.5 L (14-18) Glucose 163 H (70-99) mg/dL POC Glucose (70-99) mg/dL Lactic Acid (0.4-2.0) mmol/L Calcium 7.5 L (8.5-10.1) mg/dL Total Bilirubin 0.4 (0.2-1.0) mg/dL AST 70 H (15-37) U/L ALT 29 (16-63) U/L Alkaline Phosphatase 55 (46-116) U/L Ammonia 42 H (11-32) umol/L CK-MB (CK-2) (0-3.6) ng/ml C-Reactive Protein 2.5 H* (<1.0) mg/dL Total Protein 5.6 L (6.4-8.2) g/dl Albumin 2.9 L (3.4-5.0) g/dl Globulin 2.7 gm/dL Albumin/Globulin Ratio 1.1 (1-2) TSH 3rd Generation (0.358-3.74) uIU/mL Urine Color (Yellow) Urine Appearance (Clear) Urine pH (5.0-8.0) Ur Specific [place] (1.005-1.030) Urine Protein (Negative) Urine Glucose (UA) (Negative) Urine Ketones (Negative) Urine Occult Blood (Negative) Urine Nitrite (Negative) Urine Bilirubin (Negative) Urine Urobilinogen (0.2-1.0) Ur Leukocyte Esterase (Negative) Urine RBC (0-5) /hpf Urine WBC (0-5) /hpf Ur Squamous Epith Cells (0-5) /hpf Amorphous Sediment (NOT SEEN) /hpf Urine Bacteria (FEW) /hpf Fine Granular Casts (0-5) /lpf Urine Mucus (FEW) /hpf Salicylates (2.8-20) mg/dL Urine Opiates Screen (ZASDEO=032) Ur Buprenorphine Scrn (CUTOFF=10) Ur Oxycodone Screen (SXH4QC=499) Urine Methadone Screen (RDM5NA=842) Ur Propoxyphene Screen (TKKKPM=558) Acetaminophen (10-30) ug/mL Ur Barbiturates Screen (NXSTMA=430) Valproic Acid 93.1 (50.0-100.0) ug/mL Ur Tricyclics Screen (ZOCOVH=414) Ur Phencyclidine Scrn (CUTOFF=25) Ur Amphetamine Screen (PSWZTD=149) U Methamphetamines Scrn (EUCIXR=838) U Benzodiazepines Scrn (UEORSO=298) U Cocaine Metab Screen (QBBHHH=367) U Marijuana (THC) Screen (CUTOFF=50) Ethyl Alcohol (0.00) gm% SARS-CoV-2 RNA (YOLI) (NEGATIVE) 09/06/21 09/06/21 09/06/21 Range/Units 09:35 09:35 10:47 WBC 7.49 (4.23-9.07) K/mm3 RBC 4.26 L (4.63-6.08) M/mm3 Hgb 12.0 L D (13.7-17.5) gm/dl Hct 36.8 L (40.1-51.0) % MCV 86.4 (79.0-92.2) fl MCH 28.2 (25.7-32.2) pg MCHC 32.6 (32.2-35.5) g/dl RDW Std Deviation 43.0 (35.1-43.9) fL Plt Count 189 (163-337) K/mm3 MPV 9.2 L (9.4-12.3) fl Neut % (Auto) 87.0 H (34.0-67.9) % Lymph % (Auto) 7.3 L (21.8-53.1) % [place] % (Auto) 5.6 (5.3-12.2) % Eos % (Auto) 0 L (0.8-7.0) Baso % (Auto) 0.0 L (0.1-1.2) % Neut # (Auto) 6.51 H (1.78-5.38) K/mm3 Lymph # (Auto) 0.55 L (1.32-3.57) K/mm3 [place] # (Auto) 0.42 (0.30-0.82) K/mm3 Eos # (Auto) 0.00 L (0.04-0.54) K/mm3 Baso # (Auto) 0.00 L (0.01-0.08) K/mm3 D-Dimer, Quantitative 2.24 H (0.19-0.50) mg/L Puncture Site ABG pH (7.35-7.45) ABG pCO2 (35.0-45.0) mmHg ABG pO2 (80.0-100.0) mmHg ABG HCO3 (22.0-26.0) meq/L ABG O2 Saturation (96.0-97.0) % ABG Base Excess (-2-2.0) VBG pH (7.30-7.40) VBG pCO2 (41-51) mmHg VBG pO2 (40-80) mmHG VBG HCO3 (22-26) meq/L VBG O2 Saturation VBG Base Excess (-4.0-2.0) A-a Gradient mmHg O2 Delivery Device FiO2 (21.00-100.00) % Tidal Volume cc PEEP cmH20 Sodium (136-145) mEq/L Potassium (3.5-5.1) mEq/L Chloride (98-107) mEq/L Carbon Dioxide (21-32) mEq/L Anion Gap (5-15) BUN (7-18) mg/dL Creatinine (0.7-1.3) mg/dL Est Cr Clr Drug Dosing Estimated GFR (MDRD) (>60) mL/min BUN/Creatinine Ratio (14-18) Glucose (70-99) mg/dL POC Glucose (70-99) mg/dL Lactic Acid (0.4-2.0) mmol/L Calcium (8.5-10.1) mg/dL Total Bilirubin (0.2-1.0) mg/dL AST (15-37) U/L ALT (16-63) U/L Alkaline Phosphatase (46-116) U/L Ammonia 46 H (11-32) umol/L CK-MB (CK-2) (0-3.6) ng/ml C-Reactive Protein (<1.0) mg/dL Total Protein (6.4-8.2) g/dl Albumin (3.4-5.0) g/dl Globulin gm/dL Albumin/Globulin Ratio (1-2) TSH 3rd Generation (0.358-3.74) uIU/mL Urine Color (Yellow) Urine Appearance (Clear) Urine pH (5.0-8.0) Ur Specific [place] (1.005-1.030) Urine Protein (Negative) Urine Glucose (UA) (Negative) Urine Ketones (Negative) Urine Occult Blood (Negative) Urine Nitrite (Negative) Urine Bilirubin (Negative) Urine Urobilinogen (0.2-1.0) Ur Leukocyte Esterase (Negative) Urine RBC (0-5) /hpf Urine WBC (0-5) /hpf Ur Squamous Epith Cells (0-5) /hpf Amorphous Sediment (NOT SEEN) /hpf Urine Bacteria (FEW) /hpf Fine Granular Casts (0-5) /lpf Urine Mucus (FEW) /hpf Salicylates (2.8-20) mg/dL Urine Opiates Screen (NQHHYQ=752) Ur Buprenorphine Scrn (CUTOFF=10) Ur Oxycodone Screen (WTA3UT=144) Urine Methadone Screen (MVL7MU=062) Ur Propoxyphene Screen (OKWNYC=915) Acetaminophen (10-30) ug/mL Ur Barbiturates Screen (YIYABQ=638) Valproic Acid (50.0-100.0) ug/mL Ur Tricyclics Screen (FBRYND=317) Ur Phencyclidine Scrn (CUTOFF=25) Ur Amphetamine Screen (TWFTMA=368) U Methamphetamines Scrn (LJCGPO=909) U Benzodiazepines Scrn (IBRWAR=539) U Cocaine Metab Screen (ZGQSCC=951) U Marijuana (THC) Screen (CUTOFF=50) Ethyl Alcohol (0.00) gm% SARS-CoV-2 RNA (YOLI) (NEGATIVE) 09/06/21 Range/Units 11:58 WBC (4.23-9.07) K/mm3 RBC (4.63-6.08) M/mm3 Hgb (13.7-17.5) gm/dl Hct (40.1-51.0) % MCV (79.0-92.2) fl MCH (25.7-32.2) pg MCHC (32.2-35.5) g/dl RDW Std Deviation (35.1-43.9) fL Plt Count (163-337) K/mm3 MPV (9.4-12.3) fl Neut % (Auto) (34.0-67.9) % Lymph % (Auto) (21.8-53.1) % [place] % (Auto) (5.3-12.2) % Eos % (Auto) (0.8-7.0) Baso % (Auto) (0.1-1.2) % Neut # (Auto) (1.78-5.38) K/mm3 Lymph # (Auto) (1.32-3.57) K/mm3 [place] # (Auto) (0.30-0.82) K/mm3 Eos # (Auto) (0.04-0.54) K/mm3 Baso # (Auto) (0.01-0.08) K/mm3 D-Dimer, Quantitative (0.19-0.50) mg/L Puncture Site ABG pH (7.35-7.45) ABG pCO2 (35.0-45.0) mmHg ABG pO2 (80.0-100.0) mmHg ABG HCO3 (22.0-26.0) meq/L ABG O2 Saturation (96.0-97.0) % ABG Base Excess (-2-2.0) VBG pH (7.30-7.40) VBG pCO2 (41-51) mmHg VBG pO2 (40-80) mmHG VBG HCO3 (22-26) meq/L VBG O2 Saturation VBG Base Excess (-4.0-2.0) A-a Gradient mmHg O2 Delivery Device FiO2 (21.00-100.00) % Tidal Volume cc PEEP cmH20 Sodium (136-145) mEq/L Potassium (3.5-5.1) mEq/L Chloride (98-107) mEq/L Carbon Dioxide (21-32) mEq/L Anion Gap (5-15) BUN (7-18) mg/dL Creatinine (0.7-1.3) mg/dL Est Cr Clr Drug Dosing Estimated GFR (MDRD) (>60) mL/min BUN/Creatinine Ratio (14-18) Glucose (70-99) mg/dL POC Glucose 175 H (70-99) mg/dL Lactic Acid (0.4-2.0) mmol/L Calcium (8.5-10.1) mg/dL Total Bilirubin (0.2-1.0) mg/dL AST (15-37) U/L ALT (16-63) U/L Alkaline Phosphatase (46-116) U/L Ammonia (11-32) umol/L CK-MB (CK-2) (0-3.6) ng/ml C-Reactive Protein (<1.0) mg/dL Total Protein (6.4-8.2) g/dl Albumin (3.4-5.0) g/dl Globulin gm/dL Albumin/Globulin Ratio (1-2) TSH 3rd Generation (0.358-3.74) uIU/mL Urine Color (Yellow) Urine Appearance (Clear) Urine pH (5.0-8.0) Ur Specific [place] (1.005-1.030) Urine Protein (Negative) Urine Glucose (UA) (Negative) Urine Ketones (Negative) Urine Occult Blood (Negative) Urine Nitrite (Negative) Urine Bilirubin (Negative) Urine Urobilinogen (0.2-1.0) Ur Leukocyte Esterase (Negative) Urine RBC (0-5) /hpf Urine WBC (0-5) /hpf Ur Squamous Epith Cells (0-5) /hpf Amorphous Sediment (NOT SEEN) /hpf Urine Bacteria (FEW) /hpf Fine Granular Casts (0-5) /lpf Urine Mucus (FEW) /hpf Salicylates (2.8-20) mg/dL Urine Opiates Screen (TFYFMY=021) Ur Buprenorphine Scrn (CUTOFF=10) Ur Oxycodone Screen (ZHE1JF=752) Urine Methadone Screen (CCL1UY=763) Ur Propoxyphene Screen (OICZYA=292) Acetaminophen (10-30) ug/mL Ur Barbiturates Screen (VUQCVF=839) Valproic Acid (50.0-100.0) ug/mL Ur Tricyclics Screen (EUQOWJ=470) Ur Phencyclidine Scrn (CUTOFF=25) Ur Amphetamine Screen (POGSDX=534) U Methamphetamines Scrn (UVSXUR=412) U Benzodiazepines Scrn (RUDCRK=439) U Cocaine Metab Screen (KVTEOR=485) U Marijuana (THC) Screen (CUTOFF=50) Ethyl Alcohol (0.00) gm% SARS-CoV-2 RNA (YOLI) (NEGATIVE) Result Diagrams: 09/06/21 09:35 [Image 0] 09/06/21 09:35 [Image 1] Sepsis Event Note - Evaluation Sepsis Screening Result: No Definite Risk - Focused Exam Vital Signs: Vital Signs Temp Pulse Pulse Resp BP BP Pulse Ox 09/06/21 12:01 63 16 114/80 100 09/06/21 12:00 36.1 C 63 16 100 09/06/21 11:46 64 16 110/80 100 09/06/21 11:45 63 16 100 09/06/21 11:36 09/06/21 11:34 09/06/21 11:31 64 16 115/81 100 09/06/21 11:30 64 16 100 09/06/21 11:16 63 16 110/79 100 09/06/21 11:15 64 16 100 09/06/21 11:01 64 16 110/79 100 09/06/21 11:00 64 16 100 09/06/21 10:46 65 16 110/80 100 09/06/21 10:45 65 16 100 09/06/21 10:31 65 16 110/78 100 09/06/21 10:30 65 16 100 09/06/21 10:16 65 16 108/78 100 09/06/21 10:15 65 16 100 09/06/21 10:01 66 16 100 09/06/21 10:00 66 16 110/76 100 09/06/21 09:59 66 16 100 09/06/21 09:45 68 16 109/78 100 09/06/21 09:44 69 16 100 09/06/21 09:35 09/06/21 09:33 09/06/21 09:30 70 16 110/77 100 09/06/21 09:29 70 16 100 09/06/21 09:15 71 16 108/78 100 09/06/21 09:14 71 16 100 09/06/21 09:01 73 16 99 09/06/21 09:00 36.1 C 72 16 110/77 100 09/06/21 08:50 09/06/21 08:45 76 16 111/83 100 09/06/21 08:44 75 16 100 09/06/21 08:30 77 16 114/81 100 09/06/21 08:29 77 16 100 09/06/21 08:28 78 16 100 09/06/21 07:59 09/06/21 07:52 09/06/21 02:37 103 H 14 133/92 H 100 Pulse Ox 09/06/21 12:01 09/06/21 12:00 09/06/21 11:46 09/06/21 11:45 09/06/21 11:36 100 09/06/21 11:34 100 09/06/21 11:31 09/06/21 11:30 09/06/21 11:16 09/06/21 11:15 09/06/21 11:01 09/06/21 11:00 09/06/21 10:46 09/06/21 10:45 09/06/21 10:31 09/06/21 10:30 09/06/21 10:16 09/06/21 10:15 09/06/21 10:01 09/06/21 10:00 09/06/21 09:59 09/06/21 09:45 09/06/21 09:44 09/06/21 09:35 100 09/06/21 09:33 100 09/06/21 09:30 09/06/21 09:29 09/06/21 09:15 09/06/21 09:14 09/06/21 09:01 09/06/21 09:00 09/06/21 08:50 100 09/06/21 08:45 09/06/21 08:44 09/06/21 08:30 09/06/21 08:29 09/06/21 08:28 09/06/21 07:59 99 09/06/21 07:52 99 09/06/21 02:37 - Problem List (1) Acute hypoxemic respiratory failure SNOMED Code(s): 873996394 ICD Code: J96.01 - ACUTE RESPIRATORY FAILURE WITH HYPOXIA Status: Acute Priority: High Current Visit: Yes Onset Date: ~09/06/21 (2) Altered mental status SNOMED Code(s): 751299833 ICD Code: R41.82 - ALTERED MENTAL STATUS, UNSPECIFIED Status: Acute Priority: High Current Visit: Yes Onset Date: ~09/06/21 Qualifiers: Altered mental status type: stupor Qualified Code(s): R40.1 - Stupor (3) COVID-19 SNOMED Code(s): 970589569 ICD Code: U07.1 - COVID-19 Status: Acute Priority: High Current Visit: Yes Onset Date: ~09/06/21 Problem Details: covid screen +// contact and symptom hx unknown. (4) Valproic acid toxicity SNOMED Code(s): 285243596 ICD Code: T42.6X1A - POISONING BY OTH ANTIEPLPTC AND SED-HYPNTC DRUGS, ACC, INIT Status: Acute Priority: High Current Visit: Yes Onset Date: ~09/06/21 Problem Details: depakote level 156 to 97 Qualifiers: Injury intent: undetermined intent (5) Depressive disorder SNOMED Code(s): 03168031 ICD Code: F32.9 - MAJOR DEPRESSIVE DISORDER, SINGLE EPISODE, UNSPECIFIED Status: Acute Priority: High Current Visit: No Problem Details: long standing repetitive hx of drug use and schizophrenia and on multiple meds with positive cocaine screen. (6) Drug ingestion SNOMED Code(s): 48549055 ICD Code: MIV0763 - Status: Acute Current Visit: No (7) Schizophrenia SNOMED Code(s): 47564933 ICD Code: F20.9 - SCHIZOPHRENIA, UNSPECIFIED Status: Acute Current Visit: No Qualifiers: Schizophrenia type: unspecified Qualified Code(s): F20.9 - Schizophrenia, unspecified Problem List Initiated/Reviewed/Updated: Yes Orders Last 24hrs: Active Orders 24 hr Category Date Time Status Admission Status [Patient Status] [ADT] Routine ADT 09/06/21 07:10 Active Blood Glucose Check, Bedside [RC] Q6HR Care 09/06/21 12:00 Active Oxygen Therapy [RC] ASDIRECTED Care 09/06/21 00:15 Active RASS Sedation Scale [RC] Q1HR Care 09/06/21 00:04 Active Suicide Precautions [RC] .Per Facility Policy Care 09/05/21 20:57 Active Ventilator Assessment [RT Ventilator, Adult] [RC] Care 09/06/21 00:17 Active ASDIRECTED Consult to Case Management/Ed Transporter [CONS] Cons 09/06/21 09:25 Active Routine NPO [Nothing Per Oral Diet] [DIET] Diet 09/06/21 Lunch Active AMMONIA VENOUS [CHEM] Routine Lab 09/06/21 15:30 Ordered BLOOD CULTURE [MREF] Stat Lab 09/05/21 20:00 Received BLOOD CULTURE [MREF] Stat Lab 09/05/21 20:11 Received CBC WITH AUTO DIFF [HEME] AM Lab 09/10/21 05:11 Ordered CBC WITH AUTO DIFF [HEME] AM Lab 09/07/21 05:11 Ordered CBC WITH AUTO DIFF [HEME] AM Lab 09/08/21 05:11 Ordered CBC WITH AUTO DIFF [HEME] AM Lab 09/09/21 05:11 Ordered CMP [COMPREHENSIVE METABOLIC PN,CMP] [CHEM] AM Lab 09/07/21 05:11 Ordered CMP [COMPREHENSIVE METABOLIC PN,CMP] [CHEM] AM Lab 09/08/21 05:11 Ordered CMP [COMPREHENSIVE METABOLIC PN,CMP] [CHEM] AM Lab 09/09/21 05:11 Ordered MAGNESIUM [CHEM] AM Lab 09/10/21 05:11 Ordered MAGNESIUM [CHEM] AM Lab 09/07/21 05:11 Ordered MAGNESIUM [CHEM] AM Lab 09/08/21 05:11 Ordered MAGNESIUM [CHEM] AM Lab 09/09/21 05:11 Ordered VALPROIC ACID [CHEM] Routine Lab 09/06/21 15:30 Ordered Dextrose 5%-0.45% NaCl [Dextrose 5%-1/2 NS] 1,000 ml Med 09/06/21 09:30 Active IV ASDIRECTED Enoxaparin [Lovenox] Med 09/06/21 11:15 Active 40 mg SUBCUT DAILY cefTRIAXone [Rocephin] 2 gm Med 09/06/21 11:00 Active Sodium Chloride 0.9% [Normal Saline AdvBag] 100 ml IV Q24H fentaNYL [Sublimaze] 2,500 mcg Med 09/06/21 00:15 Active Sodium Chloride 0.9% [Normal Saline] 200 ml IV TITRATE propofoL [Diprivan 100 ML] 100 ml Med 09/06/21 00:15 Active IV TITRATE Blood Culture x2 Reflex Set [OM.PC] Stat Oth 09/05/21 20:01 Ordered Desired Level of Sedation (RASS) [AST] Click to Edit Oth 09/06/21 00:04 Ordered Code Status [Resuscitation Status] Routine Resus Stat 09/06/21 09:15 Ordered Medication Orders Enoxaparin Sodium (Enoxaparin 40 Mg/0.4 Ml Syringe) 40 mg SUBCUT DAILY KAREN Last Admin: 09/06/21 11:23 Dose: 40 mg Documented by: REJI Propofol (Diprivan 100 Ml) 100 mls @ 2.858 mls/hr IV TITRATE KAREN; Protocol Last Titration: 09/06/21 12:40 Dose: 10 mcg/kg/min, 5.715 mls/hr Documented by: Admin: 09/06/21 10:38 Dose: 15 mcg/kg/min, 8.573 mls/hr Documented by: Titration: 09/06/21 10:38 Dose: 15 mcg/kg/min, 8.573 mls/hr Documented by: Titration: 09/06/21 01:00 Dose: 15 mcg/kg/min, 8.573 mls/hr Documented by: Admin: 09/06/21 00:30 Dose: 10 mcg/kg/min, 5.715 mls/hr Documented by: MARK Fentanyl 2,500 mcg/ Sodium (Chloride) 250 mls @ 9.525 mls/hr IV TITRATE KAREN; Protocol Last Titration: 09/06/21 11:44 Dose: 3 mcg/kg/hr, 28.576 mls/hr Documented by: Admin: 09/06/21 11:30 Dose: 4 mcg/kg/hr, 38.102 mls/hr Documented by: Titration: 09/06/21 11:09 Dose: 4 mcg/kg/hr, 38.102 mls/hr Documented by: Admin: 09/06/21 05:14 Dose: 5 mcg/kg/hr, 47.627 mls/hr Documented by: Titration: 09/06/21 05:14 Dose: 5 mcg/kg/hr, 47.627 mls/hr Documented by: Titration: 09/06/21 01:00 Dose: 5 mcg/kg/hr, 47.627 mls/hr Documented by: Admin: 09/06/21 00:30 Dose: 3 mcg/kg/hr, 28.576 mls/hr Documented by: MARK Dextrose/Sodium Chloride (Dextrose 5%-1/2 Ns) 1,000 mls @ 125 mls/hr IV ASDIRECTED [facility] Last Admin: 09/06/21 10:38 Dose: 125 mls/hr Documented by: REJI Ceftriaxone Sodium 2 gm/ (Sodium Chloride) 100 mls @ 200 mls/hr IV Q24H [facility] Last Admin: 09/06/21 11:23 Dose: 200 mls/hr Documented by: REJI plan to interupt sedation long enough to recheck neuro status today Assessment/Plan Comment:: ED General Medical Problem Patient Name: ARASH MEEHAN Date of : 82 Patient Status: Inpatient Attending Provider: Britni Mcgovern Date: 09/05/21 20:48 Initialization Date: 09/05/21 20:48 ED HPI GENERAL MEDICAL PROBLEM - General Chief Complaint: Drug or Alcohol Abuse Stated Complaint: ANNE-MARIE AMB Time Seen by Provider: 09/05/21 20:20 Source of Information: Reports: EMS, Family History Limitations: Reports: Altered Mental Status - History of Present Illness INITIAL COMMENTS - FREE TEXT/NARRATIVE: Patient is a 41-year-old male with a past medical history of schizophrenia presenting to the emergency room for altered mental status. Patient was found by mother with a decreased level of responsiveness. She saw him yesterday states he was having significant hallucinations and agitation. Today, she came by the department this evening and found him this way. Does not know what happened. She states she tried to arouse him and speak with him for 20 minutes before calling the ambulance. On EMS arrival, patient was awake but not responding appropriately. He started sliding down in the chair but did not demonstrate any seizure-like activity. He was transferred to the emergency room without difficulty. There were no empty pill bottles besides doxycycline which was prescribed approximately 10 days ago. Otherwise, no evidence of drug paraphernalia or self-harm. Mother states that he does have a history of polysubstance abuse but does not know about him using recently. - Related Data Allergies Allergy/AdvReac Type Severity Reaction Status Date / Time No Known Allergies Allergy Verified 09/01/21 09:33 Home Meds: Home Meds Albuterol [Ventolin HFA] 2 puff INH DAILY 03/14/19 [History] Benztropine [Cogentin] 2 mg PO BID 03/14/19 [History] Divalproex Sodium [Depakote] 1,000 mg PO BEDTIME 03/14/19 [History] Divalproex Sodium [Depakote] 500 mg PO DAILY 03/14/19 [History] Insulin Glarg,Human.Rec.Analog [Lantus Solostar] 5 unit SQ ASDIRECTED PRN 03/14/19 [History] Lisinopril 20 mg PO DAILY 03/14/19 [History] Ranitidine [Zantac] 150 mg PO DAILY 03/14/19 [History] cloZAPine [Clozapine] 200 mg PO BEDTIME 03/14/19 [History] hydroCHLOROthiazide [Microzide] 12.5 mg PO DAILY 03/14/19 [History] sitaGLIPtin Phos/Metformin HCl [Janumet 50-500 MG] 1 tab PO BID 03/14/19 [Hi story] hydrOXYzine HCL [Atarax] 0 mg PO TID 06/22/21 [History] Pantoprazole Sodium [Protonix] 40 mg PO DAILY #10 tablet. 09/01/21 [Rx] Past Medical History HEENT History: Reports: Impaired Vision Other HEENT History: wears glasses Cardiovascular History: Reports: Hypertension Respiratory History: Reports: Asthma Gastrointestinal History: Reports: GERD Genitourinary History: Reports: None Musculoskeletal History: Reports: None Neurological History: Reports: None Psychiatric History: Reports: Anxiety, Bipolar, Depression, Psych Hospitalization(s), Schizophrenia, Suicidal Ideation Endocrine/Metabolic History: Reports: Diabetes, Type II, Hypothyroidism, IDDM Hematologic History: Reports: None Immunologic History: Reports: None Oncologic (Cancer) History: Reports: None Dermatologic History: Reports: None - Infectious Disease History Infectious Disease History: Reports: Chicken Pox - Past Surgical History Oncologic Surgical History: Reports: None Social & Family History - Family History Family Medical History: No Pertinent Family History - Caffeine Use Caffeine Use: Reports: Coffee Caffeine Use Comment: one pot of coffee daily. [place] 3 daily - Living Situation & Occupation Living situation: Reports: Alone, Single Occupation: Disabled ED ROS GENERAL - Review of Systems Review Of Systems: Unable To Obtain Reason Not Obtained: To mental status ED EXAM, GENERAL - Physical Exam Exam: See Below Free Text/Narrative:: patient 41 year old male intubated and sedated and paralysed form e.r. after presenting with obtundation and resp difficulty. hx of chronic schizophrenia and drug abuse. depakote levels very high and poison control notified/ recommended i.v. carnatine and repeat levels in 4 hours which have come down form 156 to 93 and no changes noted in lfts form e.r. no known hx of seizures and depakote thought to be releated to behaviors/depression an mood disorder. drug screen shows + cocaine. etoh -. ct scan head - b.p normal currently p.e. limited . neuro paralyzed. skin : no bruises or skin markings or skin breaks. heent limited. exam. no neck abnormalities palpated. lungs breathing easily per vent rate 18. abd benign b.s. no hepatomegaly or masses noted. extremities well perfused and no angulation. assess: 41 year old cauc. male on vent intubated in e.r. with loc for unknown reason and duration. hx of possible overdose. hx of cocaine use and pos. urine test. hx of schizophrhenia with recent hallucinations reported yesterday. hx of high level depakote requiring i.v. carnitine. hx of freq non compliance and chronic mental illness. plan cont vent support and try to reassess mental status with allowing to decrease sedation to see if neuro responses normal. no myoglobiuria detected. no def atn . no brain injury or bleed detected. monitor vss and urine output/ - Mortality Measure Prognosis:: Poor Subjective Update: 09/07/21 Patient is a 41-year-old male with a past medical history of schizophrenia presenting who presented to the emergency room for altered mental status on 09/05/21. Patient was found by mother with a decreased level of responsiveness. When she last saw him on 09/04 she states he was having significant hallucinations and agitation. on 09/05, she came by the department this evening and found him this way. Does not know what happened. She states she tried to arouse him and speak with him for 20 minutes before calling the ambulance. On EMS arrival, patient was awake but not responding appropriately. He started sliding down in the chair but did not demonstrate any seizure-like activity. He was transferred to the emergency room without difficulty. There were no empty pill bottles besides doxycycline which was prescribed approximately 10 days ago. Otherwise, no evidence of drug paraphernalia or self-harm. Mother states that he does have a history of polysubstance abuse but does not know about him using recently. Today shows: Pt is Covid Positive Lungs: wheezing and loose cough..on 4 liters of O2...he is on albuterol nebs PRN pt receiving 2 riders of K pt is on 40 mg. of protonix push 6mg of decadron push Pt's Iv has been decreased from 150 to 50 Meds added: Cardizem for tachy...90 mg now and then 90mg at lunch...then recheck for further update Tylenol PRN for fever Labs ordered: D-dimer Rads ordered: Repeat chest x-ray...portable Plan: cont meds as prescribed, including newly added ones Repeat chest x-ray Extubate cont. tx of covid and steroid referral to Physical Therapy referral to mental health for depression, Schizophrenia, suicidal tendencies, and drug/alcohol abuse not suicidal and improving cognitive status and will stop suicidal precations and move to floor. boh Functional Status: Reports: Pain Controlled - Review of Systems General: Reports: No Symptoms HEENT: Reports: No Symptoms Pulmonary: Reports: Cough, Other (deminished breath sounds w/crackles to lower lungs..being tx'd for active Covid) Cardiovascular: Reports: No Symptoms Gastrointestinal: Reports: No Symptoms Genitourinary: Reports: No Symptoms Musculoskeletal: Reports: No Symptoms Skin: Reports: No Symptoms Neurological: Reports: No Symptoms Psychiatric: Reports: Other (hx of mental ilnesses, controlled at this time) - Patient Data Vitals - Most Recent: Last Vital Signs Temp 37.1 C 09/07/21 12:00 Pulse 115 H 09/07/21 11:01 Resp 20 09/07/21 12:00 BP 123/75 09/07/21 12:00 Pulse Ox 90 L 09/07/21 12:00 Weight - Most Recent: 90.718 kg I&O - Last 24 Hours: Intake & Output 09/06/21 09/07/21 09/07/21 22:59 06:59 14:59 Intake Total 2555 1448 Output Total 747 330 350 Balance 1810 1118 -350 Lab Results Last 24 Hours: Laboratory Results - last 24 hr 09/06/21 09/06/21 09/06/21 Range/Units 15:25 15:25 18:24 WBC (4.23-9.07) K/mm3 RBC (4.63-6.08) M/mm3 Hgb (13.7-17.5) gm/dl Hct (40.1-51.0) % MCV (79.0-92.2) fl MCH (25.7-32.2) pg MCHC (32.2-35.5) g/dl RDW Std Deviation (35.1-43.9) fL Plt Count (163-337) K/mm3 MPV (9.4-12.3) fl Neut % (Auto) (34.0-67.9) % Lymph % (Auto) (21.8-53.1) % Winston % (Auto) (5.3-12.2) % Eos % (Auto) (0.8-7.0) Baso % (Auto) (0.1-1.2) % Neut # (Auto) (1.78-5.38) K/mm3 Lymph # (Auto) (1.32-3.57) K/mm3 Winston # (Auto) (0.30-0.82) K/mm3 Eos # (Auto) (0.04-0.54) K/mm3 Baso # (Auto) (0.01-0.08) K/mm3 D-Dimer, Quantitative (0.19-0.50) mg/L Sodium (136-145) mEq/L Potassium (3.5-5.1) mEq/L Chloride (98-107) mEq/L Carbon Dioxide (21-32) mEq/L Anion Gap (5-15) BUN (7-18) mg/dL Creatinine (0.7-1.3) mg/dL Est Cr Clr Drug Dosing mL/min Estimated GFR (MDRD) (>60) mL/min BUN/Creatinine Ratio (14-18) Glucose (70-99) mg/dL POC Glucose 171 H (70-99) mg/dL Calcium (8.5-10.1) mg/dL Magnesium (1.8-2.4) mg/dL Total Bilirubin (0.2-1.0) mg/dL AST (15-37) U/L ALT (16-63) U/L Alkaline Phosphatase (46-116) U/L Ammonia < 10 L (11-32) umol/L Troponin I (0.00-0.056) ng/mL Total Protein (6.4-8.2) g/dl Albumin (3.4-5.0) g/dl Globulin gm/dL Albumin/Globulin Ratio (1-2) Valproic Acid 81.2 (50.0-100.0) ug/mL 09/06/21 09/07/21 09/07/21 Range/Units 23:24 05:19 05:19 WBC 6.64 (4.23-9.07) K/mm3 RBC 4.28 L (4.63-6.08) M/mm3 Hgb 12.0 L (13.7-17.5) gm/dl Hct 37.8 L (40.1-51.0) % MCV 88.3 (79.0-92.2) fl MCH 28.0 (25.7-32.2) pg MCHC 31.7 L (32.2-35.5) g/dl RDW Std Deviation 44.7 H (35.1-43.9) fL Plt Count 211 (163-337) K/mm3 MPV 9.0 L (9.4-12.3) fl Neut % (Auto) 75.6 H (34.0-67.9) % Lymph % (Auto) 15.2 L (21.8-53.1) % Winston % (Auto) 9.0 (5.3-12.2) % Eos % (Auto) 0 L (0.8-7.0) Baso % (Auto) 0.0 L (0.1-1.2) % Neut # (Auto) 5.02 (1.78-5.38) K/mm3 Lymph # (Auto) 1.01 L (1.32-3.57) K/mm3 Winston # (Auto) 0.60 (0.30-0.82) K/mm3 Eos # (Auto) 0.00 L (0.04-0.54) K/mm3 Baso # (Auto) 0.00 L (0.01-0.08) K/mm3 D-Dimer, Quantitative (0.19-0.50) mg/L Sodium (136-145) mEq/L Potassium (3.5-5.1) mEq/L Chloride (98-107) mEq/L Carbon Dioxide (21-32) mEq/L Anion Gap (5-15) BUN (7-18) mg/dL Creatinine (0.7-1.3) mg/dL Est Cr Clr Drug Dosing mL/min Estimated GFR (MDRD) (>60) mL/min BUN/Creatinine Ratio (14-18) Glucose (70-99) mg/dL POC Glucose 132 H (70-99) mg/dL Calcium (8.5-10.1) mg/dL Magnesium 2.0 (1.8-2.4) mg/dL Total Bilirubin (0.2-1.0) mg/dL AST (15-37) U/L ALT (16-63) U/L Alkaline Phosphatase (46-116) U/L Ammonia (11-32) umol/L Troponin I (0.00-0.056) ng/mL Total Protein (6.4-8.2) g/dl Albumin (3.4-5.0) g/dl Globulin gm/dL Albumin/Globulin Ratio (1-2) Valproic Acid (50.0-100.0) ug/mL 09/07/21 09/07/21 09/07/21 Range/Units 05:19 05:19 05:19 WBC (4.23-9.07) K/mm3 RBC (4.63-6.08) M/mm3 Hgb (13.7-17.5) gm/dl Hct (40.1-51.0) % MCV (79.0-92.2) fl MCH (25.7-32.2) pg MCHC (32.2-35.5) g/dl RDW Std Deviation (35.1-43.9) fL Plt Count (163-337) K/mm3 MPV (9.4-12.3) fl Neut % (Auto) (34.0-67.9) % Lymph % (Auto) (21.8-53.1) % [place] % (Auto) (5.3-12.2) % Eos % (Auto) (0.8-7.0) Baso % (Auto) (0.1-1.2) % Neut # (Auto) (1.78-5.38) K/mm3 Lymph # (Auto) (1.32-3.57) K/mm3 [place] # (Auto) (0.30-0.82) K/mm3 Eos # (Auto) (0.04-0.54) K/mm3 Baso # (Auto) (0.01-0.08) K/mm3 D-Dimer, Quantitative 2.37 H (0.19-0.50) mg/L Sodium 143 (136-145) mEq/L Potassium 3.6 (3.5-5.1) mEq/L Chloride 106 (98-107) mEq/L Carbon Dioxide 27 (21-32) mEq/L Anion Gap 13.6 (5-15) BUN 9 (7-18) mg/dL Creatinine 0.9 (0.7-1.3) mg/dL Est Cr Clr Drug Dosing 119.75 mL/min Estimated GFR (MDRD) > 60 (>60) mL/min BUN/Creatinine Ratio 10.0 L (14-18) Glucose 159 H (70-99) mg/dL POC Glucose (70-99) mg/dL Calcium 8.3 L (8.5-10.1) mg/dL Magnesium (1.8-2.4) mg/dL Total Bilirubin 0.2 (0.2-1.0) mg/dL AST 70 H (15-37) U/L ALT 26 (16-63) U/L Alkaline Phosphatase 52 (46-116) U/L Ammonia (11-32) umol/L Troponin I < 0.017 (0.00-0.056) ng/mL Total Protein 5.7 L (6.4-8.2) g/dl Albumin 2.8 L (3.4-5.0) g/dl Globulin 2.9 gm/dL Albumin/Globulin Ratio 1.0 (1-2) Valproic Acid (50.0-100.0) ug/mL 09/07/21 09/07/21 Range/Units 06:34 12:24 WBC (4.23-9.07) K/mm3 RBC (4.63-6.08) M/mm3 Hgb (13.7-17.5) gm/dl Hct (40.1-51.0) % MCV (79.0-92.2) fl MCH (25.7-32.2) pg MCHC (32.2-35.5) g/dl RDW Std Deviation (35.1-43.9) fL Plt Count (163-337) K/mm3 MPV (9.4-12.3) fl Neut % (Auto) (34.0-67.9) % Lymph % (Auto) (21.8-53.1) % Winston % (Auto) (5.3-12.2) % Eos % (Auto) (0.8-7.0) Baso % (Auto) (0.1-1.2) % Neut # (Auto) (1.78-5.38) K/mm3 Lymph # (Auto) (1.32-3.57) K/mm3 [place] # (Auto) (0.30-0.82) K/mm3 Eos # (Auto) (0.04-0.54) K/mm3 Baso # (Auto) (0.01-0.08) K/mm3 D-Dimer, Quantitative (0.19-0.50) mg/L Sodium (136-145) mEq/L Potassium (3.5-5.1) mEq/L Chloride (98-107) mEq/L Carbon Dioxide (21-32) mEq/L Anion Gap (5-15) BUN (7-18) mg/dL Creatinine (0.7-1.3) mg/dL Est Cr Clr Drug Dosing mL/min Estimated GFR (MDRD) (>60) mL/min BUN/Creatinine Ratio (14-18) Glucose (70-99) mg/dL POC Glucose 145 H 187 H (70-99) mg/dL Calcium (8.5-10.1) mg/dL Magnesium (1.8-2.4) mg/dL Total Bilirubin (0.2-1.0) mg/dL AST (15-37) U/L ALT (16-63) U/L Alkaline Phosphatase (46-116) U/L Ammonia (11-32) umol/L Troponin I (0.00-0.056) ng/mL Total Protein (6.4-8.2) g/dl Albumin (3.4-5.0) g/dl Globulin gm/dL Albumin/Globulin Ratio (1-2) Valproic Acid (50.0-100.0) ug/mL Med Orders - Current: Current Medications Acetaminophen (Acetaminophen 325 Mg Tab) 650 mg PO Q4H PRN PRN Reason: Fever Last Admin: 09/07/21 09:17 Dose: 650 mg Documented by: Albuterol (Albuterol 0.083% 2.5 Mg/3 Ml Neb Soln) 2.5 mg NEB Q4HRRT PRN PRN Reason: Wheezing Last Admin: 09/07/21 10:03 Dose: 2.5 mg Documented by: Dexamethasone (Dexamethasone 4 Mg/Ml Sdv) 6 mg IVPUSH DAILY [facility] Last Admin: 09/07/21 09:56 Dose: 6 mg Documented by: Diltiazem HCl (Diltiazem Ir 30 Mg Tab) 90 mg PO ONETIME ONE Stop: 09/07/21 14:01 Enoxaparin Sodium (Enoxaparin 40 Mg/0.4 Ml Syringe) 40 mg SUBCUT DAILY [facility] Last Admin: 09/07/21 09:17 Dose: 40 mg Documented by: Dextrose/Sodium Chloride (Dextrose 5%-1/2 Ns) 1,000 mls @ 25 mls/hr IV ASDIRECTED [facility] Last Infusion: 09/07/21 09:23 Dose: 25 mls/hr Documented by: Ceftriaxone Sodium 2 gm/ (Sodium Chloride) 100 mls @ 200 mls/hr IV Q24H [facility] Last Admin: 09/07/21 11:13 Dose: 200 mls/hr Documented by: Miscellaneous Information (Remove Nicotine Patch) 1 ea TRDERM DAILY [facility] Last Admin: 09/07/21 09:17 Dose: 1 ea Documented by: Nicotine (Nicotine 21 Mg/24 Hr Patch) 21 mg TRDERM DAILY [facility] Last Admin: 09/07/21 09:17 Dose: 21 mg Documented by: Pantoprazole Sodium (Pantoprazole 40 Mg Vial) 40 mg IVPUSH DAILY [facility] Last Admin: 09/07/21 09:56 Dose: 40 mg Documented by: Discontinued Medications Dexamethasone (Dexamethasone 10 Mg/Ml Sdv) 6 mg IVPUSH ONETIME ONE Stop: 09/06/21 00:26 Last Admin: 09/06/21 00:45 Dose: 6 mg Documented by: Diltiazem HCl (Diltiazem Ir 30 Mg Tab) 90 mg PO ONETIME ONE Stop: 09/07/21 10:01 Last Admin: 09/07/21 09:56 Dose: 90 mg Documented by: Etomidate (Etomidate 2 Mg/Ml 20 Ml Sdv) 30 mg IVPUSH ONETIME ONE Stop: 09/06/21 00:01 Last Admin: 09/06/21 00:15 Dose: 30 mg Documented by: Sodium Chloride (Normal Saline) 1,000 mls @ 1,000 mls/hr IV ONETIME ONE Stop: 09/05/21 21:12 Last Admin: 09/05/21 20:24 Dose: 1,000 mls/hr Documented by: Sodium Chloride (Normal Saline) 1,000 mls @ 1,000 mls/hr IV ONETIME ONE Stop: 09/05/21 22:52 Last Admin: 09/05/21 22:22 Dose: 1,000 mls/hr Documented by: Sodium Chloride (Normal Saline) 1,000 mls @ 200 mls/hr IV ASDIRECTED [facility] Last Admin: 09/05/21 23:24 Dose: 200 mls/hr Documented by: Propofol (Diprivan 100 Ml) 100 mls @ 2.858 mls/hr IV TITRATE [facility]; Protocol Last Titration: 09/06/21 14:56 Dose: 0 mcg/kg/min, 0 mls/hr Documented by: Fentanyl 2,500 mcg/ Sodium (Chloride) 250 mls @ 9.525 mls/hr IV TITRATE [facility]; Protocol Last Titration: 09/06/21 14:56 Dose: 0 mcg/kg/hr, 0 mls/hr Documented by: Cefepime HCl 2 gm/ Sodium (Chloride) 50 mls @ 100 mls/hr IV ONETIME ONE Stop: 09/06/21 05:10 Last Admin: 09/06/21 05:09 Dose: 100 mls/hr Documented by: Potassium Chloride 10 meq/ (Premix) 100 mls @ 100 mls/hr IV Q1H [facility] Stop: 09/06/21 13:14 Last Admin: 09/06/21 11:13 Dose: Not Given Documented by: Sodium Chloride (Normal Saline) 1,000 mls @ 999 mls/hr IV ONETIME ONE Stop: 09/06/21 10:19 Last Admin: 09/06/21 09:44 Dose: 999 mls/hr Documented by: Potassium Chloride 10 meq/ (Premix) 100 mls @ 100 mls/hr IV Q1H [facility] Stop: 09/07/21 11:14 Last Admin: 09/07/21 11:13 Dose: 100 mls/hr Documented by: Levocarnitine (Levocarnitine 1 Gm/5 Ml Sdv) 3 gm .ROUTE .STK-MED ONE Stop: 09/06/21 03:01 Midazolam HCl (Midazolam 1 Mg/Ml 2 Ml Sdv) 2 mg IVPUSH ONETIME ONE Stop: 09/05/21 20:01 Last Admin: 09/05/21 20:00 Dose: 2 mg Documented by: Naloxone HCl (Naloxone 0.4 Mg/Ml Sdv) 0.4 mg IVPUSH ONETIME ONE Stop: 09/05/21 19:54 Last Admin: 09/05/21 19:53 Dose: 0.4 mg Documented by: L-Carnitine 1g/5ml (Injectable Solution) 3,000 each IVPUSH ONETIME ONE Stop: 09/06/21 03:01 Last Admin: 09/06/21 03:12 Dose: 3,000 each Documented by: Rocuronium [place] (Rocuronium 50 Mg/5 Ml Vial) 100 mg IVPUSH ONETIME ONE Stop: 09/06/21 00:01 Last Admin: 09/06/21 00:16 Dose: 100 mg Documented by: - Exam Quality Assessment: Supplemental Oxygen General: Alert, Oriented HEENT: Pupils Equal, Pupils Reactive, EOMI, Mucous Membr. Moist/[place] Neck: Supple Lungs: Clear to Auscultation, Normal Respiratory Effort Cardiovascular: Regular Rate, Regular Rhythm GI/Abdominal Exam: Normal Bowel Sounds, Soft, Non-Tender, No Organomegaly, No Distention, No Abnormal Bruit, No Mass, Pelvis Stable (Male) Exam: No Hernia, Normal Inspection, Normal Prostate, Circumcised Back Exam: Normal Inspection, Full Range of Motion Extremities: Normal Inspection, Normal Range of Motion, Non-Tender, No Pedal Edema, Normal Capillary Refill Skin: Warm, Dry, Intact Wound/Incisions: Healing Well Neurological: No New Focal Deficit Psy/Mental Status: Alert, Normal Affect, Normal Mood - Patient Data Lab Results Last 24 hrs: Laboratory Results - last 24 hr 09/06/21 09/06/21 09/06/21 Range/Units 15:25 15:25 18:24 WBC (4.23-9.07) K/mm3 RBC (4.63-6.08) M/mm3 Hgb (13.7-17.5) gm/dl Hct (40.1-51.0) % MCV (79.0-92.2) fl MCH (25.7-32.2) pg MCHC (32.2-35.5) g/dl RDW Std Deviation (35.1-43.9) fL Plt Count (163-337) K/mm3 MPV (9.4-12.3) fl Neut % (Auto) (34.0-67.9) % Lymph % (Auto) (21.8-53.1) % Winston % (Auto) (5.3-12.2) % Eos % (Auto) (0.8-7.0) Baso % (Auto) (0.1-1.2) % Neut # (Auto) (1.78-5.38) K/mm3 Lymph # (Auto) (1.32-3.57) K/mm3 [place] # (Auto) (0.30-0.82) K/mm3 Eos # (Auto) (0.04-0.54) K/mm3 Baso # (Auto) (0.01-0.08) K/mm3 D-Dimer, Quantitative (0.19-0.50) mg/L Sodium (136-145) mEq/L Potassium (3.5-5.1) mEq/L Chloride (98-107) mEq/L Carbon Dioxide (21-32) mEq/L Anion Gap (5-15) BUN (7-18) mg/dL Creatinine (0.7-1.3) mg/dL Est Cr Clr Drug Dosing mL/min Estimated GFR (MDRD) (>60) mL/min BUN/Creatinine Ratio (14-18) Glucose (70-99) mg/dL POC Glucose 171 H (70-99) mg/dL Calcium (8.5-10.1) mg/dL Magnesium (1.8-2.4) mg/dL Total Bilirubin (0.2-1.0) mg/dL AST (15-37) U/L ALT (16-63) U/L Alkaline Phosphatase (46-116) U/L Ammonia < 10 L (11-32) umol/L Troponin I (0.00-0.056) ng/mL Total Protein (6.4-8.2) g/dl Albumin (3.4-5.0) g/dl Globulin gm/dL Albumin/Globulin Ratio (1-2) Valproic Acid 81.2 (50.0-100.0) ug/mL 09/06/21 09/07/21 09/07/21 Range/Units 23:24 05:19 05:19 WBC 6.64 (4.23-9.07) K/mm3 RBC 4.28 L (4.63-6.08) M/mm3 Hgb 12.0 L (13.7-17.5) gm/dl Hct 37.8 L (40.1-51.0) % MCV 88.3 (79.0-92.2) fl MCH 28.0 (25.7-32.2) pg MCHC 31.7 L (32.2-35.5) g/dl RDW Std Deviation 44.7 H (35.1-43.9) fL Plt Count 211 (163-337) K/mm3 MPV 9.0 L (9.4-12.3) fl Neut % (Auto) 75.6 H (34.0-67.9) % Lymph % (Auto) 15.2 L (21.8-53.1) % Winston % (Auto) 9.0 (5.3-12.2) % Eos % (Auto) 0 L (0.8-7.0) Baso % (Auto) 0.0 L (0.1-1.2) % Neut # (Auto) 5.02 (1.78-5.38) K/mm3 Lymph # (Auto) 1.01 L (1.32-3.57) K/mm3 Winston # (Auto) 0.60 (0.30-0.82) K/mm3 Eos # (Auto) 0.00 L (0.04-0.54) K/mm3 Baso # (Auto) 0.00 L (0.01-0.08) K/mm3 D-Dimer, Quantitative (0.19-0.50) mg/L Sodium (136-145) mEq/L Potassium (3.5-5.1) mEq/L Chloride (98-107) mEq/L Carbon Dioxide (21-32) mEq/L Anion Gap (5-15) BUN (7-18) mg/dL Creatinine (0.7-1.3) mg/dL Est Cr Clr Drug Dosing mL/min Estimated GFR (MDRD) (>60) mL/min BUN/Creatinine Ratio (14-18) Glucose (70-99) mg/dL POC Glucose 132 H (70-99) mg/dL Calcium (8.5-10.1) mg/dL Magnesium 2.0 (1.8-2.4) mg/dL Total Bilirubin (0.2-1.0) mg/dL AST (15-37) U/L ALT (16-63) U/L Alkaline Phosphatase (46-116) U/L Ammonia (11-32) umol/L Troponin I (0.00-0.056) ng/mL Total Protein (6.4-8.2) g/dl Albumin (3.4-5.0) g/dl Globulin gm/dL Albumin/Globulin Ratio (1-2) Valproic Acid (50.0-100.0) ug/mL 09/07/21 09/07/21 09/07/21 Range/Units 05:19 05:19 05:19 WBC (4.23-9.07) K/mm3 RBC (4.63-6.08) M/mm3 Hgb (13.7-17.5) gm/dl Hct (40.1-51.0) % MCV (79.0-92.2) fl MCH (25.7-32.2) pg MCHC (32.2-35.5) g/dl RDW Std Deviation (35.1-43.9) fL Plt Count (163-337) K/mm3 MPV (9.4-12.3) fl Neut % (Auto) (34.0-67.9) % Lymph % (Auto) (21.8-53.1) % [place] % (Auto) (5.3-12.2) % Eos % (Auto) (0.8-7.0) Baso % (Auto) (0.1-1.2) % Neut # (Auto) (1.78-5.38) K/mm3 Lymph # (Auto) (1.32-3.57) K/mm3 [place] # (Auto) (0.30-0.82) K/mm3 Eos # (Auto) (0.04-0.54) K/mm3 Baso # (Auto) (0.01-0.08) K/mm3 D-Dimer, Quantitative 2.37 H (0.19-0.50) mg/L Sodium 143 (136-145) mEq/L Potassium 3.6 (3.5-5.1) mEq/L Chloride 106 (98-107) mEq/L Carbon Dioxide 27 (21-32) mEq/L Anion Gap 13.6 (5-15) BUN 9 (7-18) mg/dL Creatinine 0.9 (0.7-1.3) mg/dL Est Cr Clr Drug Dosing 119.75 mL/min Estimated GFR (MDRD) > 60 (>60) mL/min BUN/Creatinine Ratio 10.0 L (14-18) Glucose 159 H (70-99) mg/dL POC Glucose (70-99) mg/dL Calcium 8.3 L (8.5-10.1) mg/dL Magnesium (1.8-2.4) mg/dL Total Bilirubin 0.2 (0.2-1.0) mg/dL AST 70 H (15-37) U/L ALT 26 (16-63) U/L Alkaline Phosphatase 52 (46-116) U/L Ammonia (11-32) umol/L Troponin I < 0.017 (0.00-0.056) ng/mL Total Protein 5.7 L (6.4-8.2) g/dl Albumin 2.8 L (3.4-5.0) g/dl Globulin 2.9 gm/dL Albumin/Globulin Ratio 1.0 (1-2) Valproic Acid (50.0-100.0) ug/mL 09/07/21 09/07/21 Range/Units 06:34 12:24 WBC (4.23-9.07) K/mm3 RBC (4.63-6.08) M/mm3 Hgb (13.7-17.5) gm/dl Hct (40.1-51.0) % MCV (79.0-92.2) fl MCH (25.7-32.2) pg MCHC (32.2-35.5) g/dl RDW Std Deviation (35.1-43.9) fL Plt Count (163-337) K/mm3 MPV (9.4-12.3) fl Neut % (Auto) (34.0-67.9) % Lymph % (Auto) (21.8-53.1) % [place] % (Auto) (5.3-12.2) % Eos % (Auto) (0.8-7.0) Baso % (Auto) (0.1-1.2) % Neut # (Auto) (1.78-5.38) K/mm3 Lymph # (Auto) (1.32-3.57) K/mm3 [place] # (Auto) (0.30-0.82) K/mm3 Eos # (Auto) (0.04-0.54) K/mm3 Baso # (Auto) (0.01-0.08) K/mm3 D-Dimer, Quantitative (0.19-0.50) mg/L Sodium (136-145) mEq/L Potassium (3.5-5.1) mEq/L Chloride (98-107) mEq/L Carbon Dioxide (21-32) mEq/L Anion Gap (5-15) BUN (7-18) mg/dL Creatinine (0.7-1.3) mg/dL Est Cr Clr Drug Dosing mL/min Estimated GFR (MDRD) (>60) mL/min BUN/Creatinine Ratio (14-18) Glucose (70-99) mg/dL POC Glucose 145 H 187 H (70-99) mg/dL Calcium (8.5-10.1) mg/dL Magnesium (1.8-2.4) mg/dL Total Bilirubin (0.2-1.0) mg/dL AST (15-37) U/L ALT (16-63) U/L Alkaline Phosphatase (46-116) U/L Ammonia (11-32) umol/L Troponin I (0.00-0.056) ng/mL Total Protein (6.4-8.2) g/dl Albumin (3.4-5.0) g/dl Globulin gm/dL Albumin/Globulin Ratio (1-2) Valproic Acid (50.0-100.0) ug/mL Result Diagrams: 09/07/21 05:19 09/07/21 05:19 Sepsis Event Note - Evaluation Sepsis Screening Result: No Definite Risk - Focused Exam Vital Signs: Vital Signs Temp Temp Temp Pulse Resp BP BP 09/07/21 12:00 37.1 C 20 123/75 09/07/21 11:01 115 H 20 09/07/21 11:00 37.9 C 115 H 19 124/72 09/07/21 10:59 115 H 22 H 09/07/21 10:30 116 H 22 H 115/68 09/07/21 10:29 117 H 23 H 09/07/21 10:09 09/07/21 10:01 117 H 22 H 09/07/21 10:00 118 H 23 H 125/69 09/07/21 09:59 119 H 23 H 09/07/21 09:47 37.9 C 09/07/21 09:30 37.9 C 120 H 21 H 128/76 09/07/21 09:29 118 H 21 H 09/07/21 09:17 37.3 C 09/07/21 09:01 124 H 20 09/07/21 09:00 124 H 21 H 142/75 H 09/07/21 08:59 123 H 19 09/07/21 08:30 123 H 20 139/75 09/07/21 08:29 124 H 20 09/07/21 08:01 127 H 22 H 09/07/21 08:00 37.7 C 127 H 21 H 143/78 H 09/07/21 07:59 126 H 22 H 09/07/21 07:30 122 H 16 144/77 H 09/07/21 07:29 123 H 20 09/07/21 07:01 123 H 19 09/07/21 07:00 123 H 16 132/76 09/07/21 06:59 123 H 14 09/07/21 06:47 129 H 18 105/91 H 09/07/21 06:46 130 H 21 H 09/07/21 06:43 37.7 C 105/91 H 09/07/21 06:30 125 H 15 88/77 L 09/07/21 06:29 124 H 20 09/07/21 06:01 128 H 12 124/69 09/07/21 06:00 37.6 C 127 H 14 124/69 09/07/21 05:37 09/07/21 05:30 128 H 15 146/85 H 09/07/21 05:29 129 H 21 H 09/07/21 05:01 128 H 16 09/07/21 05:00 38.8 C H 128 H 19 145/77 H 146/85 H 09/07/21 04:59 128 H 21 H 09/07/21 04:31 131 H 15 139/75 09/07/21 04:30 133 H 21 H 09/07/21 04:01 121 H 19 130/78 09/07/21 04:00 38.3 C H 119 H 20 146/85 H 09/07/21 03:31 121 H 21 H 139/80 09/07/21 03:30 121 H 21 H 09/07/21 03:02 122 H 17 09/07/21 03:01 122 H 17 129/80 09/07/21 03:00 37.7 C 19 139/80 09/07/21 02:59 122 H 17 09/07/21 02:30 119 H 19 124/73 09/07/21 02:29 120 H 18 09/07/21 02:01 118 H 19 09/07/21 02:00 37.7 C 118 H 19 131/76 129/80 09/07/21 01:59 118 H 20 09/07/21 01:30 118 H 19 133/79 09/07/21 01:29 118 H 19 09/07/21 01:00 37.2 C 124/73 Pulse Ox Pulse Ox 09/07/21 12:00 90 L 09/07/21 11:01 92 L 09/07/21 11:00 91 L 09/07/21 10:59 91 L 09/07/21 10:30 91 L 09/07/21 10:29 91 L 09/07/21 10:09 94 L 09/07/21 10:01 93 L 09/07/21 10:00 93 L 09/07/21 09:59 93 L 09/07/21 09:47 09/07/21 09:30 91 L 09/07/21 09:29 92 L 09/07/21 09:17 09/07/21 09:01 94 L 09/07/21 09:00 94 L 09/07/21 08:59 93 L 09/07/21 08:30 93 L 09/07/21 08:29 93 L 09/07/21 08:01 92 L 09/07/21 08:00 92 L 09/07/21 07:59 92 L 09/07/21 07:30 92 L 09/07/21 07:29 93 L 09/07/21 07:01 94 L 09/07/21 07:00 94 L 09/07/21 06:59 94 L 09/07/21 06:47 94 L 09/07/21 06:46 95 09/07/21 06:43 09/07/21 06:30 96 09/07/21 06:29 96 09/07/21 06:01 94 L 09/07/21 06:00 94 L 09/07/21 05:37 94 L 09/07/21 05:30 94 L 09/07/21 05:29 94 L 09/07/21 05:01 95 09/07/21 05:00 95 09/07/21 04:59 94 L 09/07/21 04:31 94 L 09/07/21 04:30 94 L 09/07/21 04:01 95 09/07/21 04:00 95 09/07/21 03:31 95 09/07/21 03:30 96 09/07/21 03:02 96 09/07/21 03:01 96 09/07/21 03:00 95 09/07/21 02:59 96 09/07/21 02:30 94 L 09/07/21 02:29 94 L 09/07/21 02:01 95 09/07/21 02:00 95 09/07/21 01:59 95 09/07/21 01:30 96 09/07/21 01:29 96 09/07/21 01:00 96 - Problem List & Annotations (1) Acute hypoxemic respiratory failure SNOMED Code(s): 211077522 Code(s): J96.01 - ACUTE RESPIRATORY FAILURE WITH HYPOXIA Status: Acute Priority: Low Current Visit: Yes Onset Date: ~09/06/21 Annotation/Comment:: extubated and started dexamethazone but on low liter o2 at 3 liters and doing well cont nebs. rtc. monitor . d dimer elavated 2.3 (2) Altered mental status SNOMED Code(s): 445160467 Code(s): R41.82 - ALTERED MENTAL STATUS, UNSPECIFIED Status: Acute Priority: Low Current Visit: Yes Onset Date: ~09/06/21 Qualifiers: Altered mental status type: somnolence Qualified Code(s): R40.0 - Somnolence Annotation/Comment:: sedation held depakote held. (3) COVID-19 SNOMED Code(s): 886539207 Code(s): U07.1 - COVID-19 Status: Acute Priority: Medium Current Visit: Yes Onset Date: ~09/06/21 Annotation/Comment:: covid screen +// contact and symptom hx unknown. restart psyche meds (4) Rhabdomyolysis SNOMED Code(s): 881207861 Code(s): M62.82 - RHABDOMYOLYSIS Status: Acute Priority: Low Current Visit: Yes Onset Date: ~09/07/21 Qualifiers: Rhabdomyolysis type: traumatic Annotation/Comment:: doing better and voiding well creatinine normal . b.s being treated. (5) Valproic acid toxicity SNOMED Code(s): 109571830 Code(s): T42.6X1A - POISONING BY OTH ANTIEPLPTC AND SED-HYPNTC DRUGS, ACC, INIT Status: Acute Priority: Low Current Visit: Yes Onset Date: ~09/06/21 Qualifiers: Injury intent: undetermined intent Annotation/Comment:: depakote level 156 to 97 (6) Diabetes mellitus SNOMED Code(s): 86689745 Code(s): E11.9 - TYPE 2 DIABETES MELLITUS WITHOUT COMPLICATIONS Status: Acute Priority: Medium Current Visit: Yes Qualifiers: Diabetes mellitus type: type 1 Annotation/Comment:: on dexamethazone. insulin drip - Problem List Review Problem List Initiated/Reviewed/Updated: Yes - Assessment Assessment:: 09/07/21 Patient is a 41-year-old male with a past medical history of schizophrenia presenting who presented to the emergency room for altered mental status on 09/05/21. Patient was found by mother with a decreased level of responsiveness. When she last saw him on 09/04 she states he was having significant hallucinations and agitation. on 09/05, she came by the department this evening and found him this way. Does not know what happened. She states she tried to arouse him and speak with him for 20 minutes before calling the ambulance. On EMS arrival, patient was awake but not responding appropriately. He started sliding down in the chair but did not demonstrate any seizure-like activity. He was transferred to the emergency room without difficulty. There were no empty pill bottles besides doxycycline which was prescribed approximately 10 days ago. Otherwise, no evidence of drug paraphernalia or self-harm. Mother states that he does have a history of polysubstance abuse but does not know about him using recently. Today shows: Pt is Covid Positive Lungs: wheezing and loose cough..on 4 liters of O2...he is on albuterol nebs PRN pt receiving 2 riders of K pt is on 40 mg. of protonix push 6mg of decadron push Pt's Iv has been decreased from 150 to 50 Meds added: Cardizem for tachy...90 mg now and then 90mg at lunch...then recheck for further update Tylenol PRN for fever Labs ordered: D-dimer Rads ordered: Repeat chest x-ray...portable Plan: cont meds as prescribed, including newly added ones Repeat chest x-ray Extubate cont. tx of covid and steroid referral to Physical Therapy referral to mental health for depression, Schizophrenia, suicidal tendencies, and drug/alcohol abuse - Plan Plan:: 09/07/21 Patient is a 41-year-old male with a past medical history of schizophrenia presenting who presented to the emergency room for altered mental status on 09/05/21. Patient was found by mother with a decreased level of responsiveness. When she last saw him on 09/04 she states he was having significant hallucinations and agitation. on 09/05, she came by the department this evening and found him this way. Does not know what happened. She states she tried to arouse him and speak with him for 20 minutes before calling the ambulance. On EMS arrival, patient was awake but not responding appropriately. He started sliding down in the chair but did not demonstrate any seizure-like activity. He was transferred to the emergency room without difficulty. There were no empty pill bottles besides doxycycline which was prescribed approximately 10 days ago. Otherwise, no evidence of drug paraphernalia or self-harm. Mother states that he does have a history of polysubstance abuse but does not know about him using recently. Today shows: Pt is Covid Positive Lungs: wheezing and loose cough..on 4 liters of O2...he is on albuterol nebs PRN pt receiving 2 riders of K pt is on 40 mg. of protonix push 6mg of decadron push Pt's Iv has been decreased from 150 to 50 Meds added: Cardizem for tachy...90 mg now and then 90mg at lunch...then recheck for further update Tylenol PRN for fever Labs ordered: D-dimer Rads ordered: Repeat chest x-ray...portable Plan: cont meds as prescribed, including newly added ones Repeat chest x-ray Extubate cont. tx of covid and steroid referral to Physical Therapy referral to mental health for depression, Schizophrenia, suicidal tendencies, and drug/alcohol abuse treat diabetes and restart some psyche meds but unclear how to proceed. boh
--- NOTE | 2021-09-07 14:36 | PCM.SN.2 ---
- Free Text/Narrative Note: 09/06/21 extubated yesterday lines removed today and fed without problems . alert and oriented and moved to floor . hx reviewed and psyche consult ordered. ss involved as placement desired by mom and not clear if patient willing to accept in patient treatment. hx of prev attempts and aggressive behavior reviewed. boh
[2021-09-07] MEDS ORDERED: Insulin Aspart Protamine/Insulin Aspart 70-30 100 Units/ML 10 ML Vial SUBCUT SCH ×2 (17:30→22:00)
[2021-09-07] MEDS: Insulin Glargine,Hum.Rec.Anlog 100 UNIT/ML 3 ML Pen SUBCUT SCH (17:58)
[2021-09-07] MEDS: Insulin Lispro 100 Unit/ML 3 ML KwikPen SUBCUT SCH ×2 (17:58→21:57)
[2021-09-07] MEDS ORDERED: Insulin Lispro 100 Unit/ML 3 ML KwikPen SUBCUT SCH (21:00)
[2021-09-07] MEDS: Divalproex Sodium Delayed-Release 500 MG Tab.CR PO SCH (23:09)
[2021-09-07] MEDS: cloZAPine 100 MG Tab PO SCH (23:10)
[2021-09-08 06:33] LABS: HEMOGLOBIN A1C 6.9 %
--- NOTE | 2021-09-08 08:12 | PCM.PN ---
- General Info Date of Service: 09/08/21 Admission Dx/Problem (Free Text): The patient was admitted and had been intubated. Subjective Update: The patient is a 41-year-old gentleman who was admitted to acute hospitalization on September 06, 2021 due to altered mental status. The patient had been intubated and was extubated on September 07, 2021. The patient has a significant psychiatric history of schizophrenia and bipolar disorder with behavioral outburst. Today the patient says that he has been doing better. He is denied any new pain. The patient has refused physical examination by provider. Functional Status: Reports: Pain Controlled - Review of Systems General: Reports: No Symptoms HEENT: Reports: No Symptoms Pulmonary: Reports: No Symptoms Cardiovascular: Reports: No Symptoms Gastrointestinal: Reports: No Symptoms Genitourinary: Reports: No Symptoms Musculoskeletal: Reports: No Symptoms Skin: Reports: No Symptoms Neurological: Reports: No Symptoms Psychiatric: Reports: No Symptoms Systems Review Comment:: The patient's review of systems was somewhat unreliable - Patient Data Vitals - Most Recent: Last Vital Signs Temp 36.8 C 09/08/21 00:00 Pulse 115 H 09/07/21 11:01 Resp 20 09/08/21 00:00 BP 114/68 09/07/21 20:00 Pulse Ox 93 L 09/08/21 00:00 Weight - Most Recent: 90.718 kg I&O - Last 24 Hours: Intake & Output 09/07/21 09/08/21 09/08/21 22:59 06:59 14:59 Intake Total 1169 Balance 1169 Lab Results Last 24 Hours: Laboratory Results - last 24 hr 09/07/21 09/07/21 09/07/21 Range/Units 05:19 12:24 17:58 WBC (4.23-9.07) K/mm3 RBC (4.63-6.08) M/mm3 Hgb (13.7-17.5) gm/dl Hct (40.1-51.0) % MCV (79.0-92.2) fl MCH (25.7-32.2) pg MCHC (32.2-35.5) g/dl RDW Std Deviation (35.1-43.9) fL Plt Count (163-337) K/mm3 MPV (9.4-12.3) fl Neut % (Auto) (34.0-67.9) % Lymph % (Auto) (21.8-53.1) % Swisher % (Auto) (5.3-12.2) % Eos % (Auto) (0.8-7.0) Baso % (Auto) (0.1-1.2) % Neut # (Auto) (1.78-5.38) K/mm3 Lymph # (Auto) (1.32-3.57) K/mm3 Swisher # (Auto) (0.30-0.82) K/mm3 Eos # (Auto) (0.04-0.54) K/mm3 Baso # (Auto) (0.01-0.08) K/mm3 D-Dimer, Quantitative (0.19-0.50) mg/L Sodium (136-145) mEq/L Potassium (3.5-5.1) mEq/L Chloride (98-107) mEq/L Carbon Dioxide (21-32) mEq/L Anion Gap (5-15) BUN (7-18) mg/dL Creatinine (0.7-1.3) mg/dL Est Cr Clr Drug Dosing mL/min Estimated GFR (MDRD) (>60) mL/min BUN/Creatinine Ratio (14-18) Glucose (70-99) mg/dL POC Glucose 187 H 188 H (70-99) mg/dL Hemoglobin A1c ( - 5.6) % Calcium (8.5-10.1) mg/dL Magnesium (1.8-2.4) mg/dL Total Bilirubin (0.2-1.0) mg/dL AST (15-37) U/L ALT (16-63) U/L Alkaline Phosphatase (46-116) U/L Troponin I < 0.017 (0.00-0.056) ng/mL C-Reactive Protein (<1.0) mg/dL Total Protein (6.4-8.2) g/dl Albumin (3.4-5.0) g/dl Globulin gm/dL Albumin/Globulin Ratio (1-2) 09/07/21 09/08/21 09/08/21 Range/Units 22:01 05:50 05:50 WBC 6.66 (4.23-9.07) K/mm3 RBC 4.01 L (4.63-6.08) M/mm3 Hgb 11.1 L (13.7-17.5) gm/dl Hct 35.1 L (40.1-51.0) % MCV 87.5 (79.0-92.2) fl MCH 27.7 (25.7-32.2) pg MCHC 31.6 L (32.2-35.5) g/dl RDW Std Deviation 43.2 (35.1-43.9) fL Plt Count 190 (163-337) K/mm3 MPV 9.1 L (9.4-12.3) fl Neut % (Auto) 77.4 H (34.0-67.9) % Lymph % (Auto) 13.7 L (21.8-53.1) % Swisher % (Auto) 8.4 (5.3-12.2) % Eos % (Auto) 0 L (0.8-7.0) Baso % (Auto) 0.2 (0.1-1.2) % Neut # (Auto) 5.16 (1.78-5.38) K/mm3 Lymph # (Auto) 0.91 L (1.32-3.57) K/mm3 Swisher # (Auto) 0.56 (0.30-0.82) K/mm3 Eos # (Auto) 0.00 L (0.04-0.54) K/mm3 Baso # (Auto) 0.01 (0.01-0.08) K/mm3 D-Dimer, Quantitative (0.19-0.50) mg/L Sodium (136-145) mEq/L Potassium (3.5-5.1) mEq/L Chloride (98-107) mEq/L Carbon Dioxide (21-32) mEq/L Anion Gap (5-15) BUN (7-18) mg/dL Creatinine (0.7-1.3) mg/dL Est Cr Clr Drug Dosing mL/min Estimated GFR (MDRD) (>60) mL/min BUN/Creatinine Ratio (14-18) Glucose (70-99) mg/dL POC Glucose 223 H (70-99) mg/dL Hemoglobin A1c ( - 5.6) % Calcium (8.5-10.1) mg/dL Magnesium 2.4 (1.8-2.4) mg/dL Total Bilirubin (0.2-1.0) mg/dL AST (15-37) U/L ALT (16-63) U/L Alkaline Phosphatase (46-116) U/L Troponin I (0.00-0.056) ng/mL C-Reactive Protein (<1.0) mg/dL Total Protein (6.4-8.2) g/dl Albumin (3.4-5.0) g/dl Globulin gm/dL Albumin/Globulin Ratio (1-2) 09/08/21 09/08/21 09/08/21 Range/Units 05:50 05:50 05:50 WBC (4.23-9.07) K/mm3 RBC (4.63-6.08) M/mm3 Hgb (13.7-17.5) gm/dl Hct (40.1-51.0) % MCV (79.0-92.2) fl MCH (25.7-32.2) pg MCHC (32.2-35.5) g/dl RDW Std Deviation (35.1-43.9) fL Plt Count (163-337) K/mm3 MPV (9.4-12.3) fl Neut % (Auto) (34.0-67.9) % Lymph % (Auto) (21.8-53.1) % Swisher % (Auto) (5.3-12.2) % Eos % (Auto) (0.8-7.0) Baso % (Auto) (0.1-1.2) % Neut # (Auto) (1.78-5.38) K/mm3 Lymph # (Auto) (1.32-3.57) K/mm3 Swisher # (Auto) (0.30-0.82) K/mm3 Eos # (Auto) (0.04-0.54) K/mm3 Baso # (Auto) (0.01-0.08) K/mm3 D-Dimer, Quantitative 1.17 H (0.19-0.50) mg/L Sodium 143 (136-145) mEq/L Potassium 3.9 (3.5-5.1) mEq/L Chloride 107 (98-107) mEq/L Carbon Dioxide 29 (21-32) mEq/L Anion Gap 10.9 (5-15) BUN 13 (7-18) mg/dL Creatinine 0.7 (0.7-1.3) mg/dL Est Cr Clr Drug Dosing 153.97 mL/min Estimated GFR (MDRD) > 60 (>60) mL/min BUN/Creatinine Ratio 18.6 H (14-18) Glucose 145 H (70-99) mg/dL POC Glucose (70-99) mg/dL Hemoglobin A1c 6.9 H ( - 5.6) % Calcium 8.5 (8.5-10.1) mg/dL Magnesium (1.8-2.4) mg/dL Total Bilirubin 0.2 (0.2-1.0) mg/dL AST 45 H (15-37) U/L ALT 23 (16-63) U/L Alkaline Phosphatase 46 (46-116) U/L Troponin I (0.00-0.056) ng/mL C-Reactive Protein 15.7 H* (<1.0) mg/dL Total Protein 5.4 L (6.4-8.2) g/dl Albumin 2.4 L (3.4-5.0) g/dl Globulin 3.0 gm/dL Albumin/Globulin Ratio 0.8 L (1-2) Get Results Last 24 Hours: Microbiology 09/05/21 20:11 Blood Culture - Preliminary Blood - Venous - Lab Draw 09/05/21 20:00 Blood Culture - Preliminary Blood - Venous Med Orders - Current: Current Medications Acetaminophen (Acetaminophen 325 Mg Tab) 650 mg PO Q4H PRN PRN Reason: Fever Last Admin: 09/07/21 09:17 Dose: 650 mg Documented by: Albuterol (Albuterol 0.083% 2.5 Mg/3 Ml Neb Soln) 2.5 mg NEB Q4HRRT PRN PRN Reason: Wheezing Last Admin: 09/07/21 10:03 Dose: 2.5 mg Documented by: Clozapine (Clozapine 100 Mg Tab) 200 mg PO BEDTIME KAREN Last Admin: 09/07/21 23:10 Dose: 200 mg Documented by: Dexamethasone (Dexamethasone 4 Mg/Ml Sdv) 6 mg IVPUSH DAILY KAREN Last Admin: 09/07/21 09:56 Dose: 6 mg Documented by: Divalproex Sodium (Divalproex Sodium Delayed-Release 500 Mg Tab.Cr) 500 mg PO DAILY [facility] Divalproex Sodium (Divalproex Sodium Delayed-Release 500 Mg Tab.Cr) 1,000 mg PO BEDTIME [facility] Last Admin: 09/07/21 23:09 Dose: 1,000 mg Documented by: Enoxaparin Sodium (Enoxaparin 40 Mg/0.4 Ml Syringe) 40 mg SUBCUT DAILY [facility] Last Admin: 09/07/21 09:17 Dose: 40 mg Documented by: Ceftriaxone Sodium 2 gm/ (Sodium Chloride) 100 mls @ 200 mls/hr IV Q24H [facility] Last Admin: 09/07/21 11:13 Dose: 200 mls/hr Documented by: Insulin Glargine (Insulin Glargine,Hum.Rec.Anlog 100 Unit/Ml 3 Ml Pen) 30 unit SUBCUT DAILY [facility] Last Admin: 09/07/21 17:58 Dose: 30 units Documented by: Insulin Human Lispro (Insulin Lispro 100 Unit/Ml 3 Ml Kwikpen) 0 unit SUBCUT WITHMEALSANDBED [facility]; Protocol Last Admin: 09/07/21 21:57 Dose: 6 units Documented by: Lorazepam (Lorazepam 1 Mg Tab) 2 mg PO Q4H PRN PRN Reason: Agitation Miscellaneous Information (Remove Nicotine Patch) 1 ea TRDERM DAILY [facility] Last Admin: 09/07/21 09:17 Dose: 1 ea Documented by: Nicotine (Nicotine 21 Mg/24 Hr Patch) 21 mg TRDERM DAILY [facility] Last Admin: 09/07/21 09:17 Dose: 21 mg Documented by: Pantoprazole Sodium (Pantoprazole 40 Mg Vial) 40 mg IVPUSH DAILY [facility] Last Admin: 09/07/21 09:56 Dose: 40 mg Documented by: Discontinued Medications Dexamethasone (Dexamethasone 10 Mg/Ml Sdv) 6 mg IVPUSH ONETIME ONE Stop: 09/06/21 00:26 Last Admin: 09/06/21 00:45 Dose: 6 mg Documented by: Diltiazem HCl (Diltiazem Ir 30 Mg Tab) 90 mg PO ONETIME ONE Stop: 09/07/21 10:01 Last Admin: 09/07/21 09:56 Dose: 90 mg Documented by: Diltiazem HCl (Diltiazem Ir 30 Mg Tab) 90 mg PO ONETIME ONE Stop: 09/07/21 14:01 Last Admin: 09/07/21 14:24 Dose: Not Given Documented by: Divalproex Sodium (Divalproex Sodium Delayed-Release 500 Mg Tab.Cr) 1,000 mg PO BEDTIME KAREN Etomidate (Etomidate 2 Mg/Ml 20 Ml Sdv) 30 mg IVPUSH ONETIME ONE Stop: 09/06/21 00:01 Last Admin: 09/06/21 00:15 Dose: 30 mg Documented by: Sodium Chloride (Normal Saline) 1,000 mls @ 1,000 mls/hr IV ONETIME ONE Stop: 09/05/21 21:12 Last Admin: 09/05/21 20:24 Dose: 1,000 mls/hr Documented by: Sodium Chloride (Normal Saline) 1,000 mls @ 1,000 mls/hr IV ONETIME ONE Stop: 09/05/21 22:52 Last Admin: 09/05/21 22:22 Dose: 1,000 mls/hr Documented by: Sodium Chloride (Normal Saline) 1,000 mls @ 200 mls/hr IV ASDIRECTED KAREN Last Admin: 09/05/21 23:24 Dose: 200 mls/hr Documented by: Propofol (Diprivan 100 Ml) 100 mls @ 2.858 mls/hr IV TITRATE KAREN; Protocol Last Titration: 09/06/21 14:56 Dose: 0 mcg/kg/min, 0 mls/hr Documented by: Fentanyl 2,500 mcg/ Sodium (Chloride) 250 mls @ 9.525 mls/hr IV TITRATE KAREN; Protocol Last Titration: 09/06/21 14:56 Dose: 0 mcg/kg/hr, 0 mls/hr Documented by: Cefepime HCl 2 gm/ Sodium (Chloride) 50 mls @ 100 mls/hr IV ONETIME ONE Stop: 09/06/21 05:10 Last Admin: 09/06/21 05:09 Dose: 100 mls/hr Documented by: Potassium Chloride 10 meq/ (Premix) 100 mls @ 100 mls/hr IV Q1H KAREN Stop: 09/06/21 13:14 Last Admin: 09/06/21 11:13 Dose: Not Given Documented by: Dextrose/Sodium Chloride (Dextrose 5%-1/2 Ns) 1,000 mls @ 25 mls/hr IV ASDIRECTED KAREN Last Infusion: 09/07/21 09:23 Dose: 25 mls/hr Documented by: Sodium Chloride (Normal Saline) 1,000 mls @ 999 mls/hr IV ONETIME ONE Stop: 09/06/21 10:19 Last Admin: 09/06/21 09:44 Dose: 999 mls/hr Documented by: Potassium Chloride 10 meq/ (Premix) 100 mls @ 100 mls/hr IV Q1H [facility] Stop: 09/07/21 11:14 Last Admin: 09/07/21 11:13 Dose: 100 mls/hr Documented by: Insulin Aspart (Insulin Aspart Protamine/Insulin Aspart 70-30 100 Units/Ml 10 Ml Vial) 0 unit SUBCUT QIDACANDBED [facility]; Protocol Insulin Human Lispro (Insulin Lispro 100 Unit/Ml 3 Ml Kwikpen) 0 unit SUBCUT WITHMEALSANDBED [facility]; Protocol Levocarnitine (Levocarnitine 1 Gm/5 Ml Sdv) 3 gm .ROUTE .STK-MED ONE Stop: 09/06/21 03:01 Midazolam HCl (Midazolam 1 Mg/Ml 2 Ml Sdv) 2 mg IVPUSH ONETIME ONE Stop: 09/05/21 20:01 Last Admin: 09/05/21 20:00 Dose: 2 mg Documented by: Naloxone HCl (Naloxone 0.4 Mg/Ml Sdv) 0.4 mg IVPUSH ONETIME ONE Stop: 09/05/21 19:54 Last Admin: 09/05/21 19:53 Dose: 0.4 mg Documented by: L-Carnitine 1g/5ml (Injectable Solution) 3,000 each IVPUSH ONETIME ONE Stop: 09/06/21 03:01 Last Admin: 09/06/21 03:12 Dose: 3,000 each Documented by: Rocuronium [place] (Rocuronium 50 Mg/5 Ml Vial) 100 mg IVPUSH ONETIME ONE Stop: 09/06/21 00:01 Last Admin: 09/06/21 00:16 Dose: 100 mg Documented by: - Exam Quality Assessment: DVT Prophylaxis. No: Supplemental Oxygen Physical Findings Comments:: Examination was not completed as the patient was refusing provider to examine. - Patient Data Lab Results Last 24 hrs: Laboratory Results - last 24 hr 09/07/21 09/07/21 09/07/21 Range/Units 05:19 12:24 17:58 WBC (4.23-9.07) K/mm3 RBC (4.63-6.08) M/mm3 Hgb (13.7-17.5) gm/dl Hct (40.1-51.0) % MCV (79.0-92.2) fl MCH (25.7-32.2) pg MCHC (32.2-35.5) g/dl RDW Std Deviation (35.1-43.9) fL Plt Count (163-337) K/mm3 MPV (9.4-12.3) fl Neut % (Auto) (34.0-67.9) % Lymph % (Auto) (21.8-53.1) % Swisher % (Auto) (5.3-12.2) % Eos % (Auto) (0.8-7.0) Baso % (Auto) (0.1-1.2) % Neut # (Auto) (1.78-5.38) K/mm3 Lymph # (Auto) (1.32-3.57) K/mm3 Swisher # (Auto) (0.30-0.82) K/mm3 Eos # (Auto) (0.04-0.54) K/mm3 Baso # (Auto) (0.01-0.08) K/mm3 D-Dimer, Quantitative (0.19-0.50) mg/L Sodium (136-145) mEq/L Potassium (3.5-5.1) mEq/L Chloride (98-107) mEq/L Carbon Dioxide (21-32) mEq/L Anion Gap (5-15) BUN (7-18) mg/dL Creatinine (0.7-1.3) mg/dL Est Cr Clr Drug Dosing mL/min Estimated GFR (MDRD) (>60) mL/min BUN/Creatinine Ratio (14-18) Glucose (70-99) mg/dL POC Glucose 187 H 188 H (70-99) mg/dL Hemoglobin A1c ( - 5.6) % Calcium (8.5-10.1) mg/dL Magnesium (1.8-2.4) mg/dL Total Bilirubin (0.2-1.0) mg/dL AST (15-37) U/L ALT (16-63) U/L Alkaline Phosphatase (46-116) U/L Troponin I < 0.017 (0.00-0.056) ng/mL C-Reactive Protein (<1.0) mg/dL Total Protein (6.4-8.2) g/dl Albumin (3.4-5.0) g/dl Globulin gm/dL Albumin/Globulin Ratio (1-2) 09/07/21 09/08/21 09/08/21 Range/Units 22:01 05:50 05:50 WBC 6.66 (4.23-9.07) K/mm3 RBC 4.01 L (4.63-6.08) M/mm3 Hgb 11.1 L (13.7-17.5) gm/dl Hct 35.1 L (40.1-51.0) % MCV 87.5 (79.0-92.2) fl MCH 27.7 (25.7-32.2) pg MCHC 31.6 L (32.2-35.5) g/dl RDW Std Deviation 43.2 (35.1-43.9) fL Plt Count 190 (163-337) K/mm3 MPV 9.1 L (9.4-12.3) fl Neut % (Auto) 77.4 H (34.0-67.9) % Lymph % (Auto) 13.7 L (21.8-53.1) % Swisher % (Auto) 8.4 (5.3-12.2) % Eos % (Auto) 0 L (0.8-7.0) Baso % (Auto) 0.2 (0.1-1.2) % Neut # (Auto) 5.16 (1.78-5.38) K/mm3 Lymph # (Auto) 0.91 L (1.32-3.57) K/mm3 Swisher # (Auto) 0.56 (0.30-0.82) K/mm3 Eos # (Auto) 0.00 L (0.04-0.54) K/mm3 Baso # (Auto) 0.01 (0.01-0.08) K/mm3 D-Dimer, Quantitative (0.19-0.50) mg/L Sodium (136-145) mEq/L Potassium (3.5-5.1) mEq/L Chloride (98-107) mEq/L Carbon Dioxide (21-32) mEq/L Anion Gap (5-15) BUN (7-18) mg/dL Creatinine (0.7-1.3) mg/dL Est Cr Clr Drug Dosing mL/min Estimated GFR (MDRD) (>60) mL/min BUN/Creatinine Ratio (14-18) Glucose (70-99) mg/dL POC Glucose 223 H (70-99) mg/dL Hemoglobin A1c ( - 5.6) % Calcium (8.5-10.1) mg/dL Magnesium 2.4 (1.8-2.4) mg/dL Total Bilirubin (0.2-1.0) mg/dL AST (15-37) U/L ALT (16-63) U/L Alkaline Phosphatase (46-116) U/L Troponin I (0.00-0.056) ng/mL C-Reactive Protein (<1.0) mg/dL Total Protein (6.4-8.2) g/dl Albumin (3.4-5.0) g/dl Globulin gm/dL Albumin/Globulin Ratio (1-2) 09/08/21 09/08/21 09/08/21 Range/Units 05:50 05:50 05:50 WBC (4.23-9.07) K/mm3 RBC (4.63-6.08) M/mm3 Hgb (13.7-17.5) gm/dl Hct (40.1-51.0) % MCV (79.0-92.2) fl MCH (25.7-32.2) pg MCHC (32.2-35.5) g/dl RDW Std Deviation (35.1-43.9) fL Plt Count (163-337) K/mm3 MPV (9.4-12.3) fl Neut % (Auto) (34.0-67.9) % Lymph % (Auto) (21.8-53.1) % Swisher % (Auto) (5.3-12.2) % Eos % (Auto) (0.8-7.0) Baso % (Auto) (0.1-1.2) % Neut # (Auto) (1.78-5.38) K/mm3 Lymph # (Auto) (1.32-3.57) K/mm3 Swisher # (Auto) (0.30-0.82) K/mm3 Eos # (Auto) (0.04-0.54) K/mm3 Baso # (Auto) (0.01-0.08) K/mm3 D-Dimer, Quantitative 1.17 H (0.19-0.50) mg/L Sodium 143 (136-145) mEq/L Potassium 3.9 (3.5-5.1) mEq/L Chloride 107 (98-107) mEq/L Carbon Dioxide 29 (21-32) mEq/L Anion Gap 10.9 (5-15) BUN 13 (7-18) mg/dL Creatinine 0.7 (0.7-1.3) mg/dL Est Cr Clr Drug Dosing 153.97 mL/min Estimated GFR (MDRD) > 60 (>60) mL/min BUN/Creatinine Ratio 18.6 H (14-18) Glucose 145 H (70-99) mg/dL POC Glucose (70-99) mg/dL Hemoglobin A1c 6.9 H ( - 5.6) % Calcium 8.5 (8.5-10.1) mg/dL Magnesium (1.8-2.4) mg/dL Total Bilirubin 0.2 (0.2-1.0) mg/dL AST 45 H (15-37) U/L ALT 23 (16-63) U/L Alkaline Phosphatase 46 (46-116) U/L Troponin I (0.00-0.056) ng/mL C-Reactive Protein 15.7 H* (<1.0) mg/dL Total Protein 5.4 L (6.4-8.2) g/dl Albumin 2.4 L (3.4-5.0) g/dl Globulin 3.0 gm/dL Albumin/Globulin Ratio 0.8 L (1-2) Result Diagrams: 09/08/21 05:50 09/08/21 05:50 Get Results Last 24 hrs: Microbiology 09/05/21 20:11 Blood Culture - Preliminary Blood - Venous - Lab Draw 09/05/21 20:00 Blood Culture - Preliminary Blood - Venous Sepsis Event Note - Evaluation Sepsis Screening Result: No Definite Risk - Focused Exam Vital Signs: Vital Signs Temp Resp Pulse Ox 09/08/21 00:00 36.8 C 20 93 L - Problem List & Annotations (1) Acute hypoxemic respiratory failure SNOMED Code(s): 422968996 Code(s): J96.01 - ACUTE RESPIRATORY FAILURE WITH HYPOXIA Status: Resolved Priority: High Current Visit: Yes Onset Date: ~09/06/21 Annotation/Comment:: extubated and started dexamethazone but on low liter o2 at 3 liters and doing well cont nebs. rtc. monitor . d dimer elavated 2.3 (2) Altered mental status SNOMED Code(s): 259375034 Code(s): R41.82 - ALTERED MENTAL STATUS, UNSPECIFIED Status: Chronic Priority: High Current Visit: Yes Onset Date: ~09/06/21 Qualifiers: Altered mental status type: somnolence Qualified Code(s): R40.0 - Somnolence Annotation/Comment:: sedation held depakote held. (3) COVID-19 SNOMED Code(s): 140110686 Code(s): U07.1 - COVID-19 Status: Acute Priority: High Current Visit: Yes Onset Date: ~09/06/21 Annotation/Comment:: covid screen +// contact and symptom hx unknown. restart psyche meds (4) Diabetes mellitus SNOMED Code(s): 67304044 Code(s): E11.9 - TYPE 2 DIABETES MELLITUS WITHOUT COMPLICATIONS Status: Chronic Priority: Medium Current Visit: Yes Qualifiers: Diabetes mellitus type: type 2 Diabetes mellitus halfway insulin use: with halfway use Diabetes mellitus complication status: without complication Qualified Code(s): E11.9 - Type 2 diabetes mellitus without complications; Z79.4 - rn long term care (current) use of insulin Annotation/Comment:: on dexamethazone. insulin drip (5) Schizophrenia SNOMED Code(s): 32247841 Code(s): F20.9 - SCHIZOPHRENIA, UNSPECIFIED Status: Chronic Priority: High Current Visit: Yes Qualifiers: Schizophrenia type: unspecified Qualified Code(s): F20.9 - Schizophrenia, unspecified - Problem List Review Problem List Initiated/Reviewed/Updated: Yes - Assessment Assessment:: 09/07/21 Patient is a 41-year-old male with a past medical history of schizophrenia presenting who presented to the emergency room for altered mental status on 09/05/21. Patient was found by mother with a decreased level of responsiveness. When she last saw him on 09/04 she states he was having significant hallucinations and agitation. on 09/05, she came by the department this evening and found him this way. Does not know what happened. She states she tried to arouse him and speak with him for 20 minutes before calling the ambulance. On EMS arrival, patient was awake but not responding appropriately. He started sliding down in the chair but did not demonstrate any seizure-like activity. He was transferred to the emergency room without difficulty. There were no empty pill bottles besides doxycycline which was prescribed approximately 10 days ago. Otherwise, no evidence of drug paraphernalia or self-harm. Mother states that he does have a history of polysubstance abuse but does not know about him using recently. Today shows: Pt is Covid Positive Lungs: wheezing and loose cough..on 4 liters of O2...he is on albuterol nebs PRN pt receiving 2 riders of K pt is on 40 mg. of protonix push 6mg of decadron push Pt's Iv has been decreased from 150 to 50 Meds added: Cardizem for tachy...90 mg now and then 90mg at lunch...then recheck for further update Tylenol PRN for fever Labs ordered: D-dimer Rads ordered: Repeat chest x-ray...portable Plan: cont meds as prescribed, including newly added ones Repeat chest x-ray Extubate cont. tx of covid and steroid referral to Physical Therapy referral to mental health for depression, Schizophrenia, suicidal tendencies, and drug/alcohol abuse 09/08/2021 The patient is a 41-year-old gentleman who is currently awake and has been somewhat hostile at times. He will be retained in hospitalization pending placement in psychiatric facility. The patient has been restarted on his antipsychotic medication. The patient will continue with a regular diabetic diet as tolerated. He is on insulin sliding scale and this will continue. Repeat laboratory studies have been ordered. The patient also has a history of tobacco dependency and he has a nicotine patch 21 mg daily. Patient has been encouraged to ambulate. The patient also has been found to be positive for COVID-19 and this will hinder placement. Because of anxiety being associated with the use of steroids I have discontinued the patient's dexamethasone. This was done as the patient has not required oxygen. The patient will be retained until placement available. - Plan Plan:: 12/29/21 Patient is a 41-year-old male with a past medical history of schizophrenia presenting who presented to the emergency room for altered mental status on 09/05/21. Patient was found by mother with a decreased level of responsiveness. When she last saw him on 09/04 she states he was having significant hallucinations and agitation. on 09/05, she came by the department this evening and found him this way. Does not know what happened. She states she tried to arouse him and speak with him for 20 minutes before calling the ambulance. On EMS arrival, patient was awake but not responding appropriately. He started sliding down in the chair but did not demonstrate any seizure-like activity. He was transferred to the emergency room without difficulty. There were no empty pill bottles besides doxycycline which was prescribed approximately 10 days ago. Otherwise, no evidence of drug paraphernalia or self-harm. Mother states that he does have a history of polysubstance abuse but does not know about him using recently. Today shows: Pt is Covid Positive Lungs: wheezing and loose cough..on 4 liters of O2...he is on albuterol nebs PRN pt receiving 2 riders of K pt is on 40 mg. of protonix push 6mg of decadron push Pt's Iv has been decreased from 150 to 50 Meds added: Cardizem for tachy...90 mg now and then 90mg at lunch...then recheck for further update Tylenol PRN for fever Labs ordered: D-dimer Rads ordered: Repeat chest x-ray...portable Plan: cont meds as prescribed, including newly added ones Repeat chest x-ray Extubate cont. tx of covid and steroid referral to Physical Therapy referral to mental health for depression, Schizophrenia, suicidal tendencies, and drug/alcohol abuse treat diabetes and restart some psyche meds but unclear how to proceed. [facility]
[2021-09-08] MEDS: Dexamethasone 4 MG/ML SDV IVPUSH SCH (08:30)
[2021-09-08] MEDS: Divalproex Sodium Delayed-Release 500 MG Tab.CR PO SCH ×2 (08:30→21:16)
[2021-09-08] MEDS: Enoxaparin 40 MG/0.4 ML Syringe SUBCUT SCH (08:31)
[2021-09-08] MEDS: Pantoprazole 40 MG Vial IVPUSH SCH (08:31)
[2021-09-08] MEDS: Nicotine 21 MG/24 Hr Patch TRDERM SCH (08:47)
[2021-09-08] MEDS: Insulin Lispro 100 Unit/ML 3 ML KwikPen SUBCUT SCH ×4 (09:05→21:26)
[2021-09-08] MEDS: Insulin Glargine,Hum.Rec.Anlog 100 UNIT/ML 3 ML Pen SUBCUT SCH (09:06)
[2021-09-08] MEDS: cefTRIAXone 2 GM in Sodium Chloride 0.9% 100 ML IV SCH (11:21)
[2021-09-08] MEDS: hydrOXYzine HCl 50 MG Tab PO SCH ×2 (16:05→21:17)
[2021-09-08] MEDS ORDERED: Divalproex Sodium Delayed-Release 500 MG Tab.CR PO SCH (21:00)
[2021-09-08] MEDS: Benztropine 1 MG Tab PO SCH (21:17)
[2021-09-08] MEDS: cloZAPine 100 MG Tab PO SCH (21:17)
[2021-09-09] MEDS: Levothyroxine 50 MCG Tab PO SCH (05:47)
--- NOTE | 2021-09-09 07:11 | PCM.PN ---
- General Info Date of Service: 09/09/21 Admission Dx/Problem (Free Text): The patient was admitted and had been intubated. Subjective Update: The patient is a 41-year-old gentleman who is admitted to acute hospitalization on Sep 06, 2021 due to altered mental status. The patient has a long history of polysubstance abuse as well as significant psychiatric history of schizophrenia and bipolar disorder with behavioral outbursts. The patient was also found to be positive for COVID-19 infection. The patient was extubated on the same day that he was admitted. Today the patient says that he is feeling better. He is denied any new pain. The patient also had requested something for diarrhea. Patient says that he has been eating okay. The patient was restarted on his psychiatric medications that he normally takes at home. Functional Status: Reports: Pain Controlled, Tolerating Diet, New Symptoms (Diarrhea) - Review of Systems General: Reports: No Symptoms HEENT: Reports: No Symptoms Pulmonary: Reports: No Symptoms Cardiovascular: Reports: No Symptoms Gastrointestinal: Reports: Diarrhea Genitourinary: Reports: No Symptoms Musculoskeletal: Reports: No Symptoms Skin: Reports: No Symptoms Neurological: Reports: No Symptoms Psychiatric: Reports: No Symptoms - Patient Data Vitals - Most Recent: Last Vital Signs Temp 36.1 C 09/09/21 04:00 Pulse 93 09/09/21 04:00 Resp 17 09/09/21 04:00 BP 158/97 H 09/09/21 04:00 Pulse Ox 93 L 09/09/21 04:00 Weight - Most Recent: 92.76 kg I&O - Last 24 Hours: Intake & Output 09/08/21 09/09/21 09/09/21 22:59 06:59 14:59 Intake Total 1355 600 Output Total 250 Balance 1105 600 Lab Results Last 24 Hours: Laboratory Results - last 24 hr 09/08/21 09/08/21 09/08/21 Range/Units 05:50 08:27 13:08 WBC (4.23-9.07) K/mm3 RBC (4.63-6.08) M/mm3 Hgb (13.7-17.5) gm/dl Hct (40.1-51.0) % MCV (79.0-92.2) fl MCH (25.7-32.2) pg MCHC (32.2-35.5) g/dl RDW Std Deviation (35.1-43.9) fL Plt Count (163-337) K/mm3 MPV (9.4-12.3) fl Neut % (Auto) (34.0-67.9) % Lymph % (Auto) (21.8-53.1) % Sac % (Auto) (5.3-12.2) % Eos % (Auto) (0.8-7.0) Baso % (Auto) (0.1-1.2) % Neut # (Auto) (1.78-5.38) K/mm3 Lymph # (Auto) (1.32-3.57) K/mm3 Sac # (Auto) (0.30-0.82) K/mm3 Eos # (Auto) (0.04-0.54) K/mm3 Baso # (Auto) (0.01-0.08) K/mm3 Manual Slide Review Sodium (136-145) mEq/L Potassium (3.5-5.1) mEq/L Chloride (98-107) mEq/L Carbon Dioxide (21-32) mEq/L Anion Gap (5-15) BUN (7-18) mg/dL Creatinine (0.7-1.3) mg/dL Est Cr Clr Drug Dosing mL/min Estimated GFR (MDRD) (>60) mL/min BUN/Creatinine Ratio (14-18) Glucose (70-99) mg/dL POC Glucose 214 H 188 H (70-99) mg/dL Hemoglobin A1c 6.9 H ( - 5.6) % Calcium (8.5-10.1) mg/dL Magnesium (1.8-2.4) mg/dL Total Bilirubin (0.2-1.0) mg/dL AST (15-37) U/L ALT (16-63) U/L Alkaline Phosphatase (46-116) U/L Total Protein (6.4-8.2) g/dl Albumin (3.4-5.0) g/dl Globulin gm/dL Albumin/Globulin Ratio (1-2) 09/08/21 09/08/21 09/09/21 Range/Units 18:13 21:14 05:50 WBC 6.60 (4.23-9.07) K/mm3 RBC 4.27 L (4.63-6.08) M/mm3 Hgb 11.9 L (13.7-17.5) gm/dl Hct 37.1 L (40.1-51.0) % MCV 86.9 (79.0-92.2) fl MCH 27.9 (25.7-32.2) pg MCHC 32.1 L (32.2-35.5) g/dl RDW Std Deviation 42.9 (35.1-43.9) fL Plt Count 250 (163-337) K/mm3 MPV 9.3 L (9.4-12.3) fl Neut % (Auto) 76.9 H (34.0-67.9) % Lymph % (Auto) 16.2 L (21.8-53.1) % Sac % (Auto) 6.7 (5.3-12.2) % Eos % (Auto) 0 L (0.8-7.0) Baso % (Auto) 0.0 L (0.1-1.2) % Neut # (Auto) 5.08 (1.78-5.38) K/mm3 Lymph # (Auto) 1.07 L (1.32-3.57) K/mm3 Sac # (Auto) 0.44 (0.30-0.82) K/mm3 Eos # (Auto) 0.00 L (0.04-0.54) K/mm3 Baso # (Auto) 0.00 L (0.01-0.08) K/mm3 Manual Slide Review Normal smear Sodium (136-145) mEq/L Potassium (3.5-5.1) mEq/L Chloride (98-107) mEq/L Carbon Dioxide (21-32) mEq/L Anion Gap (5-15) BUN (7-18) mg/dL Creatinine (0.7-1.3) mg/dL Est Cr Clr Drug Dosing mL/min Estimated GFR (MDRD) (>60) mL/min BUN/Creatinine Ratio (14-18) Glucose (70-99) mg/dL POC Glucose 214 H 154 H (70-99) mg/dL Hemoglobin A1c ( - 5.6) % Calcium (8.5-10.1) mg/dL Magnesium (1.8-2.4) mg/dL Total Bilirubin (0.2-1.0) mg/dL AST (15-37) U/L ALT (16-63) U/L Alkaline Phosphatase (46-116) U/L Total Protein (6.4-8.2) g/dl Albumin (3.4-5.0) g/dl Globulin gm/dL Albumin/Globulin Ratio (1-2) 09/09/21 09/09/21 Range/Units 05:50 05:50 WBC (4.23-9.07) K/mm3 RBC (4.63-6.08) M/mm3 Hgb (13.7-17.5) gm/dl Hct (40.1-51.0) % MCV (79.0-92.2) fl MCH (25.7-32.2) pg MCHC (32.2-35.5) g/dl RDW Std Deviation (35.1-43.9) fL Plt Count (163-337) K/mm3 MPV (9.4-12.3) fl Neut % (Auto) (34.0-67.9) % Lymph % (Auto) (21.8-53.1) % Sac % (Auto) (5.3-12.2) % Eos % (Auto) (0.8-7.0) Baso % (Auto) (0.1-1.2) % Neut # (Auto) (1.78-5.38) K/mm3 Lymph # (Auto) (1.32-3.57) K/mm3 Sac # (Auto) (0.30-0.82) K/mm3 Eos # (Auto) (0.04-0.54) K/mm3 Baso # (Auto) (0.01-0.08) K/mm3 Manual Slide Review Sodium 144 (136-145) mEq/L Potassium 3.6 (3.5-5.1) mEq/L Chloride 106 (98-107) mEq/L Carbon Dioxide 29 (21-32) mEq/L Anion Gap 12.6 (5-15) BUN 15 (7-18) mg/dL Creatinine 0.7 (0.7-1.3) mg/dL Est Cr Clr Drug Dosing 172.22 mL/min Estimated GFR (MDRD) > 60 (>60) mL/min BUN/Creatinine Ratio 21.4 H (14-18) Glucose 147 H (70-99) mg/dL POC Glucose (70-99) mg/dL Hemoglobin A1c ( - 5.6) % Calcium 8.4 L (8.5-10.1) mg/dL Magnesium 2.0 (1.8-2.4) mg/dL Total Bilirubin 0.2 (0.2-1.0) mg/dL AST 53 H (15-37) U/L ALT 30 (16-63) U/L Alkaline Phosphatase 49 (46-116) U/L Total Protein 5.5 L (6.4-8.2) g/dl Albumin 2.4 L (3.4-5.0) g/dl Globulin 3.1 gm/dL Albumin/Globulin Ratio 0.8 L (1-2) Get Results Last 24 Hours: Microbiology 09/07/21 14:40 Respiratory Culture - Preliminary Sputum - Expectorated Gram Stain - Final Med Orders - Current: Current Medications Acetaminophen (Acetaminophen 325 Mg Tab) 650 mg PO Q4H PRN PRN Reason: Fever Last Admin: 09/07/21 09:17 Dose: 650 mg Documented by: Albuterol (Albuterol 0.083% 2.5 Mg/3 Ml Neb Soln) 2.5 mg NEB Q4HRRT PRN PRN Reason: Wheezing Last Admin: 09/07/21 10:03 Dose: 2.5 mg Documented by: Benztropine Mesylate (Benztropine 1 Mg Tab) 2 mg PO BID [facility] Last Admin: 09/08/21 21:17 Dose: 2 mg Documented by: Bupropion HCl (Bupropion 150 Mg Tab.Er) 150 mg PO DAILY [facility] Clozapine (Clozapine 100 Mg Tab) 200 mg PO BEDTIME [facility] Last Admin: 09/08/21 21:17 Dose: 200 mg Documented by: Divalproex Sodium (Divalproex Sodium Delayed-Release 500 Mg Tab.Cr) 500 mg PO DAILY [facility] Last Admin: 09/08/21 08:30 Dose: 500 mg Documented by: Divalproex Sodium (Divalproex Sodium Delayed-Release 500 Mg Tab.Cr) 1,000 mg PO BEDTIME [facility] Last Admin: 09/08/21 21:16 Dose: 1,000 mg Documented by: Enoxaparin Sodium (Enoxaparin 40 Mg/0.4 Ml Syringe) 40 mg SUBCUT DAILY [facility] Last Admin: 09/08/21 08:31 Dose: 40 mg Documented by: Hydrochlorothiazide (Hydrochlorothiazide 12.5 Mg Cap) 12.5 mg PO DAILY [facility] Hydroxyzine HCl (Hydroxyzine Hcl 50 Mg Tab) 50 mg PO TID [facility] Last Admin: 09/08/21 21:17 Dose: 50 mg Documented by: Ceftriaxone Sodium 2 gm/ (Sodium Chloride) 100 mls @ 200 mls/hr IV Q24H [facility] Last Admin: 09/08/21 11:21 Dose: 200 mls/hr Documented by: Insulin Glargine (Insulin Glargine,Hum.Rec.Anlog 100 Unit/Ml 3 Ml Pen) 30 unit SUBCUT DAILY [facility] Last Admin: 09/08/21 09:06 Dose: 30 units Documented by: Insulin Human Lispro (Insulin Lispro 100 Unit/Ml 3 Ml Kwikpen) 0 unit SUBCUT WITHMEALSANDBED [facility]; Protocol Last Admin: 09/08/21 21:26 Dose: 3 units Documented by: Levothyroxine Sodium (Levothyroxine 50 Mcg Tab) 50 mcg PO ACBREAKFAST [facility] Last Admin: 09/09/21 05:47 Dose: 50 mcg Documented by: Lisinopril (Lisinopril 20 Mg Tab) 20 mg PO DAILY [facility] Lorazepam (Lorazepam 1 Mg Tab) 2 mg PO Q4H PRN PRN Reason: Agitation Miscellaneous Information (Remove Nicotine Patch) 1 ea TRDERM DAILY [facility] Last Admin: 09/08/21 09:08 Dose: 1 ea Documented by: Montelukast Sodium (Montelukast 10 Mg Tab) 10 mg PO DAILY [facility] Nicotine (Nicotine 21 Mg/24 Hr Patch) 21 mg TRDERM DAILY [facility] Last Admin: 09/08/21 08:47 Dose: 21 mg Documented by: Pantoprazole Sodium (Pantoprazole 40 Mg Tab.Cr) 40 mg PO DAILY [facility] Discontinued Medications Dexamethasone (Dexamethasone 10 Mg/Ml Sdv) 6 mg IVPUSH ONETIME ONE Stop: 09/06/21 00:26 Last Admin: 09/06/21 00:45 Dose: 6 mg Documented by: Dexamethasone (Dexamethasone 4 Mg/Ml Sdv) 6 mg IVPUSH DAILY [facility] Last Admin: 09/08/21 08:30 Dose: 6 mg Documented by: Diltiazem HCl (Diltiazem Ir 30 Mg Tab) 90 mg PO ONETIME ONE Stop: 09/07/21 10:01 Last Admin: 09/07/21 09:56 Dose: 90 mg Documented by: Diltiazem HCl (Diltiazem Ir 30 Mg Tab) 90 mg PO ONETIME ONE Stop: 09/07/21 14:01 Last Admin: 09/07/21 14:24 Dose: Not Given Documented by: Divalproex Sodium (Divalproex Sodium Delayed-Release 500 Mg Tab.Cr) 1,000 mg PO BEDTIME [facility] Etomidate (Etomidate 2 Mg/Ml 20 Ml Sdv) 30 mg IVPUSH ONETIME ONE Stop: 09/06/21 00:01 Last Admin: 09/06/21 00:15 Dose: 30 mg Documented by: Sodium Chloride (Normal Saline) 1,000 mls @ 1,000 mls/hr IV ONETIME ONE Stop: 09/05/21 21:12 Last Admin: 09/05/21 20:24 Dose: 1,000 mls/hr Documented by: Sodium Chloride (Normal Saline) 1,000 mls @ 1,000 mls/hr IV ONETIME ONE Stop: 09/05/21 22:52 Last Admin: 09/05/21 22:22 Dose: 1,000 mls/hr Documented by: Sodium Chloride (Normal Saline) 1,000 mls @ 200 mls/hr IV ASDIRECTED [facility] Last Admin: 09/05/21 23:24 Dose: 200 mls/hr Documented by: Propofol (Diprivan 100 Ml) 100 mls @ 2.858 mls/hr IV TITRATE [facility]; Protocol Last Titration: 09/06/21 14:56 Dose: 0 mcg/kg/min, 0 mls/hr Documented by: Fentanyl 2,500 mcg/ Sodium (Chloride) 250 mls @ 9.525 mls/hr IV TITRATE [facility]; Protocol Last Titration: 09/06/21 14:56 Dose: 0 mcg/kg/hr, 0 mls/hr Documented by: Cefepime HCl 2 gm/ Sodium (Chloride) 50 mls @ 100 mls/hr IV ONETIME ONE Stop: 09/06/21 05:10 Last Admin: 09/06/21 05:09 Dose: 100 mls/hr Documented by: Potassium Chloride 10 meq/ (Premix) 100 mls @ 100 mls/hr IV Q1H [facility] Stop: 09/06/21 13:14 Last Admin: 09/06/21 11:13 Dose: Not Given Documented by: Dextrose/Sodium Chloride (Dextrose 5%-1/2 Ns) 1,000 mls @ 25 mls/hr IV ASDIRECTED [facility] Last Infusion: 09/07/21 09:23 Dose: 25 mls/hr Documented by: Sodium Chloride (Normal Saline) 1,000 mls @ 999 mls/hr IV ONETIME ONE Stop: 09/06/21 10:19 Last Admin: 09/06/21 09:44 Dose: 999 mls/hr Documented by: Potassium Chloride 10 meq/ (Premix) 100 mls @ 100 mls/hr IV Q1H [facility] Stop: 09/07/21 11:14 Last Admin: 09/07/21 11:13 Dose: 100 mls/hr Documented by: Insulin Aspart (Insulin Aspart Protamine/Insulin Aspart 70-30 100 Units/Ml 10 Ml Vial) 0 unit SUBCUT QIDACANDBED [facility]; Protocol Insulin Human Lispro (Insulin Lispro 100 Unit/Ml 3 Ml Kwikpen) 0 unit SUBCUT WITHMEALSANDBED [facility]; Protocol Levocarnitine (Levocarnitine 1 Gm/5 Ml Sdv) 3 gm .ROUTE .STK-MED ONE Stop: 09/06/21 03:01 Midazolam HCl (Midazolam 1 Mg/Ml 2 Ml Sdv) 2 mg IVPUSH ONETIME ONE Stop: 09/05/21 20:01 Last Admin: 09/05/21 20:00 Dose: 2 mg Documented by: Naloxone HCl (Naloxone 0.4 Mg/Ml Sdv) 0.4 mg IVPUSH ONETIME ONE Stop: 09/05/21 19:54 Last Admin: 09/05/21 19:53 Dose: 0.4 mg Documented by: L-Carnitine 1g/5ml (Injectable Solution) 3,000 each IVPUSH ONETIME ONE Stop: 09/06/21 03:01 Last Admin: 09/06/21 03:12 Dose: 3,000 each Documented by: Pantoprazole Sodium (Pantoprazole 40 Mg Vial) 40 mg IVPUSH DAILY [facility] Last Admin: 09/08/21 08:31 Dose: 40 mg Documented by: Rocuronium [place] (Rocuronium 50 Mg/5 Ml Vial) 100 mg IVPUSH ONETIME ONE Stop: 09/06/21 00:01 Last Admin: 09/06/21 00:16 Dose: 100 mg Documented by: - Exam Quality Assessment: DVT Prophylaxis (Currently on Lovenox.). No: Supplemental Oxygen General: Alert, Oriented, Cooperative HEENT: Pupils Equal, Pupils Reactive, EOMI. No: Mucous Membr. Moist/[place] (Dry) Neck: Supple, Trachea Midline Lungs: Clear to Auscultation, Normal Respiratory Effort Cardiovascular: Regular Rate, Regular Rhythm GI/Abdominal Exam: Normal Bowel Sounds (Hyperactive), Soft, Non-Tender, No Distention. No: Guarding, Rigid, Rebound (Male) Exam: Deferred Back Exam: Normal Inspection, Full Range of Motion Extremities: Normal Inspection, No Pedal Edema Skin: Warm, Dry, Intact Neurological: No New Focal Deficit Psy/Mental Status: Alert, Normal Affect - Patient Data Lab Results Last 24 hrs: Laboratory Results - last 24 hr 09/08/21 09/08/21 09/08/21 Range/Units 05:50 08:27 13:08 WBC (4.23-9.07) K/mm3 RBC (4.63-6.08) M/mm3 Hgb (13.7-17.5) gm/dl Hct (40.1-51.0) % MCV (79.0-92.2) fl MCH (25.7-32.2) pg MCHC (32.2-35.5) g/dl RDW Std Deviation (35.1-43.9) fL Plt Count (163-337) K/mm3 MPV (9.4-12.3) fl Neut % (Auto) (34.0-67.9) % Lymph % (Auto) (21.8-53.1) % Sac % (Auto) (5.3-12.2) % Eos % (Auto) (0.8-7.0) Baso % (Auto) (0.1-1.2) % Neut # (Auto) (1.78-5.38) K/mm3 Lymph # (Auto) (1.32-3.57) K/mm3 Sac # (Auto) (0.30-0.82) K/mm3 Eos # (Auto) (0.04-0.54) K/mm3 Baso # (Auto) (0.01-0.08) K/mm3 Manual Slide Review Sodium (136-145) mEq/L Potassium (3.5-5.1) mEq/L Chloride (98-107) mEq/L Carbon Dioxide (21-32) mEq/L Anion Gap (5-15) BUN (7-18) mg/dL Creatinine (0.7-1.3) mg/dL Est Cr Clr Drug Dosing mL/min Estimated GFR (MDRD) (>60) mL/min BUN/Creatinine Ratio (14-18) Glucose (70-99) mg/dL POC Glucose 214 H 188 H (70-99) mg/dL Hemoglobin A1c 6.9 H ( - 5.6) % Calcium (8.5-10.1) mg/dL Magnesium (1.8-2.4) mg/dL Total Bilirubin (0.2-1.0) mg/dL AST (15-37) U/L ALT (16-63) U/L Alkaline Phosphatase (46-116) U/L Total Protein (6.4-8.2) g/dl Albumin (3.4-5.0) g/dl Globulin gm/dL Albumin/Globulin Ratio (1-2) 09/08/21 09/08/21 09/09/21 Range/Units 18:13 21:14 05:50 WBC 6.60 (4.23-9.07) K/mm3 RBC 4.27 L (4.63-6.08) M/mm3 Hgb 11.9 L (13.7-17.5) gm/dl Hct 37.1 L (40.1-51.0) % MCV 86.9 (79.0-92.2) fl MCH 27.9 (25.7-32.2) pg MCHC 32.1 L (32.2-35.5) g/dl RDW Std Deviation 42.9 (35.1-43.9) fL Plt Count 250 (163-337) K/mm3 MPV 9.3 L (9.4-12.3) fl Neut % (Auto) 76.9 H (34.0-67.9) % Lymph % (Auto) 16.2 L (21.8-53.1) % Sac % (Auto) 6.7 (5.3-12.2) % Eos % (Auto) 0 L (0.8-7.0) Baso % (Auto) 0.0 L (0.1-1.2) % Neut # (Auto) 5.08 (1.78-5.38) K/mm3 Lymph # (Auto) 1.07 L (1.32-3.57) K/mm3 Sac # (Auto) 0.44 (0.30-0.82) K/mm3 Eos # (Auto) 0.00 L (0.04-0.54) K/mm3 Baso # (Auto) 0.00 L (0.01-0.08) K/mm3 Manual Slide Review Normal smear Sodium (136-145) mEq/L Potassium (3.5-5.1) mEq/L Chloride (98-107) mEq/L Carbon Dioxide (21-32) mEq/L Anion Gap (5-15) BUN (7-18) mg/dL Creatinine (0.7-1.3) mg/dL Est Cr Clr Drug Dosing mL/min Estimated GFR (MDRD) (>60) mL/min BUN/Creatinine Ratio (14-18) Glucose (70-99) mg/dL POC Glucose 214 H 154 H (70-99) mg/dL Hemoglobin A1c ( - 5.6) % Calcium (8.5-10.1) mg/dL Magnesium (1.8-2.4) mg/dL Total Bilirubin (0.2-1.0) mg/dL AST (15-37) U/L ALT (16-63) U/L Alkaline Phosphatase (46-116) U/L Total Protein (6.4-8.2) g/dl Albumin (3.4-5.0) g/dl Globulin gm/dL Albumin/Globulin Ratio (1-2) 09/09/21 09/09/21 Range/Units 05:50 05:50 WBC (4.23-9.07) K/mm3 RBC (4.63-6.08) M/mm3 Hgb (13.7-17.5) gm/dl Hct (40.1-51.0) % MCV (79.0-92.2) fl MCH (25.7-32.2) pg MCHC (32.2-35.5) g/dl RDW Std Deviation (35.1-43.9) fL Plt Count (163-337) K/mm3 MPV (9.4-12.3) fl Neut % (Auto) (34.0-67.9) % Lymph % (Auto) (21.8-53.1) % Sac % (Auto) (5.3-12.2) % Eos % (Auto) (0.8-7.0) Baso % (Auto) (0.1-1.2) % Neut # (Auto) (1.78-5.38) K/mm3 Lymph # (Auto) (1.32-3.57) K/mm3 Sac # (Auto) (0.30-0.82) K/mm3 Eos # (Auto) (0.04-0.54) K/mm3 Baso # (Auto) (0.01-0.08) K/mm3 Manual Slide Review Sodium 144 (136-145) mEq/L Potassium 3.6 (3.5-5.1) mEq/L Chloride 106 (98-107) mEq/L Carbon Dioxide 29 (21-32) mEq/L Anion Gap 12.6 (5-15) BUN 15 (7-18) mg/dL Creatinine 0.7 (0.7-1.3) mg/dL Est Cr Clr Drug Dosing 172.22 mL/min Estimated GFR (MDRD) > 60 (>60) mL/min BUN/Creatinine Ratio 21.4 H (14-18) Glucose 147 H (70-99) mg/dL POC Glucose (70-99) mg/dL Hemoglobin A1c ( - 5.6) % Calcium 8.4 L (8.5-10.1) mg/dL Magnesium 2.0 (1.8-2.4) mg/dL Total Bilirubin 0.2 (0.2-1.0) mg/dL AST 53 H (15-37) U/L ALT 30 (16-63) U/L Alkaline Phosphatase 49 (46-116) U/L Total Protein 5.5 L (6.4-8.2) g/dl Albumin 2.4 L (3.4-5.0) g/dl Globulin 3.1 gm/dL Albumin/Globulin Ratio 0.8 L (1-2) Result Diagrams: 09/09/21 05:50 09/09/21 05:50 Get Results Last 24 hrs: Microbiology 09/07/21 14:40 Respiratory Culture - Preliminary Sputum - Expectorated Gram Stain - Final Sepsis Event Note - Evaluation Sepsis Screening Result: No Definite Risk - Focused Exam Vital Signs: Vital Signs Temp Pulse Resp BP Pulse Ox 09/09/21 04:00 36.1 C 93 17 158/97 H 93 L 09/09/21 00:00 35.8 C L 156/101 H 09/08/21 20:00 36.8 C 20 155/99 H - Problem List & Annotations (1) Acute hypoxemic respiratory failure SNOMED Code(s): 898530743 Code(s): J96.01 - ACUTE RESPIRATORY FAILURE WITH HYPOXIA Status: Resolved Priority: High Current Visit: Yes Onset Date: ~09/06/21 Annotation/Comment:: extubated and started dexamethazone but on low liter o2 at 3 liters and doing well cont nebs. rtc. monitor . d dimer elavated 2.3 (2) Altered mental status SNOMED Code(s): 266746735 Code(s): R41.82 - ALTERED MENTAL STATUS, UNSPECIFIED Status: Chronic Priority: High Current Visit: Yes Onset Date: ~09/06/21 Qualifiers: Altered mental status type: somnolence Qualified Code(s): R40.0 - Somnolence Annotation/Comment:: sedation held depakote held. (3) COVID-19 SNOMED Code(s): 382345300 Code(s): U07.1 - COVID-19 Status: Acute Priority: High Current Visit: Yes Onset Date: ~09/06/21 Annotation/Comment:: covid screen +// contact and symptom hx unknown. restart psyche meds (4) Diabetes mellitus SNOMED Code(s): 10569780 Code(s): E11.9 - TYPE 2 DIABETES MELLITUS WITHOUT COMPLICATIONS Status: Chronic Priority: Medium Current Visit: Yes Qualifiers: Diabetes mellitus type: type 2 Diabetes mellitus correction insulin use: with correction use Diabetes mellitus complication status: without complication Qualified Code(s): E11.9 - Type 2 diabetes mellitus without complications; Z79.4 - care home (current) use of insulin Annotation/Comment:: on dexamethazone. insulin drip (5) Schizophrenia SNOMED Code(s): 23500111 Code(s): F20.9 - SCHIZOPHRENIA, UNSPECIFIED Status: Chronic Priority: Hig h Current Visit: Yes Qualifiers: Schizophrenia type: unspecified Qualified Code(s): F20.9 - Schizophrenia, unspecified - Problem List Review Problem List Initiated/Reviewed/Updated: Yes - My Orders Last 24 Hours: My Active Orders 09/08/21 15:00 hydrOXYzine HCL [Atarax] 50 mg PO TID 09/08/21 21:00 Benztropine [Cogentin] 2 mg PO BID 09/09/21 06:00 Levothyroxine [Synthroid] 50 mcg PO ACBREAKFAST 09/09/21 09:00 Montelukast [Singulair] 10 mg PO DAILY Pantoprazole [ProTONIX] 40 mg PO DAILY buPROPion [Wellbutrin XL] 150 mg PO DAILY hydroCHLOROthiazide 12.5 mg PO DAILY lisinopriL [Prinivil] 20 mg PO DAILY - Assessment Assessment:: 09/07/21 Patient is a 41-year-old male with a past medical history of schizophrenia presenting who presented to the emergency room for altered mental status on 09/05/21. Patient was found by mother with a decreased level of responsiveness. When she last saw him on 09/04 she states he was having significant hallucinations and agitation. on 09/05, she came by the department this evening and found him this way. Does not know what happened. She states she tried to arouse him and speak with him for 20 minutes before calling the ambulance. On EMS arrival, patient was awake but not responding appropriately. He started sliding down in the chair but did not demonstrate any seizure-like activity. He was transferred to the emergency room without difficulty. There were no empty pill bottles besides doxycycline which was prescribed approximately 10 days ago. Otherwise, no evidence of drug paraphernalia or self-harm. Mother states that he does have a history of polysubstance abuse but does not know about him using recently. Today shows: Pt is Covid Positive Lungs: wheezing and loose cough..on 4 liters of O2...he is on albuterol nebs PRN pt receiving 2 riders of K pt is on 40 mg. of protonix push 6mg of decadron push Pt's Iv has been decreased from 150 to 50 Meds added: Cardizem for tachy...90 mg now and then 90mg at lunch...then recheck for further update Tylenol PRN for fever Labs ordered: D-dimer Rads ordered: Repeat chest x-ray...portable Plan: cont meds as prescribed, including newly added ones Repeat chest x-ray Extubate cont. tx of covid and steroid referral to Physical Therapy referral to mental health for depression, Schizophrenia, suicidal tendencies, and drug/alcohol abuse 09/08/2021 The patient is a 41-year-old gentleman who is currently awake and has been somewhat hostile at times. He will be retained in hospitalization pending placement in psychiatric facility. The patient has been restarted on his antipsychotic medication. The patient will continue with a regular diabetic diet as tolerated. He is on insulin sliding scale and this will continue. Repeat laboratory studies have been ordered. The patient also has a history of tobacco dependency and he has a nicotine patch 21 mg daily. Patient has been encouraged to ambulate. The patient also has been found to be positive for COVID-19 and this will hinder placement. Because of anxiety being associated with the use of steroids I have discontinued the patient's dexamethasone. This was done as the patient has not required oxygen. The patient will be retained until placement available. 09/09/2021 The patient is a 41-year-old gentleman who is doing much better today. He has been downgraded from the intensive care unit for now. He is currently awaiting placement as his mother has wanted him admitted due to his mental illness. The patient had been started on his psychiatric medications and he seems much more calm. Repeat laboratory studies have been ordered for the morning. This is to monitor his LFTs for his medications. The patient also will have daily nicotine patch. He has been encouraged to ambulate. He is also currently on Lovenox 40 mg subcutaneous for DVT prophylaxis. Regular diet as tolerated. The patient's treatment with ceftriaxone has been discontinued. The patient's been afebrile and no signs of infection. The patient should be appropriate for discharge once placement is available. - Plan Plan:: 09/07/21 Patient is a 41-year-old male with a past medical history of schizophrenia presenting who presented to the emergency room for altered mental status on 09/05/21. Patient was found by mother with a decreased level of responsiveness. When she last saw him on 09/04 she states he was having significant hallucinations and agitation. on 09/05, she came by the department this evening and found him this way. Does not know what happened. She states she tried to arouse him and speak with him for 20 minutes before calling the ambulance. On EMS arrival, patient was awake but not responding appropriately. He started sliding down in the chair but did not demonstrate any seizure-like activity. He was transferred to the emergency room without difficulty. There were no empty pill bottles besides doxycycline which was prescribed approximately 10 days ago. Otherwise, no evidence of drug paraphernalia or self-harm. Mother states that he does have a history of polysubstance abuse but does not know about him using recently. Today shows: Pt is Covid Positive Lungs: wheezing and loose cough..on 4 liters of O2...he is on albuterol nebs PRN pt receiving 2 riders of K pt is on 40 mg. of protonix push 6mg of decadron push Pt's Iv has been decreased from 150 to 50 Meds added: Cardizem for tachy...90 mg now and then 90mg at lunch...then recheck for further update Tylenol PRN for fever Labs ordered: D-dimer Rads ordered: Repeat chest x-ray...portable Plan: cont meds as prescribed, including newly added ones Repeat chest x-ray Extubate cont. tx of covid and steroid referral to Physical Therapy referral to mental health for depression, Schizophrenia, suicidal tendencies, and drug/alcohol abuse treat diabetes and restart some psyche meds but unclear how to proceed. [facility]
[2021-09-09] MEDS: Enoxaparin 40 MG/0.4 ML Syringe SUBCUT SCH (08:59)
[2021-09-09] MEDS: buPROPion 150 MG Tab.ER PO SCH (08:59)
[2021-09-09] MEDS: Divalproex Sodium Delayed-Release 500 MG Tab.CR PO SCH ×2 (08:59→20:20)
[2021-09-09] MEDS: Hydrochlorothiazide 12.5 MG Cap PO SCH (08:59)
[2021-09-09] MEDS: Montelukast 10 MG Tab PO SCH (09:00)
[2021-09-09] MEDS: Lisinopril 20 MG Tab PO SCH (09:00)
[2021-09-09] MEDS: hydrOXYzine HCl 50 MG Tab PO SCH ×3 (09:00→20:21)
[2021-09-09] MEDS: Pantoprazole 40 MG Tab.CR PO SCH (09:07)
[2021-09-09] MEDS: Insulin Lispro 100 Unit/ML 3 ML KwikPen SUBCUT SCH ×4 (09:08→20:31)
[2021-09-09] MEDS: Nicotine 21 MG/24 Hr Patch TRDERM SCH (09:08)
[2021-09-09] MEDS: Benztropine 1 MG Tab PO SCH ×2 (09:08→20:20)
[2021-09-09] MEDS: Loperamide 2 MG Cap PO PRN ×3 (09:08→20:19)
[2021-09-09] MEDS: Insulin Glargine,Hum.Rec.Anlog 100 UNIT/ML 3 ML Pen SUBCUT SCH (09:09)
[2021-09-09] MEDS: LORazepam 1 MG Tab PO PRN ×2 (11:49→15:44)
[2021-09-09] MEDS: cloZAPine 100 MG Tab PO SCH (20:21)
[2021-09-10] MEDS: Levothyroxine 50 MCG Tab PO SCH (06:31)
[2021-09-10] MEDS: Nicotine 21 MG/24 Hr Patch TRDERM SCH (08:03)
[2021-09-10] MEDS: Enoxaparin 40 MG/0.4 ML Syringe SUBCUT SCH (08:04)
[2021-09-10] MEDS: Insulin Lispro 100 Unit/ML 3 ML KwikPen SUBCUT SCH ×2 (08:04→11:53)
[2021-09-10] MEDS: Hydrochlorothiazide 12.5 MG Cap PO SCH (08:05)
[2021-09-10] MEDS: Lisinopril 20 MG Tab PO SCH (08:05)
[2021-09-10] MEDS: Benztropine 1 MG Tab PO SCH (08:05)
[2021-09-10] MEDS: buPROPion 150 MG Tab.ER PO SCH (08:05)
[2021-09-10] MEDS: Divalproex Sodium Delayed-Release 500 MG Tab.CR PO SCH (08:05)
[2021-09-10] MEDS: Pantoprazole 40 MG Tab.CR PO SCH (08:05)
[2021-09-10] MEDS: Montelukast 10 MG Tab PO SCH (08:06)
[2021-09-10] MEDS: Insulin Glargine,Hum.Rec.Anlog 100 UNIT/ML 3 ML Pen SUBCUT SCH (08:06)
[2021-09-10 08:19] VITALS: BP 109/79; PULSE 105
[2021-09-10] MEDS: hydrOXYzine HCl 50 MG Tab PO SCH (08:26)
[2021-09-10] MEDS: LORazepam 1 MG Tab PO PRN (09:08)
[2021-09-10] MEDS: Loperamide 2 MG Cap PO PRN (09:08)
--- NOTE | 2021-09-10 09:15 | PCM.DCSUM1 ---
Discharge Summary - Hospital Course HPI Initial Comments: Patient is a 41-year-old male with a past medical history of schizophrenia presenting to the emergency room for altered mental status. Patient was found by mother with a decreased level of responsiveness. She saw him yesterday states he was having significant hallucinations and agitation. Today, she came by the department this evening and found him this way. Does not know what happened. She states she tried to arouse him and speak with him for 20 minutes before calling the ambulance. On EMS arrival, patient was awake but not responding appropriately. He started sliding down in the chair but did not demonstrate any seizure-like activity. He was transferred to the emergency room without difficulty. There were no empty pill bottles besides doxycycline which was prescribed approximately 10 days ago. Otherwise, no evidence of drug paraphernalia or self-harm. Mother states that he does have a history of polysubstance abuse but does not know about him using recently. patient 41 year old male intubated and sedated and paralysed form e.r. after presenting with obtundation and resp difficulty. hx of chronic schizophrenia and drug abuse. depakote levels very high and poison control notified/ recommended i.v. carnatine and repeat levels in 4 hours which have come down form 156 to 93 and no changes noted in lfts form e.r. no known hx of seizures and depakote thought to be releated to behaviors/depression an mood disorder. drug screen shows + cocaine. etoh -. ct scan head - b.p normal currently p.e. limited . neuro paralyzed. skin : no bruises or skin markings or skin breaks. heent limited. exam. no neck abnormalities palpated. lungs breathing easily per vent rate 18. abd benign b.s. no hepatomegaly or masses noted. extremities well perfused and no angulation. assess: 41 year old cauc. male on vent intubated in e.r. with loc for unknown reason and duration. hx of possible overdose. hx of cocaine use and pos. urine test. hx of schizophrhenia with recent hallucinations reported yesterday. hx of high level depakote requiring i.v. carnitine. hx of freq non compliance and chronic mental illness. plan cont vent support and try to reassess mental status with allowing to decrease sedation to see if neuro responses normal. no myoglobiuria detected. no def atn . no brain injury or bleed detected. monitor vss and urine output/ Diagnosis: Stroke: No - Discharge Data Discharge Date: 09/10/21 Discharge Disposition: DC/Tfer to Psych Hosp/Unit 65 Condition: Good - Referral to Home Health Primary Care Physician: Georgia Cardenas MD - Patient Summary/Data Consults: Consultations 09/06/21 09:25 Consult to Case Management/Library Clerical Assistant [CONS] Routine 09/07/21 09:24 PT Evaluation and Treatment [CONS] Routine Hospital Course: Patient is a 41-year-old male with a past medical history of schizophrenia presenting who presented to the emergency room for altered mental status on 09/05/21. Patient was found by mother with a decreased level of responsiveness. When she last saw him on 09/04 she states he was having significant hallucinations and agitation. on 09/05, she came by the department this evening and found him this way. Does not know what happened. She states she tried to arouse him and speak with him for 20 minutes before calling the ambulance. On EMS arrival, patient was awake but not responding appropriately. He started sliding down in the chair but did not demonstrate any seizure-like activity. He was transferred to the emergency room without difficulty. There were no empty pill bottles besides doxycycline which was prescribed approximately 10 days ago. Otherwise, no evidence of drug paraphernalia or self-harm. Mother states that he does have a history of polysubstance abuse but does not know about him using recently. Today shows: Pt is Covid Positive Lungs: wheezing and loose cough..on 4 liters of O2...he is on albuterol nebs PRN pt receiving 2 riders of K pt is on 40 mg. of protonix push 6mg of decadron push Pt's Iv has been decreased from 150 to 50 Meds added: Cardizem for tachy...90 mg now and then 90mg at lunch...then recheck for further update Tylenol PRN for fever Labs ordered: D-dimer Rads ordered: Repeat chest x-ray...portable Plan: cont meds as prescribed, including newly added ones Repeat chest x-ray Extubate cont. tx of covid and steroid referral to Physical Therapy referral to mental health for depression, Schizophrenia, suicidal tendencies, and drug/alcohol abuse 09/08/2021 The patient is a 41-year-old gentleman who is currently awake and has been s omewhat hostile at times. He will be retained in hospitalization pending placement in psychiatric facility. The patient has been restarted on his antipsychotic medication. The patient will continue with a regular diabetic diet as tolerated. He is on insulin sliding scale and this will continue. Repeat laboratory studies have been ordered. The patient also has a history of tobacco dependency and he has a nicotine patch 21 mg daily. Patient has been encouraged to ambulate. The patient also has been found to be positive for COVID-19 and this will hinder placement. Because of anxiety being associated with the use of steroids I have discontinued the patient's dexamethasone. This was done as the patient has not required oxygen. The patient will be retained until placement available. 09/09/2021 The patient is a 41-year-old gentleman who is doing much better today. He has been downgraded from the intensive care unit for now. He is currently awaiting placement as his mother has wanted him admitted due to his mental illness. The patient had been started on his psychiatric medications and he seems much more calm. Repeat laboratory studies have been ordered for the morning. This is to monitor his LFTs for his medications. The patient also will have daily nicotine patch. He has been encouraged to ambulate. He is also currently on Lovenox 40 mg subcutaneous for DVT prophylaxis. Regular diet as tolerated. The patient's treatment with ceftriaxone has been discontinued. The patient's been afebrile and no signs of infection. The patient should be appropriate for discharge once placement is available. September 10, 2021 Patient will be transferred to [facility]. Accepting physician is Dr. Melvin Dowling. He is stable at time of discharge. Patient is a bit agitated and appears to not want to go to [facility]. will be notified for transport. - Patient Instructions Diet: Diabetic Diet - Discharge Plan *PRESCRIPTION DRUG MONITORING PROGRAM REVIEWED*: No *COPY OF PRESCRIPTION DRUG MONITORING REPORT IN PATIENT ALBA: No Home Medications: Home Meds Albuterol [Ventolin HFA] 2 puff INH DAILY 03/14/19 [History] Benztropine [Cogentin] 2 mg PO BID 03/14/19 [History] Divalproex Sodium [Depakote] 1,000 mg PO BEDTIME 03/14/19 [History] Insulin Glarg,Human.Rec.Analog [Lantus Solostar] 5 unit SQ ASDIRECTED PRN 03/14/19 [History] Lisinopril 20 mg PO DAILY 03/14/19 [History] cloZAPine [Clozapine] 200 mg PO BEDTIME 03/14/19 [History] hydroCHLOROthiazide [Microzide] 12.5 mg PO DAILY 03/14/19 [History] sitaGLIPtin Phos/Metformin HCl [Janumet 50-500 MG] 1 tab PO BID 03/14/19 [History] hydrOXYzine HCL [Atarax] 50 mg PO TID 06/22/21 [History] Famotidine [Pepcid] 40 mg PO DAILY 09/06/21 [History] Levothyroxine [Synthroid] 50 mcg PO DAILY 09/06/21 [History] Montelukast [Singulair] 10 mg PO DAILY 09/06/21 [History] atorvaSTATin [Lipitor] 20 mg PO BEDTIME 09/06/21 [History] buPROPion [buPROPion XL] 150 mg PO DAILY 09/06/21 [History] Oxygen Therapy Mode: Room Air Patient Handouts: Diabetes Mellitus and Sick Day Management, 10 Things You Can Do to Manage Your COVID-19 Symptoms at Home - [facility] (03/25/2021), Sepsis, Diagnosis, Adult, Steps to Quit Smoking Forms: ED Department Discharge Referrals: Georgia Cardenas MD [Primary Care Provider] - - Discharge Summary/Plan Comment DC Time >30 min.: Yes Total # of Minutes for Discharge Time: Total time spent includes seeing the patient, doing discharge paperwork, and arranging care. Total time was 35 minutes. - General Info Date of Service: 09/10/21 Admission Dx/Problem (Free Text: The patient was admitted and had been intubated. Subjective Update: The patient is a 41-year-old gentleman who is admitted to acute hospitalization on Sep 06, 2021 due to altered mental status. The patient has a long history of polysubstance abuse as well as significant psychiatric history of schizophrenia and bipolar disorder with behavioral outbursts. The patient was also found to be positive for COVID-19 infection. The patient was extubated on the same day that he was admitted. Today the patient says that he is feeling better. He is denied any new pain. The patient was restarted on his psychiatric medications that he normally takes at home. Functional Status: Reports: Pain Controlled - Review of Systems General: Reports: No Symptoms HEENT: Reports: No Symptoms Pulmonary: Reports: No Symptoms Cardiovascular: Reports: No Symptoms Musculoskeletal: Reports: No Symptoms - Patient Data Vitals - Most Recent: Last Vital Signs Temp 96.7 F L 09/10/21 08:15 Pulse 105 H 09/10/21 08:15 Resp 18 09/10/21 08:15 BP 109/79 09/10/21 08:15 Pulse Ox 98 09/10/21 08:15 Weight - Most Recent: 205 lb I&O - Last 24 hours: Intake & Output 09/09/21 09/10/21 09/10/21 22:59 06:59 14:59 Intake Total 2215 240 Output Total 1150 500 Balance 1065 -260 Lab Results - Last 24 hrs: Laboratory Results - last 24 hr 09/09/21 09/09/21 09/09/21 Range/Units 11:48 17:13 20:29 WBC (4.23-9.07) K/mm3 RBC (4.63-6.08) M/mm3 Hgb (13.7-17.5) gm/dl Hct (40.1-51.0) % MCV (79.0-92.2) fl MCH (25.7-32.2) pg MCHC (32.2-35.5) g/dl RDW Std Deviation (35.1-43.9) fL Plt Count (163-337) K/mm3 MPV (9.4-12.3) fl Neut % (Auto) (34.0-67.9) % Lymph % (Auto) (21.8-53.1) % [place] % (Auto) (5.3-12.2) % Eos % (Auto) (0.8-7.0) Baso % (Auto) (0.1-1.2) % Neut # (Auto) (1.78-5.38) K/mm3 Lymph # (Auto) (1.32-3.57) K/mm3 [place] # (Auto) (0.30-0.82) K/mm3 Eos # (Auto) (0.04-0.54) K/mm3 Baso # (Auto) (0.01-0.08) K/mm3 Manual Slide Review POC Glucose 193 H 158 H 161 H (70-99) mg/dL Magnesium (1.8-2.4) mg/dL 09/10/21 09/10/21 09/10/21 Range/Units 05:25 05:25 08:01 WBC 8.07 (4.23-9.07) K/mm3 RBC 4.46 L (4.63-6.08) M/mm3 Hgb 12.5 L (13.7-17.5) gm/dl Hct 38.9 L (40.1-51.0) % MCV 87.2 (79.0-92.2) fl MCH 28.0 (25.7-32.2) pg MCHC 32.1 L (32.2-35.5) g/dl RDW Std Deviation 43.9 (35.1-43.9) fL Plt Count 336 D (163-337) K/mm3 MPV 9.0 L (9.4-12.3) fl Neut % (Auto) 52.5 (34.0-67.9) % Lymph % (Auto) 37.7 (21.8-53.1) % [place] % (Auto) 9.3 (5.3-12.2) % Eos % (Auto) 0 L (0.8-7.0) Baso % (Auto) 0.1 (0.1-1.2) % Neut # (Auto) 4.24 (1.78-5.38) K/mm3 Lymph # (Auto) 3.04 (1.32-3.57) K/mm3 [place] # (Auto) 0.75 (0.30-0.82) K/mm3 Eos # (Auto) 0.00 L (0.04-0.54) K/mm3 Baso # (Auto) 0.01 (0.01-0.08) K/mm3 Manual Slide Review Normal smear POC Glucose 111 H (70-99) mg/dL Magnesium 1.8 (1.8-2.4) mg/dL [facility] Results - Last 24 hrs: Microbiology 09/07/21 14:40 Respiratory Culture - Final Sputum - Expectorated Gram Stain - Final Med Orders - Current: Current Medications Acetaminophen (Acetaminophen 325 Mg Tab) 650 mg PO Q4H PRN PRN Reason: Fever Last Admin: 09/07/21 09:17 Dose: 650 mg Documented by: Albuterol (Albuterol 0.083% 2.5 Mg/3 Ml Neb Soln) 2.5 mg NEB Q4HRRT PRN PRN Reason: Wheezing Last Admin: 09/07/21 10:03 Dose: 2.5 mg Documented by: Benztropine Mesylate (Benztropine 1 Mg Tab) 2 mg PO BID [facility] Last Admin: 09/10/21 08:05 Dose: 2 mg Documented by: Bupropion HCl (Bupropion 150 Mg Tab.Er) 150 mg PO DAILY [facility] Last Admin: 09/10/21 08:05 Dose: 150 mg Documented by: Clozapine (Clozapine 100 Mg Tab) 200 mg PO BEDTIME [facility] Last Admin: 09/09/21 20:21 Dose: 200 mg Documented by: Divalproex Sodium (Divalproex Sodium Delayed-Release 500 Mg Tab.Cr) 500 mg PO DAILY [facility] Last Admin: 09/10/21 08:05 Dose: 500 mg Documented by: Divalproex Sodium (Divalproex Sodium Delayed-Release 500 Mg Tab.Cr) 1,000 mg PO BEDTIME [facility] Last Admin: 09/09/21 20:20 Dose: 1,000 mg Documented by: Enoxaparin Sodium (Enoxaparin 40 Mg/0.4 Ml Syringe) 40 mg SUBCUT DAILY [facility] Last Admin: 09/10/21 08:04 Dose: 40 mg Documented by: Hydrochlorothiazide (Hydrochlorothiazide 12.5 Mg Cap) 12.5 mg PO DAILY [facility] Last Admin: 09/10/21 08:05 Dose: 12.5 mg Documented by: Hydroxyzine HCl (Hydroxyzine Hcl 50 Mg Tab) 50 mg PO TID [facility] Last Admin: 09/10/21 08:26 Dose: 50 mg Documented by: Insulin Glargine (Insulin Glargine,Hum.Rec.Anlog 100 Unit/Ml 3 Ml Pen) 30 unit SUBCUT DAILY [facility] Last Admin: 09/10/21 08:06 Dose: 30 units Documented by: Insulin Human Lispro (Insulin Lispro 100 Unit/Ml 3 Ml Kwikpen) 0 unit SUBCUT WITHMEALSANDBED [facility]; Protocol Last Admin: 09/10/21 08:04 Dose: Not Given Documented by: Levothyroxine Sodium (Levothyroxine 50 Mcg Tab) 50 mcg PO ACBREAKFAST [facility] Last Admin: 09/10/21 06:31 Dose: 50 mcg Documented by: Lisinopril (Lisinopril 20 Mg Tab) 20 mg PO DAILY [facility] Last Admin: 09/10/21 08:05 Dose: 20 mg Documented by: Loperamide HCl (Loperamide 2 Mg Cap) 4 mg PO Q4H PRN PRN Reason: Diarrhea Last Admin: 09/10/21 09:08 Dose: 4 mg Documented by: Lorazepam (Lorazepam 1 Mg Tab) 2 mg PO Q4H PRN PRN Reason: Agitation Last Admin: 09/10/21 09:08 Dose: 2 mg Documented by: Miscellaneous Information (Remove Nicotine Patch) 1 ea TRDERM DAILY [facility] Last Admin: 09/10/21 08:06 Dose: 1 ea Documented by: Montelukast Sodium (Montelukast 10 Mg Tab) 10 mg PO DAILY [facility] Last Admin: 09/10/21 08:06 Dose: 10 mg Documented by: Nicotine (Nicotine 21 Mg/24 Hr Patch) 21 mg TRDERM DAILY [facility] Last Admin: 09/10/21 08:03 Dose: 21 mg Documented by: Pantoprazole Sodium (Pantoprazole 40 Mg Tab.Cr) 40 mg PO DAILY [facility] Last Admin: 09/10/21 08:05 Dose: 40 mg Documented by: Discontinued Medications Dexamethasone (Dexamethasone 10 Mg/Ml Sdv) 6 mg IVPUSH ONETIME ONE Stop: 09/06/21 00:26 Last Admin: 09/06/21 00:45 Dose: 6 mg Documented by: Dexamethasone (Dexamethasone 4 Mg/Ml Sdv) 6 mg IVPUSH DAILY [facility] Last Admin: 09/08/21 08:30 Dose: 6 mg Documented by: Diltiazem HCl (Diltiazem Ir 30 Mg Tab) 90 mg PO ONETIME ONE Stop: 09/07/21 10:01 Last Admin: 09/07/21 09:56 Dose: 90 mg Documented by: Diltiazem HCl (Diltiazem Ir 30 Mg Tab) 90 mg PO ONETIME ONE Stop: 09/07/21 14:01 Last Admin: 09/07/21 14:24 Dose: Not Given Documented by: Divalproex Sodium (Divalproex Sodium Delayed-Release 500 Mg Tab.Cr) 1,000 mg PO BEDTIME [facility] Etomidate (Etomidate 2 Mg/Ml 20 Ml Sdv) 30 mg IVPUSH ONETIME ONE Stop: 09/06/21 00:01 Last Admin: 09/06/21 00:15 Dose: 30 mg Documented by: Sodium Chloride (Normal Saline) 1,000 mls @ 1,000 mls/hr IV ONETIME ONE Stop: 09/05/21 21:12 Last Admin: 09/05/21 20:24 Dose: 1,000 mls/hr Documented by: Sodium Chloride (Normal Saline) 1,000 mls @ 1,000 mls/hr IV ONETIME ONE Stop: 09/05/21 22:52 Last Admin: 09/05/21 22:22 Dose: 1,000 mls/hr Documented by: Sodium Chloride (Normal Saline) 1,000 mls @ 200 mls/hr IV ASDIRECTED [facility]AREN Last Admin: 09/05/21 23:24 Dose: 200 mls/hr Documented by: Propofol (Diprivan 100 Ml) 100 mls @ 2.858 mls/hr IV TITRATE [facility]AREN; Protocol Last Titration: 09/06/21 14:56 Dose: 0 mcg/kg/min, 0 mls/hr Documented by: Fentanyl 2,500 mcg/ Sodium (Chloride) 250 mls @ 9.525 mls/hr IV TITRATE KAREN; Protocol Last Titration: 09/06/21 14:56 Dose: 0 mcg/kg/hr, 0 mls/hr Documented by: Cefepime HCl 2 gm/ Sodium (Chloride) 50 mls @ 100 mls/hr IV ONETIME ONE Stop: 09/06/21 05:10 Last Admin: 09/06/21 05:09 Dose: 100 mls/hr Documented by: Potassium Chloride 10 meq/ (Premix) 100 mls @ 100 mls/hr IV Q1H [facility]AREN Stop: 09/06/21 13:14 Last Admin: 09/06/21 11:13 Dose: Not Given Documented by: Dextrose/Sodium Chloride (Dextrose 5%-1/2 Ns) 1,000 mls @ 25 mls/hr IV ASDIRECTED KAREN Last Infusion: 09/07/21 09:23 Dose: 25 mls/hr Documented by: Sodium Chloride (Normal Saline) 1,000 mls @ 999 mls/hr IV ONETIME ONE Stop: 09/06/21 10:19 Last Admin: 09/06/21 09:44 Dose: 999 mls/hr Documented by: Ceftriaxone Sodium 2 gm/ (Sodium Chloride) 100 mls @ 200 mls/hr IV Q24H [facility] Last Admin: 09/08/21 11:21 Dose: 200 mls/hr Documented by: Potassium Chloride 10 meq/ (Premix) 100 mls @ 100 mls/hr IV Q1H [facility] Stop: 09/07/21 11:14 Last Admin: 09/07/21 11:13 Dose: 100 mls/hr Documented by: Insulin Aspart (Insulin Aspart Protamine/Insulin Aspart 70-30 100 Units/Ml 10 Ml Vial) 0 unit SUBCUT QIDACANDBED [facility]; Protocol Insulin Human Lispro (Insulin Lispro 100 Unit/Ml 3 Ml Kwikpen) 0 unit SUBCUT WITHMEALSANDBED [facility]; Protocol Levocarnitine (Levocarnitine 1 Gm/5 Ml Sdv) 3 gm .ROUTE .STK-MED ONE Stop: 09/06/21 03:01 Midazolam HCl (Midazolam 1 Mg/Ml 2 Ml Sdv) 2 mg IVPUSH ONETIME ONE Stop: 09/05/21 20:01 Last Admin: 09/05/21 20:00 Dose: 2 mg Documented by: Naloxone HCl (Naloxone 0.4 Mg/Ml Sdv) 0.4 mg IVPUSH ONETIME ONE Stop: 09/05/21 19:54 Last Admin: 09/05/21 19:53 Dose: 0.4 mg Documented by: L-Carnitine 1g/5ml (Injectable Solution) 3,000 each IVPUSH ONETIME ONE Stop: 09/06/21 03:01 Last Admin: 09/06/21 03:12 Dose: 3,000 each Documented by: Pantoprazole Sodium (Pantoprazole 40 Mg Vial) 40 mg IVPUSH DAILY [facility] Last Admin: 09/08/21 08:31 Dose: 40 mg Documented by: Rocuronium [place] (Rocuronium 50 Mg/5 Ml Vial) 100 mg IVPUSH ONETIME ONE Stop: 09/06/21 00:01 Last Admin: 09/06/21 00:16 Dose: 100 mg Documented by: - Exam General: Reports: Alert, Oriented HEENT: Reports: Pupils Equal, Mucous Membr. Moist/[place] Neck: Reports: Supple Lungs: Reports: Clear to Auscultation, Normal Respiratory Effort Cardiovascular: Reports: Regular Rate, Regular Rhythm GI/Abdominal Exam: Normal Bowel Sounds, Soft, Non-Tender, No Organomegaly, No Distention, No Abnormal Bruit, No Mass, Pelvis Stable Extremities: Normal Inspection, Normal Range of Motion, Non-Tender, No Pedal Edema, Normal Capillary Refill Skin: Reports: Warm, Dry, Intact Neurological: Reports: No New Focal Deficit Psy/Mental Status: Reports: Alert, Agitated Discharge Operative/Procedures - Procedures Performed Intubation Indication: Respiratory Failure, Airway Protection
== END 2021-09-10 13:17 | DRG 208 ==
LOC: JD.ED 19:50 → JD.ICU 09-06 07:15
PROVIDERS: ADMIT Internal Medicine; ATTEND Internal Medicine
PROC: 3E0333Z Introduction of Anti-inflammatory into Peripheral Vein, Percutaneous Approach (ICD-10-PCS; 2021-09-06)
PROC: 0BH17EZ Insertion of Endotracheal Airway into Trachea, Via Natural or Artificial Opening (ICD-10-PCS; principal; 2021-09-07)
PROC: 5A1935Z Respiratory Ventilation, Less than 24 Consecutive Hours (ICD-10-PCS; 2021-09-07)
DX: U07.1 COVID-19 (principal); J96.01 Acute respiratory failure with hypoxia; F17.210 Nicotine dependence, cigarettes, uncomplicated; F19.10 Other psychoactive substance abuse, uncomplicated; H54.7 Unspecified visual loss; M62.82 Rhabdomyolysis; R41.82 Altered mental status, unspecified; I10 Essential (primary) hypertension; J45.909 Unspecified asthma, uncomplicated; K21.9 Gastro-esophageal reflux disease without esophagitis; F31.9 Bipolar disorder, unspecified; F41.9 Anxiety disorder, unspecified; F20.9 Schizophrenia, unspecified; E11.9 Type 2 diabetes mellitus without complications; E03.9 Hypothyroidism, unspecified; Z79.4 Long term (current) use of insulin; Z86.19 Personal history of other infectious and parasitic diseases; Z79.890 Hormone replacement therapy; Z79.899 Other long term (current) drug therapy; Z91.19 Patient's noncompliance with other medical treatment and regimen; T42.6X1A Poisoning by other antiepileptic and sedative-hypnotic drugs, accidental (unintentional), initial encounter
CPT/HCPCS: 31500; 36415 ×2; 70450; 71045; 80048; 80053; 80143 ×2; 80164; 80179; 80306; 80307; 81001; 82140 ×2; 82553; 82803; 82947; 83605 ×2; 84443; 85025; 87040 ×2; 87635; 93005; 96365; 96366; 96367; 96375 ×2; 99291; 99292; A9270; J0692; J1100; J2250; J2310; J2704; J3010 ×2; J3490; J7030 ×3; J7050 ×2; 36600; 51702; 83036; 83735; 84484; 85379; 86140; 87070; 87205; 94003; 94640; 97162-GP; 97530-GP; C9113; J0696; J1650; J1815; J3480; J7042; U0002

== ENCOUNTER 2021-10-28 23:45 | Emergency (ER) | payer MEDICAID, MEDICARE ==
[2021-10-29 00:14] VITALS: BP 142/87; PULSE 96
== END 2021-10-29 00:40 | disposition home or self-care (01) ==
LOC: JD.ED 23:45
DX: R20.2 Paresthesia of skin (principal); R20.0 Anesthesia of skin; I10 Essential (primary) hypertension; K21.9 Gastro-esophageal reflux disease without esophagitis; E11.9 Type 2 diabetes mellitus without complications; E03.9 Hypothyroidism, unspecified; Z79.4 Long term (current) use of insulin; Z79.899 Other long term (current) drug therapy; Z72.0 Tobacco use
CPT/HCPCS: 82947; 99283; 99284

== ENCOUNTER 2021-11-04 04:14 | Emergency (ER) | payer MEDICARE, MEDICAID ==
[2021-11-04 04:32] VITALS: BP 153/95; PULSE 89
[2021-11-04 05:56] LABS: ACETAMINOPHEN 0 ug/mL (10-30)
== END 2021-11-04 07:43 ==
LOC: JD.ED 04:14
DX: F20.9 Schizophrenia, unspecified (principal); J45.909 Unspecified asthma, uncomplicated; E11.9 Type 2 diabetes mellitus without complications; K21.9 Gastro-esophageal reflux disease without esophagitis; E03.9 Hypothyroidism, unspecified; Z20.822 Contact with and (suspected) exposure to COVID-19; Z72.0 Tobacco use; Z79.899 Other long term (current) drug therapy; Z79.4 Long term (current) use of insulin
CPT/HCPCS: 36415; 80053; 80143; 80164; 80179; 80306; 80307; 84443; 85025; 99285; U0002

== ENCOUNTER 2022-05-25 13:51 | Emergency (ER) | payer MEDICARE, MEDICAID ==
[2022-05-25 13:56] VITALS: PULSE 110
[2022-05-25 14:29] VITALS: BP 126/91
== END 2022-05-25 15:31 ==
LOC: JD.ED 13:51
DX: F20.9 Schizophrenia, unspecified (principal); J45.909 Unspecified asthma, uncomplicated; I10 Essential (primary) hypertension; E11.9 Type 2 diabetes mellitus without complications; F17.210 Nicotine dependence, cigarettes, uncomplicated; Z79.899 Other long term (current) drug therapy; Z79.84 Long term (current) use of oral hypoglycemic drugs; Z20.822 Contact with and (suspected) exposure to COVID-19
CPT/HCPCS: 36415; 80053; 80143; 80179; 80307; 84443; 85007; 85027; 99285; U0002

== ENCOUNTER 2022-08-14 17:47 | Emergency (ER) | payer MEDICARE, MEDICAID | END 2022-08-14 19:05 | disposition left against medical advice (07) | LOC: JD.ED 17:47 | DX: Z53.21 Procedure and treatment not carried out due to patient leaving prior to being seen by health care provider (principal) ==

== ENCOUNTER 2022-08-22 04:22 | Emergency (ER) | payer MEDICARE, MEDICAID ==
[2022-08-22 04:30] VITALS: BP 128/97; PULSE 88
[2022-08-22] MEDS ORDERED: Sodium Chloride 0.9% 10 ML Syringe FLUSH PRN (04:31)
[2022-08-22] MEDS ORDERED: Sodium Chloride 0.9% 1,000 ML IV SCH (04:45)
[2022-08-22 05:01] LABS: ESTIMATED GFR 114 mL/min (>60)
[2022-08-22] MEDS ORDERED: Polyethylene Glycol 3350 Powder 17 GM Packet PO ONE (06:30)
== END 2022-08-22 06:41 | disposition home or self-care (01) ==
LOC: JD.ED 04:22
DX: K59.01 Slow transit constipation (principal); I10 Essential (primary) hypertension; K21.9 Gastro-esophageal reflux disease without esophagitis; E11.9 Type 2 diabetes mellitus without complications; E03.9 Hypothyroidism, unspecified; Z79.899 Other long term (current) drug therapy
CPT/HCPCS: 36415; 71045; 74176; 80053; 81001; 83690; 83735; 85025; 86140; 99284; A9270; J3490

== ENCOUNTER 2022-09-08 12:04 | Emergency (ER) | payer MEDICARE, MEDICAID ==
[2022-09-08 12:32] VITALS: BP 154/103; PULSE 76
[2022-09-08 13:39] LABS: ESTIMATED GFR 86 mL/min (>60)
[2022-09-08 13:45] LABS: ACETAMINOPHEN 0 ug/mL (10-30)
[2022-09-08 13:46] LABS: CORONAVIRUS COVID-19 NAA NEGATIVE (NEGATIVE)
== END 2022-09-08 14:57 ==
LOC: JD.ED 12:04
DX: F31.9 Bipolar disorder, unspecified (principal); F15.90 Other stimulant use, unspecified, uncomplicated; I10 Essential (primary) hypertension; K21.9 Gastro-esophageal reflux disease without esophagitis; E11.9 Type 2 diabetes mellitus without complications; E03.9 Hypothyroidism, unspecified; Z79.899 Other long term (current) drug therapy; Z20.822 Contact with and (suspected) exposure to COVID-19; Z91.199 Patient's noncompliance with other medical treatment and regimen due to unspecified reason
CPT/HCPCS: 0241U; 36415; 80053; 80143; 80179; 80306; 80307; 84443; 85025; 99284

== ENCOUNTER 2022-11-06 23:54 | Emergency (ER) | payer MEDICARE, MEDICAID ==
[2022-11-07 00:25] VITALS: BP 105/67; PULSE 117
[2022-11-07] MEDS ORDERED: Acetaminophen 325 MG Tab PO ONE (00:54)
[2022-11-07] MEDS ORDERED: LORazepam 2 MG/ML SDV IM ONE (01:04)
== END 2022-11-07 04:43 | disposition home or self-care (01) ==
LOC: JD.ED 23:54
DX: M54.6 Pain in thoracic spine (principal); M79.662 Pain in left lower leg; J45.909 Unspecified asthma, uncomplicated; I10 Essential (primary) hypertension; E11.9 Type 2 diabetes mellitus without complications; Z79.899 Other long term (current) drug therapy; Z79.84 Long term (current) use of oral hypoglycemic drugs
CPT/HCPCS: 99284; A9270; 99283

== ENCOUNTER 2022-11-11 21:15 | Emergency (ER) | payer MEDICARE, MEDICAID ==
[2022-11-11] MEDS ORDERED: Sodium Chloride 0.9% 10 ML Syringe FLUSH PRN (21:25)
[2022-11-11] MEDS ORDERED: Naloxone 2 MG/2 ML Syringe IVPUSH ONE ×2 (21:27→21:41)
[2022-11-11] MEDS ORDERED: Naloxone 2 MG/2 ML Syringe ONE (21:37)
[2022-11-11 21:40] VITALS: BP 94/72; PULSE 126
[2022-11-11] MEDS ORDERED: Sodium Chloride 0.9% 1,000 ML IV SCH ×2 (21:45→23:45)
[2022-11-11] MEDS ORDERED: propofoL 100 ML ONE (23:06)
[2022-11-11 23:23] LABS: CORONAVIRUS COVID-19 NAA NEGATIVE (NEGATIVE)
[2022-11-11] MEDS ORDERED: Lidocaine 1% 10 ML MDV ONE (23:30)
[2022-11-11] MEDS ORDERED: Succinylcholine 200 MG/10 ML MDV ONE (23:30)
[2022-11-11] MEDS ORDERED: Propofol 200 MG/20 ML SDV ONE (23:30)
[2022-11-11] MEDS ORDERED: propofoL 100 ML IV SCH (23:45)
== END 2022-11-12 01:00 ==
LOC: JD.ED 21:15
DX: R41.0 Disorientation, unspecified (principal); T50.905A Adverse effect of unspecified drugs, medicaments and biological substances, initial encounter; J45.909 Unspecified asthma, uncomplicated; I10 Essential (primary) hypertension; K21.9 Gastro-esophageal reflux disease without esophagitis; E11.9 Type 2 diabetes mellitus without complications; E03.9 Hypothyroidism, unspecified; Z79.899 Other long term (current) drug therapy; Z79.84 Long term (current) use of oral hypoglycemic drugs; Z20.822 Contact with and (suspected) exposure to COVID-19
CPT/HCPCS: 0241U; 36415; 36600; 51702; 70450; 71045; 80053; 80143; 80179; 80306; 80307; 82803; 83605; 85025; 85610; 93005; 96360; 96361; 96374; 99285; J0330; J2310; J2704; J3490; J7030; 93010

== ENCOUNTER 2023-10-26 14:56 | Emergency (ER) | payer MEDICARE, MEDICAID ==
[2023-10-26 15:08] VITALS: BP 156/93; PULSE 98
[2023-10-26] MEDS: OLANZapine 10 MG Vial IM ONE (17:14)
== END 2023-10-26 16:58 | disposition left against medical advice (07) ==
LOC: JD.ED 14:56
DX: R45.851 Suicidal ideations (principal); I10 Essential (primary) hypertension; J45.909 Unspecified asthma, uncomplicated; E11.9 Type 2 diabetes mellitus without complications; E03.9 Hypothyroidism, unspecified; F17.210 Nicotine dependence, cigarettes, uncomplicated; Z79.84 Long term (current) use of oral hypoglycemic drugs; Z79.899 Other long term (current) drug therapy; Z88.0 Allergy status to penicillin; Z88.6 Allergy status to analgesic agent; Z88.5 Allergy status to narcotic agent
CPT/HCPCS: 99284

== ENCOUNTER 2023-12-27 15:57 | Inpatient (IN) | payer MEDICARE, MEDICAID ==
[2023-12-27 16:15] LABS: BASOPHILS PERCENT AUTO 0.2 % (0.0-1.0); HEMATOCRIT 51.2 % (42.0-52.0); HEMOGLOBIN 16.2 gm/dl (14.0-18.0); IMMATURE GRAN ABSOLUTE AUTO 0.04 K/mm3 (0.00-0.05); IMMATURE GRAN PERCENT AUTO 0.3 % (0.0-0.4); LYMPHOCYTES ABSOLUTE AUTO 0.6 K/mm3 (1.0-4.8); LYMPHOCYTES PERCENT AUTO 4.5 % (24.0-44.0); MEAN CORPUSCULAR HGB CONC 31.6 g/dl (32.0-36.0); MEAN CORPUSCULAR VOLUME 85.2 fl (83.0-99.0); MEAN PLATELET VOLUME 9.9 fl (9.4-12.4); MONOCYTES ABSOLUTE AUTO 1.1 K/mm3 (0.0-0.8); MONOCYTES PERCENT AUTO 9.1 % (0.0-8.0); NEUTROPHILS ABSOLUTE AUTO 10.6 K/mm3 (1.8-7.7); NEUTROPHILS PERCENT AUTO 85.9 % (41.0-71.0); PLATELET COUNT,PLT 287 K/mm3 (150-400); RED BLOOD CELL COUNT 6.01 M/mm3 (4.52-5.90); WHITE BLOOD CELL COUNT,WBC 12.31 K/mm3 (3.9-11.3)
[2023-12-27] MEDS: Sodium Chloride 0.9% 10 ML Syringe FLUSH PRN (16:21)
[2023-12-27] MEDS: Albuterol/Ipratropium 3.0-0.5 MG/3 ML Neb Soln NEB ONE ×2 (16:21→18:51)
[2023-12-27] MEDS: Naloxone 2 MG/2 ML Syringe IVPUSH ONE (16:21)
[2023-12-27 16:52] LABS: APPEARANCE,URINE CLEAR (Clear); BILIRUBIN,URINE 2+ (Negative); COLOR,URINE YELLOW (Yellow); GLUCOSE,URINE 3+ (Negative); KETONES,URINE 1+ (Negative); LEUKOCYTE ESTERASE,URINE NEGATIVE (Negative); NITRITE,URINE NEGATIVE (Negative); OCCULT BLOOD,URINE 2+ (Negative); PH,URINE 5.5 (5.0-8.0); PROTEIN,URINE 1+ (Negative); UROBILINOGEN,URINE 0.2 (0.2-1.0)
[2023-12-27 16:54] LABS: A/G RATIO 0.8 (1-2); ALBUMIN 3.2 g/dl (3.4-5.0); ANION GAP 22.1 (5-15); BILIRUBIN TOTAL 0.5 mg/dL (0.2-1.0); BUN/CREATININE RATIO 16.5 (14-18); CALCIUM 8.5 mg/dL (8.5-10.1); CREATININE 2.6 mg/dL (0.7-1.3); EST CRCL DRUG DOSING (CG) 46.64 mL/min; LACTIC ACID 5.9 mmol/L (0.4-2.0); POTASSIUM,K 4.1 mEq/L (3.5-5.1); PROTEIN TOTAL,TP 7.2 g/dl (6.4-8.2)
[2023-12-27 17:01] LABS: BACTERIA,URINE MODERATE /hpf (FEW); SQUAMOUS EPITHELIAL CELLS,UR 0-5 /hpf (0-5)
[2023-12-27 17:02] LABS: HYALINE CASTS,URINE 20-30 /lpf (0-5); MUCUS,URINE FEW /hpf (FEW)
[2023-12-27 17:03] LABS: BARBITURATE SCREEN,URINE NEGATIVE (CUTOFF=200); BENZODIAZEPINES SCREEN,URINE NEGATIVE (CUTOFF=150); BUPRENORPHINE SCREEN,URINE NEGATIVE (CUTOFF=10); METHADONE SCREEN, URINE NEGATIVE (CUT0FF=200); METHAMPHETAMINES SCREEN, URINE PRESUMPTIVE POSITIVE (CUTOFF=500); OXYCODONE SCREEN,URINE NEGATIVE (CUT0FF=100); THC SCREEN,URINE 20 NG/ML NEGATIVE (CUTOFF=50)
[2023-12-27 17:04] LABS: AMPHETAMINES SCREEN, URINE PRESUMPTIVE POSITIVE (CUTOFF=500)
[2023-12-27 17:07] LABS: CORONAVIRUS COVID-19 NAA NEGATIVE (NEGATIVE); INFLUENZA A NAA NEGATIVE (NEGATIVE); RESPIRATORY SYNCYTIAL VIR NAA NEGATIVE (NEGATIVE)
[2023-12-27] MEDS ORDERED: 50% Dextrose in Water 50 ML Syringe IVPUSH PRN (17:07)
[2023-12-27] MEDS ORDERED: Insulin Lispro Protamine/Lispro 75-25 100 Units/ML 10 ML Vial SUBCUT ONE (17:07)
[2023-12-27] MEDS: Doxycycline 100 MG in Sodium Chloride 0.9% 100 ML IV ONE (17:41)
[2023-12-27 17:50] LABS: BASE EXCESS VENOUS -4.9 (-4.0-2.0); BICARBONATE,VENOUS 20.3 meq/L (22-26); O2 SATURATION VENOUS 69.5; PCO2 VENOUS 40.1 mmHg (41-51); PH,VENOUS 7.33 (7.30-7.40)
[2023-12-27] MEDS: Sodium Chloride 0.9% 1,000 ML IV ONE ×3 (17:53→21:30)
[2023-12-27] MEDS: Diltiazem 125 MG in Sodium Chloride 0.9% 100 ML IV SCH ×2 (17:55→18:42)
[2023-12-27] MEDS: Insulin Lispro 100 Unit/ML 3 ML KwikPen SUBCUT ONE (18:10)
[2023-12-27 18:28] LABS: LACTIC ACID 5.3 mmol/L (0.4-2.0)
[2023-12-27] MEDS: Albuterol/Ipratropium 3.0-0.5 MG/3 ML Neb Soln NEB PRN (18:41)
[2023-12-27] MEDS ORDERED: Ondansetron 4 MG/2 ML SDV IV PRN (19:28)
[2023-12-27] MEDS ORDERED: Polyethylene Glycol 3350 Powder 17 GM Packet PO PRN (19:28)
[2023-12-27] MEDS ORDERED: Ketorolac 30 MG/ML SDV IM PRN (19:28)
[2023-12-27] MEDS ORDERED: Metoprolol Tartrate 25 MG Tab PO PRN (20:51)
[2023-12-27] MEDS ORDERED: Ketorolac 15 MG/ML SDV IVPUSH PRN (20:57)
[2023-12-27] MEDS ORDERED: cloZAPine 100 MG Tab PO SCH (21:00)
[2023-12-27] MEDS ORDERED: Gabapentin 300 MG Cap PO SCH (21:00)
[2023-12-27] MEDS ORDERED: Haloperidol Lactate 5 MG/ML SDV IVPUSH PRN (21:19)
[2023-12-27] MEDS ORDERED: LORazepam 2 MG/ML SDV IVPUSH PRN (21:20)
[2023-12-27] MEDS: Gabapentin 300 MG Cap PO ONE (21:32)
[2023-12-27] MEDS: Acetaminophen 325 MG Tab PO PRN (21:32)
[2023-12-27] MEDS: Enoxaparin 40 MG/0.4 ML Syringe SUBCUT SCH (21:35)
[2023-12-27 22:01] LABS: HEMOGLOBIN A1C 10.4 %
[2023-12-27 22:15] LABS: TSH 0.252 uIU/mL (0.358-3.74); VALPROIC ACID 81.5 ug/mL (50.0-100.0)
[2023-12-27] MEDS: Insulin Regular in 0.9 % NACL 100 ML IV SCH (22:26)
[2023-12-27] MEDS: Lactated Ringers 1,000 ML IV SCH (22:36)
[2023-12-27 23:11] LABS: T4 FREE 1.14 ng/dL (0.76-1.46)
[2023-12-28 02:47] LABS: A/G RATIO 0.8 (1-2); ALBUMIN 2.9 g/dl (3.4-5.0); ANION GAP 15.4 (5-15); BILIRUBIN TOTAL 0.5 mg/dL (0.2-1.0); CALCIUM 8.9 mg/dL (8.5-10.1); EST CRCL DRUG DOSING (CG) 60.64 mL/min; POTASSIUM,K 3.4 mEq/L (3.5-5.1); PROTEIN TOTAL,TP 6.5 g/dl (6.4-8.2)
[2023-12-28] MEDS: Levothyroxine 50 MCG Tab PO SCH (06:02)
[2023-12-28 07:10] LABS: BASOPHILS PERCENT AUTO 0.1 % (0.0-1.0); HEMATOCRIT 45.6 % (42.0-52.0); IMMATURE GRAN ABSOLUTE AUTO 0.02 K/mm3 (0.00-0.05); IMMATURE GRAN PERCENT AUTO 0.2 % (0.0-0.4); LYMPHOCYTES PERCENT AUTO 10.9 % (24.0-44.0); MEAN CORPUSCULAR HEMOGLOBIN 27.1 pg (28.0-32.0); MEAN CORPUSCULAR HGB CONC 32.9 g/dl (32.0-36.0); MEAN CORPUSCULAR VOLUME 82.5 fl (83.0-99.0); MONOCYTES ABSOLUTE AUTO 0.9 K/mm3 (0.0-0.8); MONOCYTES PERCENT AUTO 9.5 % (0.0-8.0); NEUTROPHILS ABSOLUTE AUTO 7.4 K/mm3 (1.8-7.7); NEUTROPHILS PERCENT AUTO 79.3 % (41.0-71.0); PLATELET COUNT,PLT 270 K/mm3 (150-400); RED BLOOD CELL COUNT 5.53 M/mm3 (4.52-5.90); WHITE BLOOD CELL COUNT,WBC 9.27 K/mm3 (3.9-11.3)
[2023-12-28 07:17] LABS: A/G RATIO 0.7 (1-2); ALBUMIN 2.6 g/dl (3.4-5.0); ANION GAP 15.6 (5-15); BILIRUBIN TOTAL 0.5 mg/dL (0.2-1.0); BUN/CREATININE RATIO 19.5 (14-18); CALCIUM 8.6 mg/dL (8.5-10.1); EST CRCL DRUG DOSING (CG) 60.64 mL/min; POTASSIUM,K 3.6 mEq/L (3.5-5.1); PROTEIN TOTAL,TP 6.2 g/dl (6.4-8.2)
[2023-12-28 08:03] LABS: SLIDE REVIEW ABNORMAL SMEAR
[2023-12-28] MEDS ORDERED: Divalproex Sodium Delayed-Release 500 MG Tab.CR PO SCH (09:00)
[2023-12-28] MEDS: Insulin Lispro 100 Unit/ML 3 ML KwikPen SUBCUT SCH ×2 (09:33→09:40)
[2023-12-28] MEDS: Metoprolol Tartrate 5 MG/5 ML SDV IVPUSH ONE ×3 (09:40→17:45)
[2023-12-28] MEDS: Insulin Glargine,Human Rec. Analog 100 Units/ML 3 ML Pen SUBCUT SCH (09:41)
[2023-12-28] MEDS: Bisacodyl 5 MG Tab PO SCH (09:48)
[2023-12-28] MEDS: Lisinopril 20 MG Tab PO SCH (09:49)
[2023-12-28] MEDS: Sennosides/Docusate Sodium 50-8.6 MG Tab PO SCH (09:49)
[2023-12-28] MEDS: Hydrochlorothiazide 12.5 MG Cap PO SCH (09:51)
[2023-12-28] MEDS: cloZAPine 100 MG Tab PO SCH (20:48)
[2023-12-28] MEDS: Divalproex Sodium 500 MG Tab.ER PO SCH (20:50)
[2023-12-28] MEDS ORDERED: cloZAPine 100 MG Tab PO SCH (21:00)
[2023-12-29 05:36] LABS: BASOPHILS PERCENT AUTO 0.1 % (0.0-1.0); HEMATOCRIT 43.7 % (42.0-52.0); HEMOGLOBIN 14.4 gm/dl (14.0-18.0); IMMATURE GRAN ABSOLUTE AUTO 0.04 K/mm3 (0.00-0.05); IMMATURE GRAN PERCENT AUTO 0.5 % (0.0-0.4); LYMPHOCYTES ABSOLUTE AUTO 1.3 K/mm3 (1.0-4.8); LYMPHOCYTES PERCENT AUTO 17.4 % (24.0-44.0); MEAN PLATELET VOLUME 10.4 fl (9.4-12.4); MONOCYTES ABSOLUTE AUTO 0.8 K/mm3 (0.0-0.8); MONOCYTES PERCENT AUTO 11.1 % (0.0-8.0); NEUTROPHILS ABSOLUTE AUTO 5.3 K/mm3 (1.8-7.7); NEUTROPHILS PERCENT AUTO 70.9 % (41.0-71.0); PLATELET COUNT,PLT 299 K/mm3 (150-400); RED BLOOD CELL COUNT 5.33 M/mm3 (4.52-5.90); WHITE BLOOD CELL COUNT,WBC 7.54 K/mm3 (3.9-11.3)
[2023-12-29 05:58] LABS: A/G RATIO 0.7 (1-2); ALBUMIN 2.4 g/dl (3.4-5.0); ANION GAP 14.9 (5-15); BILIRUBIN TOTAL 0.4 mg/dL (0.2-1.0); BUN/CREATININE RATIO 24.7 (14-18); CALCIUM 8.6 mg/dL (8.5-10.1); CREATININE 1.7 mg/dL (0.7-1.3); EST CRCL DRUG DOSING (CG) 71.34 mL/min; POTASSIUM,K 3.9 mEq/L (3.5-5.1); PROTEIN TOTAL,TP 5.9 g/dl (6.4-8.2)
[2023-12-29] MEDS: Levothyroxine 25 MCG Tab PO SCH (06:02)
[2023-12-29] MEDS: Sodium Chloride 0.9% 1,000 ML IV ONE (08:57)
[2023-12-29] MEDS: Insulin Glargine,Human Rec. Analog 100 Units/ML 3 ML Pen SUBCUT SCH (09:01)
[2023-12-29] MEDS: Insulin Lispro 100 Unit/ML 3 ML KwikPen SUBCUT SCH (11:18)
[2023-12-29] MEDS: Lactated Ringers 1,000 ML IV ONE (19:20)
[2023-12-30] MEDS: Sodium Chloride 0.9% 1,000 ML IV ONE (00:45)
[2023-12-30 05:40] LABS: BASOPHILS PERCENT AUTO 0.3 % (0.0-1.0); HEMATOCRIT 39.1 % (42.0-52.0); IMMATURE GRAN ABSOLUTE AUTO 0.07 K/mm3 (0.00-0.05); LYMPHOCYTES ABSOLUTE AUTO 2.1 K/mm3 (1.0-4.8); LYMPHOCYTES PERCENT AUTO 29.2 % (24.0-44.0); MEAN CORPUSCULAR HEMOGLOBIN 26.9 pg (28.0-32.0); MEAN CORPUSCULAR VOLUME 84.3 fl (83.0-99.0); MEAN PLATELET VOLUME 9.6 fl (9.4-12.4); MONOCYTES ABSOLUTE AUTO 0.8 K/mm3 (0.0-0.8); MONOCYTES PERCENT AUTO 11.6 % (0.0-8.0); NEUTROPHILS ABSOLUTE AUTO 4.2 K/mm3 (1.8-7.7); NEUTROPHILS PERCENT AUTO 57.9 % (41.0-71.0); PLATELET COUNT,PLT 261 K/mm3 (150-400); RED BLOOD CELL COUNT 4.64 M/mm3 (4.52-5.90); WHITE BLOOD CELL COUNT,WBC 7.25 K/mm3 (3.9-11.3)
[2023-12-30 05:42] LABS: HEMOGLOBIN 12.5 gm/dl (14.0-18.0)
[2023-12-30 06:11] LABS: A/G RATIO 0.7 (1-2); ANION GAP 11.4 (5-15); BILIRUBIN TOTAL 0.4 mg/dL (0.2-1.0); BUN/CREATININE RATIO 26.4 (14-18); CALCIUM 7.9 mg/dL (8.5-10.1); CREATININE 1.4 mg/dL (0.7-1.3); EST CRCL DRUG DOSING (CG) 86.63 mL/min; POTASSIUM,K 3.4 mEq/L (3.5-5.1); PROTEIN TOTAL,TP 4.8 g/dl (6.4-8.2)
[2023-12-30] MEDS: Insulin Glargine,Human Rec. Analog 100 Units/ML 3 ML Pen SUBCUT SCH (08:35)
[2023-12-30] MEDS: Insulin Lispro 100 Unit/ML 3 ML KwikPen SUBCUT SCH (11:13)
[2023-12-30 15:29] VITALS: BP 143/73; PULSE 106
[2023-12-30] MEDS: Loperamide 2 MG Cap PO PRN (15:36)
[2023-12-31] MEDS ORDERED: Insulin Glargine,Human Rec. Analog 100 Units/ML 3 ML Pen SUBCUT SCH (09:00)
== END 2023-12-30 17:29 | disposition left against medical advice (07) | DRG 917 ==
LOC: JD.ED 15:57 → JD.ICU 19:28
PROVIDERS: ADMIT Student in an Organized Health Care Education/Training Program; ATTEND Student in an Organized Health Care Education/Training Program
DX: F15.90 Other stimulant use, unspecified, uncomplicated (principal); T43.211A Poisoning by selective serotonin and norepinephrine reuptake inhibitors, accidental (unintentional), initial encounter; G92.9 Unspecified toxic encephalopathy; Z91.198 Patient's noncompliance with other medical treatment and regimen for other reason; J96.01 Acute respiratory failure with hypoxia; J69.0 Pneumonitis due to inhalation of food and vomit; J18.9 Pneumonia, unspecified organism; N17.0 Acute kidney failure with tubular necrosis; F20.0 Paranoid schizophrenia; Z88.8 Allergy status to other drugs, medicaments and biological substances; E87.20 Acidosis, unspecified; I10 Essential (primary) hypertension; D72.89 Other specified disorders of white blood cells; R41.0 Disorientation, unspecified; F41.9 Anxiety disorder, unspecified; E03.9 Hypothyroidism, unspecified; J45.909 Unspecified asthma, uncomplicated; E86.0 Dehydration; K21.9 Gastro-esophageal reflux disease without esophagitis; E11.65 Type 2 diabetes mellitus with hyperglycemia; F15.10 Other stimulant abuse, uncomplicated; K76.0 Fatty (change of) liver, not elsewhere classified; Z88.0 Allergy status to penicillin; Z88.5 Allergy status to narcotic agent; Z88.6 Allergy status to analgesic agent; Z79.84 Long term (current) use of oral hypoglycemic drugs; Z91.148 Patient's other noncompliance with medication regimen for other reason; Z79.899 Other long term (current) drug therapy
CPT/HCPCS: 0241U; 36415; 71045; 76705; 80053; 80164; 80306; 80307; 81001; 82728; 82803; 82947; 83036; 83540; 83605; 84439; 84443; 84484; 85025; 87040; 93005; 94640; 96361; 96365; 96375; 99285; 93010; 99223; 99233; 99238; 99284; A9270-GY; J1650; J1815; J1815-GY; J2310; J3490; J7030; J7120; J7620-GY

== ENCOUNTER 2024-01-03 13:35 | Emergency (ER) | payer MEDICARE, MEDICAID ==
[2024-01-03 14:31] LABS: BASOPHILS PERCENT AUTO 0.2 % (0.0-1.0); HEMATOCRIT 38.3 % (42.0-52.0); HEMOGLOBIN 12.2 gm/dl (14.0-18.0); IMMATURE GRAN ABSOLUTE AUTO 0.33 K/mm3 (0.00-0.05); IMMATURE GRAN PERCENT AUTO 3.8 % (0.0-0.4); LYMPHOCYTES ABSOLUTE AUTO 2.2 K/mm3 (1.0-4.8); LYMPHOCYTES PERCENT AUTO 25.1 % (24.0-44.0); MEAN CORPUSCULAR HEMOGLOBIN 26.8 pg (28.0-32.0); MEAN CORPUSCULAR HGB CONC 31.9 g/dl (32.0-36.0); MEAN CORPUSCULAR VOLUME 84.2 fl (83.0-99.0); MEAN PLATELET VOLUME 8.6 fl (9.4-12.4); MONOCYTES PERCENT AUTO 11.4 % (0.0-8.0); NEUTROPHILS ABSOLUTE AUTO 5.1 K/mm3 (1.8-7.7); NEUTROPHILS PERCENT AUTO 59.5 % (41.0-71.0); PLATELET COUNT,PLT 301 K/mm3 (150-400); RED BLOOD CELL COUNT 4.55 M/mm3 (4.52-5.90)
[2024-01-03 15:03] LABS: A/G RATIO 0.8 (1-2); ALBUMIN 2.4 g/dl (3.4-5.0); ANION GAP 10.8 (5-15); BILIRUBIN TOTAL 0.2 mg/dL (0.2-1.0); BUN/CREATININE RATIO 7.9 (14-18); CREATININE 1.4 mg/dL (0.7-1.3); EST CRCL DRUG DOSING (CG) 75.44 mL/min; POTASSIUM,K 3.8 mEq/L (3.5-5.1); PROTEIN TOTAL,TP 5.6 g/dl (6.4-8.2); TSH 1.914 uIU/mL (0.358-3.74)
[2024-01-03 15:23] LABS: BARBITURATE SCREEN,URINE NEGATIVE (CUTOFF=200); BENZODIAZEPINES SCREEN,URINE NEGATIVE (CUTOFF=150); BUPRENORPHINE SCREEN,URINE NEGATIVE (CUTOFF=10); METHADONE SCREEN, URINE NEGATIVE (CUT0FF=200); METHAMPHETAMINES SCREEN, URINE NEGATIVE (CUTOFF=500); OXYCODONE SCREEN,URINE NEGATIVE (CUT0FF=100); THC SCREEN,URINE 20 NG/ML NEGATIVE (CUTOFF=50)
[2024-01-03 15:24] LABS: AMPHETAMINES SCREEN, URINE NEGATIVE (CUTOFF=500)
[2024-01-03] MEDS: OLANZapine 5 MG Tab PO ONE (20:24)
[2024-01-03 21:14] VITALS: BP 157/84; PULSE 89
== END 2024-01-03 20:46 ==
LOC: JD.ED 13:35
DX: F28 Other psychotic disorder not due to a substance or known physiological condition (principal); I10 Essential (primary) hypertension; K21.9 Gastro-esophageal reflux disease without esophagitis; E11.9 Type 2 diabetes mellitus without complications; E03.9 Hypothyroidism, unspecified; Z79.899 Other long term (current) drug therapy; Z86.19 Personal history of other infectious and parasitic diseases
CPT/HCPCS: 36415; 80053; 80143; 80179; 80306; 80307; 84443; 85025; 93005; 93010; 99284; 99285; A9270-GY

== ENCOUNTER 2024-03-20 15:43 | Emergency (ER) | payer MEDICARE, MEDICAID ==
[2024-03-20 16:21] LABS: BASOPHILS PERCENT AUTO 0.1 % (0.0-1.0); EOSINOPHILS PERCENT AUTO 0.1 % (0.0-6.0); HEMOGLOBIN 13.2 gm/dl (14.0-18.0); IMMATURE GRAN ABSOLUTE AUTO 0.02 K/mm3 (0.00-0.05); IMMATURE GRAN PERCENT AUTO 0.3 % (0.0-0.4); LYMPHOCYTES ABSOLUTE AUTO 2.9 K/mm3 (1.0-4.8); LYMPHOCYTES PERCENT AUTO 38.2 % (24.0-44.0); MEAN CORPUSCULAR VOLUME 84.9 fl (83.0-99.0); MEAN PLATELET VOLUME 8.9 fl (9.4-12.4); MONOCYTES ABSOLUTE AUTO 0.5 K/mm3 (0.0-0.8); MONOCYTES PERCENT AUTO 6.2 % (0.0-8.0); NEUTROPHILS ABSOLUTE AUTO 4.2 K/mm3 (1.8-7.7); NEUTROPHILS PERCENT AUTO 55.1 % (41.0-71.0); PLATELET COUNT,PLT 305 K/mm3 (150-400); RED BLOOD CELL COUNT 4.71 M/mm3 (4.52-5.90); WHITE BLOOD CELL COUNT,WBC 7.69 K/mm3 (3.9-11.3)
[2024-03-20 16:28] VITALS: BP 163/99; PULSE 89
[2024-03-20] MEDS ORDERED: diphenhydrAMINE 50 MG/ML SDV IM ONE (16:42)
[2024-03-20] MEDS ORDERED: OLANZapine 10 MG Vial IM ONE (16:42)
[2024-03-20] MEDS ORDERED: LORazepam 2 MG/ML SDV IVPUSH ONE (16:42)
[2024-03-20 16:51] LABS: A/G RATIO 1.4 (1-2); ALANINE AMINOTRANSFERASE,ALT 25 U/L (16-63); ALBUMIN 3.9 g/dl (3.4-5.0); ALKALINE PHOSPHATASE 101 U/L (46-116); ANION GAP 14.3 (5-15); ASPARTATE AMNIOTRANSFERASE,AST 17 U/L (15-37); BILIRUBIN TOTAL 0.5 mg/dL (0.2-1.0); BLOOD UREA NITROGEN,BUN 10 mg/dL (7-18); CALCIUM 9.1 mg/dL (8.5-10.1); CARBON DIOXIDE,CO2 27 mEq/L (21-32); CHLORIDE,CL 103 mEq/L (98-107); ESTIMATED GFR 96 mL/min (>60); GLUCOSE RANDOM 133 mg/dL (70-99); POTASSIUM,K 4.3 mEq/L (3.5-5.1); PROTEIN TOTAL,TP 6.7 g/dl (6.4-8.2); SODIUM,NA 140 mEq/L (136-145); TSH 2.827 uIU/mL (0.358-3.74)
[2024-03-20 16:57] LABS: ACETAMINOPHEN 0 ug/mL (10-30)
== END 2024-03-20 16:43 | disposition home or self-care (01) ==
LOC: JD.ED 15:43
DX: F20.0 Paranoid schizophrenia (principal); R45.851 Suicidal ideations; I10 Essential (primary) hypertension; E03.9 Hypothyroidism, unspecified; E11.9 Type 2 diabetes mellitus without complications; Z79.899 Other long term (current) drug therapy
CPT/HCPCS: 36415; 80053; 80143; 80179; 80307; 84443; 85025; 99285

== ENCOUNTER 2024-04-08 17:06 | Emergency (ER) | payer MEDICARE, MEDICAID ==
[2024-04-08 17:18] VITALS: BP 94/66; PULSE 120
== END 2024-04-08 17:39 | disposition left against medical advice (07) ==
LOC: JD.ED 17:06
DX: R10.12 Left upper quadrant pain (principal); I10 Essential (primary) hypertension; J45.909 Unspecified asthma, uncomplicated; E11.9 Type 2 diabetes mellitus without complications; E03.9 Hypothyroidism, unspecified; Z79.890 Hormone replacement therapy; Z79.899 Other long term (current) drug therapy
CPT/HCPCS: 99283; 99284